=== PATIENT | female | born 1990 | race Caucasian/White ===

== ENCOUNTER 2022-03-21 13:57 | Outpatient (CLI) | payer MEDICAID, SELFPAY ==
--- OUTSIDE RECORDS SUMMARY | 2022-03-21 14:28 | XMS_ITS | Encounter Summary ---
:1990 Author Organization [facility] Address [address] [place] [address] Care Team Providers Name Role Phone Simone Glover APRN, C.N.P. Primary Care Provider Unavailable Reason for Referral Specialty Diagnoses / Procedures Referred By Contact Refer red To Contact Simone Glover APRN, C.N.P. [facility] Region [address] [place] [phone] Referral ID Status Reason Start Date Expiration Date Visits Requ ested Visits Authorized HSTANDER Encounter Details Date Type Department Care Team Description 03/29/2021 Orders Only [facility] Sim[facility] Glover APRN , C.N.P. Social History Tobacco Use Types Packs/Day Years Used Date Smoking Tobacco: Former Cigarettes Quit : 2015 Smokeless Tobacco: Never Alcohol Use Standard Drinks/Week Comments No 0 (1 standard drink = 0.6 oz pure alcoho l) Sex Assigned at Date Recorded Not on file documented as of this encounter Plan of Treatment Scheduled Referrals Name Type Priority Associated Order Schedule Diagnoses Covid immunization Outpatient Referral Routine Ex pected: office visit Booster 021 (Approximate), Expires: 03/29/2022 documented as of this encounter Visit Diagnoses Not on filedocumented in this encounter Additional Health Concerns Assessment Noted Time PHQ-9 Depression Total Score: 9 03/03/2016 11:54 AM CD T documented as of this encounter Care Teams Corporate Associate Attorney Relationship Specialty Start Date End Date Simone Glover APRN, C.N.P. PCP - General Family Medicine 12/31/20 12/15/21 documented as of this encounter
--- OUTSIDE RECORDS SUMMARY | 2022-03-21 14:28 | XMS_ITS | Clinical Summary ---
:1990 Author Organization [facility] Address [address] [place] [address] Care Team Providers Name Role Phone Funmi Alvarez APRN, C.N.P. Primary Care Provider Unavailable Source Comments Patient records contain information from all sites at [facility]. For routine questions regarding patient records, call [phone] during business hours, M-F 8:00 AM - 5:00 PM Central Time. Record requests for emergency care only can be directed to [phone] at any time.[facility] Allergies No known active allergies Medications Medication Sig Dispensed Refills Start Date End Date Status Take 1 tablet by 0 Act katherine [id number] 27 mouth daily. mg iron- 1 mg tablet triamcinolone Apply 1 application 80 g 0 12/27/2021 Active (KENALOG) 0.1 % topically 2 (two) ointment times a day as needed for irritation or rash. Apply to rash. 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 12/27/2021 Nurse Triage Family Medicine Alcira Linares Rash M.S.N., R.N. from Last 3 Months Immunizations Name Administration Dates Next Due 4vHPV (discontinued) 08/14/2008, 01/07/2007, 08/28/2006 DTaP (Infanrix, Tripedia) 07/30/1993, 12/30/1992, 11/30/1991 , 11/28/1990 HepB, Unspecified 10/19/2000, 12/29/1998, 06/02/1998 Influenza TIV (IM) 01/31/2012, 02/12/2009, 03/06/2006 Influenza, Seasonal, Injectable 01/31/2012, 02/12/2009, 1109/2005 Influenza, Unspecified 03/03/2016, 06/24/2013 MMR 11/30/1991, 11/28/1990 Polio, Unspecified 07/30/1993, 12/30/1992, 11/30/1991, 11/28/1990 Td (Adult), adsorbed 10/16/2002 Tdap 06/01/2018, 08/28/2006 ZOLTAN 12/31/1998 influenza vaccine quad 03/03/2016 (FLUZONE/FLUARIX) (6 months and older)(PF) Family History Medical History Relation Name Comments Diabetes Aunt maternal Alzheimer's disease Grandmother maternal Diabetes Grandmother maternal Diabetes Mother Diabetes Uncle maternal Relation Name Status Comments Aunt maternal Grandmother maternal Mother Uncle maternal Social History Tobacco Use Types Packs/Day Years Used Date Smoking Tobacco: Former Cigarettes Quit : 2015 Smokeless Tobacco: Never Tobacco Cessation: Counseling Given: Not Answered Alcohol Use Standard Drinks/Week Comments No 0 (1 standard drink = 0.6 oz pure alcoho l) Sex Assigned at Date Recorded Not on file Last Filed Vital Signs Vital Sign Reading Time Taken Comments Blood Pressure 116/79 12/27/2021 3:24 PM CDT Pulse 75 12/27/2021 3:24 PM CDT Temperature 36.4 ??C (97.6 ??F) 12/27/2021 3:24 PM CDT Respiratory Rate 16 06/19/2018 12:49 PM RESOLUTION MANAGER Oxygen Saturation 98% 04/14/2017 11:32 AM RESOLUTION MANAGER Inhaled Oxygen Concentration - - Weight 78.2 kg (172 lb 6.4 oz) 06/19/2018 12:49 PM RESOLUTION MANAGER Height 156 cm (5' 1.42) 06/19/2018 12:49 PM RESOLUTION MANAGER Body Mass Index 32.13 06/19/2018 12:49 PM RESOLUTION MANAGER Plan of Treatment Health Maintenance Due Date Last Done Comments Depression Monitoring 1990 (PHQ-9) COVID-19 Vaccine (3 - 11/19/2020 09/24/2020, 07/15/2020 Booster for Moderna series) Influenza Vaccine (#1) 2022 03/03/2016, 03/03/2016, 06/24/2013, Additional history exists Cervical Cancer Screening 09/13/2026 09/13/2021, 01/16/2018 , 01/16/2018, Additional history exists DTaP,Tdap,and Td Vaccines 06/01/2028 06/01/2018, 08/28/2006 , (7 - Td or Tdap) 10/16/2002, Additional history exists Hepatitis B Vaccines Completed 10/19/2000, 12/29/1998, 06/02/1998 HIV Screening Completed 09/06/2017, 02/13/2017 Pneumococcal vaccine (0-64 Aged Out No lo nger eligible years) based on patient 's age to complete this topic Medical Devices Implanted Type Area Construction Craft Laborer Device Shelf Model / Identifier Expiration Serial / Date Lot Gynecologic Other-07/28/2016 Gynecologic Uterus Implanted: 07/28/2016 (Quantity not on file) Other Description: mirena 52 mg Insurance Payer Benefit Plan Subscriber ID Effective Dates Phone Address Type / Group [facility] [id number] 2019-Prese [phone] [address] Medicaid HMO nt 5 [place] [address] [place] [phone] Allison Sosa Third Libertarian Self 1990 [address] [place] [employer] (Home) [place] [phone] Care Teams Care Taker Relationship Specialty Start Date End Date Funmi Alvarez APRN, C.N.P. PCP - General 12/16/21
--- OUTSIDE RECORDS SUMMARY | 2022-03-21 14:28 | XMS_ITS | Encounter Summary ---
:1990 Author Organization [facility] Address [address] [place] [address] Care Team Providers Name Role Phone Mayra Guerrero APRN, C.N.P. Primary Care Provider [phone] Reason for Visit Reason Comments Cough cough, runny nose, run down and exposure x 5 days Encounter Details Date Type Department Care Team Description 04/14/2017 Office Visit Urgent Care in [facility] P.A.-C. [address] [address] Infection Upper Respiratory Viral (Prima ry Dx); [place], [place] Margie Dolan P.A.-CSudarshan [address] [place] [phone] Frequency Urinary [address] [address] Social History Tobacco Use Types Packs/Day Years Used Date Smoking Tobacco: Former Smokeless Tobacco: Never Alcohol Use Standard Drinks/Week Comments No 0 (1 standard drink = 0.6 oz pure alcoho l) Sex Assigned at Date Recorded Not on file documented as of this encounter Last Filed Vital Signs Vital Sign Reading Time Taken Comments Blood Pressure 117/64 04/14/2017 11:32 AM MACHINE LEATHER TRIMMER Pulse 75 04/14/2017 11:32 AM MACHINE LEATHER TRIMMER Temperature 36.8 ??C (98.2 ??F) 04/14/2017 11:32 AM MACHINE LEATHER TRIMMER Respiratory Rate 16 04/14/2017 11:32 AM MACHINE LEATHER TRIMMER Oxygen Saturation 98% 04/14/2017 11:32 AM MACHINE LEATHER TRIMMER Inhaled Oxygen Concentration - - Weight - - Height - - Body Mass Index - - documented in this encounter Progress Notes Margie Bryson P.A.-C. - 04/14/2017 11:00 AM CST CHIEF COMPLAINT/REASON FOR VISIT Sore throat HISTORY OF PRESENT ILLNESS Allison Sosa is a 26 y.o. presents with sore throat and cough that is been present for 5 days. She also endorses sneezing with this. She denies any ear pain. She states she has a runny nose anddescribes is clear. She denies any fevers. She denies any wnsd-ptr-xccupuf treatments. She did statethat she has some urinary frequency and was recently treated for urinary infection is wondering if it has cleared up. She denies any burning or urgency. She does endorse having some mild stomach pain with this. She denies any nausea or vomiting. Current Outpatient Prescriptions: ??? levonorgestrel (MIRENA) 20 mcg/24 hr (5 years) IUD, 1 each by intrauterine route once., Disp: , Rfl: No Known Allergies PHYSICAL EXAMINATION Vitals: 04/14/17 1132 BP: 117/64 Pulse: 75 Resp: 16 Temp: 36.8 ??C SpO2: 98% GENERAL APPEARANCE: Well developed; well nourished female in no acute distress. ENT: Ears tympanic membrane clear without erythema bilaterally. Nose no rhinorrhea present. Throat oropharynx is clear. Sinuses nontender palpation. LYMPHADENOPATHY: None palpable RESPIRATORY: Clear to auscultation CARDIAC: Regular rate and rhythm ABDOMEN: Bowel sounds present all 4 quadrants. Nontender to palpation. Abdomen is soft nondistended. DIAGNOSTICS Urinalysis negative for infection. IMPRESSION/PLAN Upper Respiratory Infection viral acute. Explained to the patient will test her urine in color with results. When attempting to call the patient her number was disconnected. I therefore sent a letter will stating the results and recommend she follow up with her primary doctor. INE LEATHER TRIMMER documented in this encounter Plan of Treatment Not on filedocumented as of this encounter Procedures Procedure Name Priority Date/Time Associated Comments Diagnosis URINALYSIS WITH STAT 04/14/2017 12:11 Frequency Urinary Res ults for this MICROSCOPIC IF PM MACHINE LEATHER TRIMMER procedure are in INDICATED, U the results section. MICROSCOPIC AUTOMATED STAT 04/14/2017 12:11 Re sults for this PM MACHINE LEATHER TRIMMER procedure are i n the results section. documented in this encounter Results Microscopic Automated (04/14/2017 12:11 PM MACHINE LEATHER TRIMMER) Analysis Performed At Patho logist Time Signature White Blood None Seen /hpf 04/14/2017 [facility] Cells 12:30 PM [facility] Comment: ----REFERENCE VALUE---- Males: 0-3 Females: 0-10 Unknown: 0-10 Red Blood Cells Occ-2 0 - 2 /hpf 04/14/2017 12:30 PM MACHINE LEATHER TRIMMER [facility]- [facility] Squamous Cells Occ-3 /hpf 04/14/2017 12:30 PM MACHINE LEATHER TRIMMER [facility] Specimen Anatomical Collection Method Collection Time Receive d Time (Source) Location / / Volume Laterality Urine 04/14/2017 12:11 04/14/2017 PM MACHINE LEATHER TRIMMER 12:20 PM MACHINE LEATHER TRIMMER Margie Dolan P.A.-C. LAB URINE ORDERABLES Performing Organization Address City/State/ZIP Code Phon e Number [facility] [address] [place] [phone] LAB (ABNORMAL) Urinalysis with Microscopic if Indicated (04/14/2017 12:11 PM MACHINE LEATHER TRIMMER) P athologist Signature Source Midstream 04/14/2017 [facility] 12:30 PM [facility] Clarity Cloudy (A) Clear 04/14/2017 [facility] 12:30 PM [facility] Color Yellow 04/14/2017 [facility] 12:30 PM [facility] Comment: ----REFERENCE VALUE---- Colorless Yellow Christina Blood Negative Negative 04/14/2017 12:30 PM [facility] Nitrite Negative Negative 04/14/2017 12:30 PM [facility] Leukocyte Esterase Negative Negative 04/14/2017 12:30 PM [facility] Protein, U Negative mg/dL 04/14/2017 12:30 PM MACHINE LEATHER TRIMMER [facility] Comment: ----REFERENCE VALUE---- Negative Trace Glucose Negative Negative mg/dL 04/14/2017 12:30 PM [facility] Ketone Negative Negative mg/dL 04/14/2017 12:30 PM [facility] Bilirubin Negative Negative 04/14/2017 12:30 PM [facility] pH 6.5 5.0 - 8.0 04/14/2017 12:30 PM [facility] Specific [place] 1.022 1.001 - 1.035 04/14/2017 12:30 PM [facility] Urobilinogen 1.0 0.2 - 1.0 04/14/2017 12:30 PM [facility] Specimen Anatomical Collection Method Collection Time Receive d Time (Source) Location / / Volume Laterality Urine (Urine, 04/14/2017 12:11 04/14/2017 Clean Catch) PM MACHINE LEATHER TRIMMER 12:20 PM MACHINE LEATHER TRIMMER Margie Dolan P.A.-C. LAB URINE ORDERABLES Performing Organization Address City/State/ZIP Code Phon e Number [facility] [address] [place] [phone] LAB documented in this encounter Visit Diagnoses Diagnosis Infection Upper Respiratory Viral - Prim angie Frequency Urinary documented in this encounter Additional Health Concerns Assessment Noted Time PHQ-9 Depression Total Score: 9 03/03/2016 11:54 AM CD T documented as of this encounter Care Teams Photographer Apprentice Lithographic Relationship Specialty Start Date End Date Mayra Guerrero, LAUREN, C.N.P. PCP - General 10/13/16 12/30/202199 [address] [address] documented as of this encounter
--- OUTSIDE RECORDS SUMMARY | 2022-03-21 14:28 | XMS_ITS | Encounter Summary ---
:1990 Author Organization [facility] Address [address] [place] [address] Care Team Providers Name Role Phone Funmi Alvarez APRN, C.N.P. Primary Care Provider Unavailable Reason for Visit Reason Comments Rash began to have an itchy rash develop on her ankles about a week ago and it is spreading up her legs and is now just above her knees. The rash does not appear infected but it is it cecilia and burning. Some areas are flat and some are raised. None of the area s are blistering. Appointment Request (Routine) - Closed Specialty Diagnoses / Procedures Referred By Contact Refer red To Contact Family Medicine Referral ID Status Reason Start Date Expiration Date Visits Requ ested Visits Authorized [id number] Closed 12/27/2021 12/27/2022 1 1 Encounter Details Date Type Department Care Team Description 12/27/2021 Office Visit Department of [facility] Brijesh Paris Ra Leg (Primary Dx) Medicine, [place] Nicolette Carias, P .A. [facility], in [facility] [address] [place], [place] [address] [place], [place] [phone] [address] (Work) [phone] Social History Tobacco Use Types Packs/Day Years Used Date Smoking Tobacco: Former Cigarettes Quit : 2016 Smokeless Tobacco: Never Tobacco Cessation: Counseling Given: [...] ??F) 12/27/2021 3:24 PM CDT Respiratory Rate - - Oxygen Saturation - - Inhaled Oxygen Concentration - - Weight - - Height - - Body Mass Index - - documented in this encounter Progress Notes Brijesh Paris P.A.-Courtney, P.A. - 12/27/2021 3:30 PM CDT SUBJECTIVE CHIEF COMPLAINT / REASON FOR VISIT Allison Sosa is a 30 y.o. female who presents for evaluation of Rash ( began to have an itchy rash develop on her ankles about a week ago and it is spreading up her legs and is now just above her knees. The rash does not appear infected but it is itching and burning. Some areas are flat and some are raised. None of the areas are blistering. ). HISTORY OF PRESENT ILLNESS Patient is a pleasant well-appearing 30-year-old soon to be 31 years congratulated on her birthday presenting clinic today with concerns for rash and bumps on the lower extremities. About a week ago the patient was outside and a republican in a grassy and muddy area and subsequent day developed pruritic lesions on the ankles primarily. Small red raised bumps that have spread now up to the knees and a few just past the knees. Denies any exposures known. No new deodorants, soaps, shampoos, lotions other contact contaminants. No new pets, plans, animals. Questionable for 3-year-old son is developed similarlesions on the hands and head. Did observe the environment and bedding but did not notice any abnormal findings no fever or chills. No abdominal pain, nausea vomiting diarrhea. No treatments. The following portions of the patient's history were reviewed and updated as appropriate: allergies,current medications, family history, medical history, social history, surgical history, and problem list. REVIEW OF SYSTEMS All other systems reviewed and are negative. OBJECTIVE PHYSICAL EXAM Vitals and nursing note reviewed. Constitutional General: She is not in acute distress. Appearance: Normal appearance. She is not ill-appearing. HENT Head: Normocephalic and atraumatic. Right Ear: External ear normal. Left Ear: External ear normal. Eyes General: No scleral icterus. Conjunctiva/sclera: Conjunctivae normal. Cardiovascular Rate and Rhythm: Normal rate and regular rhythm. Heart sounds: Normal heart sounds. No murmur heard. No friction rub. No gallop. Pulmonary Effort: Pulmonary effort is normal. Breath sounds: Normal breath sounds. No wheezing, rhonchi or rales. Musculoskeletal Cervical back: Normal range of motion and neck supple. Lymphadenopathy Cervical: No cervical adenopathy. Skin General: Skin is warm and dry. Findings: Rash present. Rash is papular. Rash is not pustular or vesicular. Comments: Multiple raised red lesions less than 5 mm in diameter. Surrounding skin more white than typical. Neurological Mental Status: She is alert. ASSESSMENT / PLAN #1 Rash Leg Unclear etiology but do appear to be more insect or bug bites. Triamcinolone prescribed for itching and I did discussed proper use possible side effects. Discussed symptomatic care including calamine lotions as well as Epsom salt soaks and oatmeal bath. Shared follow-up recommendations well as red flags requiring emergent care. Questions answered. She voiced understanding and agrees this plan. Brijesh Paris P.A.-C., P.A. documented in this encounter Plan of Treatment Not on filedocumented as of this encounter Visit Diagnoses Diagnosis Rash Leg - Primary documented in this encounter Additional Health Concerns Assessment Noted Time PHQ-9 Depression Total Score: 9 03/03/2016 11:54 AM CD T documented as of this encounter Care Teams Winder Fixer Relationship Specialty Start Date End Date Funmi Alvarez APRN, C.N.P. PCP - General 12/16/21 documented as of this encounter
--- OUTSIDE RECORDS SUMMARY | 2022-03-21 14:28 | XMS_ITS | Encounter Summary ---
:1990 Author Organization [facility] Address [address] [place] [address] Care Team Providers Name Role Phone Adalberto Simone Alegria APRN, C.N.P. Primary Care Provider Unavailable Reason for Visit Reason Comments Conjunctivitis Encounter Details Date Type Department Care Team Description 08/11/2021 Nurse Triage Department of [facility] Ruthy Dickson, Conjunctivitis Medicine, [facility], in [facility] [address] [place], [place] [address] [facility] [address] [place] [address] [phone] Social History Tobacco Use Types Packs/Day Years Used Date Smoking Tobacco: Former Cigarettes Quit : 2015 Smokeless Tobacco: Never Alcohol Use Standard Drinks/Week Comments No 0 (1 standard drink = 0.6 oz pure alcoho l) Sex Assigned at Date Recorded Not on file documented as of this encounter Miscellaneous Notes Telephone Encounter - Ruthy Dickson, R.N. - 08/11/2021 9:30 AM CDT Chief Complaint / Reason for Call Patient is a 30 y.o. female calling regarding Conjunctivitis. Assessment Concern: Thinks she has pink eye. The white part of her left eye is all red. No drainage. She has a little runny nose. The eye looks a little inflamed on the outer edge Her son has been sick and she has been cleaning diarrhea and vomit. Present for: 1 day Home cares tried: none Calling to request: advice The recommended disposition is Home Care. Reason for Disposition ??? [1] Red eye AND [2] no blurred vision AND [3] minimal or no pain Protocols used: EYE - RED WITHOUT [id number] Care Advice Patient/Caregiver understands and will follow care advice?: Yes, able to teach back REASSURANCE AND EDUCATION: * You have told me that you have had no worsening of your vision and that there is no or only mild discomfort. This is reassuring. * One cause of minor eye redness is pink-eye (viral conjunctivitis). People with pinkeye may often note mild eye irritation and a water discharge. Often it affects both eyes. Colds can also cause a small amount of mucus to collect in the inner corner of the eye. It generally isn't serious. EYELID CLEANSING: * Cleanse your eyelids with warm water and a clean cotton ball at least every 2 hours while awake. * This usually will keep a bacterial infection from occurring. ARTIFICIAL TEARS: * Artificial tears often make red eyes feel better. Use 1 drop per eye three times a day. Use them after cleansing the eyelids. * Antibiotic and vasoconstrictor eyedrops do not help viral eye infections. REMOVE CONTACTS: * Remove your contact lenses; you need to switch to glasses temporarily. (Reason: to prevent damage to the cornea) * Disinfect the contacts before wearing them again (or discard them if disposable). CONTAGIOUSNESS: * Blue Sky-eye is contagious. * Try not to touch your eyes. * Wash your hands frequently. * Do not share towels. EXPECTED COURSE: * Pinkeye with a cold usually lasts about 7 days. CALL BACK IF: * Blurred vision occurs * Redness lasts over 7 days * You become worse. documented in this encounter Plan of Treatment Not on filedocumented as of this encounter Visit Diagnoses Not on filedocumented in this encounter Additional Health Concerns Assessment Noted Time PHQ-9 Depression Total Score: 9 03/03/2016 11:54 AM CD T documented as of this encounter Care Teams Necktie Centralizing Machine Operator Relationship Specialty Start Date End Date Simone Glover, LAUREN, C.N.P. PCP - General Family Medicine 12/31/20 12/15/21 documented as of this encounter
--- OUTSIDE RECORDS SUMMARY | 2022-03-21 14:28 | XMS_ITS | Encounter Summary ---
:1990 Author Organization [facility] Address [address] [place] [address] Care Team Providers Name Role Phone Mayar Guerrero APRN, C.N.P. Primary Care Provider [phone] Encounter Details Date Type Department Care Team Description 06/28/2018 Abstract [facility] FOR[facility] Johnson ea Provider, Historical [address] [place] [address] Social History Tobacco Use Types Packs/Day Years Used Date Smoking Tobacco: Former Cigarettes Quit : 2015 Smokeless Tobacco: Never Alcohol Use Standard Drinks/Week Comments No 0 (1 standard drink = 0.6 oz pure alcoho l) Sex Assigned at Date Recorded Not on file documented as of this encounter Plan of Treatment Not on filedocumented as of this encounter Procedures Procedure Name Priority Date/Time Associated Diagnosis Comme nts CBC WITH DIFFERENTIAL, Routine 06/14/2018 Resul ts for this B procedure are i n the results section . POCT INR Routine 06/14/2018 Results for thi s procedure are i n the results section . BASIC METABOLIC PANEL, Routine 06/14/2018 Resul ts for this S/P procedure are i n the results section . documented in this encounter Results Basic Metabolic Panel (06/14/2018) P athologist Signature Potassium, S 3.8 3.4 - 5.3 EXTERNAL NON-INTERFACED LAB Specimen (Source) Anatomical Location Collection Method / Collectio n Time Received Time / Laterality Volume Blood (Blood, Venous) Referring Provider External LAB BLOOD ADD-ON Performing Organization Address City/State/ZIP Code Phon e Number EXTERNAL NON-INTERFACED LAB [address] [place], [place] [address] (ABNORMAL) CBC with Differential, Blood (06/14/2018) Analysis Performed At Patho logist Time Signature Hemoglobin 11.9 (A) 12.0 - EXTERNAL 16.0 NON-INTERFACE D LAB Platelet Count 127 (A) 150 - 399 EXTERNAL NON-INTERFACE D LAB Auto WBC 9.1 3.3 - 10.0 EXTERNAL 10*3/mL NON-INTERFACE D LAB Specimen (Source) Anatomical Location Collection Method / Collectio n Time Received Time / Laterality Volume Blood (Blood, Venous) Referring Provider External LAB BLOOD ADD-ON Performing Organization Address [facility] [address]/[facility] Phon e Number EXTERNAL NON-INTERFACED LAB [address] [place], [place] [address] POCT INR (06/14/2018) P athologist Signature INR 1.1 0.90 - 1.10 EXTERNAL NON-INTERFACED LAB Specimen (Source) Anatomical Location Collection Method / Collectio n Time Received Time / Laterality Volume Blood (Blood, Venous) Referring Provider External LAB POCT ORDERABLES-MANUAL Performing Organization Address [facility] Phon e Number EXTERNAL NON-INTERFACED LAB [address] [place], [place] [address] documented in this encounter Visit Diagnoses Not on filedocumented in this encounter Additional Health Concerns Assessment Noted Time PHQ-9 Depression Total Score: 9 03/03/2016 11:54 AM CD T documented as of this encounter Care Teams Wrist Liner Relationship Specialty Start Date End Date Mayra Guerrero, LAUREN, C.N.P. PCP - General 10/13/16 12/30/[address] [phone] documented as of this encounter
--- OUTSIDE RECORDS SUMMARY | 2022-03-21 14:28 | XMS_ITS | Encounter Summary ---
:1990 Author Organization [facility] Address [address] [place] [address] Care Team Providers Name Role Phone Mayra Guerrero APRN, C.N.P. Primary Care Provider [phone] Encounter Details Date Type Department Care Team Description 11/17/2020 Orders Only [facility] PCP [facility] MNT Mayra Guerrero, Maci RIGGINS, C.N.P. [address] [place] [phone] (Wo rk) Social History Tobacco Use Types Packs/Day Years [...] documented as of this encounter Care Teams Multi Media Specialist Relationship Specialty Start Date End Date Mayra Guerrero APRN, C.N.P. PCP - General 10/13/16 12/30/20 [address] [place] [phone] documented as of this encounter
--- OUTSIDE RECORDS SUMMARY | 2022-03-21 14:28 | XMS_ITS | Encounter Summary ---
:1990 Author Organization [facility] Address [address] [place] [address] Care Team Providers Name Role Phone Mayra Guerrero APRN, C.N.P. Primary Care Provider [phone] Encounter Details Date Type Department Care Team Description 09/25/2019 Clinical Communication Department of [facility] Jami Guerrero, [facility] LAUREN, C.N.P. [facility], in [place], [address] [address] [place], [place] [phone] (Work) [phone] Social History Tobacco Use Types Packs/Day Years [...] documented as of this encounter Care Teams Director Physical Therapy Relationship Specialty Start Date End Date Mayra Guerrero APRN, C.N.P. PCP - General 10/13/16 12/30/[address] [place] [address] documented as of this encounter
--- OUTSIDE RECORDS SUMMARY | 2022-03-21 14:28 | XMS_ITS | Encounter Summary ---
:1990 Author Organization [facility] Address [address] [place] [address] Care Team Providers Name Role Phone Mayra Guerrero APRN, C.N.P. Primary Care Provider Reason for Visit Reason Comments Contraception remove iud Encounter Details Date Type Department Care Team Description 09/06/2017 Office Visit Department of Jacqueline Bryson Counseling Contraceptive Management (Primary Dx); Obstetrics and LAUREN Ortiz, C.N.PSudarshan Screening For Venereal Disease; Gynecology in [address] Preventive Gynecological Examination Lab oratory Test; [place], [place] Removal Of Intrauterine Cont raceptive Device [address] [address] [place], [place] [phone] [address] (Work) [phone] Social History Tobacco Use Types Packs/Day Years Used Date Smoking Tobacco: Former Cigarettes Quit : 2015 Smokeless Tobacco: Never Alcohol Use Standard Drinks/Week Comments No 0 (1 standard drink = 0.6 oz pure alcoho l) Sex Assigned at Date Recorded Not on file documented as of this encounter Last Filed Vital Signs Vital Sign Reading Time Taken Comments Blood Pressure 106/64 09/06/2017 8:26 AM CDT Pulse - - Temperature - - Respiratory Rate - - Oxygen Saturation - - Inhaled Oxygen Concentration - - Weight 62.6 kg (138 lb 1.9 oz) 09/06/2017 8:26 AM CDT Height - - Body Mass Index 25.42 02/13/2017 2:39 PM CDT documented in this encounter Procedure Notes Jacqueline Bryson APRN, C.N.P. - 09/06/2017 8:30 AM CDTAssociated Order(s): INTRAUTERINE DEVICE (IUD) - REMOVAL Post-Procedure Diagnose(s): Removal Of Intrauterine Contraceptive Device IUD Removal Date/Time: 09/06/2017 10:33 AM Performed by: Jacqueline Bryson Authorized by: Jacqueline Bryson Care team members present: Alex Reed Consent: Consent obtained: Verbal Consent given by: Patient The benefits, risks and alternatives to the procedure and the potential need for sedation or anesthesia as well as the names, roles, and responsibilities of healthcare team members performing significant interventional tasks were discussed with the patient and/or decision maker.: yes [facility] protocol: All relevant documentation and testing were reviewed and available. All required blood products, implants, devices and/or special equipment were made available as applicable. The pre-procedure verification was conducted, the correct site was marked if required, and the procedural time out was conducted prior to performing the procedure and confirmed in a procedural pause.: yes Pre-procedure details: Assessment - reasonably exclude based on: PREG criteria Indications: Changing to another contraception Sedation/Anesthesia (see MAR for exact dosages): Anesthesia method: None Procedure details: Procedure: Removal Pelvic exam performed: yes Strings visible: yes IUD removed intact: yes IUD shown to patient prior to disposable: yes Post-procedure details: Procedure completed successfully: yes Complications: no apparent complications Comments: Allison is a 26-year-old para 2-0-0-2 female who had her Kathia IUD placed on 07/28/2016. Prior to this she had a Mirena IUD in place for 5 years. She did not like being amenorrheic, therefore switched to the Kathia IUD. She is not experiencing periods with the Kathia IUD and does not like that. She is int erested in having the Kathia IUD removed today. She also notes that she is interested in becoming in the next 12 months. She would like to use the control pill for contraception until sheand her partner decide that they are ready to become . Patient is also requesting full panel STD testing today. She does have history of chlamydia diagnosed in 2013, for which she was treated. She has noticed some increased vaginal discharge that is white in color. She has also had some increased abdominal pain and cramping. She also states that her mom was recently diagnosed with diabetes. She is fasting this morning and is requesting lab work be performed to rule out diabetes. It does appear that she is due for her preventative health care lab work. IMPRESSION/REPORT/PLAN #1 Screening For Venereal Disease I will plan to call her at [phone] with her results and we will treat accordingly. #2 Preventive Gynecological Examination Laboratory Test I will call her with her results at this number noted above. #3 Removal Of Intrauterine Contraceptive Device Kathia IUD was successfully removed today without any complications. Post removal instructions were discussed in detail. She will contact me if she has any concerns or problems in this regard. #4 Counseling Contraceptive Management She would like to proceed with the oral contraceptive pill. Prescription was sent to her pharmacy and instructions were discussed in detail. She will start today or tomorrow. She will refrain from intercourse for 1 week. When she decides to discontinue her control pill, she will start a prenatalvitamin, as she is planning at some point in the next year. At this point she does not have any additional concerns or questions and is agreeable to this plan of care. SUPPLY CHAIN LOGISTICS MANAGER documented in this encounter Plan of Treatment Not on filedocumented as of this encounter Procedures Procedure Name Priority Date/Time Associated Diagnosis Comme nts VAGINITIS PANEL Routine 09/06/2017 10:28 Screening For Results for this AM CDT Venereal Disease procedure a re in the results section. LIPID PANEL, S Routine 09/06/2017 9:38 Preventive Results fo r this AM CDT Gynecological procedure are in Examination the results Laboratory Test section. SYPHILIS TOTAL AB W/ Routine 09/06/2017 9:38 Screening For Res ults for this REFLEX S AM CDT Venereal Disease procedure a re in the results section. HSV TYPES 1 AND 2 AB Routine 09/06/2017 9:38 Screening For Res ults for this AM CDT Venereal Disease procedure a re in the results section. HIV-1/-2 AG AND AB Routine 09/06/2017 9:38 Screening For Resul ts for this SCREEN AM CDT Venereal Disease procedure a re in the results section. HCV AB W/REFLEX TO Routine 09/06/2017 9:38 Screening For Resul ts for this HCV PCR, S AM CDT Venereal Disease procedure a re in the results section. CBC WITHOUT Routine 09/06/2017 9:38 Preventive Results for this DIFFERENTIAL, B AM CDT Gynecological procedure a re in Examination the results Laboratory Test section. THYROID-STIMULATING Routine 09/06/2017 9:38 Preventive Resul ts for this HORMONE-SENSITIVE AM CDT Gynecological procedure are in (S-TSH) Examination the results Laboratory Test section. GLUCOSE, FASTING, S/P Routine 09/06/2017 9:38 Preventive Res ults for this AM CDT Gynecological procedure are in Examination the results Laboratory Test section. CHLAMYDIA/GONORRHOEAE Routine 09/06/2017 9:04 Screening For Re sults for this AMPLIFIED RNA AM CDT Venereal Disease procedure are in the results section. INTRAUTERINE DEVICE Routine 09/06/2017 8:30 Removal Of Resul ts for this (IUD) - REMOVAL AM CDT Intrauterine procedure ar e in Contraceptive Device the res ults section. documented in this encounter Results Vaginitis Panel (09/06/2017 10:28 AM CDT) Patholo gist Method Time Signature Mckenna species, Negative Negative 09/06/2017 [facility] DNA 11:12 AM CDT [facility] Gardnerella Negative Negative 09/06/2017 [facility] vaginalis, DNA 11:12 AM CDT [facility] Trichomonas Negative Negative 09/06/2017 [facility] vaginalis, DNA 11:12 AM CDT [facility] Specimen Anatomical Collection Method Collection Time Receive d Time (Source) Location / / Volume Laterality Swab (Vagina) 09/06/2017 10:28 09/06/2017 AM CDT 10:28 AM CDT Jacqueline Bryson APRN, C.N.P. LAB MICROBIOLOGY - GENE RAL ORDERABLES Performing Organization Address City/State/ZIP Code Phon e Number [facility] [address] [place] [address] [facility]- [address] [place], [place] [address] HCV Ab w/Reflex to HCV PCR, Serum (09/06/2017 9:38 AM CDT) P athologist Signature HCV Ab, S Negative Negative 09/07/2017 [facility] 8:12 AM CDT [facility] Comment: Xahlwd-er-kcznng ratio is <1.00 . Specimen Anatomical Collection Method Collection Time Receive d Time (Source) Location / / Volume Laterality Blood (Blood, 09/06/2017 9:38 AM 09/08/19 18 7:00 Venous) CDT AM CDT Adan Mansfield APRN.N.P. LAB MICROBIOLOGY - BLOO D ORDERABLES Performing Organization Address City/[facility]/ZIP Code Phon e Number [facility] [address] [place], [place] [address] [facility] Syphilis IgG Antibody with Reflex (09/06/2017 9:38 AM CDT) athologist Signature Syphilis IgG Negative Negative 09/07/2017 [facility] Ab, S 2:37 PM CDT [facility] Comment: No serologic evidence of exposu re to syphilis. Specimen Anatomical Collection Method Collection Time Receive d Time (Source) Location / / Volume Laterality Blood (Blood, 09/06/2017 9:38 AM 09/08/19 18 1:01 Venous) CDT PM CDT Adan Mansfield APRN.N.P. LAB BLOOD ADD-ON Performing Organization Address City/[facility]/ZIP Code Phon e Number [facility]- [address] [place] [phone] [facility] HSV Types 1 and 2 Ab (09/06/2017 9:38 AM CDT) athologist Signature HSV Type 1 Ab, Positive Negative 09/07/2017 [facility] IgG, S 2:37 PM CDT [facility] HSV Type 2 Ab, Negative Negative 09/07/2017 [facility] IgG, S 2:37 PM CDT [facility] HSV Ab Screen, Negative Negative 09/07/2017 [facility] IgM, S by EIA 1:31 PM CDT [facility] Comment: ----ADDITIONAL INFORMATION---- This test has been modified from the man ufacturer's instructions. Its performance characteri stics were determined by [facility] in a manner co nsistent with CLIA requirements. This test has not bee n cleared or approved by the U.S. Food and Drug Admin istration. Specimen Anatomical Collection Method Collection Time Receive d Time (Source) Location / / Volume Laterality Blood (Blood, 09/06/2017 9:38 AM 09/08/19 18 1:01 Venous) CDT PM CDT Adan Mansfield APRN.N.P. LAB MICROBIOLOGY - BLOO D ORDERABLES Performing Organization Address [facility]/ZIP [facility] Phon e Number [facility] [address] [address] [place], [place] [phone] [facility]- [address] [place] [phone] HIV-1/-2 Ag and Ab Screen (09/06/2017 9:38 AM CDT) Analysis Performed At Patho logist Time Signature HIV-1/-2 Ag Non-Reacti Non-Reacti 09/07/2017 [facility] and Ab Screen, ve ve 2:37 PM CDT [facility] HIV-1 Ab, S Non-Reacti Non-Reacti 09/07/2017 [facility] ve ve 2:37 PM CDT [facility] HIV-1 Ag, S Non-Reacti Non-Reacti 09/07/2017 [facility] ve ve 2:37 PM CDT [facility] HIV-2 Ab, S Non-Reacti Non-Reacti 09/07/2017 [facility] ve ve 2:37 PM CDT [facility] Specimen Anatomical Collection Method Collection Time Receive d Time (Source) Location / / Volume Laterality Blood (Blood, 09/06/2017 9:38 AM 09/08/19 18 1:02 Venous) CDT PM CDT Jacqueline Bryson APRN, Adan.N.P. LAB MICROBIOLOGY - BLOO D ORDERABLES Performing Organization Address [facility] Code Phon e Number [facility]- [address] [place] [phone] [facility] Glucose, Fasting (09/06/2017 9:38 AM CDT) P athologist Signature Glucose, 84 70 - 99 09/06/2017 [facility] Fasting, S mg/dL 11:23 AM CDT [facility] Specimen Anatomical Collection Method Collection Time Receive d Time (Source) Location / / Volume Laterality Blood (Blood, 09/06/2017 9:38 AM 09/07/19 18 Venous) CDT 10:49 AM CDT Jacqueline Bryson APRN, C.N.P. LAB BLOOD NON ADD-ON Performing Organization Address City/State/ZIP Code Phon e Number [facility] [address] [facility] [place] [address] LAB CBC without Differential (09/06/2017 9:38 AM CDT) P athologist Signature Hemoglobin 14.0 11.6 - 09/06/2017 [facility] 15.0 g/dL 10:06 AM T [facility] Hematocrit 39.9 35.5 - 09/06/2017 [facility] 44.9 % 10:06 AM T [facility] Erythrocytes 4.24 3.92 - 09/06/2017 [facility] 5.13 10:06 AM T [facility] x10(12)/L [facility] MCV 94.1 78.2 - 09/06/2017 [facility] 97.9 fL 10:06 AM T [facility] RBC Distrib Width 12.5 12.2 - 09/06/2017 [facility] 16.1 % 10:06 AM [facility] Platelet Count 184 157 - 371 09/06/2017 [facility] x10(9)/L 10:06 AM T [facility] Leukocytes 6.6 3.4 - 9.6 09/06/2017 [facility] x10(9)/L 10:06 AM [facility] Specimen Anatomical Collection Method Collection Time Receive d Time (Source) Location / / Volume Laterality Blood (Blood, 09/06/2017 9:38 AM 09/07/19 18 9:59 Venous) CDT AM CDT Jacqueline Bryson APRN, C.N.P. LAB BLOOD ADD-ON Performing Organization Address City/State/ZIP Code Phon e Number [facility]- [address] [facility] [place] [address] [facility] [address] [place] [phone] [place], [place] [address] S-TSH (Thyroid-Stimulating Hormone - Sensitive) (09/06/2017 9:38 AM CDT) athologist Signature TSH, Sensitive 1.3 0.3 - 4.2 09/06/2017 [facility] mIU/L 11:23 AM CDT [facility] 8x8 [facility] Comment: Biotin has been identified by the devyn miles as a potential interfering substance. ??Higher concentr ations of biotin may be found in multivitamins, hair/nail supple ments, and workout supplements. ??If the result does not ma [facility] clinical observations, repeat testing after patient refrains fr om the use of supplements for at least 12 hours. Specimen Anatomical Collection Method Collection Time Receive d Time (Source) Location / / Volume Laterality Blood (Blood, 09/06/2017 9:38 AM 09/07/19 18 Venous) CDT 10:49 AM CDT Jacqueline Bryson APRN C.NSudarshanP. LAB BLOOD ADD-ON Performing Organization Address City/State/ZIP Code Phon e Number [facility] [address] [place] [phone] LAB Lipid Panel (09/06/2017 9:38 AM CDT) athologist Signature Cholesterol, 156 mg/dL 09/06/2017 [facility] Total 11:23 AM CDT [facility] Comment: ----REFERENCE VALUE---- Desirable: < 200 Borderline high: 200 - 239 High: > or = 240 Triglycerides 60 mg/dL 09/06/2017 11:23 AM CDT [facility] Comment: ----REFERENCE VALUE---- Normal: <150 Borderline high: 150-199 High: 200-499 Very high: > or =500 Cholesterol, HDL, S 78 >=50 mg/dL 09/06/2017 11:23 AM CDT [facility]x8 [facility] Calculated LDL 66 mg/dL 09/06/2017 11:23 AM CDT [facility] Comment: ----REFERENCE VALUE---- Desirable: <100 Above Desirable: 100-129 Borderline high: 130-159 High: 160-189 Very high: > or =190 Cholesterol, Non-HDL, 78 mg/dL 09/06/2017 11:23 A M CDT [facility] Comment: ----REFERENCE VALUE---- Desirable: <130 Above Desirable: 130-159 Borderline high: 160-189 High: 190-219 Very high: > or =220 Specimen Anatomical Collection Method Collection Time Receive d Time (Source) Location / / Volume Laterality Blood (Blood, 09/06/2017 9:38 AM 09/07/19 18 Venous) CDT 10:49 AM CDT Jacqueline Bryson APRN, C.N.P. LAB BLOOD ADD-ON Performing Organization Address City/[facility]/ZIP Code Phon e Number [facility] [address] [place] [phone] LAB Chlamydia / gonorrhoeae Amplified RNA (09/06/2017 9:04 AM CDT) [facility] Method Time Signature Source VAGINA 09/07/2017 [facility] 10:58 AM CDT [facility] Chlamydia Negative Negative 09/07/2017 [facility] trachomatis 10:58 AM CDT [facility] RNA [facility] Comment: ----ADDITIONAL INFORMATION---- This report is intended for use in clini berenice monitoring and management of patients. It is not in tended for use in medical-legal applications. Source VAGINA 09/07/2017 10:58 AM [facility] CDT [facility] Neisseria gonorrhoeae Negative Negative 09/07/2017 10:58 A [facility] amplified RNA CDT [facility] Comment: ----ADDITIONAL INFORMATION---- This report is intended for use in clini berenice monitoring and management of patients. It is not in tended for use in medical-legal applications. Specimen Anatomical Collection Method Collection Time Receive d Time (Source) Location / / Volume Laterality Varies (Vagina) 09/06/2017 9:04 AM 2017 CDT 11:15 PM CDT Jacqueline Bryson APRN, C.N.P. LAB MICROBIOLOGY - GENE RAL ORDERABLES Performing Organization Address City/[facility]/ZIP Code Phon e Number [facility] [address] [place] [address] LAB Intrauterine device (IUD) - removal (09/06/2017 8:30 AM CDT) Narrative [facility] - 09/06/2017 8:30 AM CDT Jacqueline Bryson APRN, C.N.P. ? 09/06/2017 10:40 AM IUD Removal Date/Time: 09/06/2017 10:33 AM Performed by: Jacqueline Bryson Authorized by: Jacqueline Bryson Care team members present: ??Alex Reed Consent: ??Consent obtained: ??Verbal ??Consent given by: ??Patient ??The benefits, risks and alternatives to the procedure and the potential need for sedation or anesthesia as well as the names, roles, and responsibilities of healthcare team memb ers performing significant interventional tasks were discussed with the patient and/or decision maker.: yes ?? [facility] protocol: ??All relevant documentation and testin g were reviewed and available. All required blood products, implants, devic es and/or special equipment were made available as applicable. The pre-pr ocedure verification was conducted, the correct site was marked i f required, and the procedural time out was conducted prior to performi ng the procedure and confirmed in a procedural pause.: yes ?? Pre-procedure details: ?? Assessment - reas onably exclude based on: ??PREG criteria ??Indications: ??Changing to another co ntraception Sedation/Anesthesia (see MAR for exact d osages): ??Anesthesia method: ??None Procedure details: ??Procedure: ??Removal ??Pelvic exam performed: yes ?Strings visible: yes ?IUD removed intact: yes ?IUD shown to patient prior to disposa ble: yes ?? Post-procedure details: ??Procedure completed successfully: yes ?Complications: no apparent complicati ons ?? Comments: ?? Allison is a 26-year-old para 2-0-0-2 female who had her Kathia IUD placed on 07/28/2016. ??Prior to this she had a Mirena IUD in place for 5 years. ?? She did not like being amenorrheic, ther efore switched to the Kathia IUD. ?? She is not experiencing periods with the Kathia IUD and does not like that. She is interested in having the Kathia I UD removed today. ??She also notes that she is interested in becoming pregn ant in the next 12 months. ??She would like to use the control pill for contraception until she and her partner decide that they are ready t o become . Patient is also requesting full panel ST D testing today. ??She does have history of chlamydia diagnosed in 2013, for which she was treated. ??She has noticed some increased vaginal disch arge that is white in color. ??She has also had some increased abdominal pa in and cramping. She also states that her mom was recentl y diagnosed with diabetes. ??She is fasting this morning and is requesting l ab work be performed to rule out diabetes. ??It does appear that she is d ue for her preventative health care lab work. IMPRESSION/REPORT/PLAN #1 Screening For Venereal Disease I will plan to call her at [phone] with her results and we will treat accordingly. #2 Preventive Gynecological Examination Laboratory Test I will call her with her results at this number noted above. #3 Removal Of Intrauterine Contraceptive Device Kathia IUD was successfully removed today without any complications. ??Post removal instructions were discussed in d etail. ??She will contact me if she has any concerns or problems in this reg yoni. #4 Counseling Contraceptive Management She would like to proceed with the oral contraceptive pill. ??Prescription was sent to her pharmacy and instruction s were discussed in detail. ??She will start today or tomorrow. ??She will refrain from intercourse for 1 week. ??When she decides to discontinue her control pill, she will start a vitamin, as she is plan galina at some point in the next year. ??At this point she does not have any additional concerns or questions and is agreeable to this plan of care. ?? Jacqueline Bryson APRN, C.N.P. OB GYNE ORDERABLES Performing Organization Address City/State/ZIP Code Phon e Number [facility] NA documented in this encounter Visit Diagnoses Diagnosis Counseling Contraceptive Management - Pr imary Screening For Venereal Disease Preventive Gynecological Examination Lab oratory Test Removal Of Intrauterine Contraceptive De vice documented in this encounter Additional Health Concerns Assessment Noted Time PHQ-9 Depression Total Score: 9 03/03/2016 11:54 AM CD T documented as of this encounter Care Teams Build Automation Engineer Relationship Specialty Start Date End Date Mayra Guerrero, LAUREN, C.N.P. PCP - General 10/13/16 12/30/20 [address], [place] [address] documented as of this encounter
--- OUTSIDE RECORDS SUMMARY | 2022-03-21 14:28 | XMS_ITS | Encounter Summary ---
:1990 Author Organization [facility] Address [address] [place] [address] Care Team Providers Name Role Phone Mayra Guerrero APRN, C.N.P. Primary Care Provider [phone] Reason for Visit Reason Comments Results COVID-19 Negative Encounter Details Date Type Department Care Team Description 09/25/2019 Clinical Communication Department of Mayra Guerrero Res (COVID-19 Family MedicineDiana APRN, Negative) [facility], C.N.P. in [facility] [address] [phone] Social History Tobacco Use Types Packs/Day Years Used Date Smoking Tobacco: Former Cigarettes Quit : 2015 Smokeless Tobacco: Never Alcohol Use Standard Drinks/Week Comments No 0 (1 standard drink = 0.6 oz pure alcoho l) Sex Assigned at Date Recorded Not on file documented as of this encounter Miscellaneous Notes Telephone Encounter - Jory Roche - 09/25/2019 8:18 AM CDT Communicated negative COVID 19 results to patient. Telephone Encounter - Delisa Reed - 09/25/2019 8:17 AM CDT Left message for patient to call back regarding negative COVID-19 result. Please communicate the result to the patient. Thank you. documented in this encounter Plan of Treatment Not on filedocumented as of this encounter Visit Diagnoses Not on filedocumented in this encounter Additional Health Concerns Assessment Noted Time PHQ-9 Depression Total Score: 9 03/03/2016 11:54 AM CD T documented as of this encounter Care Teams Control Chemist Relationship Specialty Start Date End Date Mayra Guerrero, DOUBLE CUT OFF SAW OPERATOR, C.N.P. PCP - General 10/13/16 12/30/20 [address] [address] documented as of this encounter
--- OUTSIDE RECORDS SUMMARY | 2022-03-21 14:28 | XMS_ITS | Encounter Summary ---
:1990 Author Organization [facility] Address [address] [place] [address] Care Team Providers Name Role Phone Mayra Guerrero APRN, C.N.P. Primary Care Provider [phone] Encounter Details Date Type Department Care Team Description 07/31/2020 Orders Only [facility] PCP [facility] Sa vida Mireles M.D. [address] [place], [place] [phone] (Wo rk) Social History Tobacco Use Types [...] documented as of this encounter Care Teams Landscape Account Manager Relationship Specialty Start Date End Date Mayra Guerrero APRN, C.N.P. PCP - General 10/13/16 12/30/20 [address] [place] [address] documented as of this encounter
--- OUTSIDE RECORDS SUMMARY | 2022-03-21 14:28 | XMS_ITS | Encounter Summary ---
:1990 Author Organization [facility] Address [address] [place] [address] Care Team Providers Name Role Phone Funmi Alvarez APRN, C.N.P. Primary Care Provider Unavailable Reason for Visit Reason Comments Rash Encounter Details Date Type Department Care Team Description 12/27/2021 Nurse Triage Department of [facility] Alcira Linares, Rash Medicine, [facility], M.S. N., R.N. in [facility] [address] [place] [phone] [phone] Social History Tobacco Use Types Packs/Day Years Used Date Smoking Tobacco: Former Cigarettes Quit : 2015 Smokeless Tobacco: Never Alcohol Use Standard Drinks/Week Comments No 0 (1 standard drink = 0.6 oz pure alcoho l) Sex Assigned at Date Recorded Not on file documented as of this encounter Miscellaneous Notes Telephone Encounter - Alcira Linares MSudarshanS.N., R.N. - 12/27/2021 11:03 AM CDT Chief Complaint / Reason for Call Patient is a 30 y.o. female calling regarding Rash. Assessment Concern: The patient began to have an itchy rash develop on her ankles about a week ago and it is spreading up her legs and is now just above her knees. The rash does not appear infected but it is itching and burning. Some areas are flat and some are raised. None of the areas are blistering. She is not running a fever or feeling ill otherwise. Present for: 1 week Home cares tried: None Calling to request: Appointment The recommended disposition is See a health care provider within 3 days. Patient was warm transferred to scheduling at the clinic for further assistance. Reason for Disposition Localized rash present > 7 days Protocols used: Rash or Redness - Plrhfnqrq-[id number] Care Advice Patient/Caregiver understands and will follow care advice?: Yes, able to teach back HYDROCORTISONE CREAM FOR ITCHING: * You can use hydrocortisone for very itchy spots. * Put 1% hydrocortisone cream on the itchy area(s) 3 times a day. Use it for a couple days, until itfeels better. This will help decrease the itching. * This is an ljma-imw-nhiheqx (OTC) drug. You can buy it at the drugstore. * Some people like to keep the cream in the refrigerator. It feels even better if the cream is used when it is cold. * CAUTION: Do not use hydrocortisone cream for more than 1 week without talking to your doctor. * CAUTION: Do not use if the cause is ringworm, impetigo, Jock Itch, or Athlete's Foot. * Read the instructions and warnings on the package insert for all medicines you take. AVOID THE CAUSE: * Try to find the cause. * Consider irritants like a plant (e.g., evergreens), chemicals (e.g., solvents or insecticides), fiberglass, or a new cosmetic. * Consider allergic substances (contact dermatitis) from poison louis, medical tape (e.g., adhesives),or new jewelry (nickel). * Pets can carry allergic substances into your home caught in their fur (e.g., poison louis or poison oak). CALL BACK IF: * Rash becomes worse. CARE ADVICE given per Rash - Localized and Cause Unknown (Adult) guideline. documented in this encounter Plan of Treatment Not on filedocumented as of this encounter Visit Diagnoses Not on filedocumented in this encounter Additional Health Concerns Assessment Noted Time PHQ-9 Depression Total Score: 9 03/03/2016 11:54 AM CD T documented as of this encounter Care Teams Document Review Specialist Relationship Specialty Start Date End Date Funmi Alvarez APRN, C.N.P. PCP - General 12/16/21 documented as of this encounter
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
--- OUTSIDE RECORDS SUMMARY | 2022-03-21 14:28 | XMS_ITS | Encounter Summary ---
:1990 Author Organization [facility] Address [address] [place] [address] Care Team Providers Name Role Phone Mayra Guerrero APRN, C.N.P. Primary Care Provider [phone] Reason for Visit Reason Onset Date Comments Outpatient COVID-19 Testing 09/23/2019 Encounter Details Date Type Department Care Team Description 09/23/2019 External Outreach Department of [facility] Infect ion Upper Internal Medicine in [facility] (Primary [place], [place] [address]) [address] [place] [address] Social History Tobacco Use Types Packs/Day Years Used Date Smoking Tobacco: Former Cigarettes Quit : 2015 Smokeless Tobacco: Never Alcohol Use Standard Drinks/Week Comments No 0 (1 standard drink = 0.6 oz pure alcoho l) Sex Assigned at Date Recorded Not on file documented as of this encounter Progress Notes Susanne Coker RSudarshanN. - 09/23/2019 5:04 PM CDT Encounter created for the drive-through COVID-19 testing. documented in this encounter Plan of Treatment Not on filedocumented as of this encounter Procedures Procedure Name Priority Date/Time Associated Diagnosis Comme nts SARS CORONAVIRUS-2, Routine 09/23/2019 5:05 PM Infection Upper Results for this PCR CDT Respiratory procedure are i n the results section. documented in this encounter Results SARS Coronavirus-2, PCR Symptomatic (09/23/2019 5:05 PM CDT) [facility] Method Time Signature SARS Swab, 09/24/2019 DTL Coronavirus-2 Nasopharynx 8:03 PM CDT Source SARS Undetected Undetected 09/24/2019 [facility] Coronavirus-2 8:03 PM CDT , PCR Comment: SARS-CoV-2 RNA absent. This result does not rule out COVID-19 in the patient, as the sensitivity of the test depends o n the timing of the specimen collection and quality of the specimen. Result should be correlated with patient's history and clinical presentat ion. ----ADDITIONAL INFORMATION---- This test was developed and its performa nce characteristics determined by [facility] in a manner co nsistent with CLIA requirements. Independent review by the U.S. Food and Drug Administration is pending. Visit the CDC website: https://www.cdc.gov/coronavirus/ ?? for the most recent guidelines on Anders virus testing. Fact Sheet for Healthcare Providers: (https://www.Antavo/it-mmfil es/ Provider_Fact_Sheet_for_[facility]_COVI D-19.pdf) Fact Sheet for Patients: (https://www.Cognea.BookFresh/it-mmfil es/ Patient_Fact_Sheet_for_COVID-19.pdf) Specimen Anatomical Collection Method Collection Time Receive d Time (Source) Location / / Volume Laterality Varies 09/23/2019 5:05 PM 0 (Nasopharynx) CDT 11:52 AM CDT [facility] D.O. LAB MICROBIOLOGY - GENERAL O RDERABLES Performing Organization Address City/State/ZIP Code Phon e Number [facility] - [address] [place], [place] [address] [facility] [place] [address] [facility] [address] documented in this encounter Visit Diagnoses Diagnosis Infection Upper Respiratory - Primary documented in this encounter Additional Health Concerns Infection Onset Date Last Indicated Resolved Time COVID19 Pending 09/23/2019 09/23/2019 09/24/2019 8:04 PM CDT Assessment Noted Time PHQ-9 Depression Total Score: 9 03/03/2016 11:54 AM CD T documented as of this encounter Care Teams Side Laster Tack Relationship Specialty Start Date End Date Mayra Guerrero, LAUREN, C.N.P. PCP - General 10/13/16 12/30/20 [address], [place] [address] documented as of this encounter
--- OUTSIDE RECORDS SUMMARY | 2022-03-21 14:29 | XMS_ITS | Encounter Summary ---
:1990 Author Organization [facility] Address [address] [place] [address] Care Team Providers Name Role Phone Mayra Guerrero APRN, C.N.P. Primary Care Provider [phone] Reason for Visit Reason Comments Urinary Tract Infection past 2 weeks, urinary freque ncy/urgency/burning while urinating Appointment Request (Routine) - Closed Specialty Diagnoses / Procedures Referred By Contact Refer red To Contact Family Medicine Referral ID Status Reason Start Date Expiration Date Visits Requ ested Visits Authorized [id number] Closed 03/29/2017 09/25/2017 1 1 Encounter Details Date Type Department Care Team Description 03/30/2017 Office Visit Department of Family Severiano Schmitt Dysuri a (Primary Dx); MedicineBo M.D. Infection Urinary Tract Acute Clinic, in [address] [address] [place], [place] [phone] (Work) [phone] Social History Tobacco Use Types Packs/Day Years Used Date Smoking Tobacco: Former Smokeless Tobacco: Never Alcohol Use Standard Drinks/Week Comments No 0 (1 standard drink = 0.6 oz pure alcoho l) Sex Assigned at Date Recorded Not on file documented as of this encounter Last Filed Vital Signs Vital Sign Reading Time Taken Comments Blood Pressure 114/70 03/30/2017 2:38 PM CRIMINAL INVESTIGATOR Pulse 72 03/30/2017 2:38 PM CRIMINAL INVESTIGATOR Temperature 36.8 ??C (98.2 ??F) 03/30/2017 2:38 PM CRIMINAL INVESTIGATOR Respiratory Rate - - Oxygen Saturation - - Inhaled Oxygen Concentration - - Weight 62.5 kg (137 lb 12.6 oz) 03/30/2017 2:38 PM CRIMINAL INVESTIGATOR Height - - Body Mass Index 25.36 02/13/2017 2:39 PM CDT documented in this encounter Patient Instructions Patient InstructionsSeveriano Schmitt M.D. - 03/30/2017 2:30 PM CST 1. Dysuria: unclear etiology. UTI vs vaginitis vs kidney stone -Drink plenty fluids. -Will call you with results. - Urinalysis with Microscopic if Indicated - Bacterial Culture, Aerobic + Susc, Urine Urine, Midstream - Vaginitis Panel Vagina - Chlamydia / gonorrhoeae Amplified RNA Vagina INAL INVESTIGATOR documented in this encounter Progress Notes Severiano Schmitt M.D. - 03/30/2017 2:30 PM CST [facility] [place] [place] Chief Complaint Chief Complaint Patient presents with ??? Urinary Tract Infection past 2 weeks, urinary frequency/urgency/burning while urinating HPI HPI URINARY TRACT SYMPTOMS Onset: for the past one week. Description: Painful urination (Dysuria): yes Frequent urination: yes Need to urinate urgently: yes Blood in urine (Hematuria):no Delay in urine (Hesitency): yes Intensity: severe Progression of Symptoms: worsening Accompanying Signs Symptoms: Fever/chills: no Flank pain yes Nausea and vomiting: no Any vaginal symptoms: yes Abdominal/Pelvic Pain: yes History: History of frequent UTI's: no History of kidney stones: no Sexually Active: yes Possibility of :no What makes it better? None What makes it worse? None Therapies Tried and outcome: None The following portions of the patient's history were reviewed and updated as appropriate in the EMR:allergies, current medications and problem list on 03/30/17 REVIEW OF SYSTEMS Constitutional: Negative for fever. Gastrointestinal: Negative for nausea and vomiting. Genitourinary: Positive for pain with urination and frequency. Musculoskeletal: Negative for back pain. PHSYCIAL EXAM Temperature: 36.8 ??C Blood Pressure: 114/70 Weight: 62.5 kg Constitutional: She appears well-developed and well-nourished. No distress. HENT: Head: Normocephalic and atraumatic. Cardiovascular: Normal rate, regular rhythm and normal heart sounds. No murmur heard. Pulmonary/Chest: Effort normal and breath sounds normal. No respiratory distress. Abdominal: Soft. There is no tenderness. LABS/IMAGING Recent Results (from the past 24 hour(s)) Urinalysis with Microscopic if Indicated Collection Time: 03/30/17 2:51 PM Result Value Source Midstream Clarity Cloudy (A) Color Yellow Blood Trace (A) Nitrite Negative Leukocyte Esterase Moderate (A) Protein Negative Glucose Negative Ketone Negative Bilirubin Negative pH 7.5 Specific [place], U 1.020 Urobilinogen, Urine 0.2 Microscopic Manual Collection Time: 03/30/17 2:51 PM Result Value White Blood Cells 4-10 Red Blood Cells Occ-2 Crystals Amorphous (A) Vaginitis Panel Vagina Collection Time: 03/30/17 3:04 PM Result Value Mckenna species, DNA Negative Gardnerella vaginalis, DNA Negative Trichomonas vaginalis, DNA Negative ASSESSMENT AND PLAN Patient Instructions 1. Dysuria: unclear etiology. Likely due to chemical vaginitis. Differential diagnoses includes UTI vs vaginitis vs kidney stone vs other. -Discussed possible etiology with the patient. -Drink plenty fluids and avoid using soaps with fragrances. -Will call you with results. - Urinalysis with Microscopic if Indicated - Bacterial Culture, Aerobic + Susc, Urine Urine, Midstream - Vaginitis Panel Vagina - Chlamydia / gonorrhoeae Amplified RNA Vagina Options for treatment and follow-up care were reviewed with the patient . Allison Vargas Ian and/or guardian engaged in the decision making process and verbalized understanding of the options discussed and agreed with the final plan. Severiano Schmitt M.D. INAL INVESTIGATOR Severiano Schmitt M.D. - 03/30/2017 2:30 PM CST I called the patient and discussed with her regarding her urine culture which grew E.coli >100, 000. Will treat with 5 days of Bactrim DS given her symptoms has been going on for a while. Encouragedto get a probiotic to prevent side- effects. 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 Severiano Schmitt MD INAL INVESTIGATOR documented in this encounter Miscellaneous Notes Addendum Note - Severiano Schmitt M.D. - 03/30/2017 2:30 PM CRIMINAL INVESTIGATOR Addended by: SEVERIANO SCHMITT on: 03/31/2017 06:27 PM Modules accepted: Orders INAL INVESTIGATOR documented in this encounter Plan of Treatment Not on filedocumented as of this encounter Procedures Procedure Name Priority Date/Time Associated Comments Diagnosis VAGINITIS PANEL Routine 03/30/2017 3:04 PM Dysuria Result s for this CRIMINAL INVESTIGATOR procedure are i n the results section. CHLAMYDIA/GONORRHOEAE Routine 03/30/2017 3:04 PM Dysuria Results for this AMPLIFIED RNA CRIMINAL INVESTIGATOR procedure are in the results section. URINALYSIS WITH Routine 03/30/2017 2:51 PM Dysuria Result s for this MICROSCOPIC IF CRIMINAL INVESTIGATOR procedure are in INDICATED, U the results section. MICROSCOPIC MANUAL Routine 03/30/2017 2:51 PM Res ults for this CRIMINAL INVESTIGATOR procedure are i n the results section. BACTERIAL CULTURE, Routine 03/30/2017 2:51 PM Dysuria Res ults for this AEROBIC + SUSC, URINE CRIMINAL INVESTIGATOR proced ure are in the results section. documented in this encounter Results Chlamydia / gonorrhoeae Amplified RNA Vagina (03/30/2017 3:04 PM CRIMINAL INVESTIGATOR) [facility] Method Time Signature Source Vaginal 04/03/2017 [facility] 7:57 PM CRIMINAL INVESTIGATOR LABORATORIES - [facility] Chlamydia Negative Negative 04/03/2017 [facility] trachomatis 7:57 PM CRIMINAL INVESTIGATOR LABORATORIES - amplified RNA [facility] Comment: ----ADDITIONAL INFORMATION---- This report is intended for use in clini berenice monitoring and management of patients. It is not in tended for use in medical-legal applications. Source Vaginal 04/03/2017 7:[address] [facility] CRIMINAL INVESTIGATOR LABORATORIES - [facility] Neisseria gonorrhoeae Negative Negative 04/03/2017 7:[address] [facility] amplified RNA CRIMINAL INVESTIGATOR [facility]ATORIES - [facility] Comment: ----ADDITIONAL INFORMATION---- This report is intended for use in clini berenice monitoring and management of patients. It is not in tended for use in medical-legal applications. Specimen Anatomical Collection Method Collection Time Receive d Time (Source) Location / / Volume Laterality Varies (Vagina) 03/30/2017 3:04 PM 2016 CRIMINAL INVESTIGATOR 11:20 PM CRIMINAL INVESTIGATOR Severiano Schmitt M.D. LAB MICROBIOLOGY - GENERAL O RDERABLES Performing Organization Address City/State/ZIP Code Phon e Number [facility]ATORIES - [address] [place], [place] [address] [facility] Vaginitis Panel Vagina (03/30/2017 3:04 PM CRIMINAL INVESTIGATOR) Patholo gist Method Time Signature Mckenna species, Negative Negative 03/30/2017 [facility] DNA 4:26 PM CRIMINAL INVESTIGATOR [facility] [place] [facility] Gardnerella Negative Negative 03/30/2017 [facility] vaginalis, DNA 4:26 PM [facility] [place] Trichomonas Negative Negative 03/30/2017 [facility] vaginalis, DNA 4:26 PM [facility] [place] [facility] Specimen Anatomical Collection Method Collection Time Receive d Time (Source) Location / / Volume Laterality Swab (Vagina) 03/30/2017 3:04 PM 03/30/20 17 3:36 CRIMINAL INVESTIGATOR PM CRIMINAL INVESTIGATOR Severiano Schmitt M.D. LAB MICROBIOLOGY - GENERAL O RDERABLES Performing Organization Address City/[facility]/ZIP Code Phon e Number [facility]- [address] [place] [address] [place] [facility]- [address] [place], [place] [address] [place] [facility] (ABNORMAL) Microscopic Manual (03/30/2017 2:51 PM CRIMINAL INVESTIGATOR) P athologist Signature White Blood 4-10 /hpf 03/30/2017 [facility] Cells 3:43 PM CRIMINAL INVESTIGATOR [facility] [place] [facility] Comment: ----REFERENCE VALUE---- Males: 0-3 Females: 0-10 Unknown: 0-10 Red Blood Cells Occ-2 0 - 2 /hpf 03/30/2017 3:43 PM [facility] [place] [facility] Crystals Amorphous (A) None Seen /lpf 03/30/2017 3:43 PM [facility] [place] [facility] Specimen Anatomical Collection Method Collection Time Receive d Time (Source) Location / / Volume Laterality Urine 03/30/2017 2:51 PM 7 2:57 CRIMINAL INVESTIGATOR PM CRIMINAL INVESTIGATOR Severiano Schmitt M.D. LAB URINE ORDERABLES Performing Organization Address City/State/ZIP Code Phon e Number [facility]- [address] [place] [address] [place] [facility]- [address] [place], [place] [address], [facility] [place] [facility] (ABNORMAL) Bacterial Culture, Aerobic + Susc, Urine Urine, Midstream (03/30/2017 2:51 PM CRIMINAL INVESTIGATOR) [facility] gist Method Time Signature Bacterial ESCHERICHIA COLI 04/01/2017 [facility] Culture, >100,000 cfu/mL 8:41 AM CRIMINAL INVESTIGATOR HEALTH Aerobic, (A) SYSTEM- Urine [place] [facility] Specimen Anatomical Collection Method Collection Time Receive d Time (Source) Location / / Volume Laterality Urine (Urine, 03/30/2017 2:51 PM 03/30/20 17 Midstream) CRIMINAL INVESTIGATOR 11:15 PM CRIMINAL INVESTIGATOR Comment: Specimen Source Site: Urine Organism Antibiotic Method Susceptibility Escherichia coli Ampicillin SUSCEPTIBILITY, 4 mcg/mL: Susce ptible TIN (MCG/ML) Escherichia coli Ampicillin + Sulbactam SUSCEPTIBILITY, <=2 mcg/ mL: Susceptible TIN (MCG/ML) Escherichia coli Piperacillin + Tazobactam SUSCEPTIBILITY, <=4 m cg/mL: Susceptible TIN (MCG/ML) Escherichia coli Cefazolin SUSCEPTIBILITY, <=4 mcg/mL: Raquel ceptible TIN (MCG/ML) Escherichia coli Ceftazidime SUSCEPTIBILITY, <=1 mcg/mL: Raquel ceptible TIN (MCG/ML) Escherichia coli Ceftriaxone SUSCEPTIBILITY, <=1 mcg/mL: Raquel ceptible TIN (MCG/ML) Escherichia coli Cefepime SUSCEPTIBILITY, <=1 mcg/mL: Raquel ceptible TIN (MCG/ML) Escherichia coli Aztreonam SUSCEPTIBILITY, <=1 mcg/mL: Raquel ceptible TIN (MCG/ML) Escherichia coli Ertapenem SUSCEPTIBILITY, <=0.5 mcg/mL: TIN (MCG/ML) Susceptible Escherichia coli Meropenem SUSCEPTIBILITY, <=0.25 mcg/mL: TIN (MCG/ML) Susceptible Escherichia coli Gentamicin SUSCEPTIBILITY, <=1 mcg/mL: Raquel ceptible TIN (MCG/ML) Escherichia coli Tobramycin SUSCEPTIBILITY, <=1 mcg/mL: Raquel ceptible TIN (MCG/ML) Escherichia coli Levofloxacin SUSCEPTIBILITY, <=0.12 mcg/mL: TIN (MCG/ML) Susceptible Escherichia coli Nitrofurantoin SUSCEPTIBILITY, <=16 mcg/mL: Burroughs sceptible TIN (MCG/ML) Escherichia coli Trimethoprim + SUSCEPTIBILITY, <=20 mcg/mL: Burroughs sceptible Sulfamethoxazole TIN (MCG/ML) Severiano Schmitt M.D. LAB MICROBIOLOGY - GENERAL O RDERABLES Performing Organization Address City/State/ZIP Code Phon e Number [facility] [address] [place] [address] LAB (ABNORMAL) Urinalysis with Microscopic if Indicated (03/30/2017 2:51 PM CRIMINAL INVESTIGATOR) athologist Signature Source Midstream 03/30/2017 [facility] 2:57 PM [facility] Clarity Cloudy (A) Clear 03/30/2017 [facility] 2:57 PM [facility] Color Yellow 03/30/2017 [facility] 2:57 PM [facility] Comment: ----REFERENCE VALUE---- Colorless Yellow Christina Blood Trace (A) Negative 03/30/2017 2:57 PM [facility] Nitrite Negative Negative 03/30/2017 2:57 PM [facility] Leukocyte Esterase Moderate (A) Negative 03/30/2017 2:57 PM [facility] Protein, U Negative mg/dL 03/30/2017 2:57 PM [facility] [place] [facility] Comment: ----REFERENCE VALUE---- Negative Trace Glucose Negative Negative mg/dL 03/30/2017 2:57 PM [facility] Ketones, QL(U) Negative Negative mg/dL 03/30/2017 2:57 PM [facility] [place] [place] [facility] Bilirubin Negative Negative 03/30/2017 2:57 PM [facility] pH 7.5 5.0 - 8.0 03/30/2017 2:57 PM [facility] Specific [place] 1.020 1.001 - 1.035 03/30/2017 2:57 PM [facility] Urobilinogen 0.2 0.2 - 1.0 mg/dL 03/30/2017 2:57 PM [facility] [place] [facility] Specimen Anatomical Collection Method Collection Time Receive d Time (Source) Location / / Volume Laterality Urine (Urine, 03/30/2017 2:51 PM 03/30/20 2:51 Clean Catch) CRIMINAL INVESTIGATOR PM CRIMINAL INVESTIGATOR Severiano Schmitt M.D. LAB URINE ORDERABLES Performing Organization Address City/State/ZIP Code Phon e Number [facility]- [address] [place] [address] [place] [facility]- [address] [place], [place] [address] [place] [facility] documented in this encounter Visit Diagnoses Diagnosis Dysuria - Primary Infection Urinary Tract Acute documented in this encounter Additional Health Concerns Assessment Noted Time PHQ-9 Depression Total Score: 9 03/03/2016 11:54 AM CD T documented as of this encounter Care Teams Traffic Control Supervisor Relationship Specialty Start Date End Date Mayra Guerrero, DEPARTMENT STORE MANAGER, C.N.P. PCP - General 10/13/16 12/30/[address], [place] [address] documented as of this encounter
--- OUTSIDE RECORDS SUMMARY | 2022-03-21 14:29 | XMS_ITS | Encounter Summary ---
:1990 Author Organization [facility] Address [address] [place] [address] Care Team Providers Name Role Phone Unavailable Primary Care Provider Unavailable Encounter Details Date Type Department Care Team Description 07/28/2016 Hospital Encounter HX [facility] Galo Abarca M.D. [address] [place], [place] [phone] (Wo rk) Social History Tobacco Use Types Packs/Day Years Used Date Smoking Tobacco: Former Sex Assigned at Date Recorded Not on file documented as of this encounter Last Filed Vital Signs Vital Sign Reading Time Taken Comments Blood Pressure 118/78 07/28/2016 11:00 AM CDT Pulse 92 07/28/2016 11:00 AM CDT Temperature - - Respiratory Rate 14 07/28/2016 11:00 AM CDT Oxygen Saturation - - Inhaled Oxygen Concentration - - Weight 65.9 kg (145 lb 4.5 oz) 07/28/2016 11:00 AM CDT Height 157 cm (5' 1.81) 07/28/2016 11:00 AM CDT Body Mass Index 26.74 07/28/2016 11:00 AM CDT documented in this encounter H&P Notes Maryann Wong M.D. - 07/28/2016 10:45 AM CDT [id number] CHIEF COMPLAINT/REASON FOR VISIT Removal and replacement of a Mirena IUD and evaluation of several other complaints. HISTORY OF PRESENT ILLNESS Anusha is a para 2-0-0-2 female who presents today because her Mirena has been in for 5 years now andshe would like it removed and she would like to discuss other contraceptive options and she also hasother symptoms including low abdominal pain, sore throat and nasal congestion, constipation and abnormal vaginal discharge. Anusha reports that she does not have periods with her Mirena IUD. She wonderswhether this is safe. She also reports that she has had some low abdominal pain. She reports that she has always had it. She reports that it is the same as always and has not become worse or better. Over the last 2 days she also reports a sore throat and nasal congestion. She reports that she has been around kids at work that have had strep throat. She denies any recent fevers. She reports a longstanding issue with constipation and wonders whether that might be related to her abdominal pain. She is currently not taking anything for that. She also reports a chronic runny nose, especially in the morning. She reports that when she wakes up in the morning her eyes feel very heavy and she occasionally notices that she sneezes with this. She complains of milky white colored vaginal discharge with some mild itching that she also reports is abnormal for her. Finally, she reports that in the recent past her left breast has become larger than her right to the point where it is 1 cup size bigger. She has gained about 10 pounds over the last several months. MEDICATIONS See medication list updated in the EMR today. ALLERGIES See allergy list updated in the EMR today. SYSTEMS REVIEW GENERAL: Positive for fatigue and weight gain. No fevers, chills, unintentional weight loss. HEENT: Positive for nasal congestion and sore throat - see HPI. No changes in vision or hearing. CARDIOVASCULAR: Positive for occasional irregular heartbeat. No chest pain or racing heart. RESPIRATORY: No shortness of breath, cough or wheeze. GASTROINTESTINAL: Positive for constipation and abdominal pain - see HPI. No nausea, vomiting, diarrhea. GENITOURINARY: Positive for abnormal vaginal discharge - see HPI. No pain or burning with urination, no irregular vaginal bleeding, heavy periods, painful periods, leaking urine, leaking stool or gas. SKIN: No rashes or skin lesions. BREASTS: No masses or lumps, no discharge from the nipples. NEUROLOGIC: Positive for occasional difficulty with memory. No difficulty with numbness, tingling, falls. PSYCHIATRIC: Positive for anxiety. No depression, or difficulty sleeping. ENDOCRINE: No heat intolerance, cold intolerance, excessive thirst or hair loss. PAST MEDICAL/SURGICAL HISTORY PAST MEDICAL HISTORY: See problem list updated in the EMR today. PAST SURGICAL HISTORY: See procedure list updated in the EMR today. OB-ELIGIBILITY EXAMINER HISTORY: Para 2-0-0-2 female status post 2 normal spontaneous vaginal deliveries at full term. She underwent menarche at age 10 to 11 and has history of regular menses prior to IUD placement. She has a history of chlamydia that was treated and has a history of an LGSIL Pap smear with normal Papsmears in 2014 and 2016. She is sexually active and denies any issues with intercourse. SOCIAL HISTORY No tobacco, alcohol, or drug use. 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 FAMILY HISTORY See family history list updated in the EMR today. VITAL SIGNS See results review section updated in the EMR today. PHYSICAL EXAMINATION GENERAL: Well-nourished female in no acute distress. HEAD: Normocephalic, atraumatic. EENT: Vision and hearing grossly intact. Tympanic membranes pearly white bilaterally with positive light reflex. Nasal turbinates mildly erythematous and edematous with clear drainage present. Posterior oropharynx mildly erythematous. There are no tonsillar exudates noted and tonsils are not enlarged. LYMPH NODES: No submandibular or cervical lymphadenopathy. No supraclavicular, infraclavicular, or axillary lymphadenopathy. HEART: Regular rate and rhythm. No murmurs, rubs, or gallops. CHEST: Clear auscultation bilaterally, no wheezes or rales. BREASTS: The right breast is slightly larger than the left. No lesions or dimpling of the skin noted. Nipples are inverted bilaterally but there is no drainage from the nipples. No dominant masses palpable. ABDOMEN: Soft, nondistended, normoactive bowel sounds. Positive for tenderness to palpation across the entire lower abdomen. This is nonfocal. There is no rebound or guarding. No masses palpable. PELVIC: External genitalia without lesions or abnormalities. Normal pubic hair distribution. Urethral meatus normal location appearance without masses. Vaginal mucosa pink and moist with a small amountof thin, clear discharge present in the posterior vaginal fornix. Cervix appears parous and is without gross lesions or abnormalities. The IUD strings are visible and protruding 1 cm from the external cervical os. On bimanual examination the pelvic floor musculature is nontender. The bladder and urethra are moderately tender to palpation. There is mild cervical motion tenderness and very mild uterinefundal tenderness. The uterus is normal in size. There is mild bilateral adnexal tenderness. LOWER EXTREMITIES: Nontender, no edema. SKIN: No rashes or lesions. NEUROLOGIC: Alert and oriented x3. IMPRESSION/REPORT/PLAN A 25-year-old para 2-0-0-2 female who presents today for removal of her Mirena IUD and underwent replacement with a Kathia IUD, evaluation for upper respiratory symptoms, seasonal allergy symptoms, constipation, abnormal vaginal discharge, and asymmetry of the breasts. 1. Contraception: The patient has had a Mirena IUD in place. We discussed pros and cons of replacingthis with another Mirena IUD versus a Kathia IUD. She likes the idea of having a period and so she would like the Mirena replaced with a Kathia. This was done today without difficulty. See the procedure note. 2. Abnormal vaginal discharge: A vaginitis panel was sent. We will treat based upon these results. 3. Upper respiratory symptoms: Based upon the patient's symptoms and examination today I do not think she has strep throat as she has no tonsillar exudates, lymphadenopathy, or fever. She was counseledthat these symptoms should improve over the next 10 to 14 days. She should drink plenty of fluids and get plenty of rest. 4. Chronic rhinitis: I think this is allergic in nature as the patient also describes a heavy feeling in her eyes and occasional sneezing. Due to this I have given her a prescription for a nasal steroid spray that she should use 2 sprays in each nostril each day. I will see how she is doing with this and whether her symptoms are improving when she returns. 5. Constipation: I have recommended that the patient use MiraLAX every other day to see if her bowelmovements improve with this. If they are still not manageable she should go to daily. If her bowel movements improve I would like to see if her abdominal pain improves with improvement in her bowel movements. I will see how she is doing with this when she returns. 6. Low abdominal pain: On pelvic examination the patient's bladder and urethra are most significantly tender. However she has diffuse pelvic pain. Long dip was obtained today and is negative for evidence of infection other than a small amount of blood but this was after the removal and replacement of her Mirena IUD which likely would give contaminated the specimen. As noted above we will see how her abdominal pain does with improvement in her constipation symptoms. 7. Asymmetry of the breasts: Other than the asymmetry her breast exam was normal today. She was reassured that some asymmetry is normal. If it bothers her if she could speak with a plastic surgeon or she was also counseled that there are places that fit undergarments specifically for this purpose. 8. Followup: I will be in touch with the patient with results of the tests. She will return in 1 month for IUD check. Maryann Wong M.D./nilda Electronically Signed By: MARYANN WONG MD On: 08/08/2016 04:44 PM Source: [facility] MHSDOLBEYNONRADSYS Document Id: [id number] documented in this encounter Procedure Notes Arcenio Ramirez LSudarshanP.N. - 07/28/2016 12:24 PM CDT Urine Dipstick Urine Dipstick Entered On: 07/28/2016 12:24 CDT Performed On: 07/28/2016 12:24 CDT by ARCENIO RAMIREZ LPN Urine Dipstick UA Color POC : Yellow UA Appear POC : Clear UA Leuk POC : Negative UA Nitrite POC : Negative UA Urobilinogen POC : 0.2 mg/dl UA Protein POC : Negative UA pH POC : 5.5 UA Blood POC : 1+ SMALL UA Spec Grav POC : 1.025 UA Ketones POC : Negative UA Bili POC : Negative UA Glucose POC : Negative ARCENIO RAMIREZ LPN - 07/28/2016 12:24 CDT Source: [facility] POWERavVenta Document Id: [id number] CDT!14 Maryann Ash M.D. - 07/28/2016 12:00 AM CDT 2RPT CHIEF COMPLAINT/REASON FOR VISIT This is a Mirena IUD removal, Kathia IUD placement procedure note. 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 POSTPROCEDURE DIAGNOSIS: Desires snf contraception. PROCEDURE: Removal of Mirena intrauterine device (IUD), placement of Kathia intrauterine device (IUD). ANESTHESIA: None. INDICATIONS: Anusha is a 25-year-old para 2-0-0-2 female who desires a Mirena IUD and placement of a Kathia IUD for contraception. The risks, benefits, alternatives of the procedure have been discussed with the patient and informed consent obtained. Kremlin protocol prior to implementing a procedure was performed prior to beginning the procedure. PROCEDURE: The patient was placed in the dorsal lithotomy position. A speculum was inserted into hervagina. The Mirena IUD strings were visualized and grasped with ring forceps and with gentle traction, the Mirena IUD was removed without difficulty. The cervix was swabbed three times with Betadine and the anterior lip of the cervix grasped with a single-tooth tenaculum. The uterine fundus was sounded to 7.5 cm with a uterine sound. The Kathia placement device was then inserted through the cervix to 5.5 cm and the device deployed to the line. A 15- second pause was taken. The device was then advancedto 7.5 cm to the uterine fundus and the device activated to place the Kathia IUD. The strings were trimmed 1.5 cm from the external cervical os. The tenaculum was removed from the anterior lip of the cervix and bleeding controlled with silver nitrate. The patient tolerated the procedure well. IMPRESSION/REPORT/PLAN FOLLOW-UP: She will follow up in 1 month for IUD check. She is to call if she has vaginal bleeding greater than one pad per hour for two hours in a row or fever greater than 100.4 or severe abdominal pain. Maryann Wong M.D./jere Electronically Signed By: MARYANN WONG MD On: 08/08/2016 04:44 PM Source: [facility] MHSDOLBEYNONRADSYS Document Id: [id number] documented in this encounter Miscellaneous Notes Telephone Encounter - Conversion, Historical Provider Ser - 02/10/2017 9:38 AM CDT *Phone Message/Dr. Wong Document Contains Addenda Addendum by MARYANN WONG MD on February 10, 2017 12:05:04 CDT From: MARYANN WONG MD Cc: SOLIS DOMINGO MD; Sent: 02/10/2017 12:05:04 CDT Subject: RE: *Phone Message/Dr. Wong Agree. She had bacterial vaginosis in June. Addendum by SOLIS DOMINGO MD on February 10, 2017 10:34:13 CDT From: SOLIS DOMINGO MD To: Obstetrics/Gynecology Nurse; Sent: 02/10/2017 10:34:13 CDT Subject: RE: *Phone Message/Dr. Wong agree Addendum by ALINE DICKSON RN on February 10, 2017 10:11:09 CDT From: ALINE DICKSON RN ( Obstetrics/Gynecology Nurse) To: MARYANN WONG MD; SOLIS DOMINGO MD; Sent: 02/10/2017 10:11:09 CDT Subject: FW: *Phone Message/Dr. Wong Spoke with Anusha. States that she has been having some itching and thick white discharge for about amonth now. Denies odor. States she also is having intermittent abdominal pain for about a month. Shesays it is located below her belly button near her vaginal area. Would like to be seen by Dr. Wong today. Notifed that there are no appointments available today, but that there is an opening with Dr. Domingo on Monday. Patient states she has been calling to get in for an appointment for over a month but agrees to see Dr. Domingo on Monday. Discussed yeast infections vs BV. Patient savita this may be a yeast infection. Advised to use OTC yeast treatment over the weekend and see if symptoms improve. Reviewed vulvar hygeine guidelines. From: RONN TATE ( [place]) To: Obstetrics/Gynecology Nurse; Sent: 02/10/2017 09:38:25 CDT Subject: *Phone Message/Dr. Wong Caller is: ( x ) Patient ( ) Mother ( ) Father ( ) Spouse ( ) Daughter ( ) Son ( ) Pharmacy ( ) Other: Physician: Dr. Wong Patient MRN #: Reason for Call: Message: Patient is wondering if she could come in to see Dr. Wong today. She wants to have her IUD rechecked and she is having a white discharge. Please call her back at [phone] to advise. Advice/Action: Source used: ( ) Verbalizes understanding of instructions ( ) Instructed to call back if symptoms worsen or do not resolve ( ) Refused to see provider ( ) Appointment Scheduled ( ) OK to leave message on voice mail ( ) Patient told to expect return call: ( ) today ( ) tomorrow ( ) next work day ( ) Patient's email ( ) Patient told physician out of office, will call upon return call on ( ) ( ) Patient told physician out of office, routed to other physician ( ) Other ( ) Call back telephone number ( ) Call back cell phone number ( ) Source: [facility] POWERCHART Document Id: [id number] Miscellaneous - Elana Briscoe - 12/05/2016 7:16 AM CDT Health Maintenance Reminder December 05, 2016 ANUSHA SOSA [facility] [address] [place] [address] [facility] [phone] Dear ANUSHA SOSA, We have developed a six-month overview of preventive and recommended services that apply to your unique health care needs. Some may be past due or may be coming due in the next three months. If youhave already scheduled any or all of these services, thank you. We recognize that this may or may not include all of your individualized health care needs; however, we are happy to help you with any and all primary care concerns you may have. Past Due Diabetes Screening: recommended preventive service starting at age 18 It may be possible to bundle some of the above services together to make your visit with us more convenient. Please call [phone] to schedule services that are past due or that may shortly become due (thank you if you have already done so). We will follow up in three to six months should you have more services to schedule at that time. If you have already received any of the listed past due or upcoming services outside of [facility], please call [phone] to add them to your medical record. You may want to consider contacting your health insurance company to make sure these services are covered and find out if there will be any [id number] expense. If you have any questions about the services listed above, or if you are no longer receiving care from [facility], please contact us at [phone]. Thank you for partnering to provide you with the best care possible. We encourage you to set up your Patient Online Services account [email or web address], where you can communicate in a convenient way with us, schedule appointments, receive lab results and more. To set up your account, you will need your [facility] Number, which is [phone]. Thank you for choosing the Dasha Varma APRN, C.N.P. care team for your health care needs! You are receiving this notice based on [facility]'s recommended standard for preventive care and ongoing condition-specific services you may need. If you have completed or do not believe you need these services, please contact your provider or care team to discuss this further. Sincerely, ELANA BRISCOE Electronic Signature Electronically Signed By: ELANA BRISCOE LPN On: December 05, 2016 This document has images extracted. Source: [facility] POWERCHART Document Id: [id number] Miscellaneous - Maryann Wong M.D. - 07/28/2016 8:35 PM CDT Ambulatory Patient Summary [facility] [address], [place] [id number] Visit Information Name: ANUSHA SOSA [facility] Number: [id number] Current Date: 07/28/2016 20:35:39 Physicians Attending Provider: MARYANN WONG MD Primary Care Provider: DASHA VARMA APRN [facility] ANUSHA SOSA has been given the following list of follow-up instructions, medication list,and patient education materials: Follow-up Instructions Your Medications Here is a list of your medications. It is important to take your medications as directed. Use a pillbox or chart to help remind you to take your medications. Please let your doctor or nurse know if you have problems taking your medications. Medication/Strength How to Take Indications/Special Instructions/Comments/Notes for Patient Medication Changes/Routing budesonide nasal (Rhinocort Allergy 32 mcg/inh nasal spray) 2 [place](s), Nasal, once a day New Routedto [facility] [address] [place] [address] metroNIDAZOLE (Flagyl 500 mg oral tablet) 1 Tablet(s), Oral, every 12 hours New Routed to [facility] [address] [place] [address] Stop Taking the Following Medications: levonorgestrel (levonorgestrel 52 mg intrauteral device) Medication list as of 07-28-16 20:35 Attention: If you have any medications at home that are not on this list, DO NOT take them until youcontact your provider for clarification. Give a copy of your medication list to your primary care provider. Update your medication list any time medications or doses are changed and carry your medication list at all times in case of emergency. Electronically Signed By: MARYANN WONG MD Signed On:28-JUL-2016 20:35:36 Your Allergies & Intolerances Substance Reaction Symptoms Category Comments No Known Allergies Drug Your Problem List Problem Status Onset Comments IUD, checking, reinsertion or removal Active 07/26/2011 07/26/11 Mirena IUd removed and replaced 07/26/2011. 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 Consider Using Patient Online Services Patient Online Services is a secure online and Mobile application that lets you: ?? View lab and test results ?? View portions of your medical record including clinical notes, immunizations and discharge summaries ?? Request an appointment or medication refill ?? Review your appointment schedule ?? Send secure messages to your care team Its easy to create an account if you dont have one. Go to [email or web address] and click on Create Your Account. Then, follow the directions to complete the online form. Youll be asked for your [facility] number which you can find at the top of this document. Your Goals/Additional instructions: Source: [facility] POWERCHART Document Id: [id number] Miscellaneous - Maryann Wong M.D. - 07/28/2016 8:35 PM CDT Ambulatory Discharge Medication List [address] [id number] Visit Information Name: ANUSHA SOSA [facility] Number: [id number] Current Date: 07/28/2016 20:35:38 Attending Provider: MARYANN WONG MD Primary Care Provider: DASHA VARMA APRN [facility] ANUSHA SOSA has been given the following list of medications: Your Medications It is important to take your medications as directed. Use a pill box or chart to help remind you to take your medications. Please let your doctor or nurse know if you have problems taking your medications. Medication/Strength How to Take Indications/Special Instructions/Comments/Notes for Patient Medication Changes/Routing budesonide nasal (Rhinocort Allergy 32 mcg/inh nasal spray) 2 [place](s), Nasal, once a day New Routedto [address] [address] metroNIDAZOLE (Flagyl 500 mg oral tablet) 1 Tablet(s), Oral, every 12 hours New Routed to [address] [address] Stop Taking the Following Medications: levonorgestrel (levonorgestrel 52 mg intrauteral device) Medication list as of 07-28-16 20:35 Attention: If you have any medications at home that are not on this list, DO NOT take them until youcontact your provider for clarification. Give a copy of your medication list to your primary care provider. Update your medication list any time medications or doses are changed and carry your medication list at all times in case of emergency. Electronically Signed By: MARYANN WONG MD Signed On:28-JUL-2016 20:35:36 Additional Information: Source: [facility] [employer]CHART Document Id: [id number] Miscellaneous - Arcenio Ramirez, L.P.N. - 07/28/2016 12:05 PM CDT Software Development Analyst Documentation Software Development Analyst Documentation Entered On: 07/28/2016 12:05 CDT Performed On: 07/28/2016 12:05 CDT by ARCENIO RAMIREZ LPN Software Development Analyst Documentation Exam/Procedure Performed : Replace IUD/ Pelvic exam/ Breast exam CD Software Development Analyst Present : Yes CD Software Development Analyst Name : Rhiannon Ramirez LPN Present in Room During Exam/Procedure : Alone ARCENIO RAMIREZ LPN - 07/28/2016 12:05 CDT Source: [facility] POWERCHART Document Id: [id number] CDT!6 Miscellaneous - Arcenio Ramirez L.PLuciano - 07/28/2016 11:00 AM CDT Adult Seed Trucker Intake/History Adult Seed Trucker Intake/History Entered On: 07/28/2016 11:02 CDT Performed On: 07/28/2016 11:00 CDT by ARCENIO RAMIREZ LPN Intake Chief Complaint : Remove IUD Peripheral Pulse Rate : 92 /min Respiratory Rate : 14 /min Heart Rhythm : Regular Systolic Blood Pressure : 118 mmHg Diastolic Blood Pressure : 78 mmHg NIBP Mean : 91 mmHg BP Location : Left upper extremity Blood Pressure Cuff Size : Regular Height : 157 cm(Converted to: 5 ft 2 inch(es), 62 inch(es)) Actual Weight : 65.9 kg(Converted to: 145 lb 5 oz) Weight Source : Standing scale Dosing Weight Clinic : 65.9 kg Clinic BSA : 1.7 Body Mass Index : 26.74 kg/m2 ARCENIO RAMIREZ LPN - 07/28/2016 11:00 CDT General Info Languages : Italian Is Patient Female and 13-50 no hysterectomy : Yes Status : Patient denies Are you ? : No ARCENIO RAMIREZ LPN - 07/28/2016 11:00 CDT Subjective Pain Symptoms : No ARCENIO RAMIREZ LPN - 07/28/2016 11:00 CDT Dependent Habits Exposure to Tobacco Smoke : Other: Quit date 11/12/14 Smoking Status : Former smoker Tobacco 2A : Yes Tobacco Use/Currently Using : No Tobacco Use/Last 30 Days : No Tobacco Use/Last 12 months : No ARCENIO RAMIREZ LPN - 07/28/2016 11:00 CDT Caffeine Use Grid Caffeine Use : Current Type : Soft drinks Frequency : Daily ARCENIO RAMIREZ LPN - 07/28/2016 11:00 CDT Source: WorkCast Document Id: [id number] documented in this encounter Plan of Treatment Not on filedocumented as of this encounter Procedures Procedure Name Priority Date/Time Associated Comments Diagnosis DIPSTICK, POCT, U Routine 07/28/2016 12:24 PM Res ults for this (NURSING) INTERFACED CDT procedu re are in the results section. VAGINITIS BATTERY, Routine 07/28/2016 12:05 PM Re sults for this DNA (GENITAL) CDT procedure are in the results section. documented in this encounter Results Dipstick, POCT, Urine (nursing) (07/28/2016 12:24 PM CDT) [facility] Method Time Signature Color Yellow POWERCHART Appearance Clear POWERCHART Leukocytes, Negative POWERCHART POCT, U Nitrites, POCT, Negative POWERCHART U Urobilinogen, 0.2 mg/dl POWERCHART POCT, Urine Protein, POCT, Negative POWERCHART U pH, POCT, Urine 5.5 5.0 - 9.0 POWERCHART Blood, POCT, U 1+ SMALL POWERCHART Specific 1.025 1.000 - POWERCHART [place], POCT, 1.030 U Ketone, POCT, U Negative POWERCHART Bilirubin, Negative POWERCHART POCT, U Glucose, POCT, Negative POWERCHART U Specimen (Source) Anatomical Collection Method Collection Time Re ceived Time Location / / Volume Laterality 07/28/2016 12:24 PM CDT Maryann Wong M.D. LAB POCT ORDERABLES - DEVICE Performing Organization Address City/State/ZIP Code Phon e Number POWERCHART (ABNORMAL) VAGINITIS BATTERY, DNA (GENITAL) (07/28/2016 12:05 PM CDT) Component Value Ref Test Analysis Performed At [facility] Range Method Time Signature HXVaginitis (POSITIVE) POWERCHART Battery, DNA (Genital) HXFinal Trichomonas POWERCHART vaginalis DNA negative HXFinal Gardnerella POWERCHART vaginalis DNA positive HXFinal Mckenna species POWERCHART DNA negative HXFinal Reference: POWERCHART Negative Specimen (Source) Anatomical Collection Method Collection Time Re ceived Time Location / / Volume Laterality Vagina 07/28/2016 12:05 PM CDT Maryann Wong M.D. LAB HISTORICAL ORDERS Performing Organization Address City/State/ZIP Code Phon e Number POWERCHART documented in this encounter Visit Diagnoses Not on filedocumented in this encounter Additional Health Concerns Assessment Noted Time PHQ-9 Depression Total Score: 9 03/03/2016 11:54 AM CD T documented as of this encounter
--- OUTSIDE RECORDS SUMMARY | 2022-03-21 14:29 | XMS_ITS | Encounter Summary ---
:1990 Author Organization [facility] Address [address] [place] [address] Care Team Providers Name Role Phone Mayra Guerrero APRN, C.N.P. Primary Care Provider [phone] Encounter Details Date Type Department Care Team Description 02/13/2017 Hospital Encounter HX [facility] Josh Mccall M.D. Social History Tobacco Use Types Packs/Day Years Used Date Smoking Tobacco: Former Sex Assigned at Date Recorded Not on file documented as of this encounter Medications at Time of Discharge Medication Sig Dispensed Refills Start Date End Date levonorgestrel (MIRENA) 1 each by 0 02/13/2017 0 09/06/2017 20 mcg/24 hr (5 years) intrauterine route IUD once. documented as of this encounter Miscellaneous Notes Miscellaneous - Conversion, Historical Provider Ser - 02/13/2017 11:59 PM CDT Coding Summary-Paper Based CODING DATE: 02/22/2017 FINAL [facility] STATUS: * Discharged to Home or Self Care PAYOR: Medicaid ADMIT DX: REASON FOR VISIT DX: FINAL DX: PRINCIPAL: Z11.3 Encounter for screening for infections with a predominantly sexual mode of transmission SECONDARY: PROCEDURES DOCTOR NAME DATE NOTE: The code number assigned matches the documented diagnosis and / or procedure in the patient's chart. However, the narrative phrase printed from the coding software may appear abbreviated, or result in slightly different terminology. Coded By: DASHAWN VELASCO Date Saved: 02/22/2017 07:26 am Source: [facility] AquaMostCHART Document Id: [id number] documented in this encounter Plan of Treatment Not on filedocumented as of this encounter Visit Diagnoses Not on filedocumented in this encounter Additional Health Concerns Assessment Noted Time PHQ-9 Depression Total Score: 9 03/03/2016 11:54 AM CD T documented as of this encounter Care Teams Instruction Librarian Relationship Specialty Start Date End Date Mayra Guerrero, LAUREN, C.N.P. PCP - General 10/13/16 12/30/[address] [address] documented as of this encounter
--- OUTSIDE RECORDS SUMMARY | 2022-03-21 14:29 | XMS_ITS | Encounter Summary ---
:1990 Author Organization [facility] Address [address] [place] [address] Care Team Providers Name Role Phone Mayra Guerrero APRN, C.N.P. Primary Care Provider [phone] Encounter Details Date Type Department Care Team Description 02/13/2017 Hospital Encounter HX [facility] Solis Domingo M.D . Social History Tobacco Use Types Packs/Day Years Used Date Smoking Tobacco: Former Sex Assigned at Date Recorded Not on file documented as of this encounter Last Filed Vital Signs Vital Sign Reading Time Taken Comments Blood Pressure - - Pulse - - Temperature - - Respiratory Rate - - Oxygen Saturation - - Inhaled Oxygen Concentration - - Weight - - Height 157 cm (5' 1.81) 02/13/2017 2:39 PM CDT Body Mass Index - - documented in this encounter Medications at Time of Discharge Medication Sig Dispensed Refills Start Date End Date levonorgestrel (MIRENA) 1 each by 0 02/13/2017 0 09/06/2017 20 mcg/24 hr (5 years) intrauterine route IUD once. documented as of this encounter Miscellaneous Notes Miscellaneous - Solis Domingo M.D. - 02/15/2017 10:32 AM CDT Normal Results Letter February 15, 2017 ANUSHA SVEN [address] [place] [address] [phone] Dear ANUSHA SOSA, I am pleased to report that your results from the following diagnostic test(s) are normal. Your STD testing are all negative. Please follow up with us as we discussed during your visit or sooner if you have any concerns. If you have questions or concerns, please do not hesitate to call our office. Result Name Current Result Previous Result Normal Range HIV 1 Ab Non-Reactive 02/13/2017 Non-Reactive - HIV 1 Ag Non-Reactive 02/13/2017 Non-Reactive - HIV 1/2 Ag and Ab Non-Reactive 02/13/2017 Non-Reactive - HIV 2 Ab Non-Reactive 02/13/2017 Non-Reactive - Syphilis IgG Antibody Negative 02/13/2017 Negative - Vaginitis Battery, DNA (Genital) 02/13/2017 07/28/2016 Chlamydia by Nucleic Acid Amplification 02/13/2017 GC by Nucleic Acid Amplification 02/13/2017 Sincerely, SOLIS DOMINGO [address] [place] [address] [address] [place] [address] Electronic Signature Electronically Signed By: SOLIS DOMINGO MD On: February 15, 2017 This document has images extracted. Source: [facility] POWERCHART Document Id: [id number] documented in this encounter Plan of Treatment Not on filedocumented as of this encounter Procedures Procedure Name Priority Date/Time Associated Diagnosis Comme nts SYPHILIS TOTAL AB Routine 02/13/2017 3:14 PM Resu lts for this W/ REFLEX S CDT procedure are i n the results section. HIV-1/-2 AG AND AB Routine 02/13/2017 3:14 PM Res ults for this SCREEN CDT procedure are i n the results section. documented in this encounter Results HIV-1/-2 Ag and Ab Screen (02/13/2017 3:14 PM CDT) Analysis Performed At Patho logist Time Signature HIV-1/-2 Ag Non-Reacti Non-Reacti POWERCHART and Ab Screen, ve ve S Comment: Result is not diagnostic (considered pre liminary), and diagnosis of HIV infection must be based on supplemental test results. Supplemental HIV antibody differentiation testing will be added by the initial testing laboratory. The performance of this assay has not be en established for neonates, and the assay should not be used in individuals younger than 2 years of age. Hx HIV 1 Ab Non-Reactive Non-Reactive POWERCHART HX HIV 1 Ag Non-Reactive Non-Reactive POWERCHART HX HIV 2 Ab Non-Reactive Non-Reactive POWERCHART Specimen (Source) Anatomical Collection Method Collection Time Re ceived Time Location / / Volume Laterality Blood 02/13/2017 3:14 PM CDT Solis Domingo M.D. LAB MICROBIOLOGY - BLOOD ORD ERABLES Performing Organization Address City/State/ZIP Code Phon e Number POWERCHART POWERCHART NA Syphilis IgG Antibody with Reflex (02/13/2017 3:14 PM CDT) P athologist Signature Syphilis IgG Negative Negative POWERCHART Ab, S Comment: Reference Value: Negative Specimen (Source) Anatomical Collection Method Collection Time Re ceived Time Location / / Volume Laterality Blood 02/13/2017 3:14 PM CDT Solis Domingo M.D. LAB BLOOD ADD-ON Performing Organization Address City/[facility]/ZIP Code Phon e Number POWERCHART POWERCHART NA documented in this encounter Visit Diagnoses Not on filedocumented in this encounter Additional Health Concerns Assessment Noted Time PHQ-9 Depression Total Score: 9 03/03/2016 11:54 AM CD T documented as of this encounter Care Teams Noteman Relationship Specialty Start Date End Date Mayra Geurrero, WELDING ROBOT OPERATOR, C.N.P. PCP - General 10/13/16 12/30/20 [address], [place] [address] documented as of this encounter
--- OUTSIDE RECORDS SUMMARY | 2022-03-21 14:29 | XMS_ITS | Encounter Summary ---
:1990 Author Organization [facility] Address [address] [place] [address] Care Team Providers Name Role Phone Unavailable Primary Care Provider Unavailable Encounter Details Date Type Department Care Team Description 01/07/2015 Hospital Encounter HX [facility] Anabelle Varma, LAUREN, C.N.P. [address] [place] [address] (Wo rk) Social History Tobacco Use Types Packs/Day Years Used Date Smoking Tobacco: Never Assessed Sex Assigned at Date Recorded Not on file documented as of this encounter Last Filed Vital Signs Vital Sign Reading Time Taken Comments Blood Pressure 116/78 01/07/2015 4:33 PM CDT Pulse 64 01/07/2015 4:33 PM CDT Temperature - - Respiratory Rate 20 01/07/2015 4:33 PM CDT Oxygen Saturation - - Inhaled Oxygen Concentration - - Weight 57.5 kg (126 lb 12.2 oz) 01/07/2015 4:33 PM CDT Height 156 cm (5' 1.42) 01/07/2015 4:33 PM CDT Body Mass Index 23.63 01/07/2015 4:33 PM CDT documented in this encounter H&P Notes Dasha Varma, LAUREN, C.N.P. - 01/07/2015 4:20 PM CDT [id number] CHIEF COMPLAINT/REASON FOR VISIT 1. Healthcare maintenance exam. 2. Check IUD. 3. Dysuria. 4. STD screen. HISTORY OF PRESENT ILLNESS 1. Anusha is here for physical exam. 2. She has Mirena IUD. She would like it checked today. She is not due for Pap smear. 3. She has been experiencing some dysuria for a few days. However she denies any blood in her urine or fever. 4. She has had Chlamydia in the past and would like to be screened for STDs, both chlamydia and gonorrhea, today. MEDICATIONS See depart summary from today. ALLERGIES None. SYSTEMS REVIEW Positive for that mentioned in the history of present illness and noted in the past medical history in the EMR. All other systems were reviewed and were negative. PAST MEDICAL/SURGICAL HISTORY PAST MEDICAL HISTORY: Tobacco abuse. PAST SURGICAL HISTORY: None. PREVENTIVE: Up to date. SOCIAL HISTORY She does not smoke. FAMILY HISTORY Reviewed from [facility] family history tab in the EMR. VITAL SIGNS Reviewed from [facility] evaluation under the vitals tab in the EMR. PHYSICAL EXAMINATION GENERAL: In general, the patient is a pleasant female appears her stated age. SKIN: Without lesion. EYES: PERRLA. EOMs intact. Fundi sharp discs. Conjunctiva and lids normal. ENT: Tympanic membranes clear bilaterally. Nasal mucosa without erythema or congestion. Mouth without erythema or exudate. LYMPH NODES: Neck: Supple without adenopathy, no thyromegaly. Carotid pulses are equal bilaterally. BREASTS: No skin or nipple retraction. No palpable mass. No axillary adenopathy. No nipple discharge. PERIPHERAL VESSELS: Femoral, dorsal, pedal and posterior tibial pulses are equal. HEART: Regular rate and rhythm without murmur. LUNGS: Clear to auscultation, good inspiratory effort. ABDOMEN: Soft, nontender, no palpable mass, no hepatosplenomegaly. GENITALIA: Bartholin, urethra, Skenes, vagina and cervix are without lesion. IUD strings appear in place. Bimanual examination reveals uterus is midline, mobile, nontender. No adnexal masses. SPINE: Normal range of motion. No CVA tenderness. JOINTS: Normal range of motion. EXTREMITIES: Warm, dry, no cyanosis or peripheral edema. MENTAL: Alert and oriented times three. NEUROLOGIC: Deep tendon reflexes are +2 and symmetrical. IMPRESSION/REPORT/PLAN 1. Healthcare maintenance exam. Encouraged to continue working on healthy diet and regular exercise program. 2. Intrauterine device in place. 3. Dysuria. Urinalysis negative for infection. Drink plenty of fluids. 4. Sexually transmitted disease screen. I will contact her with results. Return for physical exam in1 year. Dasha Varma CNP/nilda Electronically Signed By: DASHA VARMA CNP On: 01/08/2015 11:17 AM Source: [facility] [id number] Document Id: [id number] documented in this encounter Nursing Notes Dasha Varma APRN, C.N.P. - 01/07/2015 5:04 PM CDT Ambulatory Patient Education The following Patient Education Materials have been given to the patient: Patient Education Materials: Health Promotion Prevention Guidelines, Women Ages 18 to 39 Health Promotion Prevention Guidelines, Women Ages 18 to 39 Screening tests and vaccines are an important part of managing your health. Health counseling is essential, too. Below are guidelines for these, for women ages 18 to 39. Talk with your health care provider to make sure youre up to date on what you need. Screening Who needs it How often Alcohol misuse All women in this age group At routine exams Blood pressure All women in this age group Every 2 years if your blood pressure is less than 120/80 mm Hg; yearly if your systolic blood pressure is 120 to 139 mm Hg, or your diastolic blood pressure reading is 80 to 89 mm Hg Breast cancer Women ages 20 and older; women under the age of 20, talk with your health care provider Clinical breast exam every 3 years Cervical cancer Women ages 21 and older Women between ages 21 and 29 should have a Pap test every 3 years; women between ages 30 and 65 are advised to have a Pap test plus an HPV test every 5 years Chlamydia Sexually active women ages 24 and younger, and women at increased risk for infection Every3 years if you're at risk or have symptoms Depression All women in this age group At routine exams Diabetes mellitus, type 2 Women who have blood pressure higher than 135/80 mm Hg At least every 3 years Gonorrhea Sexually active women at increased risk for infection At routine exams HIV Women at increased risk for infection - talk with your health care provider At routine checkups Obesity All women in this age group At routine exams Syphilis Women at increased risk for infection - talk with your health care provider At routine exams Tuberculosis Women at increased risk for infection - talk with your health care provider Ask your health care provider Vision All women in this age group At least 1 complete exam in your 20s, and 2 in your 30s Vaccine Who needs it How often Chickenpox (varicella) All women in this age group who have no record of this infection or vaccine 2doses; the second dose should be given 4 to 8 weeks after the first dose Hepatitis A Women at increased risk for infection - talk with your health care provider 2 doses given at least 6 months apart Hepatitis B Women at increased risk for infection - talk with your health care provider 3 doses over6 months; second dose should be given 1 month after the first dose; the third dose should be given at least 2 months after the second dose and at least 4 months after the first dose Human papillomavirus (HPV) All women in this age group up to age 26 3 doses; the second dose should be given 1 to 2 months after the first dose and the third dose given 6 months after the first dose Influenza (flu) All women in this age group Once a year Measles, mumps, rubella (MMR) All women in this age group who have no record of these infections or vaccines 1 or 2 doses Meningococcal Women at increased risk for infection - talk with your health care provider 1 or more doses Pneumococcal (polysaccharide) Women at increased risk for infection - talk with your health care provider 1 or more doses Tetanus/diphtheria/pertussis (Td/Tdap) booster All women in this age group Td every 10 years, or a one-time dose of Tdap instead of a Td booster after age 18, then Td every 10 years Counseling Who needs it How often BRCA gene mutation testing for breast and ovarian cancer susceptibility Women with increased risk for having gene mutation When your risk is known Breast cancer and chemoprevention Women at high risk for breast cancer When your risk is known Diet and exercise Women with high cholesterol or triglycerides, or other risk factors for cardiovascular or chronic disease affected by diet or exercise When diagnosed, and then at routine exams Use of tobacco and the health affects it can cause All women in this age group Every visit ?? [id number] Gris Martinez, [address] [place] [address], [place] [address]. All rights reserved. This information is not intended as a substitute for professional medical care. Always follow your healthcare professional's instructions. Source: [facility] POWERCHART Document Id: [id number] documented in this encounter Miscellaneous Notes Miscellaneous - Dasha Varma APRN, C.N.P. - 01/08/2015 3:24 PM CDT Normal Results Letter 08 January 2015 ANUSHA SOSA [address] [place] [id number] Dear ANUSHA SOSA, I am pleased to report that your results from the following diagnostic test(s) are stable. Please follow up with us as we discussed during your visit or sooner if you have any concerns. If you have questions or concerns, please do not hesitate to call our office. Result Name Current Result Previous Result Normal Range Sodium Lvl (mmol/L) 140 01/07/2015 141 01/16/2014 135 - 145 Potassium Lvl (mmol/L) (L) 3.4 01/07/2015 4.2 01/16/2014 3.6 - 5.2 Chloride (mmol/L) 102 01/07/2015 104 01/16/2014 98 - 107 CO2 (mmol/L) 26 01/07/2015 25 01/16/2014 22 - 29 Glucose Lvl (mg/dL) (L) 69 01/07/2015 89 01/16/2014 70 - 139 Creatinine (mg/dL) 0.8 01/07/2015 0.7 01/16/2014 0.6 - 1.1 EGFR (MDRD) (mL/min/1.73m2) >60 01/07/2015 >60 01/16/2014 >=60 - EGFR (MDRD) (mL/min/1.73m2) >60 01/07/2015 >60 01/16/2014 >=60 - BUN (mg/dL) 12 01/07/2015 14 01/16/2014 6 - 21 Calcium Lvl (mg/dL) 8.8 01/07/2015 8.6 01/16/2014 8.0 - 10.3 TSH (mIU/L) 1.18 01/07/2015 0.78 01/16/2014 0.27 - 4.20 Hgb (g/dL) 13.7 01/07/2015 13.2 01/16/2014 12.0 - 15.5 Hct (%) 39.6 01/07/2015 37.6 01/16/2014 34.9 - 44.5 WBC (x10(9)/L) 9.3 01/07/2015 8.1 01/16/2014 3.4 - 10.5 RBC (x10(12)/L) 4.23 01/07/2015 4.04 01/16/2014 3.90 - 5.03 MCV (fL) 93.6 01/07/2015 93.1 01/16/2014 82.0 - 98.0 10RDW (%) (L) 11.8 01/07/2015 (L) 11.8 01/16/2014 11.9 - 15.5 Platelet (x10(9)/L) 184 01/07/2015 182 01/16/2014 150 - 450 UR WBC (/HPF) Occ-3 01/07/2015 None Seen - UR RBC (/HPF) None Seen 01/07/2015 None Seen - Sincerely, DASHA VARMA [address] [place] [address] Electronic Signature Electronically Signed By: DASHA VARMA CNP On: 08 January 2015 This document has images extracted. Source: [facility] [employer] Document Id: [id number] Electronically signed by Conversion, [facility] Staffing Analyst [id number] at 09/26/2016 7:16 PM CDT Miscellaneous - Dasha Varma APRN, C.N.P. - 01/08/2015 3:24 PM CDT From: DASHA VARMA PINKING MACHINE OPERATOR Sent: 01/08/2015 15:24:04 CDT Phone call with positive chlamydia test. Rx for azithromycin sent to [facility]. Patient states partnerwill see his PCP for treatment. STD form sent to the [facility]. Source: [facility] [employer] Document Id: [id number] Electronically signed by Conversion, [facility] Staffing Analyst [id number] at 09/26/2016 7:16 PM CDT Miscellaneous - Sudha Diaz LSudarshanP.N. - 01/07/2015 5:06 PM CDT PHQ-9 PHQ-9 Entered On: 01/07/2015 17:06 CDT Performed On: 01/07/2015 17:06 CDT by SUDHA DIAZ LPN PHQ-9 Little interest or pleasure in doing things : Not at all Feeling down, depressed, or hopeless : Not at all Trouble falling or staying asleep, or sleeping too much : Several days Feeling tired or having little energy : Several days Poor appetite or overeating : Not at all Feeling bad about yourself or that you are a failure : Not at all Trouble concentrating on things : Not at all Moving or speaking slowly; restless or fidgety : Not at all Thoughts that you would be better off /hurting self : Not at all PHQ-9 Calculated Score : 2 Problems make work, home, or dealing with others : Somewhat difficult SUDHA DIAZ LPN - 01/07/2015 17:06 CDT Source: [employer] Document Id: [id number] CDT!13 Miscellaneous - Dasha Varma APRN, C.N.P. - 01/07/2015 5:04 PM CDT Ambulatory Patient Summary [address] [id number] Visit Information Name: ANUSHA SOSA [facility] Number: [id number] Current Date: 01/07/2015 17:04:20 Physicians Attending Provider: DASHA VARMA CNP Primary Care Provider: DASHA VARMA CNP ANUSHA SOSA has been given the following [...] Take Indications/Special Instructions/Comments/Notes for Patient Medication Changes/Routing levonorgestrel (levonorgestrel 52 mg intrauteral device) 1 Each, Intrauteral, once Stop Taking the Following Medications: Medication list as of 01-07-15 17:04 Attention: If you have any medications at home that are not on this list, DO NOT take them until youcontact your provider for clarification. Give a copy of your medication list to your primary care provider. Update your medication list any time medications or doses are changed and carry your medication list at all times in case of emergency. Electronically Signed By: DASHA VARMA CNP Signed On:07-JAN-2015 17:03:43 Your Allergies & Intolerances Substance Reaction Symptoms Category Comments No Known Allergies Drug Your Problem List Problem Status Onset Comments IUD, checking, reinsertion or removal Active 07/26/2011 07/26/11 Mirena IUd removed and replaced 07/26/2011. 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 Prevention Guidelines, Women Ages 18 to 39 Screening tests and vaccines are an important part of managing your health. Health counseling is essential, too. Below are guidelines for these, for women ages 18 to 39. Talk with your health care provider to make sure youre up to date on what you need. Screening Who needs it How often Alcohol misuse All women in this age group At routine exams Blood pressure All women in this age group Every 2 years if your blood pressure is less than 120/80 mm Hg; yearly if your systolic blood pressure is 120 to 139 mm Hg, or your diastolic blood pressure reading is 80 to 89 mm Hg Breast cancer Women ages 20 and older; women under the age of 20, talk with your health care provider Clinical breast exam every 3 years Cervical cancer Women ages 21 and older Women between ages 21 and 29 should have a Pap test every 3 years; women between ages 30 and 65 are advised to have a Pap test plus an HPV test every 5 years Chlamydia Sexually active women ages 24 and younger, and women at increased risk for infection Every3 years if you're at risk or have symptoms Depression All women in this age group At routine exams Diabetes mellitus, type 2 Women who have blood pressure higher than 135/80 mm Hg At least every 3 years Gonorrhea Sexually active women at increased risk for infection At routine exams HIV Women at increased risk for infection -- talk with your health care provider At routine checkups Obesity All women in this age group At routine exams Syphilis Women at increased risk for infection -- talk with your health care provider At routine exams Tuberculosis Women at increased risk for infection -- talk with your health care provider Ask your health care provider Vision All women in this age group At least 1 complete exam in your 20s, and 2 in your 30s Vaccine Who needs it How often Chickenpox (varicella) All women in this age group who have no record of this infection or vaccine 2doses; the second dose should be given 4 to 8 weeks after the first dose Hepatitis A Women at increased risk for infection -- talk with your health care provider 2 doses given at least 6 months apart Hepatitis B Women at increased risk for infection -- talk with your health care provider 3 doses over 6 months; second dose should be given 1 month after the first dose; the third dose should be given at least 2 months after the second dose and at least 4 months after the first dose Human papillomavirus (HPV) All women in this age group up to age 26 3 doses; the second dose should be given 1 to 2 months after the first dose and the third dose given 6 months after the first dose Influenza (flu) All women in this age group Once a year Measles, mumps, rubella (MMR) All women in this age group who have no record of these infections or vaccines 1 or 2 doses Meningococcal Women at increased risk for infection -- talk with your health care provider 1 or moredoses Pneumococcal (polysaccharide) Women at increased risk for infection -- talk with your health care provider 1 or more doses Tetanus/diphtheria/pertussis (Td/Tdap) booster All women in this age group Td every 10 years, or a one-time dose of Tdap instead of a Td booster after age 18, then Td every 10 years Counseling Who needs it How often BRCA gene mutation testing for breast and ovarian cancer susceptibility Women with increased risk for having gene mutation When your risk is known Breast cancer and chemoprevention Women at high risk for breast cancer When your risk is known Diet and exercise Women with high cholesterol or triglycerides, or other risk factors for cardiovascular or chronic disease affected by diet or exercise When diagnosed, and then at routine exams Use of tobacco and the health affects it can cause All women in this age group Every visit ?? [phone] [facility], [address] [place] [address], [place] [address]. All rights reserved. This information is not intended as a substitute for professional medical care. Always follow your healthcare professional's instructions. Consider Using Patient Online Services Patient Online [...] if you dont have one. Go to [email or web address] and click on Create Your Account. Then, follow the directions to complete the online form. Youll be asked for your [facility] number which you can find at the top of this document. Your Goals/Additional instructions: Source: [facility] POWERCHART Document Id: [id number] Miscellaneous - Dasha Varma APRN, C.N.P. - 01/07/2015 5:04 PM CDT Ambulatory Discharge Medication List [address] [id number] Visit Information Name: ESE SOSAA [place] [facility] Number: [id number] Visit Date: 01/07/2015 17:04:19 Attending Provider: DASHA VARMA CNP Primary Care Provider: DASHA VARMA CNP ANUSHA SOSA has been given the following list of medications: Your Medications It is important to take your medications as directed. Use a pill box or chart to help remind you to take your medications. Please let your doctor or nurse know if you have problems taking your medications. Medication/Strength How to Take Indications/Special Instructions/Comments/Notes for Patient Medication Changes/Routing levonorgestrel (levonorgestrel 52 mg intrauteral device) 1 Each, Intrauteral, once Stop Taking the Following Medications: Medication list as of 01-07-15 17:04 Attention: If you have any medications at home that are not on this list, DO NOT take them until youcontact your provider for clarification. Give a copy of your medication list to your primary care provider. Update your medication list any time medications or doses are changed and carry your medication list at all times in case of emergency. Electronically Signed By: DASHA VARMA [facility] Signed On:07-JAN-2015 17:03:43 Additional Information: Source: [facility] POWERCHART Document Id: [id number] Miscellaneous - Sudha Diaz L.P.N. 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 Having alot of pain upper back between.Having urinary frequency and burning with urinating. Wants to be checked for diabetes. Stung by bee and it is itching on right forearm. Temperature Core : 36.8 DegC(Converted to: 98.2 DegF) Peripheral Pulse Rate : 64 /min Respiratory Rate : 20 /min Heart Rhythm : Regular Systolic Blood Pressure : 116 mmHg Diastolic Blood Pressure : 78 mmHg NIBP Mean : 91 mmHg BP Location : Left upper extremity Blood Pressure Cuff Size : Regular Height : 156 cm(Converted to: 5 ft 1 inch(es), 61 inch(es)) Actual Weight : 57.5 kg(Converted to: 126 lb 12 oz) Weight Source : Standing scale Dosing Weight Clinic : 57.5 kg Clinic BSA : 1.58 Body Mass Index : 23.63 kg/m2 SUDHA DIAZ LPN - 01/07/2015 16:33 CDT General Info Information Given By : Patient Preferred Communication Mode : Verbal Languages : Danish Is Patient Female and 13-50 no hysterectomy : Yes Status : Patient denies Are you ? : No SUDHA DIAZ SATINDER - 01/07/2015 16:33 CDT Subjective Pain Symptoms : No SUDHA DIAZ SATINDER - 01/07/2015 16:33 CDT Dependent Habits Tobacco Use/Currently Using : No Tobacco Use/Last 12 months : No Exposure to Tobacco Smoke : Other: Quit date 11/12/14 Smoking Status : Former smoker SUDHA DIAZ SATINDER - 01/07/2015 16:33 CDT Tobacco Use Grid Type : Cigarettes Other Tobacco Frequency : 1 per week SUDHA DIAZ MEGHAN RAJAN - 01/07/2015 16:33 CDT Caffeine Use Grid Caffeine Use : Current Type : Soft drinks Frequency : Daily ADENNAGASUDHA RivasMichelle RAJAN - 01/07/2015 16:33 CDT Source: [employer] Document Id: [id number] CDT!3 Miscellaneous - Sudha Diaz L.P.N. - 01/07/2015 4:31 PM CDT Health Assessment Health Assessment Entered On: 01/07/2015 16:32 CDT Performed On: 01/07/2015 16:31 CDT by SUDHA DIAZ LPN Health Assessment Complete Health Assessment Complete or Modified : Annual Health Assessment Annual Health Assessment Completed : Yes EMILY SUDHAGEGE CHRISTIANSON LPN - 01/07/2015 16:31 CDT Nutrition Nutrition Risk Factors by History Adult : None ADENNAGASUDHA Rivas MEGHAN RAJAN - 01/07/2015 16:31 CDT Functional Current Daily Living Assistance : None EMILYLEWISSUDHAGEGE CHRISTIANSON LPN - 01/07/2015 16:31 CDT Dependent Habits Tobacco Use/Currently Using : No Tobacco Use/Last 12 months : No Exposure to Tobacco Smoke : Other: Quit date 11/12/14 Smoking Status : Former smoker SUDHA DIAZ MEGHAN RAJAN - 01/07/2015 16:31 CDT Tobacco Use Grid Type : Cigarettes Other Tobacco Frequency : 1 per week SUDHA DIAZ SATINDER - 01/07/2015 16:31 CDT Caffeine Use Grid Caffeine Use : Current Type : Soft drinks Frequency : Daily SUDHA DIAZ SATINDER - 01/07/2015 16:31 CDT Psychosocial Domestic Abuse Concerns : None Behavioral Health Screen/Safety Assmt : No Jainism Preference : Unknown SUDHA DIAZ SATINDER - 01/07/2015 16:31 CDT Advance Directive Advanced Directives : No Advance Directive Additional Information : No SUDHA DIAZ SATINDER - 01/07/2015 16:31 CDT Educ Needs Learning Style Preference Adult Grid Patient : Printed materials, Verbal explanation Family : Printed materials, Verbal explanation SUDHA DIAZ SATINDER - 01/07/2015 16:31 CDT Source: [employer] Document Id: [id number] CDT!33 documented in this encounter Plan of Treatment Not on filedocumented as of this encounter Procedures Procedure Name Priority Date/Time Associated Comments Diagnosis CBC WITHOUT Routine 01/07/2015 5:10 PM Results f or this DIFFERENTIAL, B CDT procedure ar e in the results section. THYROID-STIMULATING Routine 01/07/2015 5:10 PM Re sults for this HORMONE-SENSITIVE CDT procedure are in (S-TSH) the results section. BASIC METABOLIC Routine 01/07/2015 5:10 PM Result s for this PANEL, S/P CDT procedure are i n the results section. CHLAMYDIA/GONORRHOEAE Routine 01/07/2015 4:59 PM Results for this AMPLIFIED RNA CDT procedure are in the results section. CHLAMYDIA TRACHOMATIS Routine 01/07/2015 4:59 PM Results for this AMPLIFIED RNA CDT procedure are in the results section. URINALYSIS, ROUTINE Routine 01/07/2015 4:58 PM Re sults for this CDT procedure are i n the results section. URINE MICROSCOPIC Routine 01/07/2015 4:58 PM Resu lts for this CDT procedure are i n the results section. documented in this encounter Results (ABNORMAL) CBC without Differential (01/07/2015 5:10 PM CDT) Analysis Performed At Patho logist Time Signature Leukocytes 9.3 3.4 - 10.5 POWERCHART X109L Erythrocytes 4.23 3.90 - POWERCHART 5.03 [id number] Hemoglobin 13.7 12.0 - POWERCHART 15.5 GDL Hematocrit 39.6 34.9 - POWERCHART 44.5 MCV 93.6 82.0 - POWERCHART 98.0 FL Platelet Count 184 150 - 450 POWERCHART X109L HX RDW 11.8 (L) 11.9 - POWERCHART 15.5 Specimen (Source) Anatomical Collection Method Collection Time Re ceived Time Location / / Volume Laterality Blood 01/07/2015 5:10 PM CDT Dasha Varma APRN, C.N.P. LAB BLOOD ADD-ON Performing Organization Address City/State/ZIP Code Phon e Number POWERCHART Thyroid-Stimulating Hormone-Sensitive (s-TSH) (01/07/2015 5:10 PM CDT) athologist Signature TSH 1.18 0.27 - 4.20 POWERCHART (Thyrotropin) MIUL Specimen (Source) Anatomical Collection Method Collection Time Re ceived Time Location / / Volume Laterality Blood 01/07/2015 5:10 PM CDT Dasha Varma APRN, C.N.P. LAB BLOOD ADD-ON Performing Organization Address City/State/ZIP Code Phon e Number POWERCHART (ABNORMAL) BMP (Basic Metabolic Panel) (01/07/2015 5:10 PM CDT) P athologist Signature BUN (Blood Urea 12 6 - 21 POWERCHART Nitrogen), S MGDL Chloride, S 102 98 - 107 POWERCHART MMOLL CO2 Total 26 22 - 29 POWERCHART MMOLL Creatinine 0.8 0.6 - 1.1 POWERCHART MGDL Glucose 69 (L) 70 - 139 POWERCHART MGDL Calcium, Total, 8.8 8.0 - 10.3 POWERCHART S MGDL Sodium, S 140 135 - 145 POWERCHART MMOLL Potassium, S 3.4 (L) 3.6 - 5.2 POWERCHART MMOLL HXeGFR (MDRD) >60 >=60 POWERCHART [id number] eGFR >60 >=60 POWERCHART Black/ [id number] [place] Specimen (Source) Anatomical Collection Method Collection Time Re ceived Time Location / / Volume Laterality Blood 01/07/2015 5:10 PM CDT Dasha Varma APRN, C.N.P. LAB BLOOD ADD-ON Performing Organization Address City/State/ZIP Code Phon e Number POWERCHART Chlamydia / Gonorrhoeae Amplified RNA (01/07/2015 4:59 PM CDT) Component Value Ref Test Analysis Performed At [facility] gist Range Method Time Signature HX GC by Nucleic POWERCHART Acid Amplification HXFinal Negative for POWERCHART Neisseria gonorrhea by RNA amplification . HXFinal Reference: POWERCHART Negative HXFinal If you POWERCHART submitted a female urine sample, please note it is a Laboratory Developed Test. Specimen (Source) Anatomical Collection Method Collection Time Re ceived Time Location / / Volume Laterality Urine 01/07/2015 4:59 PM CDT Dasha Varma APRN, C.N.P. LAB MICROBIOLOGY - GENERAL ORDERABLES Performing Organization Address [facility] Phon e Number POWERCHART (ABNORMAL) Chlamydia Trachomatis Amplified RNA (01/07/2015 4:59 PM CDT) Component Value Ref Test Analysis Performed At [facility] gist Range Method Time Signature HXChlamydia by (POSITIVE) POWERCHART Nucleic Acid Amplification HXFinal Positive for POWERCHART Chlamydia trachomatis by RNA amplification. HXFinal Reference: POWERCHART Negative H[facility]Final [facility] Department of Health. HXFinal If you POWERCHART submitted a female urine sample, please note it is a Laboratory Developed Test. Specimen (Source) Anatomical Collection Method Collection Time Re ceived Time Location / / Volume Laterality Urine 01/07/2015 4:59 PM CDT Dasha Varma APRN, C.N.P. LAB MICROBIOLOGY - GENERAL ORDERABLES Performing Organization Address City/[facility] Code Phon e Number POWERCHART Urine Microscopic (01/07/2015 4:58 PM CDT) P athologist Signature HXUR WBC. Occ-3 None Seen POWERCHART HPF HXUR RBC. None Seen None Seen POWERCHART HPF Specimen Anatomical Collection Method Collection Time Receive d Time (Source) Location / / Volume Laterality Urine, First 01/07/2015 4:58 PM 5 4:58 Voided CDT PM CDT Dasha Varma APRN, C.N.P. LAB URINE ORDERABLES Performing Organization Address City/[facility]/ZIP [facility] Phon e Number POWERCHART (ABNORMAL) Urinalysis, Routine (01/07/2015 4:58 PM CDT) [facility] gist Method Time Signature HXUr Color Yellow Colorless POWERCHART Clarity Clear Clear POWERCHART Glucose Negative Negative POWERCHART MGDL HXBILIRUBIN Negative Negative POWERCHART Ketones, QL(U) Negative Negative POWERCHART MGDL Specific <=1.005 POWERCHART [place], POCT, U HXBLOOD Negative Negative POWERCHART pH, POCT, Urine 6.0 <5.0 POWERCHART Protein, Ur, Dip Negative Negative POWERCHART MGDL Urobilinogen 0.2 0.2 MGDL POWERCHART HXNITRITE Negative Negative POWERCHART Leukocyte Trace (A) Negative POWERCHART Esterase Specimen (Source) Anatomical Collection Method Collection Time Re ceived Time Location / / Volume Laterality Urine, First 01/07/2015 4:58 PM Voided CDT Dasha Varma APRN, C.N.P. LAB URINE ORDERABLES Performing Organization Address City/State/[facility] Phon e Number POWERCHART documented in this encounter Visit Diagnoses Not on filedocumented in this encounter Additional Health Concerns Assessment Noted Time PHQ-9 Depression Total Score: 2 01/07/2015 5:06 PM CDT documented as of this encounter
--- OUTSIDE RECORDS SUMMARY | 2022-03-21 14:29 | XMS_ITS | Encounter Summary ---
:1990 Author Organization [facility] Address [address] [place] [address] Care Team Providers Name Role Phone Unavailable Primary Care Provider Unavailable Encounter Details Date Type Department Care Team Description 03/19/2015 Hospital Encounter HX NO MAPPING Mayra Guerrero, DRUG ABUSE PROGRAM COORDINATOR, C.N.P. 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 Coded By: EMY BRITO Date Saved: 04/02/2015 03:10 pm [facility]: [id number] documented in this encounter Plan of Treatment Not on filedocumented as of this encounter Visit Diagnoses Not on filedocumented in this encounter Additional Health Concerns Assessment Noted Time PHQ-9 Depression Total Score: 2 01/07/2015 5:06 PM CDT documented as of this encounter
--- OUTSIDE RECORDS SUMMARY | 2022-03-21 14:29 | XMS_ITS | Encounter Summary ---
:1990 Author Organization [facility] Address [address] [place] [address] Care Team Providers Name Role Phone Mayra Guerrero APRN, C.N.PSudarshan Primary Care Provider [phone] Encounter Details Date Type Department Care Team Description 02/28/2017 Orders Only Department of Family Mayra Guerrero [facility] Examination Medicine, [place] LAUREN C.N.PSudarshan [facility], in [place], [address] [address] [place], [place] [phone] (Work) [phone] Social History Tobacco Use Types Packs/Day Years Used Date Smoking Tobacco: Former Sex Assigned at Date Recorded Not on file documented as of this encounter Plan of Treatment Not on filedocumented as of this encounter Visit Diagnoses Diagnosis Screening Examination Diabetes Mellitus documented in this encounter Additional Health Concerns Assessment Noted Time PHQ-9 Depression Total Score: 9 03/03/2016 11:54 AM CD T documented as of this encounter Care Teams 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 PCP - General 10/13/16 12/30/[address] [place] [address] documented as of this encounter
--- OUTSIDE RECORDS SUMMARY | 2022-03-21 14:29 | XMS_ITS | Encounter Summary ---
:1990 Author Organization [facility] Address [address] [place] [address] Care Team Providers Name Role Phone Unavailable Primary Care Provider Unavailable Encounter Details Date Type Department Care Team Description 03/03/2016 Hospital Encounter HX [facility] FAMILYPRA Dasha Varma APRN, C.N.P. [address] [place], [place] [phone] (Wo rk) Social History Tobacco Use Types Packs/Day Years Used Date Smoking Tobacco: Never Assessed Sex Assigned at Date Recorded Not on file documented as of this encounter Last Filed Vital Signs Vital Sign Reading Time Taken Comments Blood Pressure 110/68 03/03/2016 11:04 AM CDT Pulse 64 03/03/2016 11:04 AM CDT Temperature - - Respiratory Rate 20 03/03/2016 11:04 AM CDT Oxygen Saturation - - Inhaled Oxygen Concentration - - Weight 62.9 kg (138 lb 12.5 oz) 03/03/2016 11:04 AM CDT Height 157 cm (5' 1.81) 03/03/2016 11:04 AM CDT Body Mass Index 25.54 03/03/2016 11:04 AM CDT documented in this encounter H&P Notes Dasha Varma APRN, C.N.P. - 03/03/2016 11:44 AM CDT Clinic Full Note CHIEF COMPLAINT/REASON FOR VISIT Physical- Wants IUD checked. Having cramping off and on. Wants pap and wants to be checked for STD.Wants the flu shot. HISTORY OF PRESENT ILLNESS Anusha is here for Health Care Maintenance Exam. She is due for pap smear, she would like STD testing. She has a Mirena IUD, due to be replaced in June. Will have her schedule a COVER MAT MACHINE OPERATOR appointment. She has depression, she is seeing a therapist weekly. She started sertraline but had GI side effects and di scontinued it. We discussed a trial of Wellbutrin instead. She has been having burning with urination for the past few days. No blood in the urine, no fever. 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 (09/10/2009), Cytopathology, cervical or vaginal (any reporting system), collected in preservative fluid, automated thin layer preparation; manual screening under physician supervision.. (09/10/2009), Cytopathology, cervical or vaginal (any reporting system), collected in preservative fluid, automated thin layer preparation; manual screening under physician supervision.. (08/14/2008), SCREENING PAPANICOLAOU SMEAR; OBTAINING, PREPARING AND CONVEYANCE OF CERVICAL OR VAGINAL SMEAR TO LABORATORY (Week of 11/21/2005), Vaginal delivery. SOCIAL HISTORY Date Time: 03/03/2016 11:04 Tobacco: Smoking Status: Former smoker Exposure: Other: Quit date 11/12/14 Alcohol: Use: No Results Found Recreational Drugs: Use: No Results Found Type: No Results Found FAMILY HISTORY Mother: Negative: Father: Negative: Sister: Negative: Brother: Negative: Sister: Negative: Brother: Negative: Grandmother (maternal, at 75 year(s)):Positive: Alzheimer's disease; Diabetes mellitus Aunt (maternal):Positive: Diabetes mellitus Uncle (maternal):Positive: Diabetes mellitus HEALTH MAINTENANCE Flu shot given today. SYSTEMS REVIEW GENERAL: No weight gain, no weight loss, no fever in past month, no chills, no sweats, no fatigue EENT: No blurred vision, no double vision, no eye pain, no sinus problems, no hoarseness, no difficulty swallowing, no mouth sores, no diminished hearing, no ringing in ears, no enlarged glands PULMONARY: No shortness of breath, no cough, no wheezing, no sputum, no hemoptysis CARDIAC: No valve problems, no Chest pain, no Chest pressure, no rapid beating, no irregular beating, no dependent edema, pain in calves or with walking, no difficulty moving arms and legs GI: No heartburn, no nausea, no vomiting, no stomach trouble, no constipation, no diarrhea, no blood in BM, no change in BM BREAST: No lumps of breast, no nipple discharge, no pain in breast : No vaginal discharge, no burning/pain with urination, no difficulty starting stream, no difficulty emptying bladder, no excessive urination MUSCULOSKELETAL: No joint pain, no joint swelling, no joint stiffness, no muscle pain, no muscle stiffness, no back pain, no back stiffness SKIN: No skin rashes, no skin sores, no change in moles NEURO: No significant headaches, no slurred speech, no seizures, no dizziness, no loss of consciousness, no memory loss ENDOCRINE: No excessive thirst, no excessive bruising VITAL SIGNS T: 36.5 ??C (Core) HR: 64 RR: 20 BP: 110 / 68 HT: 157 cm WT: 62.95 kg BMI: 25.54 PHYSICAL EXAMINATION GENERAL: In general, the patient is a pleasant female who appears her stated age. SKIN: Without lesion. EYES: PERRLA. EOMI intact. Fundi sharp discs. Conjunctiva and lids [...] Soft, nontender, no palpable mass, no hepatosplenomegaly. Mild suprapubic tenderness, no CVA tenderness. GENITALIA: Bartholin, urethra, vagina and cervix are without lesion. ThinPrep Pap smear done with spatula and cytobrush. Bimanual examination reveals uterus is midline, mobile, nontender. IUD string in place. No adnexal masses. SPINE: Normal range of motion. No CVA tenderness. JOINTS: Normal range of motion. EXTREMITIES: Warm, dry, no cyanosis or peripheral edema. MENTAL STATUS: Eye contact normal. Speech clear and fluent. Normal rate and volume. Affect expressive. Insight and judgement intact. No suicidality. NEUROLOGIC: Deep tendon reflexes are +2 and symmetrical. LAB RESULTS Pap smear and chlamydia and gonorrhea screens are pending. UA Color Yellow 03/03/2016 11:56 CDT UA Clarity Slightly Cloudy 03/03/2016 11:56 CDT (Abnormal) UA Spec Grav 1.020 03/03/2016 11:56 CDT UA pH 6.0 03/03/2016 11:56 CDT UA Protein Negativ 03/03/2016 11:56 CDT UA Glucose Negativ 03/03/2016 11:56 CDT UA Ketones Negativ 03/03/2016 11:56 CDT UA Bili Negativ 03/03/2016 11:56 CDT UA Urobilinogen 0.2 03/03/2016 11:56 CDT UA Blood Trace. 03/03/2016 11:56 CDT (Abnormal) UA Nitrite Negativ 03/03/2016 11:56 CDT UA Leuk Est Negativ 03/03/2016 11:56 CDT IMPRESSION/REPORT/PLAN Depression Major Recurrent Moderate Worsening, PHQ-9 score today 9. She discontinued sertraline due to GI side effects. After discussion, she will start Wellbutrin XL 150 mg, one daily for 7 days, then increase to 300 mg daily. Continuewith mental health therapy sessions. Recheck in 6 weeks. Ordered: OV Est Pt Level 3 - 29301 - 15 min Dysuria NOS Urinalysis negative, watchful waiting. Adequate fluid intake. Ordered: OV Est Pt Level 3 - 53471 - 15 min Urinalysis with Microscopic if Indicated Encounter for immunization Flu shot given. Ordered: influenza virus vaccine, inactivated, 0.5 mL, IM, Once, 03/03/16 11:18:00 CDT influenza virus vaccine QUAD, inactivated (Influenza virus vaccine, inactive, 3 yrs, PF) charge OV Est Pt Prev [facility] -12 - [id number] Encounter for screening for malignant neoplasm of cervix Ordered: OV Est Pt Prev [facility] [address] Pathology - COVER MAT MACHINE OPERATOR Cytology General Medical Exam Adult (GME) Continue to work on healthy diet and regular exercise program. I will mail laboratory results. Return for complete physical exam in one year. Ordered: OV Est Pt Prev [facility] [place] -94 - [id number] IUD, checking, reinsertion or removal Appointment for Mirena IUD replacement will be scheduled with COVER MAT MACHINE OPERATOR in June. Ordered: OV Est Pt Prev [facility] [phone] Orders: buPROPion, 300 mg = 1 tab(s), PO, Daily, # 30 tab(s), 3 Refill(s), Maintenance, Pharmacy: [id number] buPROPion, 150 mg = 1 tab(s), PO, q24hr, # 7 tab(s), 0 Refill(s), Maintenance, Pharmacy: [id number], Discontinue sertraline. Consult to CERTIFIED PROFESSIONAL CODER Electronically Signed By: DASHA VARMA APRN, CNP On: 03/03/2016 12:19 PM Source: [facility] POWERCHART Document Id: [id number] documented in this encounter Nursing Notes Dasha Varma APRN, C.N.P. - 03/03/2016 11:23 AM CDT Ambulatory Patient Education The following Patient Education Materials have been given to the patient: Patient Education Materials: Infectious Disease Getting a Flu Vaccination Infectious Disease Getting a Flu Vaccination The flu (influenza) is caused by a virus that is easily spread. And it can be more dangerous than you think. A flu vaccine is your best chance to avoid the flu. The vaccine is given in the form of a shot (injection) or a nasal spray. Its best to get vaccinated each fall, before flu season starts. Thiscan be done at your doctors office or a health clinic. Drugstores, senior centers, and workplaces often offer flu vaccinations, too. If you have questions about getting vaccinated, ask your health careprovider. Flu Facts The flu vaccine will not give you the flu. The flu is caused by a virus. It cant be treated with antibiotics. The flu can be life-threatening, especially for people in high-risk groups. Influenza is not the same as stomach flu, the 24-hour bug that causes vomiting and diarrhea. This is most likely due to a GI (gastrointestinal) infection-not the flu. Flu Symptoms Flu symptoms tend to come on quickly. Fever, headache, fatigue, cough, sore throat, runny nose, and muscle aches are symptoms of the flu. Children may have upset stomach or vomiting, but adults usuallydont. Some symptoms, such as fatigue and cough, can last a few weeks. How a Flu Vaccine Protects You There are many strains (types) of flu viruses. Medical experts predict which 3 strains are most likely to make people sick each year. Flu vaccines are made from these strains. With the shot, inactivated (killed) flu viruses are injected into your body. With the nasal spray, live and weakened viruses are sprayed into your nose. The viruses in both vaccines cannot make you sick. But they do prompt the body to make antibodies to fight these flu strains. If youre exposed to the same strains later in theflu season, the antibodies will fight off the virus. Your health care provider can tell you which type of flu vaccine is right for you. Who Should Get the Flu Vaccination? Almost anyone can (and should) get vaccinated, especially people in the following high-risk groups: ?? Persons 50 and older ?? Babies and children 6 months and older (ask your healthcare provider if your child should receivethe vaccine) ?? Children on long-term aspirin therapy ?? People with chronic health problems (such as diabetes, chronic lung disease, asthma, or heart failure) ?? People receiving certain medical treatments ?? People who live in nursing homes or other long-term care facilities ?? women ?? Caregivers and household contacts of babies younger than 6 months ?? Health care workers Who Cant Get a Flu Vaccination? ?? Babies younger than 6 months ?? People who have had bad reactions to flu vaccination (including Guillain- Freeman?? syndrome) ?? A person who has a high fever (the vaccine can be given after the fever goes away). Types of Flu Vaccines Two main types of flu vaccines are available, injection (shot) and nasal spray. Talk to your doctor about which type is right for you. ?? Injection (shot): ?? The regular flu shot is for persons 6 months and older. It is injected with a needle into the muscle of the upper arm. ?? The high dose shot is only for persons 65 years and older. It is also injected into the muscles of the upper arm. This vaccine has four times the amount of killed viruses than the regular flu shot. This helps the body produce more antibodies, which is important for older persons whose immune systems are weaker. ?? The intradermal shot is injected into the skin with a much smaller needle than for the regular flu shot. This vaccine has a much smaller amount of killed viruses than the regular flu shot. But this is just as effective as the regular flu shot in prompting the body to produce antibodies. ?? Two different influenza vaccines are now available for use in people with a severe egg allergy. Talk with your doctor about seeing an beck operator before getting the flu vaccine. ?? Nasal spray: This is a vaccine thats sprayed into the nose. It is available only for healthy persons ages 2 through 49. It should not be used for women. ?? [id number] [place] [address]. All rights reserved. This information is not intended as a substitute for professional medical care. Always follow your healthcare professional's instructions. This document has images extracted. Please consider using [employer] for all your patient education needs. Source: [facility] POWERCHART Document Id: [id number] documented in this encounter Miscellaneous Notes Miscellaneous - Dasha Varma APRN, C.N.P. - 03/16/2016 2:08 PM CST Normal Results Letter March 16, 2016 ANUSHA SOSA [facility] [address] [place] [id number] Dear ANUSHA SOSA, I am pleased to report that your results from the STD tests are negative. Please follow up with us as we discussed during your visit or sooner if you have any concerns. If you have questions or concerns, please do not hesitate to call our office. Result Name Current Result COVER MAT MACHINE OPERATOR Cytology. 03/03/2016 Sincerely, DASHA VARMA [address] [place] [address] Electronic Signature Electronically Signed By: DASHA VARMA APRN BRAIDER TENDER On: March 16, 2016 This document has images extracted. Source: [facility] MTailorCHART Document Id: [id number] Electronically signed by Conversion, [facility] Power Crane Operator [id number] at 09/25/2016 8:58 AM CDT Miscellaneous - Dasha Varma APRN, C.N.P. - 03/15/2016 9:13 AM CST Custom Result Letter March 15, [address]A [address] [phone] Dear ANUSHA SOSA, I am happy to inform you that your recent Pap smear has been read as normal or negative. This is very reassuring. I would recommend following up with your next Pap smear in three years. Result Name Current Result COVER MAT MACHINE OPERATOR Cytology. 03/03/2016 Sincerely, DASHA VARMA [address] [facility] [place] [address] Electronic Signature Electronically Signed By: DASHA VARMA APRN BRAIDER TENDER On: March 15, 2016 This document has images extracted. Source: [facility] GeriJoy Document Id: [id number] Electronically signed by Conversion, [facility] Power Crane Operator [id number] at 09/25/2016 8:58 AM CDT Miscellaneous - Sudha Diaz L.P.NSudarshan - 03/03/2016 11:54 AM CDT PHQ-9 PHQ-9 Entered On: 03/03/2016 11:55 CDT Performed On: 03/03/2016 11:54 CDT by SUDHA DIAZ LPN PHQ-9 Little interest or pleasure in doing things : Several days Feeling down, depressed, or hopeless : Several days Trouble falling or staying asleep, or sleeping too much : Several days Feeling tired or having little energy : Several days Poor appetite or overeating : More than half the days Feeling bad about yourself or that you are a failure : Several days Trouble concentrating on things : Several days Moving or speaking slowly; restless or fidgety : Several days Thoughts that you would be better off /hurting self : Not at all PHQ-9 Calculated Score : 9 Problems make work, home, or dealing with others : Somewhat difficult SUDHA DIAZ LPN - 03/03/2016 11:54 CDT Source: [facility] POWERCHART Document Id: [id number]!13 Miscellaneous - Dasha Varma APRN, C.N.P. - 03/03/2016 11:23 AM CDT Ambulatory Patient Summary [facility] [address] [place], [place] [phone] Visit Information Name: SVEN ANUSHA [place] [facility] Number: [id number] Current Date: 03/03/2016 11:23:19 Physicians Attending Provider: DASHA VARMA APRN, CNP Primary Care Provider: DASHA VARMA APRN [facility] ANUSHA SOSA has been given the following [...] mg intrauteral device) 1 Each, Intrauteral, once sertraline (sertraline 50 mg oral tablet) 1 Tablet(s), Oral, once a day Routed to [address] [id number] Stop Taking the Following Medications: Medication list as of 03-03-16 11:23 Attention: If you have any medications at [...] of emergency. Electronically Signed By: DASHA VARMA APRN, CNP Signed On:03-MAR-2016 11:23:05 Your Allergies & Intolerances Substance Reaction Symptoms Category Comments No Known Allergies Drug Your Problem List Problem Status Onset Comments IUD, checking, reinsertion or removal Active 07/26/2011 07/26/11 Mirena IUd removed and replaced 07/26/2011. 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 Getting a Flu Vaccination The flu (influenza) is caused by a virus that is easily spread. And it can be more dangerous than you think. A flu vaccine is your best chance to avoid the flu. The vaccine is given in the form of a shot (injection) or a nasal spray. Its best to get vaccinated each fall, before flu season starts. Thiscan be done at your doctors office or a health clinic. Drugstores, senior centers, and workplaces often offer flu vaccinations, too. If you have questions about getting vaccinated, ask your health careprovider. Flu Facts The flu vaccine will not give you the flu. The flu is caused by a virus. It cant be treated with antibiotics. The flu can be life-threatening, especially for people in high-risk groups. Influenza is not the same as stomach flu, the 24-hour bug that causes vomiting and diarrhea. This is most likely due to a GI (gastrointestinal) infection--not the flu. Flu Symptoms Flu symptoms tend to come on quickly. Fever, headache, fatigue, cough, sore throat, runny nose, and muscle aches are symptoms of the flu. Children may have upset stomach or vomiting, but adults usuallydont. Some symptoms, such as fatigue and cough, can last a few weeks. How a Flu Vaccine Protects You There are many strains (types) of flu viruses. Medical experts predict which 3 strains are most likely to make people sick each year. Flu vaccines are made from these strains. With the shot, inactivated (killed) flu viruses are injected into your body. With the nasal spray, live and weakened viruses are sprayed into your nose. The viruses in both vaccines cannot make you sick. But they do prompt the body to make antibodies to fight these flu strains. If youre exposed to the same strains later in theflu season, the antibodies will fight off the virus. Your health care provider can tell you which type of flu vaccine is right for you. Who Should Get the Flu Vaccination? Almost anyone can (and should) get vaccinated, especially people in the following high-risk groups: ?? Persons 50 and [id number] ?? Babies and children 6 months and older (ask your healthcare provider if your child should receivethe vaccine) ?? Children on long-term aspirin therapy ?? People with chronic health problems (such as diabetes, chronic lung disease, asthma, or heart failure) ?? People receiving certain medical treatments ?? People who live in nursing homes or other long-term care facilities ?? women ?? Caregivers and household contacts of babies younger than 6 months ?? Health care workers Who Cant Get a Flu Vaccination? ?? Babies younger than 6 months ?? People who have had bad reactions to flu vaccination (including Guillain- Freeman? syndrome) ?? A person who has a high fever (the vaccine can be given after the fever goes away). Types of Flu Vaccines Two main types of flu vaccines are available, injection (shot) and nasal spray. Talk to your doctor about which type is right for you. ?? Injection (shot): ?? The regular flu shot is for persons 6 months and older. It is injected with a needle into the muscle of the upper arm. ?? The high dose shot is only for persons 65 years and older. It is also injected into the muscles of the upper arm. This vaccine has four times the amount of killed viruses than the regular flu shot. This helps the body produce more antibodies, which is important for older persons whose immune systems are weaker. ?? The intradermal shot is injected into the skin with a much smaller needle than for the regular flu shot. This vaccine has a much smaller amount of killed viruses than the regular flu shot. But this is just as effective as the regular flu shot in prompting the body to produce antibodies. ?? Two different influenza vaccines are now available for use in people with a severe egg allergy. Talk with your doctor about seeing an beck operator before getting the flu vaccine. ?? Nasal spray: This is a vaccine thats sprayed into the nose. It is available only for healthy persons ages 2 through 49. It should not be used for women. ?? [id number] [facility], [address] [place] [address], [place] [address]. All rights reserved. This information is not [...] if you dont have one. Go to [email or web address] and click on Create Your Account. Then, follow the directions to complete the online form. Youll be asked for your [facility] number which you can find at the top of this document. Your Goals/Additional instructions: This document has images extracted. Please consider using [employer] for all your patient education needs. Source: [facility] POWERCHART Document Id: [id number] Miscellaneous - Dasha Varma APRN, C.N.P. - 03/03/2016 11:23 AM CDT Ambulatory Discharge Medication List [address] [id number] Visit Information Name: ESE SOSAA [place] [facility] Number: [id number] Current Date: 03/03/2016 11:23:18 Attending Provider: DASHA VARMA APRN BRAIDER TENDER Primary Care Provider: DASHA VARMA APRN BRAIDER TENDER ANUSHA SOSA has been given the following [...] mg intrauteral device) 1 Each, Intrauteral, once sertraline (sertraline 50 mg oral tablet) 1 Tablet(s), Oral, once a day Routed to [address] [address] Stop Taking the Following Medications: Medication list as of 03-03-16 11:23 Attention: If you have any medications at [...] of emergency. Electronically Signed By: DASHA VARMA APRN BRAIDER TENDER Signed On:03-MAR-2016 11:23:05 Additional Information: Source: [facility] POWERCHART Document Id: [id number] Miscellaneous - Justice Barraza, L.P.N. - 03/03/2016 11:04 AM CDT Adult Social Science Instructor Intake/History Adult Social Science Instructor Intake/History Entered On: 03/03/2016 11:07 CDT Performed On: 03/03/2016 11:04 CDT by JUSTICE BARRAZA LPN Intake Chief Complaint : Physical- Wants IUD checked. Having cramping off and on. Wants pap and wants to bechecked for STD. Wants the flu shot. LMP Date : N/A Temperature Core : 36.5 DegC(Converted to: 97.7 DegF) Peripheral Pulse Rate : 64 /min Respiratory Rate : 20 /min Heart Rhythm : Regular Systolic Blood Pressure : 110 mmHg Diastolic Blood Pressure : 68 mmHg NIBP Mean : 82 mmHg BP Location : Left upper extremity Blood Pressure Cuff Size : Regular Height : 157 cm(Converted to: 5 ft 2 inch(es), 62 inch(es)) Actual Weight : 62.95 kg(Converted to: 138 lb 12 oz) Weight Source : Standing scale Dosing Weight Clinic : 62.95 kg Clinic BSA : 1.66 Body Mass Index : 25.54 kg/m2 JUSTICE BARRAZA SATINDER - 03/03/2016 11:04 CDT General Info Information Given By : Patient Preferred Communication Mode : Verbal Languages : Divehi Is Patient Female and 13-50 no hysterectomy : Yes Status : Patient denies Are you ? : No JUSTICE BARRAZA SATINDER - 03/03/2016 11:04 CDT Subjective Pain Symptoms : No JUSTICE BARRAZA SATINDER - 03/03/2016 11:04 CDT Dependent Habits Exposure to Tobacco Smoke : Other: Quit date 11/12/14 Smoking Status : Former smoker Tobacco 2A : Yes Tobacco Use/Currently Using : No Tobacco Use/Last 30 Days : No Tobacco Use/Last 12 months : No JUSTICE BARRAZA SATINDER - 03/03/2016 11:04 CDT Caffeine Use Grid Caffeine Use : Current Type : Soft drinks Frequency : Daily JUSTICE BARRAZA SATINDER - 03/03/2016 11:04 CDT Source: [facility] [employer] Document Id: [id number] documented in this encounter Plan of Treatment Not on filedocumented as of this encounter Procedures Procedure Name Priority Date/Time Associated Comments Diagnosis URINALYSIS, ROUTINE Routine 03/03/2016 11:56 Resu lts for this AM CDT procedure are i n the results section. URINE MICROSCOPIC Routine 03/03/2016 11:56 Result s for this AM CDT procedure are i n the results section. PATHOLOGY COVER MAT MACHINE OPERATOR Routine 03/03/2016 12:00 Results fo r this CYTOLOGY AM CDT procedure are i n the results section. documented in this encounter Results Urine Microscopic (03/03/2016 11:56 AM CDT) P athologist Signature HXUR WBC. Occ-3 None Seen POWERCHART HPF HXUR RBC. Occ-2 None Seen POWERCHART HPF Specimen Anatomical Collection Method Collection Time Receive d Time (Source) Location / / Volume Laterality Urine, First 03/03/2016 11:56 03/03/2016 Voided AM CDT 11:56 AM CDT Dasha Varma APRN, C.N.P. LAB URINE ORDERABLES Performing Organization Address City/State/ZIP Code Phon e Number POWERCHART (ABNORMAL) Urinalysis, Routine (03/03/2016 11:56 AM CDT) [facility] gist Method Time Signature Clarity Slightly Clear POWERCHART Cloudy (A) HXUr Color Yellow Colorless POWERCHART Specific 1.020 POWERCHART [place], POCT, U Comment: Reference Range Specific [place]: 1.000-1.035 pH, POCT, Urine 6.0 <5.0 POWERCHART Comment: Reference Range pH: 5.0-8.0 Protein, Ur, Dip Negative Negative MGDL POWERCHAR T Glucose Negative Negative MGDL POWERCHART Ketones, QL(U) Negative Negative MGDL POWERCHART HXBILIRUBIN Negative Negative POWERCHART HXBLOOD Trace (A) Negative POWERCHART Leukocyte Esterase Negative Negative POWERCHART HXNITRITE Negative Negative POWERCHART Urobilinogen 0.2 0.2 MGDL POWERCHART Comment: Reference Range Urobilinogen: 0.2-1.0 mg/dL Specimen (Source) Anatomical Collection Method Collection Time Re ceived Time Location / / Volume Laterality Urine, First 03/03/2016 11:56 Voided AM CDT Dasha Varma APRN, C.N.P. LAB URINE ORDERABLES Performing Organization Address City/State/ZIP Code Phon e Number POWERCHART Pathology COVER MAT MACHINE OPERATOR Cytology (03/03/2016 12:00 AM CDT) Specimen (Source) Anatomical Location Collection Method / Collectio n Time Received Time / Laterality Volume 03/03/2016 Narrative [facility] - 03/16/2016 12:24 PM CARE CLINICIAN [facility] in [address] [place], [place] ??[address] Patient Name: ANUSHA SOSA Patient ID #: [id number] Collected: 03/03/2016 Address: City/State/Zip: [address] [place] [address] ??[phone] Received: Reported: 03/04/2016 03/15/2016 Soc. Sec. #: ?/Age/Sex 1990 (Age: 25) ??F Physician(s): ROSE VARMA CNP Copy To: ? [facility] ??[id number] [address] [facility], ??[place] ??[address] CYTOPATHOLOGY COVER MAT MACHINE OPERATOR REPORT FINAL CYTOLOGIC DIAGNOSIS Pap Smear - ThinPrep: NEGATIVE FOR INTRAEPITHELIAL LESION OR MALIGNANCY ENDOCERVICAL CELLS/COMPONENT PRESENT. SATISFACTORY SPECIMEN FOR EVALUATION. Electronically Signed Out By danish/03/15/[address](ASCP) The Pap test is a screening procedure an d, as such, is subject to both false positive and false negative results as evidenced by published data. ??It is not a diagnostic test and results should be inter preted in the context of the patient's h istory and other clinical findings. ??Obtaining per iodic Pap tests may help to minimize the consequences of any false negatives that may occur. Procedures/Addenda: ADDENDUM ? Date Ordered: ? 03/14 ? Status: ??Signed Out Date Complete: ? 03/16/2016 ? By : ??HEVER ARECHIGA Date Reported: ? 03/16/2016 Addendum Diagnosis Chlamydia trachomatis Amplified RNA (FROM [facility]; [address] [place] [address]) SOURCE: ? ENDOCERVIX Chlamydia trachomatis amplified RNA ? Negative Reference Value ?Negative ADDITIONAL INFORMATION ?This report is intended for use in clinical monitoring and management of patients. It is not intend ed for use in medical-legal applications. Received: 15 Mar 2016 07:39 Reported: 15 Mar 2016 20:27 Neisseria gonorrhoeae Amplified RNA (FROM [facility]; [address] [facility] [place], [place]) SOURCE: ? ENDOCERVIX Neisseria gonorrhoeae amplified RNA ? Negative Reference Value ?Negative ADDITIONAL INFORMATION ?This report is intended for use in clinical monitoring and management of patients. It is not intend ed for use in medical-legal applications. Received: 15 Mar 2016 07:39 Reported: 15 Mar 2016 20:27 REVIEWED BY [facility] PATHOLOGIST: EAE:nm March 16, 2016 ROSEY CONLEY M.D. SPECIMEN(S) RECEIVED: Pap Smear - ThinPrep CLINICAL HISTORY: Date of Last Menstrual Period: NONE Hormonal History: No hormonal therapy Other Clinical Conditions: HPV TYPING REQUESTED: IF ASCUS CT/NG TESTING ORDERED IUD in place Dasha Varma APRN, C.N.P. LAB PAP COPATH ORDERABLES Performing Organization Address City/State/ZIP Code Phon e Number [facility] documented in this encounter Visit Diagnoses Not on filedocumented in this encounter Additional Health Concerns Assessment Noted Time PHQ-9 Depression Total Score: 9 03/03/2016 11:54 AM CD T documented as of this encounter
--- OUTSIDE RECORDS SUMMARY | 2022-03-21 14:29 | XMS_ITS | Encounter Summary ---
:[address] [facility] Address [address] [place] [address] Care Team Providers Name Role Phone Mayra Guerrero APRN, C.N.P. Primary Care Provider [phone] Encounter Details Date Type Department Care Team Description 02/13/2017 Hospital Encounter HX NO MAPPING Josh Domingo M.D. Social History Tobacco Use Types Packs/Day [...] of this encounter Miscellaneous Notes Miscellaneous - Don, Aria Provider Ser - 02/13/2017 11:59 PM CDT Coding Summary-Paper Based CODING DATE: 02/23/2017 [facility] STATUS: * Discharged to Home or Self Care PAYOR: Medicaid ADMIT DX: REASON FOR VISIT DX: FINAL DX: PRINCIPAL: Z11.3 Encounter for screening for infections with a predominantly sexual mode of transmission SECONDARY: N76.0 Acute vaginitis PROCEDURES DOCTOR NAME DATE NOTE: The code number assigned matches the documented diagnosis and / or procedure in the patient's chart. However, the narrative phrase printed from the coding software may appear abbreviated, or result in slightly different terminology. Coded By: EMY BRITO Date Saved: 02/23/2017 09:34 am [facility] Document Id: [id number] documented in this encounter Plan of Treatment Not on filedocumented as of this encounter Visit Diagnoses Not on filedocumented in this encounter Additional Health Concerns Assessment Noted Time PHQ-9 Depression Total Score: 9 03/03/2016 11:54 AM CD T documented as of this encounter Care Teams Transplant Case Manager Relationship Specialty Start Date End Date Mayra Guerrero, LAUREN, C.N.P. PCP - General 10/13/16 12/30/[address] [address] documented as of this encounter
--- OUTSIDE RECORDS SUMMARY | 2022-03-21 14:29 | XMS_ITS | Encounter Summary ---
:1990 Author Organization [facility] Address [address] [place] [address] Care Team Providers Name Role Phone Unavailable Primary Care Provider Unavailable Encounter Details Date Type Department Care Team Description 03/03/2016 Hospital Encounter HX NO MAPPING Mayra Guerrero, IT AUDITOR, C.N.P. [address] [place], [place] [address] (Wo rk) Social History [...]
--- OUTSIDE RECORDS SUMMARY | 2022-03-21 14:29 | XMS_ITS | Encounter Summary ---
:1990 Author Organization [facility] Address [address] [place] [address] Care Team Providers Name Role Phone Unavailable Primary Care Provider Unavailable Encounter Details Date Type Department Care Team Description 03/19/2015 Hospital Encounter HX [facility] Anabelle Varma, LAUREN, C.N.P. [address] [place] [address] (Wo rk) Social History Tobacco Use Types Packs/Day Years Used Date Smoking Tobacco: Never Assessed Sex Assigned at Date Recorded Not on file documented as of this encounter Last Filed Vital Signs Vital Sign Reading Time Taken Comments Blood Pressure 98/62 03/19/2015 10:31 AM IT CORPORATE RECRUITER Pulse 64 03/19/2015 10:31 AM IT CORPORATE RECRUITER Temperature - - Respiratory Rate 20 03/19/2015 10:31 AM IT CORPORATE RECRUITER Oxygen Saturation - - Inhaled Oxygen Concentration - - Weight 58 kg (127 lb 13.9 oz) 03/19/2015 10:31 AM IT CORPORATE RECRUITER Height 156 cm (5' 1.42) 03/19/2015 10:31 AM IT CORPORATE RECRUITER Body Mass Index 23.83 03/19/2015 10:31 AM IT CORPORATE RECRUITER documented in this encounter Progress Notes Dasha Varma, LAUREN, C.N.P. - 03/19/2015 10:58 AM CST Clinic Full Note CHIEF COMPLAINT/REASON FOR VISIT follow up of chlamydia. Now is having redish/brown vaginal discharge. Started a week ago. Boyfriendhas not been tested. Will get pain occassionally in abdomen. HISTORY OF PRESENT ILLNESS Anusha states she has had some vaginal discharge for the past week. She has a Mirena IUD and does not get a regular period. She was treated for chlamydia in December. He partner said he was also treated. She would like to be rechecked. MEDICATIONS levonorgestrel 52 mg intrauteral device, 52 mg, 1 each, Intrauteral, Once, 0 refills ALLERGIES NKA PAST MEDICAL HISTORY Chronic Depressive psychosis, recurrent episodes Infection Chlamydia IUD, [...] 11/21/2005), Vaginal delivery. SOCIAL HISTORY Date Time: 03/19/2015 10:31 Tobacco: Smoking Status: Never smoker Exposure: Other: Quit date 11/12/14 Alcohol: Use: No Results Found Recreational Drugs: Use: No Results Found Type: No Results Found FAMILY HISTORY Mother: Negative: Father: Negative: Sister: Negative: Brother: Negative: Sister: Negative: Brother: Negative: Grandmother (maternal, at 75 year(s)):Positive: Alzheimer's disease; Diabetes mellitus Aunt (maternal):Positive: Diabetes mellitus Uncle (maternal):Positive: Diabetes mellitus HEALTH MAINTENANCE Flu shot declined. SYSTEMS REVIEW Positive for that mentioned in the History of Present Illness and Past Medical History. All other systems were reviewed and were negative. VITAL SIGNS T: 36.4 ??C (Core) HR: 64 RR: 20 BP: 98 / 62 HT: 156 cm WT: 58 kg BMI: 23.83 PHYSICAL EXAMINATION GENERAL: Well-developed, well-nourished, in no acute distress. SKIN: Warm and dry. HEART: Regular rate and rhythm. S1, S2. No murmur. LUNGS: Clear to auscultation. No wheezes or rales. ABDOMEN: Soft, nontender. No hepatosplenomegaly. :[place], urethra, [place]'s, vagina and cervix are without lesion. Bimanual exam reveals uterus is midline, mobile, nontender. No adnexal masses. Wet prep obtained. EXTREMITIES: Warm, dry. No peripheral edema. LAB RESULTS Wet prep:negative Chlamydia and gonorrhea screen pending. IMPRESSION/REPORT/PLAN Screening Venereal Disease (STD) I will contact her with test results. Ordered: GC by Nucleic Acid Amp Wet Prep Examination Vaginitis NOS Wet prep negative. No treatment necessary. Electronically Signed By: DASHA VARMA CNP On: 03/19/2015 11:06 AM Source: [facility] POWERCHART Document Id: [id number] CORPORATE RECRUITER documented in this encounter Nursing Notes Dasha Varma APRN, C.N.P. - 03/19/2015 11:07 AM CST Ambulatory Patient Education The following Patient Education Materials have been given to the patient: Patient Education Materials: Sleeve Sewer Preventing Vaginitis Sleeve Sewer Preventing Vaginitis Vaginitis is irritation or infection of the vagina or vulva. It can be caused by bacteria, viruses, or yeast. Chemicals (such as in perfumes or soaps) can sometimes be a cause. You can help prevent vaginitis. Follow the tips below. And see your health care provider if you have any symptoms. Hygiene Use mild, unscented soap when you bathe or shower to avoid irritating your vagina. ?? Avoid chemicals. Do not use vaginal sprays. Do not use scented toilet paper or tampons that are scented. Sprays and scents have chemicals that can irritate your vagina. ?? Do not douche unless you are told to by your health care provider. Douching is rarely needed. Andit upsets the normal balance in the vagina. ?? Wash yourself well. Wash the outer vaginal area (vulva) every day with mild, unscented soap. Keepit as dry as possible. ?? Wipe correctly. Make sure to wipe from front to back after a bowel movement. This helps keep fromspreading bacteria from your anus to your vagina. ?? Change your tampon often. During your period, make sure to change your tampon as often as directed on the package. This allows the normal flow of vaginal discharge and blood. Lifestyle ?? Limit your number of sexual partners. The more partners you have, the greater your risk of infection. Using condoms helps reduce your risk. ?? Get enough sleep. Sleep helps keep your bodys immune system healthy. This helps you fight infection. ?? Lose weight, if needed. Excess weight can reduce air circulation around your vagina. This can increase your risk of infection. ?? Exercise regularly. Regular activity helps keep your body healthy. Clothing ?? Dont sit in wet clothes. Yeast thrive when its warm and damp. ?? Dont wear tight pants. And dont wear tights, leggings, or hose without a cotton crotch. These types of clothing trap warmth and moisture. ?? Wear cotton underwear. Cotton lets air circulate around the vagina. Symptoms of Vaginitis 360Irritation, swelling, or itching of the genital area Vaginal discharge Bad vaginal odor Pain or burning during urination ?? [phone], [place] [address]. All rights reserved. This information is not intended as a substitute for professional medical care. Always follow your healthcare professional's instructions. This document has images extracted. Please consider using [employer] for all your patient education needs. Source: [facility] POWERCHART Document Id: [id number] CORPORATE RECRUITER documented in this encounter Miscellaneous Notes Miscellaneous - Dasha Varma APRN, C.N.P. - 03/19/2015 11:07 AM IT CORPORATE RECRUITER Ambulatory Patient Summary [address] [id number] Visit Information Name: ANUSHA SOSA [facility] Number: [id number] Current Date: 03/19/2015 11:07:42 Physicians Attending Provider: DASHA VARMA CNP Primary [...] the Following Medications: Medication list as of 03-19-15 11:07 Attention: If you have any medications at [...] Electronically Signed By: DASHA VARMA CNP Signed On:19-MAR-2015 11:07:21 Your Allergies & Intolerances Substance Reaction Symptoms [...] local Clinic if further appointment detail needed. Preventing Vaginitis Vaginitis is irritation or infection of the vagina or vulva. It can be caused by bacteria, viruses, or yeast. Chemicals (such as in perfumes or soaps) can sometimes be a cause. You can help prevent vaginitis. Follow the tips below. And see your health care provider if you have any symptoms. Hygiene Use mild, unscented soap when you bathe or shower to avoid irritating your vagina. ?? Avoid chemicals. Do not use vaginal sprays. Do not use scented toilet paper or tampons that are scented. Sprays and scents have chemicals that can irritate your vagina. ?? Do not douche unless you are told to by your health care provider. Douching is rarely needed. Andit upsets the normal balance in the vagina. ?? Wash yourself well. Wash the outer vaginal area (vulva) every day with mild, unscented soap. Keepit as dry as possible. ?? Wipe correctly. Make sure to wipe from front to back after a bowel movement. This helps keep fromspreading bacteria from your anus to your vagina. ?? Change your tampon often. During your period, make sure to change your tampon as often as directed on the package. This allows the normal flow of vaginal discharge and blood. Lifestyle ?? Limit your number of sexual partners. The more partners you have, the greater your risk of infection. Using condoms helps reduce your risk. ?? Get enough sleep. Sleep helps keep your bodys immune system healthy. This helps you fight infection. ?? Lose weight, if needed. Excess weight can reduce air circulation around your vagina. This can increase your risk of infection. ?? Exercise regularly. Regular activity helps keep your body healthy. Clothing ?? Dont sit in wet clothes. Yeast thrive when its warm and damp. ?? Dont wear tight pants. And dont wear tights, leggings, or hose without a cotton crotch. These types of clothing trap warmth and moisture. ?? Wear cotton underwear. Cotton lets air circulate around the vagina. Symptoms of Vaginitis Irritation, swelling, or itching of the genital area Vaginal discharge Bad vaginal odor Pain or burning during urination ?? [phone] [facility], [address] [place] [address]. All rights reserved. This information is not [...] if you dont have one. Go to [email or web address] and click on Create Your Account. Then, follow the directions to complete the online form. Youll be asked for your [facility] number which you can find at the top of this document. Your Goals/Additional instructions: This document has images extracted. Please consider using [employer] for all your patient education needs. Source: [facility] [employer] Document Id: [id number] CORPORATE RECRUITER Miscellaneous - Dasha Varma APRN, C.N.P. - 03/19/2015 11:07 AM IT CORPORATE RECRUITER Ambulatory Discharge Medication List [address] [id number] Visit Information Name: ANUSHA SOSA [facility] Number: [id number] Visit Date: 03/19/2015 11:07:41 Attending Provider: DASHA VARMA CNP Primary Care [...] the Following Medications: Medication list as of 03-19-15 11:07 Attention: If you have any medications at [...] Electronically Signed By: DASHA VARMA CNP Signed On:19-MAR-2015 11:07:21 Additional Information: Source: [facility] [employer] Document Id: [id number] CORPORATE RECRUITER Miscellaneous - Chrisdaya Sudhagege yDson L.P.N. - 03/19/2015 10:31 AM CST Adult Water Hydrant Installer Intake/History Adult Water Hydrant Installer Intake/History Entered On: 03/19/2015 10:34 IT CORPORATE RECRUITER Performed On: 03/19/2015 10:31 IT CORPORATE RECRUITER by SUDHA DIAZ LPN Intake Chief Complaint : follow up of chlamydia. Now is having redish/brown vaginal discharge. Started a week ago. Boyfriend has not been tested. Will get pain occassionally in abdomen. Temperature Core : 36.4 DegC(Converted to: 97.5 DegF) (LOW) Peripheral Pulse Rate : 64 /min Respiratory Rate : 20 /min Heart Rhythm : Regular Systolic Blood Pressure : 98 mmHg Diastolic Blood Pressure : 62 mmHg NIBP Mean : 74 mmHg BP Location : Right upper extremity Blood Pressure Cuff Size : Regular Height : 156 cm(Converted to: 5 ft 1 inch(es), 61 inch(es)) Actual Weight : 58 kg(Converted to: 127 lb 14 oz) Weight Source : Standing scale Dosing Weight Clinic : 58 kg Clinic BSA : 1.59 Body Mass Index : 23.83 kg/m2 ADENNAGASUDHA Rivas SATINDER - 03/19/2015 10:31 IT CORPORATE RECRUITER General Info Information Given By : Patient Preferred Communication Mode : Verbal Languages : Luxembourgish Is Patient Female and 13-50 no hysterectomy : Yes Status : Patient denies Are you ? : No ADENEUGENIOSUDHA MEGHAN RAJAN - 03/19/2015 10:31 IT CORPORATE RECRUITER Subjective Pain Symptoms : No EMILY SUDHAGEGE CHRISTIANSON LPN - 03/19/2015 10:31 IT CORPORATE RECRUITER Dependent Habits Tobacco Use/Currently Using : No Tobacco Use/Last 12 months : No Exposure to Tobacco Smoke : Other: Quit date 11/12/14 Smoking Status : Never smoker ADENNAGASUDHA Rivas MEGHAN RAJAN - 03/19/2015 10:31 IT CORPORATE RECRUITER Tobacco Use Grid Type : Cigarettes Other Tobacco Frequency : 1 per week EMILYSUDHA MEGHAN RAJAN - 03/19/2015 10:31 IT CORPORATE RECRUITER Caffeine Use Grid Caffeine Use : Current Type : Soft drinks Frequency : Daily EMILY SUDHAGEGE CHRISTINASON LPN - 03/19/2015 10:31 IT CORPORATE RECRUITER Source: [facility] POWERCHART Document Id: [id number] IT CORPORATE RECRUITER!41 CORPORATE RECRUITER documented in this encounter Plan of Treatment Not on filedocumented as of this encounter Procedures Procedure Name Priority Date/Time Associated Comments Diagnosis CHLAMYDIA/GONORRHOEAE Routine 03/19/2015 10:58 Re sults for this AMPLIFIED RNA AM IT CORPORATE RECRUITER procedure are in the results section. CHLAMYDIA TRACHOMATIS Routine 03/19/2015 10:58 Re sults for this AMPLIFIED RNA AM IT CORPORATE RECRUITER procedure are in the results section. WET PREP EXAM, Routine 03/19/2015 10:53 Results f or this UROGENITAL AM IT CORPORATE RECRUITER procedure are i n the results section. documented in this encounter Results Chlamydia / Gonorrhoeae Amplified RNA (03/19/2015 10:58 AM IT CORPORATE RECRUITER) Component Value Ref Test Analysis Performed At [facility] Scan[employer] Range Method Time Signature HX GC by Nucleic POWERCHART Acid Amplification HXFinal Negative for POWERCHART Neisseria gonorrhea by RNA amplification . HXFinal Reference: POWERCHART Negative HXFinal If you POWERCHART submitted a female urine sample, please note it is a Laboratory Developed Test. Specimen (Source) Anatomical Collection Method Collection Time Re ceived Time Location / / Volume Laterality Urine 03/19/2015 10:58 AM IT CORPORATE RECRUITER Dasha Varma APRN, C.N.P. LAB MICROBIOLOGY - GENERAL ORDERABLES Performing Organization Address City/State/ZIP Code Phon e Number POWERCHART Chlamydia Trachomatis Amplified RNA (03/19/2015 10:58 AM IT CORPORATE RECRUITER) Component Value Ref Test Analysis Performed At [facility] [employer] Range Method Time Signature HXChlamydia by POWERCHART Nucleic Acid Amplification HXFinal Negative for POWERCHART Chlamydia trachomatis by RNA amplification. HXFinal Reference: POWERCHART Negative HXFinal If you POWERCHART submitted a female urine sample, please note it is a Laboratory Developed Test. Specimen (Source) Anatomical Collection Method Collection Time Re ceived Time Location / / Volume Laterality Urine 03/19/2015 10:58 AM IT CORPORATE RECRUITER Dasha Varma APRN, C.N.P. LAB MICROBIOLOGY - GENERAL ORDERABLES Performing Organization Address City/State/ZIP Code Phon e Number POWERCHART (ABNORMAL) Wet Prep Exam, Urogenital (03/19/2015 10:53 AM IT CORPORATE RECRUITER) [facility] Signature HXWet Prep (POSITIVE) POWERCHART HXFinal Trichomonas: POWERCHART Negative HXFinal Clue Cells: POWERCHART Negative HXFinal Yeast: POWERCHART Negative HXFinal Sperm: POWERCHART Positive Specimen (Source) Anatomical Collection Method Collection Time Re ceived Time Location / / Volume Laterality Vagina 03/19/2015 10:53 AM IT CORPORATE RECRUITER Dasha Varma APRN, C.N.P. LAB MICROBIOLOGY - GENERAL ORDERABLES Performing Organization Address City/State/ZIP Code Phon e Number POWERCHART documented in this encounter Visit Diagnoses Not on filedocumented in this encounter Additional Health Concerns Assessment Noted Time PHQ-9 Depression Total Score: 2 01/07/2015 5:06 PM CDT documented as of this encounter
--- OUTSIDE RECORDS SUMMARY | 2022-03-21 14:29 | XMS_ITS | Encounter Summary ---
:1990 Author Organization [facility] Address [address] [place] [address] Care Team Providers Name Role Phone Dasha Varma APRN, C.N.P. Primary Care Provider [phone] Encounter Details Date Type Department Care Team Description 02/13/2017 Hospital Encounter HX [facility] Solis Domingo M .D. Social History Tobacco Use Types Packs/Day Years Used Date Smoking Tobacco: Former Sex Assigned at Date Recorded Not on file documented as of this encounter Last Filed Vital Signs Vital Sign Reading Time Taken Comments Blood Pressure 114/64 02/13/2017 2:10 PM CDT Pulse 66 02/13/2017 2:10 PM CDT Temperature - - Respiratory Rate - - Oxygen Saturation - - Inhaled Oxygen Concentration - - Weight 64.6 kg (142 lb 6.7 oz) 02/13/2017 2:10 PM CDT Height 157 cm (5' 1.81) 02/13/2017 2:10 PM CDT Body Mass Index 26.21 02/13/2017 2:10 PM CDT documented in this encounter Medications at Time of Discharge Medication Sig Dispensed Refills Start Date End Date levonorgestrel (MIRENA) 1 each by 0 02/13/2017 0 09/06/2017 20 mcg/24 hr (5 years) intrauterine route IUD once. documented as of this encounter Progress Notes Solis Domingo M.D. - 02/13/2017 2:04 PM CDT [id number] CHIEF COMPLAINT/REASON FOR VISIT 1. Vaginal itching and irritation, concern for infection. 2. Requests STD evaluation. 3. Requests IUD string check. HISTORY OF PRESENT ILLNESS This patient is a 26-year-old G2, P2-0-0-2 female who is amenorrheic with Mirena IUD. The patient had a Mirena IUD placed on 07/28/2016. The patient presents requesting evaluation for suspected vaginalinfection. She has a valenzuela and white vaginal discharge with no odor that has been ongoing for the last 2 months. She has a lot of itching and irritation associated with the discharge. She denies any bleeding or irritation. She denies any difficulty urinating, dysuria, hematuria or flank pain. She denies nausea, vomiting or diarrhea. No change in bowel habits. The patient reports having similar symptoms in the spring and she was treated for bacterial vaginosis with resolution of her symptoms and then t marivel returned about 2 months ago. She has tried no [id number] medications or relief measures. The patient is also requesting STD evaluation. She would like to be tested for sexually transmitted diseases. She denies any exposure. Reports she has not been tested in a while and would like to make sure that her testing is negative. She has been treated for chlamydia approximately 3 years ago. The patient also would like to have her IUD checked to make sure it is in the correct location. She is able to feel the strings. She denies any dyspareunia or postcoital spotting. She denies any pelvicpain, cramping, tenderness or discomfort. ALLERGIES No known drug allergies. MEDICATIONS 1. Mirena IUD placed 07/28/2016. 2. Flagyl new prescription given today. PAST MEDICAL/SURGICAL HISTORY PAST MEDICAL HISTORY: 1. Former tobacco user, quit 2013. 2. History of depression. 3. History of shingles. 4. History of chlamydia, 2013. 5. History of seasonal allergic rhinitis. PAST SURGICAL HISTORY: None. PAST OBSTETRICAL HISTORY: Vaginal delivery x2. SOCIAL HISTORY The patient is a former smoker. She quit smoking in 2013. She reports social alcohol use. She deniesdrug use. She denies high-risk sexual behavior. 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 VITAL SIGNS Weight 64.6 kg. Height 157 cm. Pulse 66, blood pressure 114/64. PHYSICAL EXAMINATION GENERAL: Well-developed, well-nourished female in no apparent distress. Alert and oriented x3. Normal affect. LUNGS: Clear to auscultation bilaterally with good inspiratory effort. No wheezing, rhonchi, or rales. HEART: Regular rate and rhythm without murmur. No JVD. No peripheral vascular disease. ABDOMEN: Soft, nontender, nondistended. Positive bowel sounds. No hepatomegaly. No rebound. No guarding. GENITOURINARY: Normal external female genitalia. Normal Bartholin's, urethral and Luray's glands. Normal vaginal mucosa without lesions. There is a thin bradford vaginal discharge with a mean odor. Normal multiparous cervical os without lesions. IUD strings are visible. No cervical lesions. No cervical motion tenderness. Uterus normal size, shape, consistency, anteflexed, mobile, nontender. No adnexal masses or tenderness bilaterally. Gonorrhea and chlamydia testing obtained. Vaginitis panel obtained. DIAGNOSTICS LABORATORY: 02/13/2017, vaginitis panel pending. Chlamydia and gonorrhea pending. HIV pending. Serology pending. IMPRESSION/REPORT/PLAN 1. Suspect bacterial vaginosis based on symptoms and physical exam. 2. Sexually transmitted disease screening. 3. Normal intrauterine device surveillance. PLAN: 1. Reassurance given to the patient. The Mirena IUD is in the correct location. IUD strings are visible. There is no cervical motion tenderness or uterine tenderness. There is good mobility to the uterus. I discussed IUD string checks with the patient. I reviewed with the patient that Mirena IUD is effective for contraception for 5 years and will need to be removed or replaced in June 2021. I discussed common side effects of amenorrhea with Mirena IUD. 2. Sexually transmitted disease testing is performed at patient request. We tested for chlamydia, gonorrhea. We also carmen blood for HIV and serology. The patient declines to have hepatitis panel checked and I feel this is reasonable. I will contact the patient with these results. 3. Sexually transmitted disease prevention is discussed with the patient. 4. I encouraged the patient to continue smoking cessation efforts. She quit smoking in 2013. 5. Based on the patient's symptoms and physical exam it appears the patient has bacterial vaginosis.I am going to give her a prescription for Flagyl. I gave her a prescription for Flagyl 500 mg by mouth 2 times per day x7 days #14 pills. I reviewed this with the patient. I have sent this to the patient's pharmacy. I discussed side effects with the patient. I encouraged her not to drink alcohol whileshe is on the medication. 6. I recommend the patient wear cotton underwear. I discussed perineal hygiene with the patient. 7. I recommend the patient refrain from intercourse for approximately 10 days to allow proper healing before resuming intercourse. 8. The patient should follow up if she has any further questions or problems. 9. I will be happy to see the patient on a as needed basis. Solis Domingo M.D./nilda Electronically Signed By: SOLIS DOMINGO MD On: 02/13/2017 04:11 PM Source: [facility] [email or web address] Document Id: [id number] documented in this encounter Miscellaneous Notes Miscellaneous - Solis Domingo M.D. - 02/13/2017 2:33 PM CDT Ambulatory Patient Summary [address] [id number] Visit Information Name: ANUSHA SOSA [facility] Number: [id number] Current Date: 02/13/2017 14:33:33 Physicians Attending Provider: SOLIS DOMINGO MD Primary Care Provider: DASHA VARMA APRN [facility] ANUSHA SOSA has been given the [...] Take Indications/Special Instructions/Comments/Notes for Patient Medication Changes/Routing metroNIDAZOLE (Flagyl 500 mg oral tablet) 1 Tablet(s), Oral, two times a day x 7 day(s) This is a CHANGE Routed to [address] [address] Stop Taking the Following Medications: budesonide nasal (Rhinocort Allergy 32 mcg/inh nasal spray) Medication list as of 02-13-17 14:33 Attention: If you have any medications at home that are not on this list, DO NOT take them until youcontact your provider for clarification. Give a copy of your medication list to your primary care provider. Update your medication list any time medications or doses are changed and carry your medication list at all times in case of emergency. Electronically Signed By: SOLIS DOMINGO MD Signed On:13-FEB-2017 14:33:30 Your Allergies & Intolerances Substance Reaction Symptoms [...] Your Upcoming Appointments Date Time Location Provider 02/13/2017 14:45 [facility] Attention: Contact your local Clinic if further [...] if you dont have one. Go to [email or web address] and click on Create Your Account. Then, follow the directions to complete the online form. Youll be asked for your [facility] number which you can find at the top of this document. Your Goals/Additional instructions: Source: [facility] POWERCHART Document Id: [id number] Miscellaneous - Solis Domingo M.D. - 02/13/2017 2:33 PM CDT Ambulatory Discharge Medication List [address] [id number] Visit Information Name: ANUSHA SOSA [facility] Number: [id number] Current Date: 02/13/2017 14:33:32 Attending Provider: SOLIS DOMINGO MD Primary Care Provider: DASHA VARMA APRN [facility] ANUSHA SOSA has been given the following list of medications: Your Medications It is important to take your medications as directed. Use a pill box or chart to help remind you to take your medications. Please let your doctor or nurse know if you have problems taking your medications. Medication/Strength How to Take Indications/Special Instructions/Comments/Notes for Patient Medication Changes/Routing metroNIDAZOLE (Flagyl 500 mg oral tablet) 1 Tablet(s), Oral, two times a day x 7 day(s) This [place] [address] Stop Taking the Following Medications: budesonide nasal (Rhinocort Allergy 32 mcg/inh nasal spray) Medication list as of 02-13-17 14:33 Attention: If you have any medications at home that are not on this list, DO NOT take them until youcontact your provider for clarification. Give a copy of your medication list to your primary care provider. Update your medication list any time medications or doses are changed and carry your medication list at all times in case of emergency. Electronically Signed By: SOLIS DOMINGO MD Signed On:13-FEB-2017 14:33:30 Additional Information: Source: [facility] [email or web address] Document Id: [id number] Miscellaneous - Ailyn Hernandez, L.P.N. - 02/13/2017 2:29 PM CDT Commercial Sales Director Documentation Commercial Sales Director Documentation Entered On: 02/13/2017 14:29 CDT Performed On: 02/13/2017 14:29 CDT by AILYN HERNANDEZ LPN Commercial Sales Director Documentation Exam/Procedure Performed : Pelvic exam CD Commercial Sales Director Present : Yes CD Commercial Sales Director Name : Ailyn Hernandez LPN Present in Room During Exam/Procedure : Alone AILYN HERNANDEZ LPN - 02/13/2017 14:29 CDT Source: [facility] POWERCHART Document Id: [id number] CDT!6 Miscellaneous - Ailyn Hernandez L.PSudarshanNSudarshan - 02/13/2017 2:10 PM CDT Adult Pest Control Pilot Intake/History Adult Pest Control Pilot Intake/History Entered On: 02/13/2017 14:11 CDT Performed On: 02/13/2017 14:10 CDT by AILYN HERNANDEZ LPN Intake Chief Complaint : IUD check, c/o discharge Peripheral Pulse Rate : 66 /min Systolic Blood Pressure : 114 mmHg Diastolic Blood Pressure : 64 mmHg NIBP Mean : 81 mmHg BP Location : Left upper extremity Blood Pressure Cuff Size : Regular Height : 157 cm(Converted to: 5 ft 2 inch(es), 62 inch(es)) Actual Weight : 64.6 kg(Converted to: 142 lb 7 oz) Weight Source : Standing scale Dosing Weight Clinic : 64.6 kg Clinic BSA : 1.68 Body Mass Index : 26.21 kg/m2 AILYN HERNANDEZ LPN - 02/13/2017 14:10 CDT General Info Information Given By : Patient Languages : Bengali Is Patient Female and 13-50 no hysterectomy : Yes Status : Patient denies Are you ? : No AILYN HERNANDEZ LPN - 02/13/2017 14:10 CDT Subjective Pain Symptoms : No AILYN HERNANDEZ LPN - 02/13/2017 14:10 CDT Dependent Habits Exposure to Tobacco Smoke : Other: Quit date 11/12/14 Smoking Status : Former smoker Tobacco 2A : Yes Tobacco Use/Currently Using : No Tobacco Use/Last 30 Days : No Tobacco Use/Last 12 months : No AILYN HERNANDEZ LPN - 02/13/2017 14:10 CDT Caffeine Use Grid Caffeine Use : Current Type : Soft drinks Frequency : Daily AILYN HERNANDEZ LPN - 02/13/2017 14:10 CDT Source: [facility] [email or web address] Document Id: [id number] CDT!35 documented in this encounter Plan of Treatment Not on filedocumented as of this encounter Procedures Procedure Name Priority Date/Time Associated Comments Diagnosis VAGINITIS PANEL Routine 02/13/2017 2:35 PM Result s for this CDT procedure are i n the results section. CHLAMYDIA/GONORRHOEAE Routine 02/13/2017 2:35 PM Results for this AMPLIFIED RNA CDT procedure are in the results section. CHLAMYDIA TRACHOMATIS Routine 02/13/2017 2:35 PM Results for this AMPLIFIED RNA CDT procedure are in the results section. documented in this encounter Results Vaginitis Panel (02/13/2017 2:35 PM CDT) Component Value Ref Test Analysis Performed At [facility] JiaThis Range Method Time Signature HXVaginitis POWERCHART Battery, DNA (Genital) HXFinal Trichomonas POWERCHART vaginalis DNA negative HXFinal Gardnerella POWERCHART vaginalis DNA negative HXFinal Mckenna species POWERCHART DNA negative HXFinal Reference: POWERCHART Negative Specimen (Source) Anatomical Collection Method Collection Time Re ceived Time Location / / Volume Laterality Vagina 02/13/2017 2:35 PM CDT Solis Domingo M.D. LAB MICROBIOLOGY - GENERAL O WANG Performing Organization Address City/State/ZIP Code Phon e Number POWERCHART POWERCHART NA Chlamydia / gonorrhoeae Amplified RNA (02/13/2017 2:35 PM CDT) Component Value Ref Test Analysis Performed At [facility] RuckPack Method Time Signature HX GC by Nucleic POWERCHART Acid Amplification HXFinal Negative for POWERCHART Neisseria gonorrhea by RNA amplification . HXFinal Reference: POWERCHART Negative HXFinal If you POWERCHART submitted a female urine sample, please note it is a Laboratory Developed Test. Specimen (Source) Anatomical Collection Method Collection Time Re ceived Time Location / / Volume Laterality Cervix/Endocervix 02/13/2017 2:35 PM CDT Solis Domingo M.D. LAB MICROBIOLOGY - GENERAL O [place] Performing Organization Address City/State/ZIP Code Phon e Number POWERCHART POWERCHART NA Chlamydia trachomatis Amplified RNA (02/13/2017 2:35 PM CDT) Component Value Ref Test Analysis Performed At [facility] JiaThis Range Method Time Signature HXChlamydia by POWERCHART Nucleic Acid Amplification HXFinal Negative for POWERCHART Chlamydia trachomatis by RNA amplification. HXFinal Reference: POWERCHART Negative HXFinal If you POWERCHART submitted a female urine sample, please note it is a Laboratory Developed Test. Specimen (Source) Anatomical Collection Method Collection Time Re ceived Time Location / / Volume Laterality Cervix/Endocervix 02/13/2017 2:35 PM CDT Solis Domingo M.D. LAB MICROBIOLOGY - GENERAL O RDERABLES Performing Organization Address City/State/ZIP Code Phon e Number POWERCHART POWERCHART NA documented in this encounter Visit Diagnoses Not on filedocumented in this encounter Additional Health Concerns Assessment Noted Time PHQ-9 Depression Total Score: 9 03/03/2016 11:54 AM CD T documented as of this encounter Care Teams Chemical Recovery Operator Relationship Specialty Start Date End Date Dasha Varma, SEAM RUBBER, C.N.P. PCP - General 10/13/16 12/30/[address] [phone] documented as of this encounter
--- OUTSIDE RECORDS SUMMARY | 2022-03-21 14:29 | XMS_ITS | Encounter Summary ---
:1990 Author Organization [facility] Address [address] [place] [address] Care Team Providers Name Role Phone Unavailable Primary Care Provider Unavailable Encounter Details Date Type Department Care Team Description 01/07/2015 Hospital Encounter HX NO MAPPING Mayra Guerrero, DITTO MACHINE OPERATOR, C.N.P. [address] [place], [place] [phone] (Wo rk) Social History Tobacco Use Types Packs/Day Years Used Date Smoking Tobacco: Never Assessed Sex Assigned at Date Recorded Not on file documented as of this encounter Miscellaneous Notes Miscellaneous - Conversion, Historical Provider Ser - 01/07/2015 11:59 PM CDT Coding Summary-Paper Based CODING DATE: 01/21/2015 FINAL [facility] STATUS: * Discharged to Home or Self Care PAYOR: Medicaid ADMIT DX: REASON FOR VISIT DX: FINAL DX: PRINCIPAL: V74.5 Screening Examination for Venereal Disease SECONDARY: PROCEDURES DOCTOR NAME DATE NOTE: The code number assigned matches the documented diagnosis and / or procedure in the patient's chart. However, the narrative phrase printed from the coding software may appear abbreviated, or result in slightly different terminology. Coded By: EMY BRITO Date Saved: 01/21/2015 03:42 pm [facility] P[facility] Document Id: [id number] documented in this encounter Plan of Treatment Not on filedocumented as of this encounter Visit Diagnoses Not on filedocumented in this encounter Additional Health Concerns Assessment Noted Time PHQ-9 Depression Total Score: 2 01/07/2015 5:06 PM CDT documented as of this encounter
--- OUTSIDE RECORDS SUMMARY | 2022-03-21 14:29 | XMS_ITS | Encounter Summary ---
:1990 Author Organization [facility] Address [address] [place] [address] Care Team Providers Name Role Phone Unavailable Primary Care Provider Unavailable Encounter Details Date Type Department Care Team Description 10/13/2015 - Hospital Encounter HX [facility] KAM Pratt, 01/21/2016 OUTPT Hamida Grant Social History Tobacco Use Types Packs/Day Years [...]
--- OUTSIDE RECORDS SUMMARY | 2022-03-21 14:29 | XMS_ITS | Encounter Summary ---
:1990 Author Organization [facility] Address [address] [place] [address] Care Team Providers Name Role Phone Unavailable Primary Care Provider Unavailable Encounter Details Date Type Department Care Team Description 01/11/2016 Hospital Encounter HX [facility] Melissa Sewell M.D. [address] [place] [address] [phone] (Wo rk) Social History Tobacco Use Types Packs/Day Years Used Date Smoking Tobacco: Never Assessed Sex Assigned at Date Recorded Not on file documented as of this encounter Last Filed Vital Signs Vital Sign Reading Time Taken Comments Blood Pressure 106/74 01/11/2016 3:18 PM CDT Pulse 76 01/11/2016 3:18 PM CDT Temperature - - Respiratory Rate 16 01/11/2016 3:18 PM CDT Oxygen Saturation - - Inhaled Oxygen Concentration - - Weight 60.6 kg (133 lb 9.6 oz) 01/11/2016 3:18 PM CDT Height 156 cm (5' 1.42) 01/11/2016 3:04 PM CDT Body Mass Index 24.9 01/11/2016 3:04 PM CDT documented in this encounter Progress Notes Alcira Sewell M.D. - 01/11/2016 3:03 PM CDT [id number] CHIEF COMPLAINT/REASON FOR VISIT Anxiety and depression. HISTORY OF PRESENT ILLNESS A 25-year-old female presents to clinic secondary to anxiety and depression. She has been seeing a psychologist a couple of times and was told she has anxiety and depression. She does believe she has ADHD and wonders if she can start on medication. She had been on citalopram in the past. She only took1 pill as she really is not interested in taking medications unless absolutely essential, secondary to the stigma of taking medicines, but the symptoms have become more severe over the last couple of months due to a situation of trying to find a job and caring for her 2 children as a single mother. She feels more anxious and stressed. 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 She had her regular well-woman 2014. Normally sees Dasha Guerrero, Nurse Practitioner. EMR reviewed. MEDICATIONS 1. Citalopram 20 mg daily. Prescription given 01/11/2016. 2. IUD placed 07/26/2011. ALLERGIES No known drug allergies. SYSTEMS REVIEW Negative review of major organ systems apart from that noted in the HPI and the Past Medical/Surgical History. PAST MEDICAL/SURGICAL HISTORY SURGERIES: Two vaginal deliveries. No other surgeries. OTHER HEALTH PROBLEMS: 1. Anxiety and depression in the past. 2. History of chlamydia. 3. Solar skin changes. 4. History of shingles 2009 with no residuals. 5. Nicotine dependence. 6. Thyromegaly stabel [facility] Tobacco: Weekly with no plans for cessation as she does not believe this is an issue. Mammogram: Notapplicable secondary to stated age. Pap smear: 06/24/2013. Chlamydia: 03/19/2015. Colon screen: Not applicable secondary to stated age. Depression: PHQ-9 score 6. Asthma: No. Lipids: 06/24/2013, normal. Adacel: 08/28/2006. Pneumovax: Not applicable secondary to stated age. Influenza: Not applicable secondary to time of year. SOCIAL HISTORY Alcohol: A few times per year. Ten ounces of coffee each day. FAMILY HISTORY Mother: Diabetes, anxiety not treated, glaucoma. Father: Unknown health history. Maternal grandmother: at 75, Alzheimer's, diabetes mellitus. Maternal grandfather: , unknown health history. Paternal grandmother: of a respiratory disease, had a tracheostomy by description, in her late 60searly 70s. Paternal grandfather: of some type of blood cancer in his late 60s early 70s. Two brothers: One whom she believes had ADHD, dropping out of school, but was never on any medications. Another brother alive and well. Two sisters: Alive and well. Daughter with ADHD is in therapy. Another daughter alive and well. VITAL SIGNS Weight 60.6 kg. Temperature 36.7, respiratory rate 16, pulse 76, systolic 106, diastolic 74. PHYSICAL EXAMINATION GENERAL: Neatly dressed, well groomed. HEENT: Head: No evidence of trauma, tenderness, masses. Ears: TMs are bradford. Good visualization of landmarks. Nose: Mucosal membranes pink and moist. Oral: No exudates. NECK: Supple. Trachea midline. LYMPH NODES: No cervical adenopathy. Thyroid: Symmetrically enlarged. No JVD. LUNGS: Clear to auscultation. CARDIOVASCULAR: Regular rate and rhythm. ABDOMEN: Bowel sounds present. Soft. No organomegaly. IMPRESSION/REPORT/PLAN 1. Anxiety with depression. 2. Nicotine abuse. 3. Thyromegaly. PLAN: Will check laboratory evaluation with a CBC, basic metabolic profile, TSH, following up accordingly. Risks and benefits of medications discussed. All questions answered. Signs and symptoms to lead to emergent evaluation are reviewed. Please see the medication reconciliation and preventive services. Following up in about 1 month or if any interval change occurs. Do not believe patient has any signs of ADHD at this time and, if she would wish to pursue this avenue, would recommend formal psychiatric evaluation given her age and health history. She will consider. She is comfortable with this plan. Plan spent 15 of the 25-minute visit in discussion. Alcira Sewell M.D./nilda Electronically Signed By: ALCIRA SEWELL MD On: 01/13/2016 08:27 AM Modified by and Electronically Signed by: ALCIRA SEWELL MD On: 01/13/2016 08:27 AM Source: [facility] MHSDOLBEYNONRADSYS Document Id: [id number] documented in this encounter Nursing Notes Suze Lamb L.P.N. - 01/12/2016 10:56 AM CDT Lab 01-11-16 Result card sent. Electronically Signed By: SUZE LAMB LPN On: 01/12/2016 10:57 AM Source: [facility] POWERCHART Document Id: [id number] documented in this encounter Miscellaneous Notes Telephone Encounter - Conversion, Historical Provider Ser - 01/13/2016 1:15 PM CDT *Phone Message Document Contains Addenda Addendum by SUZE LAMB LPN on January 13, 2016 17:11:36 CDT Patient notified that new Rx was sent to [facility]. Stop Citalopram Addendum by RANDALL PERKINS on January 13, 2016 16:27:43 CDT pt called, please call back Addendum by SUZE LAMB LPN on January 13, 2016 15:10:27 CDT Attempted to call, left message to call back. From: ALCIRA DRUMMOND ( Family Medicine Boring Machine Set Up Operator Jig) To: ASHIA Sewell Nurse; Sent: 01/13/2016 13:15:40 CDT Subject: *Phone Message Caller is: ( x ) Patient ( ) Mother ( ) Father ( ) Spouse ( ) Daughter ( ) Son ( ) Pharmacy ( ) Other: Physician: Patient MRN #: Reason for Call: Message: patient called - she thinks the dosage that she recently got for Citalopram 20mg is too strong - wants to know if she can get a lower dosage or try something different - wants call back at [phone] Advice/Action: Source used: ( ) Verbalizes understanding [...] back cell phone number ( ) Source: [facility] ParadialCHART Document Id: [id number] T Manisha - Alcira Sewell M.D. - 01/11/2016 5:39 PM CDT Ambulatory Discharge Medication List [address] [place], [place] [phone] Visit Information Name: ANUSHA SOSA [facility] Number: [id number] Visit Date: 01/11/2016 17:39:42 Attending Provider: ALCIRA SEWELL MD Primary Care Provider: DASHA GUERRERO APRN [facility] ANUSHA SOSA has been given the following list of medications: Your Medications It is important to take your medications as directed. Use a pill box or chart to help remind you to take your medications. Please let your doctor or nurse know if you have problems taking your medications. Medication/Strength How to Take Indications/Special Instructions/Comments/Notes for Patient Medication Changes/Routing citalopram (citalopram 20 mg oral tablet) 1 Tablet(s), Oral, once a day New Routed to [address] [id number] levonorgestrel (levonorgestrel 52 mg intrauteral device) 1 Each, Intrauteral, once Stop Taking the Following Medications: Medication list as of 01-11-16 17:39 Attention: If you have any medications at home that are not on this list, DO NOT take them until youcontact your provider for clarification. Give a copy of your medication list to your primary care provider. Update your medication list any time medications or doses are changed and carry your medication list at all times in case of emergency. Electronically Signed By: ALCIRA SEWELL MD Signed On:11-JAN-2016 17:39:36 Additional Information: Source: [facility] POWERCHART Document Id: [id number] Miscellami - Alcira Sewell M.D. - 01/11/2016 5:39 PM CDT Ambulatory Patient Summary [address] [place], [place] [phone] Visit Information Name: ANUSHA SOSA [facility] Number: [id number] Current Date: 01/11/2016 17:39:43 Physicians Attending Provider: ALCIRA SEWELL MD Primary Care Provider: DASHA GUERRERO APRN [facility] ANUSHA SOSA has been given the [...] Take Indications/Special Instructions/Comments/Notes for Patient Medication Changes/Routing citalopram (citalopram 20 mg oral tablet) 1 Tablet(s), Oral, once a day New Routed to [address] [id number] levonorgestrel (levonorgestrel 52 mg intrauteral device) 1 Each, Intrauteral, once Stop Taking the Following Medications: Medication list as of 01-11-16 17:39 Attention: If you have any medications at home that are not on this list, DO NOT take them until youcontact your provider for clarification. Give a copy of your medication list to your primary care provider. Update your medication list any time medications or doses are changed and carry your medication list at all times in case of emergency. Electronically Signed By: ALCIRA SEWELL MD Signed On:11-JAN-2016 17:39:36 Your Allergies & Intolerances Substance Reaction Symptoms [...] if you dont have one. Go to [facility]/onlineservices and click on Create Your Account. Then, follow the directions to complete the online form. Youll be asked for your [facility] number which you can find at the top of this document. Your Goals/Additional instructions: Source: [facility] Document Id: [id number] Miscellaneous - Alcira Sewell M.D. - 01/11/2016 5:35 PM CDT PHQ-9 PHQ-9 Entered On: 01/11/2016 17:36 CDT Performed On: 01/11/2016 17:35 CDT by ALCIRA SEWELL MD PHQ-9 Little interest or pleasure in doing things : Several days Feeling down, depressed, or hopeless : Several days Trouble falling or staying asleep, or sleeping too much : Not at all Feeling tired or having little energy : Several days Poor appetite or overeating : Several days Feeling bad about yourself or that you are a failure : Several days Trouble concentrating on things : Several days Moving or speaking slowly; restless or fidgety : Not at all Thoughts that you would be better off /hurting self : Not at all PHQ-9 Calculated Score : 6 Problems make work, home, or dealing with others : Somewhat difficult ALCIRA SEWELL MD - 01/11/2016 17:35 CDT Source: [facility] Document Id: [id number] CDT!13 Sabacellaneous - Suze Lamb L.PSudarshanNSudarshan - 01/11/2016 3:18 PM CDT 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 Intake/History Entered On: 01/11/2016 15:20 CDT Performed On: 01/11/2016 15:18 CDT by SUZE ALMB LPN Intake Chief Complaint : anxiety/depression ADHD Temperature Core : 36.7 DegC(Converted to: 98.1 DegF) Peripheral Pulse Rate : 76 /min Respiratory Rate : 16 /min Systolic Blood Pressure : 106 mmHg Diastolic Blood Pressure : 74 mmHg NIBP Mean : 85 mmHg BP Location : Left upper extremity Blood Pressure Cuff Size : Regular Actual Weight : 60.6 kg(Converted to: 133 lb 10 oz) Dosing Weight Clinic : 60.6 kg SUZE LAMB LPN - 01/11/2016 15:18 CDT General Info Languages : Albanian Is Patient Female and 13-50 no hysterectomy : Yes Status : Patient denies Are you ? : No SUZE LAMB LPN - 01/11/2016 15:18 CDT Subjective Pain Symptoms : No SUZE LAMB LPN - 01/11/2016 15:18 CDT Dependent Habits Exposure to Tobacco Smoke : Other: Quit date 11/12/14 Smoking Status : Former smoker Tobacco 2A : Yes Tobacco Use/Currently Using : No Tobacco Use/Last 30 Days : No Tobacco Use/Last 12 months : No SUZE LAMB LPN - 01/11/2016 15:18 CDT Caffeine Use Grid Caffeine Use : Current Type : Soft drinks Frequency : Daily SUZE LAMB LPN - 01/11/2016 15:18 CDT Source: [facility] Document Id: [id number] CDT!32 Miscellaneous - Suze Lamb L.PLuciano - 01/11/2016 3:18 PM CDT Health Assessment Health Assessment Entered On: 01/11/2016 15:20 CDT Performed On: 01/11/2016 15:18 CDT by SUZE LAMB LPN Health Assessment Complete Health Assessment Complete or Modified : Annual Health Assessment Annual Health Assessment Completed : Yes SHAYAN SUZE LORENZO LPN - 01/11/2016 15:18 CDT Nutrition Nutrition Risk Factors by History Adult : None SHAYAN SUZE LORENZO LPN - 01/11/2016 15:18 CDT Functional Current Daily Living Assistance : None SUZE LAMB LPN - 01/11/2016 15:18 CDT Dependent Habits Exposure to Tobacco Smoke : Other: Quit date 11/12/14 Smoking Status : Former smoker Tobacco 2A : Yes Tobacco Use/Currently Using : No Tobacco Use/Last 30 Days : No Tobacco Use/Last 12 months : No Alcohol Use : No SUZE LAMB LPN - 01/11/2016 15:18 CDT Caffeine Use Grid Caffeine Use : Current Type : Soft drinks Frequency : Daily SUZE LAMB LPN - 01/11/2016 15:18 CDT Psychosocial Domestic Abuse Concerns : None Behavioral Health Screen/Safety Assmt : Unable to obtain Roman [employer] Preference : Unknown SUZE LAMB LPN - 01/11/2016 15:18 CDT Advance Directive Advanced Directives : No Advance Directive Additional Information : No SUZE LAMB LPN - 01/11/2016 15:18 CDT Educ Needs Learning Style Preference Adult Grid Patient : Demonstration, Printed materials, Verbal explanation, Video/Educational TV Family : Demonstration, Printed materials, Verbal explanation, Video/Educational TV SUZE LAMB LPN - 01/11/2016 15:18 CDT Source: [facility] POWERCHART Document Id: [id number] CDT!32 documented in this encounter Plan of Treatment Not on filedocumented as of this encounter Procedures Procedure Name Priority Date/Time Associated Diagnosis Comme nts AUTOMATED Routine 01/11/2016 4:00 PM Results f or this DIFFERENTIAL, B CDT procedure ar e in the results section. CBC WITH Routine 01/11/2016 4:00 PM Results f or this DIFFERENTIAL, B CDT procedure ar e in the results section. THYROID-STIMULATING Routine 01/11/2016 4:00 PM Re sults for this HORMONE-SENSITIVE CDT procedure are in (S-TSH) the results section. BASIC METABOLIC Routine 01/11/2016 4:00 PM Result s for this PANEL, S/P CDT procedure are i n the results section. documented in this encounter Results (ABNORMAL) Automated Differential (01/11/2016 4:00 PM CDT) [facility] gist Method Time Signature Absolute 4.49 1.70 - POWERCHART Neutrophils 7.00 109L Lymphocytes 1.49 0.90 - POWERCHART 2.90 X109L Monocytes 0.69 0.30 - POWERCHART 0.90 X109L Eosinophils 0.04 (L) 0.05 - POWERCHART 0.50 X109L Absolute 0.01 0.00 - POWERCHART Basophil 0.30 X109L Specimen Anatomical Collection Method Collection Time Receive d Time (Source) Location / / Volume Laterality Blood 01/11/2016 4:00 PM 6 4:00 CDT PM CDT Alcira Sewell M.D. LAB BLOOD ADD-ON Performing Organization Address City/State/ZIP Code Phon e Number POWERCHART CBC with Differential (01/11/2016 4:00 PM CDT) athologist Signature Leukocytes 6.7 3.4 - 10.5 POWERCHART X109L Erythrocytes 4.15 3.90 - 5.03 POWERCHART [id number] Hemoglobin 13.9 12.0 - 15.5 POWERCHART GDL Hematocrit 38.7 34.9 - 44.5 POWERCHART MCV 93.3 82.0 - 98.0 POWERCHART FL Platelet Count 199 150 - 450 POWERCHART X109L HX RDW 11.9 11.9 - 15.5 POWERCHART Specimen (Source) Anatomical Collection Method Collection Time Re ceived Time Location / / Volume Laterality Blood 01/11/2016 4:00 PM CDT Alcira Sewell M.D. LAB BLOOD ADD-ON Performing Organization Address City/State/ZIP Code Phon e Number POWERCHART BMP (Basic Metabolic Panel) (01/11/2016 4:00 PM CDT) P athologist Signature Sodium, S 137 135 - 145 POWERCHART MMOLL Potassium, S 4.6 3.6 - 5.2 POWERCHART MMOLL Chloride, S 103 98 - 107 POWERCHART MMOLL CO2 Total 24 22 - 29 POWERCHART MMOLL BUN (Blood Urea 10 6 - 21 POWERCHART Nitrogen), S MGDL Creatinine 0.62 0.60 - POWERCHART 1.10 MGDL Calcium, Total, 9.2 8.0 - 10.3 POWERCHART S MGDL Anion Gap 10 7 - 15 POWERCHART MMOLL HXeGFR (MDRD) >60 >=60 POWERCHART [id number] eGFR >60 >=60 POWERCHART Black/ [id number] Russian Glucose 88 70 - 139 POWERCHART MGDL Specimen (Source) Anatomical Collection Method Collection Time Re ceived Time Location / / Volume Laterality Blood 01/11/2016 4:00 PM CDT Alcira Sewell M.D. LAB BLOOD ADD-ON Performing Organization Address City/State/ZIP Code Phon e Number POWERCHART Thyroid-Stimulating Hormone-Sensitive (s-TSH) (01/11/2016 4:00 PM CDT) P athologist Signature TSH 2.10 0.27 - 4.20 POWERCHART (Thyrotropin) MIUL Comment: Biotin has been identified by the devyn miles as a potential interfering substance. Higher concentrations of biotin may be found in multivitamins, hair/nail supplements, and workout supplements. If the result does not match clinical observat ions, repeat testing after patient refrains from the use of supplements for at least 12 hours. Specimen (Source) Anatomical Collection Method Collection Time Re ceived Time Location / / Volume Laterality Blood 01/11/2016 4:00 PM CDT Alcira Sewell M.D. LAB BLOOD ADD-ON Performing Organization Address City/State/ZIP Code Phon e Number POWERCHART documented in this encounter Visit Diagnoses Not on filedocumented in this encounter Additional Health Concerns Assessment Noted Time PHQ-9 Depression Total Score: 6 01/11/2016 5:35 PM CDT documented as of this encounter
--- OUTSIDE RECORDS SUMMARY | 2022-03-21 14:29 | XMS_ITS | Encounter Summary ---
:1990 Author Organization [facility] Address [address] [place] [address] Care Team Providers Name Role Phone Mayra Guerrero APRN, C.N.P. Primary Care Provider [phone] Encounter Details Date Type Department Care Team Description 03/29/2017 Nurse Triage Department of Bre Torres R.N. Medicine, [facility] in [address] [place] [phone] [place] [address] Social History Tobacco Use Types Packs/Day Years [...] documented as of this encounter Care Teams Spinning Supervisor Relationship Specialty Start Date End Date Mayra Guerrero APRN, C.N.P. PCP - General 10/13/16 12/30/20 [address] [place] [phone] documented as of this encounter
--- OUTSIDE RECORDS SUMMARY | 2022-03-21 14:29 | XMS_ITS | Encounter Summary ---
:1990 Author Organization [facility] Address [address] [place] [address] Care Team Providers Name Role Phone Unavailable Primary Care Provider Unavailable Encounter Details Date Type Department Care Team Description 10/03/2014 Hospital Encounter HX [facility] Mary Alice Mitchell M.D. [id number] , [address] [place], [place] [address] (Wo rk) Social History Tobacco Use Types Packs/Day Years Used Date Smoking Tobacco: Never Assessed Sex Assigned at Date Recorded Not on file documented as of this encounter Last Filed Vital Signs Vital Sign Reading Time Taken Comments Blood Pressure 104/64 10/03/2014 2:27 PM CDT Pulse 64 10/03/2014 2:27 PM CDT Temperature - - Respiratory Rate 16 10/03/2014 2:27 PM CDT Oxygen Saturation - - Inhaled Oxygen Concentration - - Weight 60 kg (132 lb 4.4 oz) 10/03/2014 2:27 PM CDT Height 155 cm (5' 1.02) 10/03/2014 2:27 PM CDT Body Mass Index 24.97 10/03/2014 2:27 PM CDT documented in this encounter Progress Notes Bartolome Mitchell M.D. 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- Modified by and Electronically Signed by: BARTOLOME MITCHELL MD On: 10/03/2014 03:06 PM CHIEF COMPLAINT/REASON FOR VISIT suture removal HISTORY OF PRESENT ILLNESS Mucosal lentigines (also known as Labial, penile, and vulvar melanosis, and Melanotic macules) is a cutaneous condition characterized by light brown macules on mucosal surfaces.[1]:686 Skin- several homogenous darkly pigmented flat, round lesions, however one on left labia majora- irregular darkly pigmented spot wth signs of regression- THis a mushtaq prepped with alcohol, and injected with 0.1 milliliters of lidocaine with no epinephrinemixed with sodium bicarbonate in 9:1 ratio. Lesion then prepped with hibiclens, steriley draped, and a 2 mm punch biopsy was obtained of part of the lesion. 1 suture of 6.0 ethilon placed. Bacitracin and a bandaid applied. Estimated blood loss less than 1 cc. [1] MEDICATIONS levonorgestrel 52 mg intrauteral device, 52 mg, 1 each, Intrauteral, Once, 0 refills ALLERGIES NKA PAST MEDICAL HISTORY Chronic Depressive psychosis, recurrent episodes IUD, checking, reinsertion or removal Lesion Skin NOS Photodamage Shingles Tobacco dependence Historical Abnormal [...] (Week of 11/21/2005), Vaginal delivery. SOCIAL HISTORY No Data Available FAMILY HISTORY Mother: Negative: Father: Negative: Sister: Negative: Brother: Negative: Sister: Negative: Brother: Negative: Grandmother (maternal, at 75 year(s)):Positive: Alzheimer's disease; Diabetes mellitus Aunt (maternal):Positive: Diabetes mellitus Uncle (maternal):Positive: Diabetes mellitus SYSTEMS REVIEW otherwise negative VITAL SIGNS T: 36.9 ??C (Core) HR: 64 RR: 16 BP: 104 / 64 HT: 155 cm WT: 60 kg BMI: 24.97 PHYSICAL EXAMINATION General: No acute distress Skin: suture(s) already out from biopsied areas on the left labia- patient states that area bled this AM IMPRESSION/REPORT/PLAN 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 Watch for change in size, color, etc. Given handout on Recognizing Skin Cancer and reviewed together Sunblock spf 30 every 2 hours to skin while in the sun. Yearly full skin checks recommended, soonerif you notice any pink, thick scaled lesions or changing moles. FOOTNOTES [1]Clinic Full Note; BARTOLOME MITCHELL MD 09/26/2014 15:53 CDT Electronically Signed By: BARTOLOME MITCHELL MD On: 10/03/2014 03:04 PM Source: [email or web address] Document Id: [id number] documented in this encounter Nursing Notes Bartolome Mitchell M.D. - 10/03/2014 2:52 PM CDT Ambulatory Patient Education The following Patient Education Materials have been given to the patient: Patient Education Materials: Oncology Recognizing Skin Cancer Oncology Recognizing Skin Cancer Doing monthly skin checkups is the best way to find new grimaldo or skin changes. During your skin checkups, be sure to follow the ABCDEs of skin checks. This means checking moles or growths for Asymmetry, Border, Color, Diameter, and Evolving (changing). Note, too, if your growths bleed, itch, or are painful. The ABCDEs of Skin Checks Check your moles or growths for signs of melanoma using ABCDE: ?? Asymmetry: the sides of the mole or growth dont match ?? Border: the edges are ragged, notched, or blurred ?? Color: the color within the mole or growth varies ?? Diameter: the mole or growth is larger than 6 mm (size of a pencil eraser) ?? Evolving: the size, shape, or color of the mole or growth is changing (evolving is not shown below.) Whos At Risk? Anyone can get skin cancer. But you are at greater risk if you have: ?? Fair skin, light-colored hair, or light-colored eyes ?? Many moles on your skin ?? A history of sunburns from sunlight or tanning beds ?? A family history of skin cancer ?? A history of exposure to radiation or chemicals ?? A weakened immune system Also, a personal history of skin cancer puts you at risk for recurring skin cancer. How to Check Your Skin Do your monthly skin checkups in front of a full-length mirror. Check all parts of your body, including your: ?? Head (ears, face, neck, and scalp) ?? Torso (front, back, and sides) ?? Arms (tops, undersides, upper, and lower) ?? Hands (palms, backs, and fingers) ?? Buttocks and genitals ?? Legs (front, back, and sides) ?? Feet (tops, soles, toes, and between toes) If you have a lot of moles, take digital photos of them each month. Make sure to take photos both upclose and from a distance. These can help you see if any moles cell changer time. When to Seek Medical Treatment Most skin changes are not cancer. But if you see any changes in your skin, call your doctor right away. Only he or she can diagnose a problem. If you have skin cancer, seeing your doctor can be the first step toward getting the treatment that could save your life. ?? [phone] [place] [address]. All rights reserved. This information is not intended as a substitute for professional medical care. Always follow your healthcare professional's instructions. This document has images extracted. Please consider using Gleam for all your patient education needs. Source: [facility] POWERCHART Document Id: [id number] documented in this encounter Miscellaneous Notes Miscellaneous - Bartolome Mitchell M.D. - 10/03/2014 3:04 PM CDT Ambulatory Patient Summary [address], [place] [id number] Visit Information Name: ANUSHA SOSA [facility] Number: [id number] Current Date: 10/03/2014 15:04:11 Physicians Attending Provider: BARTOLOME MITCHELL MD Primary Care Provider: DASHA VARMA CNP ANUSHA [...] the Following Medications: Medication list as of 10-03-14 15:04 Attention: If you have any medications at home that are not on this list, DO NOT take them until youcontact your provider for clarification. Give a copy of your medication list to your primary care provider. Update your medication list any time medications or doses are changed and carry your medication list at all times in case of emergency. Electronically Signed By: BARTOLOME MITCHELL MD Signed On:03-OCT-2014 14:51:36 Your Allergies & Intolerances Substance Reaction Symptoms [...] local Clinic if further appointment detail needed. Recognizing Skin Cancer Doing monthly skin checkups is the best way to find new grimaldo or skin changes. During your skin checkups, be sure to follow the ABCDEs of skin checks. This means checking moles or growths for Asymmetry, Border, Color, Diameter, and Evolving (changing). Note, too, if your growths bleed, itch, or are painful. The ABCDEs of Skin Checks Check your moles or growths for signs of melanoma using ABCDE: ?? Asymmetry: the sides of the mole or growth dont match ?? Border: the edges are ragged, notched, or blurred ?? Color: the color within the mole or growth varies ?? Diameter: the mole or growth is larger than 6 mm (size of a pencil eraser) ?? Evolving: the size, shape, or color of the mole or growth is changing (evolving is not shown below.) Whos At Risk? Anyone can get skin cancer. But you are at greater risk if you have: ?? Fair skin, light-colored hair, or light-colored eyes ?? Many moles on your skin ?? A history of sunburns from sunlight or tanning beds ?? A family history of skin cancer ?? A history of exposure to radiation or chemicals ?? A weakened immune system Also, a personal history of skin cancer puts you at risk for recurring skin cancer. How to Check Your Skin Do your monthly skin checkups in front of a full-length mirror. Check all parts of your body, including your: ?? Head (ears, face, neck, and scalp) ?? Torso (front, back, and sides) ?? Arms (tops, undersides, upper, and lower) ?? Hands (palms, backs, and fingers) ?? Buttocks and genitals ?? Legs (front, back, and sides) ?? Feet (tops, soles, toes, and between toes) If you have a lot of moles, take digital photos of them each month. Make sure to take photos both upclose and from a distance. These can help you see if any moles cell changer time. When to Seek Medical Treatment Most skin changes are not cancer. But if you see any changes in your skin, call your doctor right away. Only he or she can diagnose a problem. If you have skin cancer, seeing your doctor can be the first step toward getting the treatment that could save your life. ?? [phone] [employer]is [employer], [address] [place] [address], [place] [address]. All rights reserved. This information is not intended as a substitute for professional medical care. Always follow your healthcare professional's instructions. Your Goals/Additional instructions: Mucosal lentigines (avulvar melanosis) is a cutaneous condition characterized by light brown macules on mucosal surfaces. Watch for change in size, color, etc. This document has images extracted. Please consider using Gleam for all your patient education needs. Source: [facility] NodeFlyCHART Document Id: [id number] Miscellaneous - Bartolome Mitchell M.D. - 10/03/2014 3:04 PM CDT Ambulatory Discharge Medication List [address] [id number] Visit Information Name: ANUSHA SOSA [facility] Number: [id number] Visit Date: 10/03/2014 15:04:11 Attending Provider: BARTOLOME MITCHELL MD Primary Care Provider: DASHA VARMA MEASURING MACHINE TENDER ANUSHA SOSA has been given the [...] the Following Medications: Medication list as of 10-03-14 15:04 Attention: If you have any medications at home that are not on this list, DO NOT take them until youcontact your provider for clarification. Give a copy of your medication list to your primary care provider. Update your medication list any time medications or doses are changed and carry your medication list at all times in case of emergency. Electronically Signed By: BARTOLOME MITCHELL MD Signed On:03-OCT-2014 14:51:36 Additional Information: Source: [facility] NodeFlyCHART Document Id: [id number] Miscellaneous - Neda Pepe L.P.N. 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 Intake/History Entered On: 10/03/2014 14:29 CDT Performed On: 10/03/2014 14:27 CDT by NEDA PEPE Intake Chief Complaint : suture removal Temperature Core : 36.9 DegC(Converted to: 98.4 DegF) Peripheral Pulse Rate : 64 /min Respiratory Rate : 16 /min Systolic Blood Pressure : 104 mmHg Diastolic Blood Pressure : 64 mmHg NIBP Mean : 77 mmHg BP Location : Right upper extremity Blood Pressure Cuff Size : Regular Height : 155 cm(Converted to: 5 ft 1 inch(es), 61 inch(es)) Actual Weight : 60 kg(Converted to: 132 lb 4 oz) Weight Source : Standing scale Dosing Weight Clinic : 60 kg Clinic BSA : 1.61 Body Mass Index : 24.97 kg/m2 NEDA PEPE - 10/03/2014 14:27 CDT General Info Languages : Khmer Is Patient Female and 13-50 no hysterectomy : Yes Status : Possible unconfirmed Are you ? : No NEDA PEPE - 10/03/2014 14:27 CDT Subjective Pain Symptoms : No NEDA PEPE - 10/03/2014 14:27 CDT Dependent Habits Tobacco Use/Currently Using : Yes Exposure to Tobacco Smoke : Patient smokes Smoking Status : Current some day smoker NEDA PEPE - 10/03/2014 14:27 CDT Tobacco Use Grid Type : Cigarettes Other Tobacco Frequency : 1 per week NEDA PEPE - 10/03/2014 14:27 CDT Caffeine Use Grid Caffeine Use : Current Type : Soft drinks Frequency : Daily NEDA PEPE - 10/03/2014 14:27 CDT Source: [facility] TherapeuticsCHART Document Id: [id number] CDT!37 documented in this encounter Plan of Treatment Not on filedocumented as of this encounter Visit Diagnoses Not on filedocumented in this encounter
--- OUTSIDE RECORDS SUMMARY | 2022-03-21 14:29 | XMS_ITS | Encounter Summary ---
:1990 Author Organization [facility] Address [address] [place] [address] Care Team Providers Name Role Phone Mayra Guerrero APRN, C.N.P. Primary Care Provider [phone] Encounter Details Date Type Department Care Team Description 03/29/2017 Abstract Department of Family Medicine in [address] [place], [place] [phone] Social History Tobacco Use Types Packs/Day Years [...] documented as of this encounter Care Teams Accounting Intern Relationship Specialty Start Date End Date Mayra Guerrero APRN, C.N.P. PCP - General 10/13/16 12/30/20 [address] [place] [phone] documented as of this encounter
--- OUTSIDE RECORDS SUMMARY | 2022-03-21 14:29 | XMS_ITS | Encounter Summary ---
:1990 Author Organization [facility] Address [address] [place] [address] Care Team Providers Name Role Phone Unavailable Primary Care Provider Unavailable Encounter Details Date Type Department Care Team Description 10/06/2015 Hospital Encounter HX [facility] Peter Quintero M.D. Social History Tobacco Use Types Packs/Day [...] Concentration - - Weight - - Height 156 cm (5' 1.42) 10/06/2015 4:32 PM CDT Body Mass Index - - documented in this encounter Plan of Treatment Not on filedocumented as of this encounter Visit Diagnoses Not on filedocumented in this encounter Additional Health Concerns Assessment Noted Time PHQ-9 Depression Total Score: 2 01/07/2015 5:06 PM CDT documented as of this encounter
--- OUTSIDE RECORDS SUMMARY | 2022-03-21 14:29 | XMS_ITS | Encounter Summary ---
:1990 Author Organization [facility] Address [address] [place] [address] Care Team Providers Name Role Phone Unavailable Primary Care Provider Unavailable Encounter Details Date Type Department Care Team Description 07/13/[address] [facility] Peter Quintero M.D. Social History Tobacco Use [...]
--- OUTSIDE RECORDS SUMMARY | 2022-03-21 14:30 | XMS_ITS | Encounter Summary ---
:1990 Author Organization [facility] Address [address] [place] [address] Care Team Providers Name Role Phone Unavailable Primary Care Provider Unavailable Encounter Details Date Type Department Care Team Description 12/16/2004 Hospital Encounter HX [facility] Torsten Robbins M.D. [address] [place], [place] [address] (Wo rk) Social History Tobacco Use Types Packs/Day Years Used Date Smoking Tobacco: Never Assessed Sex Assigned at Date Recorded Not on file documented as of this encounter Plan of Treatment Not on filedocumented as of this encounter Visit Diagnoses Not on filedocumented in this encounter
--- OUTSIDE RECORDS SUMMARY | 2022-03-21 14:30 | XMS_ITS | Encounter Summary ---
:1990 Author Organization [facility] Address [address] [place] [address] Care Team Providers Name Role Phone Unavailable Primary Care Provider Unavailable Encounter Details Date Type Department Care Team Description 03/28/2005 Hospital Encounter HX [facility] Torsten Kennedy M.D. [address] [place], [place] [address] (Wo rk) Social History Tobacco Use Types Packs/Day Years Used Date Smoking Tobacco: Never Assessed Sex Assigned at Date Recorded Not on file documented as of this encounter Plan of Treatment Not on filedocumented as of this encounter Visit Diagnoses Not on filedocumented in this encounter
--- OUTSIDE RECORDS SUMMARY | 2022-03-21 14:30 | XMS_ITS | Encounter Summary ---
:1990 Author Organization [facility] Address [address] [place] [address] Care Team Providers Name Role Phone Unavailable Primary Care Provider Unavailable Encounter Details Date Type Department Care Team Description 06/26/2013 Hospital Encounter [facility] Anabelle Varma, LAUREN, C.N.P. [address] [place] [address] (Wo rk) Social History Tobacco Use Types Packs/Day Years Used Date Smoking Tobacco: Never Assessed Sex Assigned at Date Recorded Not on file documented as of this encounter Last Filed Vital Signs Vital Sign Reading Time Taken Comments Blood Pressure 120/78 06/26/2013 4:09 PM TUNA PURSE [facility]INER Pulse 80 06/26/2013 4:09 PM TUNA [facility] Temperature - - Respiratory Rate 16 06/26/2013 4:09 PM TUNA PURSE SEINER Oxygen Saturation - - Inhaled Oxygen Concentration - - Weight 62 kg (136 lb 11 oz) 06/26/2013 4:09 PM TUNA PURSE SEINER Height 155.5 cm (5' 1.22) 06/26/2013 4:09 PM TUNA PURSE SEINER Body Mass Index 25.64 06/26/2013 4:09 PM TUNA PURSE SEINER documented in this encounter Progress Notes Dasha Varma, LAUREN, C.N.P. - 06/26/2013 4:02 PM CST [id number] CHIEF COMPLAINT/REASON FOR VISIT Chlamydia. HISTORY OF PRESENT ILLNESS Anusha's chlamydia screen came back positive. She is here today for treatment. MEDICATIONS See Depart Summary from today. ALLERGIES None. SYSTEMS REVIEW Positive for that mentioned in the history of present illness and noted in the past medical history in the EMR. All other systems were reviewed and were negative. PREVENTIVE: Up-to-date. VITAL SIGNS See EMR. PHYSICAL EXAMINATION GENERAL: Well-developed, well-nourished female, in no acute distress. SKIN: Warm and dry. HEART: Regular rate and rhythm. LUNGS: Clear to auscultation. IMPRESSION/REPORT/PLAN Chlamydia. Azithromycin 500mg 2 tablets by mouth once. We discussed importance of partner being treated. No sexual intercourse until both have been treated. She can return for test of cure, if she willwould like, in 2 weeks. She was given some printed patient education information, and STD report form was mailed to the [place] [facility]. Dasha Varma CNP/claudio Electronically Signed By: DASHA VARMA CNP On: 07/01/2013 09:14 AM Source: [facility] MHSDOLBEYNONRADSYS Document Id: [id number] PURSE SEINER documented in this encounter Miscellaneous Notes Miscellaneous - Dasha Varma APRN, C.N.P. - 06/26/2013 4:19 PM CST Ambulatory Patient Summary [address] [id number] Visit Information Name: ANUSHA SOLOMON [facility] Number: [id number] Current Date: 06/26/2013 16:19:15 Physicians Attending Provider: DASHA VARMA CNP Primary Care Provider: DASHA VARMA CNP ANUSHA SOLOMON has been given the following list of [...] Take Indications/Special Instructions/Comments/Notes for Patient Medication Changes/Routing azithromycin (azithromycin 500 mg oral tablet) 2 Tablet(s), Oral, once New Routed to Printer levonorgestrel (levonorgestrel 52 mg intrauteral device) 1 Each, Intrauteral, once Stop Taking the Following Medications: Medication list as of 06-26-13 16:19 Attention: If you have any medications at home that are not on this list, DO NOT take them until youcontact your provider for clarification. Give a copy of your medication list to your primary care provider. Update your medication list any time medications or doses are changed and carry your medication list at all times in case of emergency. Your Allergies & Intolerances Substance Reaction Symptoms Category Comments No Known Allergies Drug Your Problem List Problem Status Onset Comments IUD, checking, reinsertion or removal Active 07/26/2011 07/26/11 Mirena IUd removed and replaced 07/26/2011. Remove 06/2016 Tobacco dependence Active Your Upcoming Appointments Date Time Location Reason Provider No Appointments found Attention: Contact your local Clinic if further appointment detail needed. [id number] Chlamydia Chlamydia is a very common sexually transmitted disease (STD). Most people do not have symptoms. Because of this, chlamydia may not be noticed until it causes severe problems. Left untreated, this infection can cause women and men to become sterile. This means they will not be able to have children. Symptoms Many people with chlamydia have no symptoms. Women are more likely than men not to have symptoms. If symptoms show up in women, they include: ?? Yellow discharge (fluid) from the vagina or anus ?? Bleeding between periods ?? Pain or burning during urination If symptoms show up in men, they include: ?? Clear discharge (drip) from the penis or anus ?? Pain or burning during urination Potential Problems If the infection is not treated, it can lead to more serious health problems. In women, this can be pelvic inflammatory disease (PID). PID can make a woman sterile. It can also cause an ectopic (tubal). This type of cannot be carried to term. Symptoms of PID include fever, pain during sex, and pain in the abdomen. Women should get checked for chlamydia regularly. This can help prevent PID. Treatment When found early, chlamydia can be treated. It can be cured with antibiotic medications. If you haveit, tell your partner right away. Because women often dont have symptoms, men should ask their partners to get tested. Prevention Know your partners history. Protect yourself by using a latex condom whenever you have sex. If you are , take extra care. Untreated chlamydia in a woman can cause eye, ear, or lung problems in the baby. Resources [employer] STD Hotline 848-519-8545 www.ashastd.org Centers for Disease Control and Prevention 307-999-6416 www.cdc.gov/std ?? Gris Martinez, [address] [place] [address], [place] [address]. All rights reserved. This information is not intended as a substitute for professional medical care. Always follow your healthcare professional's instructions. Your Goals/Additional instructions: This document has images extracted. Please consider using [facility] for all your patient education needs. Source: [facility] POWERCHART Document Id: [id number] PURSE SEINER Miscellaneous - Dasha Varma APRN, C.N.P. - 06/26/2013 4:19 PM CST Ambulatory Discharge Medication List [address] [id number] Visit Information Name: ANUSHA SOLOMON [facility] Number: [id number] Visit Date: 06/26/2013 16:19:14 Attending Provider: DASHA VARMA CNP Primary Care Provider: DASHA VARMA CNP ANUSHA SOLOMON has been given the following list of medications: Your Medications It is important to take your medications as directed. Use a pill box or chart to help remind you to take your medications. Please let your doctor or nurse know if you have problems taking your medications. Medication/Strength How to Take Indications/Special Instructions/Comments/Notes for Patient Medication Changes/Routing azithromycin (azithromycin 500 mg oral tablet) 2 Tablet(s), Oral, once New Routed to Printer levonorgestrel (levonorgestrel 52 mg intrauteral device) 1 Each, Intrauteral, once Stop Taking the Following Medications: Medication list as of 02-26-14 16:19 Attention: If you have any medications at home that are not on this list, DO NOT take them until youcontact your provider for clarification. Give a copy of your medication list to your primary care provider. Update your medication list any time medications or doses are changed and carry your medication list at all times in case of emergency. Additional Information: Source: [facility] POWERCHART Document Id: [id number] PURSE SEINER Miscellaneous - Juanito Diaz L.P.N. - 06/26/2013 4:09 PM CST Adult Child Caregiver Private Home Intake/History Adult Child Caregiver Private Home Intake/History Entered On: 06/26/2013 16:10 TUNA [facility]SE [facility]ER Performed On: 06/26/2013 16:09 TUNA [facility] by JUANITO DIAZ LPN Intake Chief Complaint : Results of labs and medications Temperature Core : 36.7 DegC(Converted to: 98.1 DegF) Peripheral Pulse Rate : 80 /min Respiratory Rate : 16 /min Heart Rhythm : Regular Systolic Blood Pressure : 120 mmHg Diastolic Blood Pressure : 78 mmHg NIBP Mean : 92 mmHg BP Location : Right upper extremity Blood Pressure Cuff Size : Regular Height : 155.5 cm(Converted to: 5 ft 1 inch(es), 61 inch(es)) Actual Weight : 62 kg(Converted to: 136 lb 11 oz) Weight Source : Standing scale Dosing Weight Clinic : 62 kg Clinic BSA : 1.64 Body Mass Index : 25.64 kg/m2 JUANITO DIAZ LPN - 06/26/2013 16:09 TUNA [facility] SEINER General Info Information Given By : Patient Languages : Czech JUANITO DIAZ LPN - 06/26/2013 16:09 TUNA [facility]SE SEINER Subjective Pain Symptoms : No JUANITO DIAZ LPN - 06/26/2013 16:09 TUNA [facility]SE SEINER Dependent Habits Tobacco Use/Currently Using : Yes Exposure to Tobacco Smoke : Patient smokes Smoking Status : Current some day smoker JUANITO DIAZ LPN - 06/26/2013 16:09 TUNA [facility]INER Tobacco Use Grid Type : Cigarettes Last Use : quit in 05/12 JUANITO DIAZ LPN - 06/26/2013 16:09 TUNA PURSE SEINER Caffeine Use Grid Caffeine Use : Current Type : Soft drinks Frequency : Daily JUANITO DIAZ LPN - 06/26/2013 16:09 TUNA PURSE SEINER Source: [facility] [employer] Document Id: [id number] TUNA PURSE SEINER!36 PURSE SEINER documented in this encounter Plan of Treatment Not on filedocumented as of this encounter Visit Diagnoses Not on filedocumented in this encounter
--- OUTSIDE RECORDS SUMMARY | 2022-03-21 14:30 | XMS_ITS | Encounter Summary ---
:1990 Author Organization [facility] Address [address] [place] [address] Care Team Providers Name Role Phone Unavailable Primary Care Provider Unavailable Encounter Details Date Type Department Care Team Description 01/14/2005 [facility] Torsten Robbins M.D. [address] [place], [place] [address] (Wo rk) Social History Tobacco Use Types Packs/Day Years Used Date Smoking Tobacco: Never Assessed Sex Assigned at Date Recorded Not on file documented as of this encounter Plan of Treatment Not on filedocumented as of this encounter Visit Diagnoses Not on filedocumented in this encounter
--- OUTSIDE RECORDS SUMMARY | 2022-03-21 14:30 | XMS_ITS | Encounter Summary ---
:1990 Author Organization [facility] Address [address] [place] [address] Care Team Providers Name Role Phone Unavailable Primary Care Provider Unavailable Encounter Details Date Type Department Care Team Description 01/17/2005 [facility] Torsten Robbins M.D. [address] [place], [place] [address] (Wo rk) Social History Tobacco Use Types Packs/Day Years Used Date Smoking Tobacco: Never Assessed Sex Assigned at Date Recorded Not on file documented as of this encounter Plan of Treatment Not on filedocumented as of this encounter Visit Diagnoses Not on filedocumented in this encounter
--- OUTSIDE RECORDS SUMMARY | 2022-03-21 14:30 | XMS_ITS | Encounter Summary ---
:1990 Author Organization [facility] Address [address] [place] [address] Care Team Providers Name Role Phone Unavailable Primary Care Provider Unavailable Encounter Details Date Type Department Care Team Description 01/04/2005 Hospital [facility] Torsten Robbins M.D. [address] [place], [place] [address] (Wo rk) Social History Tobacco Use Types Packs/Day Years Used Date Smoking Tobacco: Never Assessed Sex Assigned at Date Recorded Not on file documented as of this encounter Plan of Treatment Not on filedocumented as of this encounter Visit Diagnoses Not on filedocumented in this encounter
--- OUTSIDE RECORDS SUMMARY | 2022-03-21 14:30 | XMS_ITS | Encounter Summary ---
:1990 Author Organization [facility] Address [address] [place] [address] Care Team Providers Name Role Phone Unavailable Primary Care Provider Unavailable Encounter Details Date Type Department Care Team Description 07/19/2011 Hospital Encounter [facility]X [facility] MyrAnabelle spence, CUTTING AND SPLICING SUPERVISOR, C.N.P. [address] [place] [address] (Wo rk) Social History Tobacco Use Types Packs/Day Years Used Date Smoking Tobacco: Never Assessed Sex Assigned at Date Recorded Not on file documented as of this encounter Last Filed Vital Signs Vital Sign Reading Time Taken Comments Blood Pressure 100/60 07/19/2011 4:04 PM CDT Pulse 68 07/19/2011 4:04 PM CDT Temperature - - Respiratory Rate 14 07/19/2011 4:04 PM CDT Oxygen Saturation - - Inhaled Oxygen Concentration - - Weight 59.5 kg (131 lb 2.8 oz) 07/19/2011 4:04 PM CDT Height 153 cm (5' 0.24) 07/19/2011 4:04 PM CDT Body Mass Index 25.42 07/19/2011 4:04 PM CDT documented in this encounter Miscellaneous Notes Miscellaneous - Estella Reyez, L.P.N. - 07/19/2011 4:06 PM CDT Health Assessment Health Assessment Entered On: 07/19/2011 16:07 CDT Performed On: 07/19/2011 16:06 CDT by ESTELLA REYEZ Health Assessment Complete Health Assessment Complete or Modified : Annual Health Assessment Annual Health Assessment Completed : Yes ESTELLA REYEZ 07/19/2011 16:06 CDT Nutrition Nutrition Risk Factors by History Adult : None ESTELLA REYEZ 07/19/2011 16:06 CDT Functional Current Daily Living Assistance : None ESTELLA REYEZ 07/19/2011 16:06 CDT Dependent Habits Tobacco Use/Currently Using : No Exposure to Tobacco Smoke : Patient smokes Smoking Status : Former smoker ESTELLA REYEZ 07/19/2011 16:06 CDT Tobacco Use Grid Type : Cigarettes ESTELLA REYEZ 07/19/2011 16:06 CDT Caffeine Use Grid Caffeine Use : Current Type : Soft drinks Frequency : Daily ESTELLA REYEZ 07/19/2011 16:06 CDT Psychosocial Domestic Abuse Concerns : None ESTELLA REYEZ 07/19/2011 16:06 CDT Advance Directive Advanced Directives : No ESTELLA REYEZ 07/19/2011 16:06 CDT Educ Needs Learning Style Preference Adult Grid Patient : Demonstration Family : Demonstration ESTELLA REYEZ 07/19/2011 16:06 CDT [facility] Document Id: [id number] CDT!28 Miscellaneous - Estella Reyez L.P.N. - 07/19/2011 4:04 PM CDT Adult Data Systems Analyst Intake/History Adult Data Systems Analyst Intake/History Entered On: 07/19/2011 16:06 CDT Performed On: 07/19/2011 16:04 CDT by ESTELLA REYEZ Intake Chief Complaint : physical Temperature Core : 36.5C(Converted to: 97.7DegF) Peripheral Pulse Rate : 68/min Respiratory Rate : 14/min Heart Rhythm : Regular Systolic Blood Pressure : 100mmHg Diastolic Blood Pressure : 60mmHg NIBP Mean : 73mmHg BP Location : Right upper extremity Blood Pressure Cuff Size : Regular Height : 153cm(Converted to: 5ft 0inch(es), 60.24inch(es)) Actual Weight : 59.5kg(Converted to: 131lb 3oz) Weight Source : Standing scale Dosing Weight Clinic : 59.50kg Clinic BSA : 1.59 Body Mass Index : 25.42kg/m2 ESTELLA REYEZ 07/19/2011 16:04 CDT Subjective Pain Symptoms : No ESTELLA REYEZ 07/19/2011 16:04 CDT Dependent Habits Tobacco Use/Currently Using : No Exposure to Tobacco Smoke : Patient smokes Smoking Status : Former smoker ESTELLA REYEZ - 07/19/2011 16:04 CDT Tobacco Use Grid Type : Cigarettes ESTELLA REYEZ 07/19/2011 16:04 CDT Caffeine Use Grid Caffeine Use : Current Type : Soft drinks Frequency : Daily ESTELLA REYEZ 07/19/2011 16:04 CDT Allergy Allergies (Active) NKA Estimated Onset Date: Unspecified ; Created By: RJ BOUDREAUX LPN; Reaction Status: Active ; Category: Drug ; Substance: NKA ; Type: Allergy ; Updated By: RJ BOUDREAUX LPN; Source: Patient ; Reviewed Date: 07/19/2011 16:02 CDT Source: [facility] POWERCHART Document Id: [id number] CDT!32 documented in this encounter Plan of Treatment Not on filedocumented as of this encounter Visit Diagnoses Not on filedocumented in this encounter
--- OUTSIDE RECORDS SUMMARY | 2022-03-21 14:30 | XMS_ITS | Encounter Summary ---
:1990 Author Organization [facility] Address [address] [place] [address] Care Team Providers Name Role Phone Unavailable Primary Care Provider Unavailable Encounter Details Date Type Department Care Team Description 07/26/2011 Hospital Encounter HX [facility] Radha Barry CNM Social History Tobacco Use Types Packs/Day Years Used Date Smoking Tobacco: Never Assessed Sex Assigned at Date Recorded Not on file documented as of this encounter Last Filed Vital Signs Vital Sign Reading Time Taken Comments Blood Pressure 106/68 07/26/2011 3:38 PM CDT Pulse - - Temperature - - Respiratory Rate - - Oxygen Saturation - - Inhaled Oxygen Concentration - - Weight 59.8 kg (131 lb 13.4 oz) 07/26/2011 3:38 PM CDT Height - - Body Mass Index 25.55 07/19/2011 4:04 PM CDT documented in this encounter Progress Notes Radha Barry CNM - 07/26/2011 12:00 AM CDT [id number] CHIEF COMPLAINT/REASON FOR VISIT She is here to have her present IUD removed and a new one replaced. HISTORY OF PRESENT ILLNESS She is a 20-year-old woman who has a Mirena IUD that was placed in July of 2006. She has had that in for 5 years now. Has been very happy with it and would like to continue to use it. She reports that she has not had periods with her IUD. She has not had any other problems since using it. She has had a new partner since her last exam in September of 2010 but reports no other medical problems. CURRENT MEDICATIONS Post-visit Medication Reconciliation Mirena IUD ALLERGIES No known allergies PAST MEDICAL/SURGICAL HISTORY PREVENTIVE SERVICES Tobacco use: No Last Pap smear 10/14/10 Chlamydia screening will be updated today. Tetanus: 08/28/06 No depression No asthma VITAL SIGNS Refer to the EMR PHYSICAL EXAM GENITALIA: Speculum was inserted and cervix visualized. The IUD strings are present at the cervical os. Cervix was prepped with Betadine swabs and the strings of the IUD were grasped with a ring forcep and easily removed. I then went ahead and stabilized the cervix with a single tooth tenaculum and sounded it to 7 cm. The new Mirena was placed without difficulty and the strings were cut to 2 cm. The patient tolerated the procedure without any problems. IMPRESSION/REPORT/PLAN IUD removal and re-insertion. Plan: She is going to watch for the strings. If she notices anything unusual about the IUD then she needs to give me a call back, otherwise she will return in the summer for her annual exam and if there is an issue with the chlamydia screening I will call her, otherwise we will just send a card. PEB/mgd Signed Heena Barry C.N.M. Obstetrical[facility]Gynecological Services Electronically Signed By: RADHA BARRY CNM On: 07/29/2011 09:07 AM Source: [facility] [email or web address] Document Id: [id number] documented in this encounter Miscellaneous Notes Miscellaneous - Radha Barry CNM - 07/29/2011 9:36 AM CDT Results Notification Document Contains Addenda Addendum by DANIELLE GUERRERO on 01 August 2011 09:08:37 CDT Result mailed. From: RADHA BARRY CNM To: DANIELLE GUERRERO Sent: 07/29/2011 09:36:11 CDT ! Show up: 07/29/2011 14:36:11 [facility] Subject: Results Notification Actions: Note to Nurse Source: [facility] POWERCHART Document Id: [id number] Electronically signed by Don [facility] Continuous Wave Operator [id number] at 10/02/2016 7:15 AM CDT Radha Escalante CNM - 07/26/2011 4:32 PM CDT Ambulatory Depart Summary [address] [address] Visit Information Name: ANUSHA SOLOMON Visit Date: 07/26/2011 16:32:53 Attending Provider: RADHA BARRY CNM Primary Care Provider: DASHA VARMA CNP ANUSHA SOLOMON has been given the following list of medications: Your Medications It is important to take your medications as directed. Use a pill box or chart to help remind you to take your medications. Please let your doctor or nurse know if you have problems taking your medications. Medication/Strength Dose Route Frequency Indications/Special Instructions/Comments levonorgestrel (levonorgestrel 52 mg intrauteral device) 52 mg Intrauteral once Attention: If you have any medications at home that are not on this list, DO NOT take them until youcontact your provider for clarification. Additional Information: Source: [facility] POWERCHART Document Id: [id number] Manisha - Radha Barry CNM - 07/26/2011 4:32 PM CDT Ambulatory Patient Summary [address] [address] Visit Information Name: ANUSHA SOLOMON Current Date: 07/26/2011 16:32:53 Physicians Attending Provider: RADHA BARRY CNM Primary Care Provider: DASHA VARMA CNP Your Medications Here is a list of your medications. It is important to take your medications as directed. Use a pillbox or chart to help remind you to take your medications. Please let your doctor or nurse know if you have problems taking your medications. Medication/Strength Dose Route Frequency Indications/Special Instructions/Comments levonorgestrel (levonorgestrel 52 mg intrauteral device) 52 mg Intrauteral once Attention: If you have any medications at home that are not on this list, DO NOT take them until youcontact your provider for clarification. 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 Remove 06/2016 Your Upcoming Appointments Date Time Location Reason Provider No Appointments found Your Goals/Additional instructions: Source: [facility] POWERCHART Document Id: [id number] Miscellaneous - Conversion, Historical Provider Ser - 07/26/2011 3:38 PM CDT Adult Parking Meter Attendant Intake/History Document Has Been Updated Adult Parking Meter Attendant Intake/History Entered On: 07/26/2011 15:38 CDT Performed On: 07/26/2011 15:38 CDT by WANDER SHABAZZ Intake Chief Complaint : change iud Systolic Blood Pressure : 106mmHg Diastolic Blood Pressure : 68mmHg NIBP Mean : 81mmHg BP Location : Right upper extremity Blood Pressure Cuff Size : Regular Actual Weight : 59.8kg(Converted to: 131lb 13oz) Weight Source : Standing scale Dosing Weight Clinic : 59.80kg WANDER SHABAZZ - 07/26/2011 15:38 CDT Subjective Pain Symptoms : No WANDER SHABAZZ - 07/26/2011 15:38 CDT Dependent Habits Tobacco Use/Currently Using : No Tobacco Use/Last 12 months : Yes Exposure to Tobacco Smoke : Patient smokes Smoking Status : Never smoker WANDER SHABAZZ - 07/26/2011 15:38 CDT Tobacco Use Grid Type : Cigarettes Last Use : quit in 05/12 WANDER SHABAZZ - 07/26/2011 15:38 CDT Caffeine Use Grid Caffeine Use : Current Type : Soft drinks Frequency : Daily WANDER SHABAZZ - 07/26/2011 15:38 CDT Allergy Allergies (Active) NKA Estimated Onset Date: Unspecified ; Created By: RJ BOUDREAUX LPN; Reaction Status: Active ; Category: Drug ; Substance: NKA ; Type: Allergy ; Updated By: RJ BOUDREAUX LPN; Source: Patient ; Reviewed Date: 07/19/2011 16:02 CDT Source: [facility] [employer] WearCHART Document Id: [id number]!6 documented in this encounter Plan of Treatment Not on filedocumented as of this encounter Procedures Procedure Name Priority Date/Time Associated Comments Diagnosis C TRACH AMP SRC Routine 07/26/2011 4:00 PM Result s for this CDT procedure are i n the results section. HX CHLAMYDIA Routine 07/26/2011 4:00 PM Results f or this TRACHOMATIS AMPLIFIED CDT proced ure are in DNA-ID the results section. documented in this encounter Results HX Hx Chlamydia Trachomatis Amplified Dna-Id (07/26/2011 4:00 PM CDT) Patholo gist Method Time Signature Chlamydia Negative POWERCHART Trachomatis Amplied DNA Specimen (Source) Anatomical Collection Method Collection Time Re ceived Time Location / / Volume Laterality 07/26/2011 4:00 PM CDT Narrative POWERCHART - 07/28/2011 12:45 AM CDT Test Performed by: [facility] Dpt of Lab Med and Pathology [address] [place] [address] Gerontology Aide: Yonathan jane III, M.D. Radha E Blue CNM LAB HISTORICAL ORDERS Performing Organization Address City/State/ZIP Code Phon e Number POWERCHART HX-C trach Amp Src (07/26/2011 4:00 PM CDT) P athologist Signature HXC trach Amp urine POWERCHART Src-Mize Specimen (Source) Anatomical Collection Method Collection Time Re ceived Time Location / / Volume Laterality 07/26/2011 4:00 PM CDT Radha E Blue CNM LAB HISTORICAL ORDERS Performing Organization Address City/[facility] Phon e Number POWERCHART documented in this encounter Visit Diagnoses Not on filedocumented in this encounter
--- OUTSIDE RECORDS SUMMARY | 2022-03-21 14:30 | XMS_ITS | Encounter Summary ---
:1990 Author Organization [facility] Address [address] [place] [address] Care Team Providers Name Role Phone Unavailable Primary Care Provider Unavailable Encounter Details Date Type Department Care Team Description 06/24/2013 Hospital Encounter HX [facility]HB FAMILYPRA Anabelle Varma APRN, C.N.P. [address] [place] [address] (Wo rk) Social History Tobacco Use Types Packs/Day Years Used Date Smoking Tobacco: Never Assessed Sex Assigned at Date Recorded Not on file documented as of this encounter Last Filed Vital Signs Vital Sign Reading Time Taken Comments Blood Pressure 110/66 06/24/2013 8:31 AM MAINTENANCE SUPERINTENDENT Pulse 68 06/24/2013 8:31 AM MAINTENANCE SUPERINTENDENT Temperature - - Respiratory Rate 16 06/24/2013 8:31 AM MAINTENANCE SUPERINTENDENT Oxygen Saturation - - Inhaled Oxygen Concentration - - Weight 62.5 kg (137 lb 12.6 oz) 06/24/2013 8:31 AM MAINTENANCE SUPERINTENDENT Height 157 cm (5' 1.81) 06/24/2013 8:31 AM MAINTENANCE SUPERINTENDENT Body Mass Index 25.36 06/24/2013 8:31 AM MAINTENANCE SUPERINTENDENT documented in this encounter H&P Notes Dasha Varma APRN, C.N.P. - 06/24/2013 8:21 AM CST [id number] CHIEF COMPLAINT/REASON FOR VISIT 1. Health care maintenance exam. 2. Sore throat. 3. Check IUD. 4. Due for Pap smear. HISTORY OF PRESENT ILLNESS 1. Anusha is here for physical exam. She states she has had sore throat for the past several days. She is concerned about strep. She is fasting for screening labs today. 2. She denies fever. 3. She has MIRENA IUD, she would like it checked today. She does not routinely check for the stringsherself. 4. She is due for Pap smear. MEDICATIONS See depart summary from today. ALLERGIES None. SYSTEMS REVIEW Positive for that mentioned in the history of present illness and noted in the past medical history in the EMR. All other systems were reviewed and were negative. PAST MEDICAL/SURGICAL HISTORY History of MIRENA IUD past. Past surgical history none. Preventive: She was given a flu shot today. Pap smear was performed. SOCIAL HISTORY She is with children. She smokes and drinks alcohol occasionally. FAMILY HISTORY See EMR. VITAL SIGNS: See EMR. PHYSICAL EXAMINATION GENERAL: In general, the patient is a pleasant female appears her stated age. SKIN: Without lesion. EYES: PERRLA. EOMs intact. Fundi sharp discs. Conjunctiva and lids normal. ENT: Tympanic membranes clear bilaterally. Nasal mucosa without erythema or congestion. Throat slightly erythematous. LYMPH NODES: Neck: Supple without adenopathy, no [...] Skenes, vagina and cervix are without lesion. ThinPrep Pap smear donewith spatula and cytobrush. Bimanual examination reveals uterus is midline, mobile, nontender. No adnexal masses. SPINE: Normal range of motion. No CVA tenderness. JOINTS: Normal range of motion. EXTREMITIES: Warm, dry, no cyanosis or peripheral edema. MENTAL: Alert and oriented times three. NEURO: Deep tendon reflexes are +2 and symmetrical. IMPRESSION/REPORT/PLAN 1. Healthcare maintenance exam. Encouraged to work on healthy diet and regular exercise program. Shewas encouraged to quit smoking. She was given a flu shot today. Screening labs will be done and I will mail her results. 2. Non strep pharyngitis. Symptomatic treatment. Encourage fluids. Tylenol for fever and discomfort.I will call her once the 24-hour culture is back, if positive then we need to treat. 3. Reassurance given, IUD in place. Also recommend that she check the string at least monthly herself. 4. Pap smear performed and I will mail her results. 5. Return for physical exam in 1 year. Dasha Varma CNP/hair Electronically Signed By: DASHA VARMA CNP On: 06/25/2013 10:25 AM Source: [facility] MHSDOLBEYNONRADSYS Document Id: [id number] TENANCE SUPERINTENDENT documented in this encounter Miscellaneous Notes Miscellaneous - Dasha Varma APRN, C.N.P. - 07/03/2013 1:08 PM CST Custom Result Letter 03 July 2013 ANUSHA SOLOMON [address] [facility] [id number] Dear ANUSHA SOLOMON, I am happy to inform you that your recent Pap smear has been read as normal or negative. This is very reassuring. I would recommend following up with your next Pap smear in three years. Result Name Current Result [facility] See Comment 06/24/2013 Sincerely, DASHA VARMA [address] [place] [address] Electronic Signature Electronically Signed By: DASHA VARMA CNP On: 03 July 2013 This document has images extracted. Source: [facility] POWERCHART Document Id: [id number] Electronically signed by Conversion, [facility] Assistant Manager Bilingual [id number] at 09/26/2016 11:22 PM CDT Miscellaneous - Dasha Varma APRN, C.N.P. - 06/26/2013 8:46 AM CST Schedule Follow-Up Visit 26 June 2013 ANUSHA SOLOMON [address] [place] [id number] Dear ANUSHA SOLOMON, Thank you for choosing [facility] for your health care needs. You recently had laboratory work performed to assess your overall health. This letter contains the results of your testing and standard ranges to help explain the results. I would recommend follow-up as soon as possible for treatment as we previously discussed. If you have questions prior to our appointment, please contact our office. Result Name Current Result Normal Range C trach Amp Src-Lester Urine 06/24/2013 C trach Amp RNA-Lester Positive 06/24/2013 Negative - Sincerely, DASHA VARMA [address] [place] [address] Electronic Signature Electronically Signed By: DASHA VARMA CNP On: 26 June 2013 This document has images extracted. Source: [employer] Document Id: [id number] Electronically signed by Conversion, [employer] Assistant Manager Bilingual [id number] at 09/26/2016 11:22 PM CDT Miscellaneous - Dasha Varma APRN, C.N.P. - 06/26/2013 8:44 AM CST General Message From: DASHA VARMA CNP Sent: 06/26/2013 08:44:49 MAINTENANCE SUPERINTENDENT Subject: General Message Phone call to patient with positive chlamydia screen. States she will schedule appointment today for treatment. Source: [employer] Document Id: [id number] Electronically signed by Conversion, [employer] Assistant Manager Bilingual [id number] at 09/26/2016 11:22 PM CDT Miscellaneous - Dasha Varma APRN, C.N.P. - 06/24/2013 9:47 AM CST Ambulatory Patient Summary [address] [facility] [place] [id number] Visit Information Name: ANUSHA SOLOMON [facility] Number: [phone] Current Date: 06/24/2013 09:47:55 Physicians Attending Provider: DASHA VARMA CNP Primary [...] the Following Medications: Medication list as of 06-24-13 09:47 Attention: If you have any medications at [...] local Clinic if further appointment detail needed. [id number] VIRAL PHARYNGITIS (Sore Throat) Your throat pain is due to an infection called Viral Pharyngitis, commonly known as Sore Throat.This is a contagious illness. It is spread through the air by coughing, kissing or by touching others after touching your mouth or nose. Symptoms include throat pain worse with swallowing, aching all over, headache and fever. Unlike strep throat, which is a bacterial infection, this illness does not require treatment with an antibiotic. HOME CARE: 1. If your symptoms are severe, rest at home for the first 2-3 days. 2. Children: Use acetaminophen (Tylenol) for fever, fussiness or discomfort. In infants over six months of age, you may use ibuprofen (Children's Motrin) instead of Tylenol. [NOTE: If your child has chronic liver or kidney disease or ever had a stomach ulcer or GI bleeding, talk with your elisha doctor before using these medicines.] (Aspirin should never be used in anyone under 18 years of age who isill with a fever. It may cause severe liver damage.) Adults: You may use acetaminophen (Tylenol) or ibuprofen (Motrin, Advil) to control pain or fever, unless another medicine was prescribed. [NOTE: If you have chronic liver or kidney disease or ever hada stomach ulcer or GI bleeding, talk with your doctor before using these medicines.] 3. Throat lozenges or sprays (Chloraseptic and others) will reduce pain. Gargling with warm salt water will also reduce throat pain. Dissolve 1/2 teaspoon of salt in 1 glass of warm water. This is especially useful just before meals. FOLLOW UP with your doctor or as directed by our staff if you are not improving over the next week. GET PROMPT MEDICAL ATTENTION if any of the following occur: ?? Fever over 100.5??F (38.0??C) oral, or over 101.5??F (38.6??C) rectal for more than three days ?? New or worsening ear pain, sinus pain or headache ?? Painful lumps in the back of your neck ?? Unable to swallow liquids or open your mouth wide due to throat pain ?? Trouble breathing or noisy breathing ?? Muffled voice New rash ?? [phone] [facility], [address] [place] [address]. All rights reserved. This information is not intended as a substitute for professional medical care. Always follow your healthcare professional's instructions. Your Goals/Additional instructions: This document has images extracted. Please consider using [employer] for all your patient education needs. Source: [facility] POWERCHART Document Id: [id number] TENANCE SUPERINTENDENT Miscellaneous - Dasha Varma APRN, C.N.P. - 06/24/2013 9:47 AM CST Ambulatory Discharge Medication List [address] [id number] Visit Information Name: ANUSHA SOLOMON [facility] Number: [phone] Visit Date: 06/24/2013 09:47:54 Attending Provider: DASHA VARMA DELIVERY COORDINATOR Primary Care Provider: DASHA VARMA CNP ANUSHA [...] the Following Medications: Medication list as of 06-24-13 09:47 Attention: If you have any medications at home that are not on this list, DO NOT take them until youcontact your provider for clarification. Give a copy of your medication list to your primary care provider. Update your medication list any time medications or doses are changed and carry your medication list at all times in case of emergency. Additional Information: Source: [facility] POWERCHART Document Id: [id number] TENANCE SUPERINTENDENT Miscellaneous - Sudha Diaz L.P.NSudarshan - 06/24/2013 8:31 AM CST Adult Senior Qualitative Researcher Intake/History Adult Senior Qualitative Researcher Intake/History Entered On: 06/24/2013 8:33 MAINTENANCE SUPERINTENDENT Performed On: 06/24/2013 8:31 MAINTENANCE SUPERINTENDENT by SUDHA DIAZ LPN Intake Chief Complaint : Physical.Does want Pap LMP Date : 06/23/2013 Temperature Core : 36.5 DegC(Converted to: 97.7 DegF) Peripheral Pulse Rate : 68 /min Respiratory Rate : 16 /min Heart Rhythm : Regular Systolic Blood Pressure : 110 mmHg Diastolic Blood Pressure : 66 mmHg NIBP Mean : 81 mmHg BP Location : Right upper extremity Blood Pressure Cuff Size : Regular Height : 157 cm(Converted to: 5 ft 2 inch(es), 61.81 inch(es)) Actual Weight : 62.5 kg(Converted to: 137 lb 13 oz) Weight Source : Standing scale Dosing Weight Clinic : 62.5 kg Clinic BSA : 1.65 Body Mass Index : 25.36 kg/m2 SUDHA DIAZ SATINDER - 06/24/2013 8:31 MAINTENANCE SUPERINTENDENT General Info Information Given By : Patient Languages : German SUDHA DIAZ SATINDER - 06/24/2013 8:31 MAINTENANCE SUPERINTENDENT Subjective Pain Symptoms : No SUDHA DIAZ SATINDER - 06/24/2013 8:31 MAINTENANCE SUPERINTENDENT Dependent Habits Tobacco Use/Currently Using : Yes Tobacco Use/Advised to Quit : Yes Exposure to Tobacco Smoke : Patient smokes Smoking Status : Current some day smoker SUDHA DIAZMichelle RAJAN - 06/24/2013 8:31 MAINTENANCE SUPERINTENDENT Tobacco Use Grid Type : Cigarettes Last Use : quit in 05/12 SUDHA DIAZ MEGHAN RAJAN - 06/24/2013 8:31 MAINTENANCE SUPERINTENDENT Caffeine Use Grid Caffeine Use : Current Type : Soft drinks Frequency : Daily SUDHA DIAZMichelle RAJAN - 06/24/2013 8:31 MAINTENANCE SUPERINTENDENT [facility] Document Id: [id number] MAINTENANCE SUPERINTENDENT!38 TENANCE SUPERINTENDENT Miscellaneous - Sudha Diaz L.P.N. - 06/24/2013 8:29 AM CST Health Assessment Health Assessment Entered On: 06/24/2013 8:30 MAINTENANCE SUPERINTENDENT Performed On: 06/24/2013 8:29 MAINTENANCE SUPERINTENDENT by SUDHA DIAZ LPN Health Assessment Complete Health Assessment Complete or Modified : Annual Health Assessment Annual Health Assessment Completed : Yes ADENEUGENIOLEWISSUDHAGEGE CHRISTIANSON LPN - 06/24/2013 8:29 MAINTENANCE SUPERINTENDENT Nutrition Nutrition Risk Factors by History Adult : None SUDHA DIZA MEGHAN RAJAN - 06/24/2013 8:29 MAINTENANCE SUPERINTENDENT Functional Current Daily Living Assistance : None ADENNAGALEWIS RivasSUDHAGEGE CHRISTIANSON LPN - 06/24/2013 8:29 MAINTENANCE SUPERINTENDENT Dependent Habits Tobacco Use/Currently Using : Yes Tobacco Use/Advised to Quit : Yes Exposure to Tobacco Smoke : Patient smokes Smoking Status : Current some day smoker SUDHA DIAZ MEGHAN RAJAN - 06/24/2013 8:29 MAINTENANCE SUPERINTENDENT Tobacco Use Grid Type : Cigarettes Last Use : quit in 05/12 LEWIS DIAZGEGE CHRISTIANSON LPN - 06/24/2013 8:29 MAINTENANCE SUPERINTENDENT Caffeine Use Grid Caffeine Use : Current Type : Soft drinks Frequency : Daily SUDHA DIAZ SATINDER - 06/24/2013 8:29 MAINTENANCE SUPERINTENDENT Psychosocial Domestic Abuse Concerns : None SUDHA DIAZ DEPUTY OF COUNTER INTELLIGENCE - 06/24/2013 8:29 MAINTENANCE SUPERINTENDENT Advance Directive Advanced Directives : No SUDHA DIAZ DEPUTY OF COUNTER INTELLIGENCE - 06/24/2013 8:29 MAINTENANCE SUPERINTENDENT Educ Needs Learning Style Preference Adult Grid Patient : Printed materials, Verbal explanation Family : Verbal explanation, Printed materials SUDHA DIAZ SATINDER - 06/24/2013 8:29 MAINTENANCE SUPERINTENDENT Source: [facility] POWERCHART Document Id: [id number] MAINTENANCE SUPERINTENDENT!30 TENANCE SUPERINTENDENT documented in this encounter Plan of Treatment Not on filedocumented as of this encounter Procedures Procedure Name Priority Date/Time Associated Diagnosis Comme nts C TRACH AMP SRC Routine 06/24/2013 9:22 AM Result s for this MAINTENANCE SUPERINTENDENT procedure are i n the results section. C TRACH AMP RNA Routine 06/24/2013 9:22 AM Result s for this MAINTENANCE SUPERINTENDENT procedure are i n the results section. LIPID PANEL, S Routine 06/24/2013 9:22 AM Results for this MAINTENANCE SUPERINTENDENT procedure are i n the results section. AUTOMATED Routine 06/24/2013 9:22 AM Results f or this DIFFERENTIAL, B MAINTENANCE SUPERINTENDENT procedure ar e in the results section. CBC WITH Routine 06/24/2013 9:22 AM Results f or this DIFFERENTIAL, B MAINTENANCE SUPERINTENDENT procedure ar e in the results section. THYROID-STIMULATING Routine 06/24/2013 9:22 AM Re sults for this HORMONE-SENSITIVE MAINTENANCE SUPERINTENDENT procedure are in (S-TSH) the results section. BASIC METABOLIC Routine 06/24/2013 9:22 AM Result s for this PANEL, S/P MAINTENANCE SUPERINTENDENT procedure are i n the results section. RAPID STREP A Routine 06/24/2013 9:20 AM Results for this SCREEN MAINTENANCE SUPERINTENDENT procedure are i n the results section. RAPID STREP A Routine 06/24/2013 9:20 AM Results for this SCREEN MAINTENANCE SUPERINTENDENT procedure are i n the results section. THINPREP SCREEN HPV Routine 06/24/2013 9:04 AM Re sults for this REFLEX MAINTENANCE SUPERINTENDENT procedure are i n the results section. documented in this encounter Results HX-C trach Amp RNA (06/24/2013 9:22 AM MAINTENANCE SUPERINTENDENT) [facility] gist Method Time Signature Chlamydia Positive POWERCHART trachomatis amplified RNA Specimen (Source) Anatomical Collection Method Collection Time Re ceived Time Location / / Volume Laterality 06/24/2013 9:22 AM MAINTENANCE SUPERINTENDENT Narrative POWERCHART - 06/25/2013 5:39 PM MAINTENANCE SUPERINTENDENT Test Performed by: [place] [address] Head Of Academic Technology: Yonathan jane III, M.D. Dasha Varma APRN, C.N.P. LAB HISTORICAL ORDERS Performing Organization Address City/[facility]/ZIP Code Phon e Number POWERCHART HX-C trach Amp Src (06/24/2013 9:22 AM MAINTENANCE SUPERINTENDENT) athologist Signature HXC trach Amp Urine POWERCHART Src-Lester Specimen (Source) Anatomical Collection Method Collection Time Re ceived Time Location / / Volume Laterality 06/24/2013 9:22 AM MAINTENANCE SUPERINTENDENT Dasha Varma APRN, C.N.P. LAB HISTORICAL ORDERS Performing Organization Address City/[facility]/ZIP Code Phon e Number POWERCHART Automated Differential (06/24/2013 9:22 AM MAINTENANCE SUPERINTENDENT) athologist Signature Neutro % 67.2 34.0 - POWERCHART 71.1 Lymphocytes % 21.5 19.3 - POWERCHART 51.7 HX Dewey % 10.4 4.7 - 12.5 POWERCHART HX Eos % 0.8 0.7 - 5.8 POWERCHART HX Baso % 0.1 0.1 - 1.2 POWERCHART Absolute 4.77 1.70 - POWERCHART Neutrophils 7.00 109L Lymphocytes 1.53 0.90 - POWERCHART 2.90 X109L Monocytes 0.74 0.30 - POWERCHART 0.90 X109L Eosinophils 0.06 0.05 - POWERCHART 0.50 X109L Absolute 0.01 0.00 - POWERCHART Basophil 0.30 X109L Specimen Anatomical Collection Method Collection Time Receive d Time (Source) Location / / Volume Laterality Blood 06/24/2013 9:22 AM 4 9:22 MAINTENANCE SUPERINTENDENT AM MAINTENANCE SUPERINTENDENT Dasha Varma APRN, C.N.P. LAB BLOOD ADD-ON Performing Organization Address City/[facility]/ZIP Code Phon e Number POWERCHART CBC with Differential (06/24/2013 9:22 AM MAINTENANCE SUPERINTENDENT) P athologist Signature Leukocytes 7.1 3.4 - 10.5 POWERCHART X109L Erythrocytes 4.27 3.90 - POWERCHART 5.03 [id number] Hemoglobin 13.9 12.0 - POWERCHART 15.5 GDL Hematocrit 40.0 34.9 - POWERCHART 44.5 MCV 93.7 82.0 - POWERCHART 98.0 FL Platelet Count 169 150 - 450 POWERCHART X109L HX RDW 12.6 11.9 - POWERCHART 15.5 HXDifferential? Auto POWERCHART Specimen (Source) Anatomical Collection Method Collection Time Re ceived Time Location / / Volume Laterality Blood 06/24/2013 9:22 AM MAINTENANCE SUPERINTENDENT Dasha Varma APRN, C.N.P. LAB BLOOD ADD-ON Performing Organization Address City/[facility] Phon e Number POWERCHART Thyroid-Stimulating Hormone-Sensitive (s-TSH) (06/24/2013 9:22 AM MAINTENANCE SUPERINTENDENT) athologist Signature TSH, Sensitive 1.6 0.3 - 5.0 POWERCHART MIUL Comment: Test Performed by: [place] [address] Head Of Academic Technology: Yonathan jane III, M.D. Specimen (Source) Anatomical Collection Method Collection Time Re ceived Time Location / / Volume Laterality Blood 06/24/2013 9:22 AM MAINTENANCE SUPERINTENDENT Dasha Varma APRN, C.N.P. LAB BLOOD ADD-ON Performing Organization Address City/[facility] Code Phon e Number POWERCHART (ABNORMAL) Lipid Panel (06/24/2013 9:22 AM MAINTENANCE SUPERINTENDENT) [facility] Time Signature Cholesterol, 148 0 - 200 POWERCHART Total MGDL HX HDL 64.0 (H) 40.0 - POWERCHART 60.0 MGDL Triglycerides 84 0 - 150 POWERCHART MGDL Calculated LDL 67 0 - 100 POWERCHART MGDL Specimen (Source) Anatomical Collection Method Collection Time Re ceived Time Location / / Volume Laterality Blood 06/24/2013 9:22 AM MAINTENANCE SUPERINTENDENT Adan Caputo APRN.N.P. LAB BLOOD ADD-ON Performing Organization Address City/State/ZIP Code Phon e Number POWERCHART (ABNORMAL) BMP (Basic Metabolic Panel) (06/24/2013 9:22 AM MAINTENANCE SUPERINTENDENT) P athologist Signature BUN (Blood Urea 12 6 - 20 POWERCHART Nitrogen), S MGDL Creatinine 0.6 (L) 0.7 - 1.2 POWERCHART MGDL Potassium, S 4.4 3.5 - 4.8 POWERCHART MMOLL Sodium, S 140 135 - 145 POWERCHART MMOLL Chloride, S 106 100 - 108 POWERCHART MMOLL CO2 Total 26 22 - 30 POWERCHART MMOLL Calcium, Total, 8.9 8.5 - 10.5 POWERCHART S MGDL Glucose, 86 70 - 99 POWERCHART Fasting, S MGDL HXeGFR (MDRD) >60 MLMIN POWERCHART eGFR >60 MLMIN POWERCHART Black/ Specimen (Source) Anatomical Collection Method Collection Time Re ceived Time Location / / Volume Laterality Blood 06/24/2013 9:22 AM MAINTENANCE SUPERINTENDENT Courtney Caputo APRNN.P. LAB BLOOD ADD-ON Performing Organization Address City/State/ZIP Code Phon e Number POWERCHART Rapid Strep A Screen (06/24/2013 9:20 AM MAINTENANCE SUPERINTENDENT) [facility] Method Time Signature HXRapid Strep POWERCHART Confirmation HXFinal Negative POWERCHART Specimen Anatomical Collection Method Collection Time Receive d Time (Source) Location / / Volume Laterality Throat 06/24/2013 9:20 AM 4 9:20 MAINTENANCE SUPERINTENDENT AM MAINTENANCE SUPERINTENDENT Dasha Varma APRN, C.N.P. LAB MICROBIOLOGY - GENERAL ORDERABLES Performing Organization Address City/State/ZIP Code Phon e Number POWERCHART Rapid Strep A Screen (06/24/2013 9:20 AM MAINTENANCE SUPERINTENDENT) [facility] gist Method Time Signature HXStrep A POWERCHART Screen Rapid HXFinal Negative for POWERCHART Strep Group A by rapid screen. HXFinal Culture POWERCHART confirmation to follow. Specimen (Source) Anatomical Collection Method Collection Time Re ceived Time Location / / Volume Laterality Throat 06/24/2013 9:20 AM MAINTENANCE SUPERINTENDENT Dasha Varma APRN CSudarshanN.P. LAB MICROBIOLOGY - GENERAL ORDERABLES Performing Organization Address City/State/ZIP Code Phon e Number POWERCHART Pathology ThinPrep Screen HPV Reflex (06/24/2013 9:04 AM MAINTENANCE SUPERINTENDENT) [facility] Method Time Signature Interpretation [id number] POWERCHART HXThPrep Scrn See Comment POWERCHART [facility] Comment: A. ??ThinPrep Pap Test Screen (Cervical/ Endocervical HPV Reflex): Satisfactory for evaluation. Negative for intraepithelial lesion or m alignancy. HXThPrep Scrn Cyto-Lester See Comment DORIE RCHART Comment: Report electronically signed by ALFREDO Scott(ASCP) 07/03/2013 11:54 Interpreted by: ALFREDO Scott(ASCP) HX Spec [facility] See Comment POWERCHART Comment: A. ??ThinPrep Pap Test Screen (Cervical/ Endocervical HPV Reflex): Received blood tinged specimen in ThinPr ep vial. Test Performed by: [place] [address] Head Of Academic Technology: Yonathan jane III, M.D. Specimen (Source) Anatomical Collection Method Collection Time Re ceived Time Location / / Volume Laterality Cervix/Endocervix 06/24/2013 9:04 AM MAINTENANCE SUPERINTENDENT Adan Caputo APRN.N.P. LAB PAP PATHDX ORDERABLES Performing Organization Address City/State/ZIP Code Phon e Number POWERCHART documented in this encounter Visit Diagnoses Not on filedocumented in this encounter
--- OUTSIDE RECORDS SUMMARY | 2022-03-21 14:30 | XMS_ITS | Encounter Summary ---
:1990 Author Organization [facility] Address [address] [place] [address] Care Team Providers Name Role Phone Unavailable Primary Care Provider Unavailable Encounter Details Date Type Department Care Team Description 01/11/2005 Hospital Encounter HX [facility] Torsten Robbins M.D. [address] [place], [place] [address] (Wo rk) Social History Tobacco Use Types Packs/Day Years Used Date Smoking Tobacco: Never Assessed Sex Assigned at Date Recorded Not on file documented as of this encounter Plan of Treatment Not on filedocumented as of this encounter Visit Diagnoses Not on filedocumented in this encounter
--- OUTSIDE RECORDS SUMMARY | 2022-03-21 14:30 | XMS_ITS | Encounter Summary ---
:1990 Author Organization [facility] Address [address] [place] [address] Care Team Providers Name Role Phone Unavailable Primary Care Provider Unavailable Encounter Details Date Type Department Care Team Description 01/16/2014 Hospital Encounter HX [facility] Anabelle Varma APRN, C.N.P. [address] [place] [address] (Wo rk) Social History Tobacco Use Types Packs/Day Years Used Date Smoking Tobacco: Never Assessed Sex Assigned at Date Recorded Not on file documented as of this encounter Last Filed Vital Signs Vital Sign Reading Time Taken Comments Blood Pressure 106/68 01/16/2014 2:39 PM CDT Pulse 68 01/16/2014 2:39 PM CDT Temperature - - Respiratory Rate 16 01/16/2014 2:39 PM CDT Oxygen Saturation - - Inhaled Oxygen Concentration - - Weight 61.5 kg (135 lb 9.3 oz) 01/16/2014 2:39 PM CDT Height 155 cm (5' 1.02) 01/16/2014 2:39 PM CDT Body Mass Index 25.6 01/16/2014 2:39 PM CDT documented in this encounter Progress Notes Dasha Varma, LAUREN, C.N.P. - 01/16/2014 2:18 PM CDT [id number] CHIEF COMPLAINT/REASON FOR VISIT 1. Fatigue. 2. Sore throat. HISTORY OF PRESENT ILLNESS Anusha states she has been very fatigued lately. She states she has been exposed to the [id number] virus. She is concerned she may have anemia or blood sugar problems. She would like some lab work today. She also has complaints of sore throat. No fever. MEDICATIONS See depart summary from today. ALLERGIES None. SYSTEMS REVIEW SYSTEMS REVIEW Positive for that mentioned in the history of present illness and noted in the past medical history in the EMR. All other systems were reviewed and were negative. PREVENTIVE Up-to-date. VITAL SIGNS See EMR. O2 saturation 97%. PHYSICAL EXAMINATION GENERAL: Well-developed, well-nourished female, in no acute distress. SKIN: Warm and dry. HEENT: TMs clear. Throat slightly erythematous. Mild anterior cervical lymphadenopathy. Nares congested. LUNGS: Clear to auscultation. HEART: Regular rate and rhythm. ABDOMEN: Soft, nontender. No hepatosplenomegaly. EXTREMITIES: Warm dry no peripheral edema. IMPRESSION/REPORT/PLAN 1. Fatigue. Will check a CBC, BMP and TSH and I will contact with results. 2. Sore throat. Quick strep negative. Culture pending. Drink plenty of fluids. Take Tylenol as needed and rest. Dasha Varma CNP/nilda Electronically Signed By: DASHA VARMA CNP On: 01/16/2014 05:00 PM Source: [facility] MHSDOLBEYNONRADSYS Document Id: [id number] documented in this encounter Nursing Notes Dasha Varma APRN, C.N.P. - 01/16/2014 2:48 PM CDT Ambulatory Patient Education The following Patient Education Materials have been given to the patient: Patient Education Materials: Ambulatory PHARYNGITIS, Viral Ambulatory Viral Pharyngitis (Sore Throat) Your throat pain is due [...] does not require treatment with an antibiotic. Home Care: If your symptoms are severe, rest at home for the first 2-3 days. Children: Use acetaminophen (Tylenol) for fever, fussiness or discomfort. In infants over six monthsof age, you may use ibuprofen (Children's Motrin) instead of Tylenol. [NOTE: If your child has chronic liver or kidney disease or ever had a stomach ulcer or GI bleeding, talk with your elisha doctor before using these medicines.] (Aspirin should never be used in anyone under 18 years of age who is ill with a fever. It may cause severe liver damage.) Adults: You may use acetaminophen (Tylenol) or ibuprofen (Motrin, Advil) to control pain or fever, unless another medicine was prescribed. [NOTE: If you have chronic liver or kidney disease or ever hada stomach ulcer or GI bleeding, talk with your doctor before using these medicines.] Throat lozenges or sprays (Chloraseptic and others) will reduce pain. Gargling with warm salt water will also reduce throat pain. Dissolve 1/2 teaspoon of salt in 1 glass of warm water. This is especially useful just before meals. Follow Up with your doctor or as directed by our staff if you are not improving over the next week. Get Prompt Medical Attention if any of the following occur: ?? [...] breathing or noisy breathing ?? Muffled voice ?? New rash ?? [id number] [facility], [address] [place] [address], [place] [address]. All rights reserved. This information is not intended as a substitute for professional medical care. Always follow your healthcare professional's instructions. This document has images extracted. Please consider using [employer] for all your patient education needs. Source: [facility] POWERCHART Document Id: [id number] documented in this encounter Miscellaneous Notes Telephone Encounter - Yudi Devries L.P.N. - 01/21/2014 5:10 PM CDT *Phone Message From: YUDI DEVRIES ([facility] Nurse) Sent: 01/21/2014 17:10:58 CDT Subject: *Phone Message Caller is: ( X ) Patient ( ) Mother ( ) Father ( ) Spouse ( ) Daughter ( ) Son ( ) Pharmacy ( ) Other: Physician: Cesar Patient MRN #: Reason for Call: Calling for lab results Message: GAve patient results that all labs came back within normal range and the strep test was negative. Advice/Action: Source used: ( ) Verbalizes understanding [...] back cell phone number ( ) Source: [facility] POWERCHART Document Id: [id number] Electronically signed by Conversion, [facility] Academic Tutor [id number] at 09/27/2016 6:48 PM CDT Miscellaneous - Dasha Varma APRN, C.N.P. - 01/20/2014 10:58 AM CDT Normal Results Letter 20 January 2014 ANUSHA SOLOMON [address] [facility] [id number] Dear ANUSHA SOLOMON, I am pleased to report that your results from the following diagnostic test(s) are normal. Please follow up with us as we discussed during your visit or sooner if you have any concerns. If you have questions or concerns, please do not hesitate to call our office. Result Name Current Result Previous Result Normal Range Sodium Lvl (mmol/L) 141 01/16/2014 140 06/24/2013 135 - 145 Potassium Lvl (mmol/L) 4.2 01/16/2014 4.4 06/24/2013 3.5 - 4.8 Chloride (mmol/L) 104 01/16/2014 106 06/24/2013 100 - 108 CO2 (mmol/L) 25 01/16/2014 26 06/24/2013 22 - 30 Glucose Lvl 89 01/16/2014 Creatinine (mg/dL) 0.7 01/16/2014 (L) 0.6 06/24/2013 0.7 - 1.2 EGFR (MDRD) (mL/min) >60 01/16/2014 >60 06/24/2013 EGFR (MDRD) (mL/min) >60 01/16/2014 >60 06/24/2013 BUN (mg/dL) 14 01/16/2014 12 06/24/2013 6 - 20 Calcium Lvl (mg/dL) 8.6 01/16/2014 8.9 06/24/2013 8.5 - 10.5 TSH (mIU/L) 0.78 01/16/2014 0.30 - 5.00 Hgb (g/dL) 13.2 01/16/2014 13.9 06/24/2013 12.0 - 15.5 Hct (%) 37.6 01/16/2014 40.0 06/24/2013 34.9 - 44.5 WBC (x10(9)/L) 8.1 01/16/2014 7.1 06/24/2013 3.4 - 10.5 RBC (x10(12)/L) 4.04 01/16/2014 4.27 06/24/2013 3.90 - 5.03 MCV (fL) 93.1 01/16/2014 93.7 06/24/2013 82.0 - 98.0 sRDW (%) (L) 11.8 01/16/2014 12.6 06/24/2013 11.9 - 15.5 Platelet (x10(9)/L) 182 01/16/2014 169 06/24/2013 150 - 450 Neutro Absolute (10(9)/L) 5.50 01/16/2014 4.77 06/24/2013 1.70 - 7.00 Lymph Absolute (x10(9)/L) 1.99 01/16/2014 1.53 06/24/2013 0.90 - 2.90 [place] Absolute (x10(9)/L) 0.61 01/16/2014 0.74 06/24/2013 0.30 - 0.90 Eos Absolute (x10(9)/L) (L) 0.03 01/16/2014 0.06 06/24/2013 0.05 - 0.50 Baso Absolute (x10(9)/L) 0.01 01/16/2014 0.01 06/24/2013 0.00 - 0.30 Differential? Auto 01/16/2014 Auto 06/24/2013 Sincerely, DASHA VARMA [address] [place] [address] Electronic Signature Electronically Signed By: DASHA VARMA CNP On: 20 January 2014 This document has images extracted. Source: [facility] POWERCHART Document Id: [id number] Miscellaneous - Dasha Varma, LAUREN, C.N.P. - 01/16/2014 2:48 PM CDT Ambulatory Patient Summary [address] [id number] Visit Information Name: ANUSHA SOLOMON [facility] Number: [id number] Current Date: 01/16/2014 14:48:48 Physicians Attending Provider: DASHA VRAMA CNP Primary Care Provider: DASHA VARMA CNP [...] the Following Medications: Medication list as of 01-16-14 14:48 Attention: If you have any medications at home that are not on this list, DO NOT take them until youcontact your provider for clarification. Give a copy of your medication list to your primary care provider. Update your medication list any time medications or doses are changed and carry your medication list at all times in case of emergency. Electronically Signed By: DSAHA VARMA CNP Signed On:16-JAN-2014 14:48:36 Your Allergies & Intolerances Substance Reaction Symptoms Category Comments No Known Allergies Drug Your Problem List Problem Status Onset Comments IUD, checking, reinsertion or removal Active 07/26/2011 07/26/11 Mirena IUd removed and replaced 07/26/2011. Remove 06/2016 Tobacco dependence Active Your Upcoming Appointments Date Time Location Provider No Appointments found Attention: Contact your local Clinic if further appointment detail needed. Viral Pharyngitis (Sore Throat) Your throat pain is due [...] does not require treatment with an antibiotic. Home Care: If your symptoms are severe, rest at home for the first 2-3 days. Children: Use acetaminophen (Tylenol) for fever, fussiness or discomfort. In infants over six monthsof age, you may use ibuprofen (Children's Motrin) instead of Tylenol. [NOTE: If your child has chronic liver or kidney disease or ever had a stomach ulcer or GI bleeding, talk with your elisha doctor before using these medicines.] (Aspirin should never be used in anyone under 18 years of age who is ill with a fever. It may ca use severe liver damage.) Adults: You may use acetaminophen (Tylenol) or ibuprofen (Motrin, Advil) to control pain or fever, unless another medicine was prescribed. [NOTE: If you have chronic liver or kidney disease or ever hada stomach ulcer or GI bleeding, talk with your doctor before using these medicines.] Throat lozenges or sprays (Chloraseptic and others) will reduce pain. Gargling with warm salt water will also reduce throat pain. Dissolve 1/2 teaspoon of salt in 1 glass of warm water. This is especially useful just before meals. Follow Up with your doctor or as directed by our staff if you are not improving over the next week. Get Prompt Medical Attention if any of the following occur: ?? Fever over 100.5?F (38.0?C) oral, or over 101.5?F (38.6?C) rectal for more than threedays ?? New or worsening ear pain, sinus pain or headache ?? Painful lumps in the back of your neck ?? Unable to swallow liquids or open your mouth wide due to throat pain ?? Trouble breathing or noisy breathing ?? Muffled voice ?? New rash ?? [id number] [place] [address]. All rights reserved. This information is not intended as a substitute for professional medical care. Always follow your healthcare professional's instructions. Your Goals/Additional instructions: This document has images extracted. Please consider using [employer] for all your patient education needs. Source: [facility] POWERCHART Document Id: [id number] Miscellaneous - Dasha Varma APRN, C.N.P. - 01/16/2014 2:48 PM CDT Ambulatory Discharge Medication List [address] [id number] Visit Information Name: ANUSHA SOLOMON [facility] Number: [id number] Visit Date: 01/16/2014 14:48:47 Attending Provider: DASHA VARMA CNP Primary Care [...] the Following Medications: Medication list as of 01-16-14 14:48 Attention: If you have any medications at [...] of emergency. Electronically Signed By: DASHA VARMA GERIATRIC NURSE ASSISTANT Signed On:16-JAN-2014 14:48:36 Additional Information: Source: [facility] POWERCHART Document Id: [id number] Miscellaneous - Juanito Diaz L.PSudarshanNSudarshan - 01/16/2014 2:39 PM CDT Adult Cancer Researcher Intake/History Adult Cancer Researcher Intake/History Entered On: 01/16/2014 14:41 CDT Performed On: 01/16/2014 14:39 CDT by JUANITO DIAZ LPN Intake Chief Complaint : Wants to be checked for diabetes. Has been bruising more easily. Short of breath,sore throat and weak. No energy. Temperature Core : 36.2 DegC(Converted to: 97.2 DegF) (LOW) Peripheral Pulse Rate : 68 /min Respiratory Rate : 16 /min Heart Rhythm : Regular Systolic Blood Pressure : 106 mmHg Diastolic Blood Pressure : 68 mmHg NIBP Mean : 81 mmHg BP Location : Left upper extremity Blood Pressure Cuff Size : Regular SpO2 : 97 % Oxygen Therapy : Room air Height : 155 cm(Converted to: 5 ft 1 inch(es), 61 inch(es)) Actual Weight : 61.5 kg(Converted to: 135 lb 9 oz) Weight Source : Standing scale Dosing Weight Clinic : 61.5 kg Clinic BSA : 1.63 Body Mass Index : 25.6 kg/m2 JUANITO DIAZ LPN - 01/16/2014 14:39 CDT General Info Information Given By : Patient Languages : German Is Patient Female and 13-50 no hysterectomy : Yes Status : Patient denies Are you ? : No JUANITO DIAZ [facility] - 01/16/2014 14:39 CDT Subjective Pain Symptoms : No JUANITO DIAZ [facility] - 01/16/2014 14:39 CDT Dependent Habits Tobacco Use/Currently Using : Yes Tobacco Use/Advised to Quit : Yes Exposure to Tobacco Smoke : Patient smokes Smoking Status : Light tobacco smoker JUANITO DIAZ [facility] - 01/16/2014 14:39 CDT Tobacco Use Grid Type : Cigarettes Last Use : quit in 05/12 JUANITO DIAZ [facility] - 01/16/2014 14:39 CDT Caffeine Use Grid Caffeine Use : Current Type : Soft drinks Frequency : Daily JUANITO DIAZ [facility] - 01/16/2014 14:39 CDT Source: [id number] Document Id: [id number]!42 documented in this encounter Plan of Treatment Not on filedocumented as of this encounter Procedures Procedure Name Priority Date/Time Associated Diagnosis Comme nts AUTOMATED Routine 01/16/2014 2:56 PM Results f or this DIFFERENTIAL, B CDT procedure ar e in the results section. CBC WITH Routine 01/16/2014 2:56 PM Results f or this DIFFERENTIAL, B CDT procedure ar e in the results section. THYROID-STIMULATING Routine 01/16/2014 2:56 PM Re sults for this HORMONE-SENSITIVE CDT procedure are in (S-TSH) the results section. BASIC METABOLIC Routine 01/16/2014 2:56 PM Result s for this PANEL, S/P CDT procedure are i n the results section. RAPID STREP A Routine 01/16/2014 2:52 PM Results for this SCREEN CDT procedure are i n the results section. RAPID STREP A Routine 01/16/2014 2:52 PM Results for this SCREEN CDT procedure are i n the results section. documented in this encounter Results (ABNORMAL) Automated Differential (01/16/2014 2:56 PM CDT) [facility] Method Time Signature Absolute 5.50 1.70 - POWERCHART Neutrophils 7.00 109L Lymphocytes 1.99 0.90 - POWERCHART 2.90 X109L Monocytes 0.61 0.30 - POWERCHART 0.90 X109L Eosinophils 0.03 (L) 0.05 - POWERCHART 0.50 X109L Absolute 0.01 0.00 - POWERCHART Basophil 0.30 X109L Specimen Anatomical Collection Method Collection Time Receive d Time (Source) Location / / Volume Laterality Blood 01/16/2014 2:56 PM 4 2:56 CDT PM CDT Dasha Varma APRN, C.N.P. LAB BLOOD ADD-ON Performing Organization Address City/State/ZIP Code Phon e Number POWERCHART (ABNORMAL) CBC with Differential (01/16/2014 2:56 PM CDT) Patholo gist Method Time Signature Leukocytes 8.1 3.4 - 10.5 POWERCHART X109L Erythrocytes 4.04 3.90 - POWERCHART 5.03 N7040C Hemoglobin 13.2 12.0 - POWERCHART 15.5 GDL Hematocrit 37.6 34.9 - POWERCHART 44.5 MCV 93.1 82.0 - POWERCHART 98.0 [place] Platelet Count 182 150 - 450 POWERCHART X109L HX RDW 11.8 (L) 11.9 - POWERCHART 15.5 HXDifferential? Auto POWERCHART Specimen (Source) Anatomical Collection Method Collection Time Re ceived Time Location / / Volume Laterality Blood 01/16/2014 2:56 PM CDT Dasha Varma APRN, C.N.P. LAB BLOOD ADD-ON Performing Organization Address City/[facility] Phon e Number POWERCHART BMP (Basic Metabolic Panel) (01/16/2014 2:56 PM CDT) P athologist Signature BUN (Blood Urea 14 6 - 20 POWERCHART Nitrogen), S MGDL Creatinine 0.7 0.7 - 1.2 POWERCHART MGDL Glucose 89 POWERCHART Potassium, S 4.2 3.5 - 4.8 POWERCHART MMOLL Sodium, S 141 135 - 145 POWERCHART MMOLL Chloride, S 104 100 - 108 POWERCHART MMOLL CO2 Total 25 22 - 30 POWERCHART MMOLL Calcium, Total, 8.6 8.5 - 10.5 POWERCHART S MGDL HXeGFR (MDRD) >60 MLMIN POWERCHART eGFR >60 MLMIN POWERCHART Black/ Specimen (Source) Anatomical Collection Method Collection Time Re ceived Time Location / / Volume Laterality Blood 01/16/2014 2:56 PM CDT Dasha Varma APRN, C.N.P. LAB BLOOD ADD-ON Performing Organization Address City/[facility] Code Phon e Number POWERCHART Thyroid-Stimulating Hormone-Sensitive (s-TSH) (01/16/2014 2:56 PM CDT) athologist Signature TSH 0.78 0.30 - 5.00 POWERCHART (Thyrotropin) MIUL Specimen (Source) Anatomical Collection Method Collection Time Re ceived Time Location / / Volume Laterality Blood 01/16/2014 2:56 PM CDT Dasha Varma APRN, C.N.P. LAB BLOOD ADD-ON Performing Organization Address City/[facility] Phon e Number POWERCHART Rapid Strep A Screen (01/16/2014 2:52 PM CDT) [facility] Method Time Signature HXRapid Strep POWERCHART Confirmation HXFinal Negative POWERCHART Specimen Anatomical Collection Method Collection Time Receive d Time (Source) Location / / Volume Laterality Throat 01/16/2014 2:52 PM 4 2:52 CDT PM CDT Dasha Varma APRN, C.N.P. LAB MICROBIOLOGY - GENERAL ORDERABLES Performing Organization Address City/[facility] Phon e Number POWERCHART Rapid Strep A Screen (01/16/2014 2:52 PM CDT) [facility] Method Time Signature HXStrep A POWERCHART Screen Rapid HXFinal Negative for POWERCHART Strep Group A by rapid screen. HXFinal Culture POWERCHART confirmation to follow. Specimen (Source) Anatomical Collection Method Collection Time Re ceived Time Location / / Volume Laterality Throat 01/16/2014 2:52 PM CDT Dasha Varma APRN, C.N.P. LAB MICROBIOLOGY - GENERAL ORDERABLES Performing Organization Address City/[facility] Phon e Number POWERCHART documented in this encounter Visit Diagnoses Not on filedocumented in this encounter
--- OUTSIDE RECORDS SUMMARY | 2022-03-21 14:30 | XMS_ITS | Encounter Summary ---
:1990 Author Organization [facility] Address [address] [place] [address] Care Team Providers Name Role Phone Unavailable Primary Care Provider Unavailable Encounter Details Date Type Department Care Team Description 07/15/2005 Hospital Encounter HX [facility] Torsten Robbins M.D. [address] [place], [place] [address] (Wo rk) Social History Tobacco Use Types Packs/Day Years Used Date Smoking Tobacco: Never Assessed Sex Assigned at Date Recorded Not on file documented as of this encounter Plan of Treatment Not on filedocumented as of this encounter Visit Diagnoses Not on filedocumented in this encounter
--- OUTSIDE RECORDS SUMMARY | 2022-03-21 14:30 | XMS_ITS | Encounter Summary ---
:1990 Author Organization [facility] Address [address] [place] [address] Care Team Providers Name Role Phone Unavailable Primary Care Provider Unavailable Encounter Details Date Type Department Care Team Description 01/01/2005 Hospital Encounter HX [facility] Dennis Mdconough M.D. [address] [place] [address] (Wo rk) Social History Tobacco Use Types Packs/Day Years Used Date Smoking Tobacco: Never Assessed Sex Assigned at Date Recorded Not on file documented as of this encounter Plan of Treatment Not on filedocumented as of this encounter Visit Diagnoses Not on filedocumented in this encounter
--- OUTSIDE RECORDS SUMMARY | 2022-03-21 14:30 | XMS_ITS | Encounter Summary ---
:1990 Author Organization [facility] Address [address] [place] [address] Care Team Providers Name Role Phone Unavailable Primary Care Provider Unavailable Encounter Details Date Type Department Care Team Description 09/26/2014 Hospital Encounter HX NO MAPPING Margi Mitchell M.D. [address] [place], [place] [address] (Wo rk) Social History Tobacco Use Types Packs/Day Years Used Date Smoking Tobacco: Never Assessed Sex Assigned at Date Recorded Not on file documented as of this encounter Miscellaneous Notes Miscellaneous - Conversion, Historical Provider Ser - 09/26/2014 11:59 PM CDT Coding Summary-Paper Based CODING DATE: 10/08/2014 FINAL [facility] STATUS: * Discharged to Home or Self Care PAYOR: Medicaid ADMIT DX: REASON FOR VISIT DX: FINAL DX: PRINCIPAL: 709.09 Other Dyschromia SECONDARY: 616.10 Vaginitis and Vulvovaginitis, Unspecified PROCEDURES DOCTOR NAME DATE NOTE: The code number assigned matches the documented diagnosis and / or procedure in the patient's chart. However, the narrative phrase printed from the coding software may appear abbreviated, or result in slightly different terminology. Coded By: DAVID GUERRERO Date Saved: 10/08/2014 09:47 pm [facility] Document Id: [id number] documented in this encounter Plan of Treatment Not on filedocumented as of this encounter Visit Diagnoses Not on filedocumented in this encounter
--- OUTSIDE RECORDS SUMMARY | 2022-03-21 14:30 | XMS_ITS | Encounter Summary ---
:1990 Author Organization [facility] Address [address] [place] [address] Care Team Providers Name Role Phone Unavailable Primary Care Provider Unavailable Encounter Details Date Type Department Care Team Description 09/01/2009 Hospital Encounter [facility]X [facility] Anabelle Varma, LAUREN, C.N.P. [address] [place] [address] (Wo rk) Social History Tobacco Use Types Packs/Day Years Used Date Smoking Tobacco: Never Assessed Sex Assigned at Date Recorded Not on file documented as of this encounter Progress Notes Dasha Varma APRN, C.N.P. - 09/01/2009 12:00 AM CDT [id number] IMPRESSION/REPORT/PLAN 1. Rash right leg. Zoster and bacterial cultures obtained. Will start Keflex 500 mg t.i.d. x 10 days. I will call her with culture results. CHIEF COMPLAINT/REASON FOR VISIT Rash right leg HISTORY OF PRESENT ILLNESS Anusha states she has had a rash on her right leg for the past 2 days. It itches and mckeon. It seems to be spreading. CURRENT MEDICATIONS See Depart Summary from today ALLERGIES See EMR PREVENTIVE SERVICES See EMR VITAL SIGNS See EMR PHYSICAL EXAM AREA EXAM TEXT GENERAL Well developed well nourished 18-year-old female in no acute distress. SKIN Erythematous vesicular rash on right thigh with more lesions on the knee and a few on the calf. None on the left leg. HEAD HEENT unremarkable. HEART Heart regular rate and rhythm. LUNGS Lungs clear to auscultation. ABDOMEN Abdomen soft, nontender, no hepatosplenomegaly. SJM/clf Signed Dasha Varma, MSN, STRIP CUTTER, CDE Family Nurse Practitioner Electronically Signed By:DASHA VARMA CNP On 09/03/2009 08:53 AM Source: [facility] MHSDOLBEYNONRADSYS Document Id: [id number] documented in this encounter Miscellaneous Notes Miscellaneous - Dasha Varma APRN, C.N.P. - 09/01/2009 10:43 AM CDT Ambulatory Depart Summary [place] [id number] Visit Information Name: ANUSHA SOLOMON Current Date: 09/01/2009 10:43:10 Primary Care Provider: ANUSHA SOLOMON [place] has been given the following list of medications: Your Medications It is important to take your medications as directed. Use a pill box or chart to help remind you to take your medications. Please let your doctor or nurse know if you have problems taking your medications. Medication/Strength Dose Route Frequency Indications/Special Instructions/Comments cephalexin (Keflex 500 mg oral capsule) 500 mg Oral three times a day levonorgestrel (Mirena 52 mg intrauteral device) 1 each Intrauteral once Additional Information: Yes - Current list of reconciled medications is provided and explained to the patient and/or family, guardian/caregiver. 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 Intake/History Entered On: 09/01/2009 10:17 CDT Performed On: 09/01/2009 10:15 CDT by RJ BOUDREAUX LPN Intake Chief Complaint: complains of rash on right leg x 2 days itchy and burning sensation Temperature Core: 36.8DegC(Converted to: 98.2DegF) Peripheral Pulse Rate: 76bpm Systolic Blood Pressure: 100mmHg Diastolic Blood Pressure: 60mmHg NIBP Mean: 73mmHg BP Location: Right upper extremity Actual Weight: 54.500kg(Converted to: 120.152lb) Dosing Weight Clinic: 54.50kg RJ BOUDREAUX LPN - 09/01/2009 10:15 CDT Subjective Pain Symptoms: No RJ BOUDREAUX LPN - 09/01/2009 10:15 CDT Dependent Habits Tobacco Use/Currently Using: No Alcohol Use: No RJ BOUDREAUX LPN - 09/01/2009 10:15 CDT Caffeine Use Grid Caffeine Use: Current Type: Soft drinks Frequency: Daily Comments (Comment: 1 to 2 cans daily [RJ BOUDREAUX LPN - 09/01/2009 10:15 CDT] ) RJ BOUDREAUX LPN - 09/01/2009 10:15 CDT Allergies Allergies (Active) NKA Estimated Onset Date: Unspecified ; Created By: RJ BOUDREAUX LPN; Reaction Status: Active ; Category: Drug ; Substance: NKA ; Type: Allergy ; Updated By: RJ BOUDREAUX LPN; Source: Patient ; Reviewed Date: 09/01/2009 10:15 CDT Source: [facility] Document Id: [id number] CDT!21 documented in this encounter Plan of Treatment Not on filedocumented as of this encounter Visit Diagnoses Not on filedocumented in this encounter
--- OUTSIDE RECORDS SUMMARY | 2022-03-21 14:30 | XMS_ITS | Encounter Summary ---
:1990 Author Organization [facility] Address [address] [place] [address] Care Team Providers Name Role Phone Unavailable Primary Care Provider Unavailable Encounter Details Date Type Department Care Team Description 10/14/2010 Hospital Encounter HX [facility] Anabelle Varma, LAUREN, C.N.P. [address] [place] [address] (Wo rk) Social History Tobacco Use Types Packs/Day Years Used Date Smoking Tobacco: Never Assessed Sex Assigned at Date Recorded Not on file documented as of this encounter H&P Notes Dasha Varma APRN, C.N.P. - 10/14/2010 12:00 AM CDT [id number] CHIEF COMPLAINT/ REASON FOR VISIT Health care maintenance HISTORY OF PRESENT ILLNESS Anusha is here for physical exam she is due for Pap smear and chlamydia screen today. She has Mirena IUD. She has no problems with periods. She has past history of depression and PHQ-9 a month ago was zero. She states she does not feel like she has issues with depression any longer. CURRENT MEDICATIONS Mirena IUD ALLERGIES None SYSTEMS REVIEW Constitutional: no weight loss, fever, night sweats Nutrition: eats regular diet with adequate water intake Integumentary: no rashes, pigmentation changes or lesions of concern Head; eyes; ears; nose; throat: denies headache, ear pain or loss of hearing, blurred or double vision, nasal discharge or sore throat Breasts: denies breast pain, tenderness, discharge, lumps Respiratory: no cough or shortness of breath Cardiovascular: no chest pains or palpitations Endocrine: no history of polyuria, polydipsia, skin or hair changes, heat or cold intolerance Lymphatic: denies lymph node tenderness or swelling Gastrointestinal: no dysphagia, abdominal pain, nausea, vomiting, change in bowel habits, melena, hematochezia Genitourinary: no change in urination or blood in urine Gynecology: no abnormal vaginal bleeding, pelvic pain or vaginal discharge Musculoskeletal: no joint pain or swelling Neuro: no history of focal neurological symptoms, spells, memory changes Psych: no significant anxiety, depression, or panic PAST MEDICAL HISTORY Shingles and depression. Past surgical history none PREVENTIVE: Up to date see EMR SOCIAL HISTORY She is single with two daughters and stays at home. FAMILY HISTORY Grandmother Alzheimer's disease aunt uncle and grandmother with diabetes Vitals see EMR PHYSICAL EXAM GENERAL In general, the patient is a pleasant female appears her stated age. SKIN Without lesion. EYES PERRLA. EOMs intact. Fundi sharp discs. Conjunctiva and lids normal. ENT Tympanic membranes clear bilaterally. Nasal mucosa without erythema or congestion. Mouth without erythema or exudate. LYMPH NODES Neck: Supple without adenopathy, no thyromegaly. Carotid pulses are equal bilaterally. BREASTS No skin or nipple retraction. No palpable mass. No axillary adenopathy. No nipple discharge. PERIPHERAL Femoral, dorsal, pedal and posterior tibial pulses are VESSELS equal. HEART Regular rate and rhythm without murmur. LUNGS Clear to auscultation, good inspiratory effort. ABDOMEN Soft, nontender, no palpable mass, no hepatosplenomegaly. GENITALIA [place], urethra, [place], vagina and cervix are without lesion. Thin prep Pap smear done with spatula and cytobrush. LCR genprobe obtained. Bimanual examination reveals uterus is midline, mobile, nontender. No adnexal masses. SPINE Normal range of motion. No CVA tenderness. JOINTS Normal range of motion. EXTREMITIES Warm, dry, no cyanosis or peripheral edema. MENTAL Alert and oriented times three. NEURO Deep tendon reflexes are +2 and symmetrical. IMPRESSION/REPORT/PLAN Health care maintenance. Encouraged to work on healthy diet and regular exercise program and will check screening lipids today and I will mail her results SJM/clf Signed Dasha Varma, MSN, CASE BRIEFER, CDE Family Nurse Practitioner Electronically Signed By: DASHA VARMA CNP On: 10/14/2010 03:08 PM Source: [facility] MHSDOLBEYNONRADSYS Document Id: [id number] documented in this encounter Miscellaneous Notes Miscellaneous - Dasha Varma APRN, C.N.P. - 10/14/2010 11:03 AM CDT Ambulatory Patient Summary [address] [id number] Visit Information Name: ANUSHA SOLOMON Current Date: 10/14/2010 11:03:35 Primary Care Provider: DASHA VARMA CNP Your Medications Here is a list of your medications. It is important to take your medications as directed. Use a pillbox or chart to help remind you to take your medications. Please let your doctor or nurse know if you have problems taking your medications. Medication/Strength Dose Route Frequency Indications/Special Instructions/Comments levonorgestrel (Mirena 52 mg intrauteral device) 1 each Intrauteral once placed 2006 Your Allergies & Intolerances Substance Reaction Symptoms Category Comments NKA Drug Your Problem List Problem Status Onset Comments Shingles Inactive 09/02/2009 Depressive psychosis, recurrent episodes Inactive Your Recommendations We want to make sure you get the tests, immunizations, and guidance you need to stay healthy. Here is a customized list of recommendations, based on information we have in your medical record. Your doctor may have additional recommendations for you, based on your personal medical history and risk factors. You can help us by calling us to make an appointment when you are due for your tests. Additional information regarding recommendations: Test/Treatment Last Done Next Due Additional Information Lipid Panel every 5 years Age 20-75 09/10/2009 11/09/2009 Checks blood for good (HDL) and bad (LDL) cholesterol. Know your numbers, they are one indicator of your risk for heart attack and stroke. Vaccine: Tetanus every 10 years 08/28/2006 08/25/2016 Immunization to help prevent you from getting the serious disease Tetanus (Lockjaw). Your Upcoming Appointments Date Time Location Reason Provider No Appointments found Your Goals/Additional instructions: Source: [facility] [place] Document Id: [id number] Electronically signed by Conversion, [facility] [employer] Operator [id number] at 10/02/2016 10:03 PM CDT Miscellaneous - Dasha Varma APRN, C.N.P. - 10/14/2010 11:03 AM CDT Ambulatory Depart Summary [place] [id number] [place] [address] Visit Information Name: ANUSHA SOLOMON Current Date: 10/14/2010 11:03:35 Primary Care Provider: DASHA VARMA [facility] ANUSHA SOLMOON has been given the following list of medications: Your Medications It is important to take your medications as directed. Use a pill box or chart to help remind you to take your medications. Please let your doctor or nurse know if you have problems taking your medications. Medication/Strength Dose Route Frequency Indications/Special Instructions/Comments levonorgestrel (Mirena 52 mg intrauteral device) 1 each Intrauteral once placed 2006 Additional Information: Yes - Current list of reconciled medications is provided and explained to the patient and/or family, guardian/caregiver. Source: [facility] [place] Document Id: [id number] Electronically signed by Conversion, [facility] [place] Operator [id number] at 10/02/2016 10:03 PM CDT Miscellaneous - Conversion, Historical Provider Ser - 10/14/2010 10:37 AM CDT Health Assessment Health Assessment Entered On: 10/14/2010 10:38 CDT Performed On: 10/14/2010 10:37 CDT by RJ BOUDREAUX LPN Nutrition Nutrition Risk Factors by History Adult: None RJ BOUDREAUX LPN - 10/14/2010 10:37 CDT Functional Current Daily Living Assistance: None RJ BOUDREAUX LPN - 10/14/2010 10:37 CDT Dependent Habits Tobacco Use/Currently Using: Yes Tobacco Use/Advised to Quit: Yes Exposure to Tobacco Smoke: Patient smokes RJ BOUDREAUX LPN - 10/14/2010 10:37 CDT Tobacco Use Grid Type: Cigarettes RJ BOUDREAUX BRENNA RAJAN - 10/14/2010 10:37 CDT Caffeine Use Grid Caffeine Use: Current Type: Soft drinks Frequency: Daily RJ BOUDREAUX LPN - 10/14/2010 10:37 CDT Psychosocial Domestic Abuse Concerns: None KANIKA RJ CEJA LPN - 10/14/2010 10:37 CDT Advance Directive Advanced Directives: No RJ BOUDREAUX LPN - 10/14/2010 10:37 CDT Educ Needs Learning Style Preference Adult Grid Patient: Verbal explanation Family: Verbal explanation RJ BOUDREAUX LPN - 10/14/2010 10:37 CDT Source: [place] Document Id: [id number] CDT!25 Miscellaneous - Conversion, Historical Provider Jonh - 10/14/2010 10:36 AM CDT Adult General Assistant Intake/History Adult General Assistant Intake/History Entered On: 10/14/2010 10:37 CDT Performed On: 10/14/2010 10:36 CDT by RJ BOUDREAUX LPN Intake Chief Complaint: physical Temperature Core: 36.7C(Converted to: 98.1DegF) Peripheral Pulse Rate: 72/min Systolic Blood Pressure: 110mmHg Diastolic Blood Pressure: 70mmHg NIBP Mean: 83mmHg BP Location: Left upper extremity Height: 157.00cm(Converted to: 5ft 2in, 61.81in) Actual Weight: 56.500kg(Converted to: 124lb 9oz) Dosing Weight Clinic: 56.50kg Clinic BSA: 1.57 Body Mass Index: 22.92kg/m2 RJ BOUDREAUX LPN - 10/14/2010 10:36 CDT Subjective Pain Symptoms: No RJ BOUDREAUX LPN - 10/14/2010 10:36 CDT Dependent Habits Tobacco Use/Currently Using: Yes Tobacco Use/Advised to Quit: Yes Exposure to Tobacco Smoke: Patient smokes RJ BOURDEAUX LPN - 10/14/2010 10:36 CDT Tobacco Use Grid Type: Cigarettes Comments (Comment: 2 daily [RJ BOUDREAUX LPN - 10/14/2010 10:36 CDT] ) RJ BOUDREAUX LPN - 10/14/2010 10:36 CDT Alcohol Use: No RJ BOUDREAUX BRENNA RAJAN - 10/14/2010 10:36 CDT Caffeine Use Grid Caffeine Use: Current Type: Soft drinks Frequency: Daily KANIKARJ BRENNA RAJAN - 10/14/2010 10:36 CDT Allergy Allergies (Active) NKA Estimated Onset Date: Unspecified ; Created By: RJ BOUDREAUX LPN; Reaction Status: Active ; Category: Drug ; Substance: NKA ; Type: Allergy ; Updated By: RJ BOUDREAUX LPN; Source: Patient ; Reviewed Date: 09/15/2010 9:04 CDT Source: [facility] POWERCHART Document Id: [id number] CDT!29 documented in this encounter Plan of Treatment Not on filedocumented as of this encounter Procedures Procedure Name Priority Date/Time Associated Diagnosis Comme nts HXPHYS INTERP OF Routine 10/14/2010 11:03 AM Resu lts for this THIN PREP, PAP CDT procedure are in the results section. THINPREP SCREEN HPV Routine 10/14/2010 11:03 AM R esults for this REFLEX CDT procedure are i n the results section. documented in this encounter Results HX Hx phys Interp of Thin Prep, Pap (10/14/2010 11:03 AM CDT) [facility] Method Time Signature Interpretation Performed POWERCHART Comment: Test Performed by: [facility] Dpt of Lab Med and Pathology [address] [place] [address] Advertising Sales Agent: Yonathan jane III, M.D. Specimen Anatomical Collection Method Collection Time Receive d Time (Source) Location / / Volume Laterality Cervix/Endocervi 10/14/2010 11:03 011 7:09 x AM CDT PM CDT Historical Provider LAB HISTORICAL ORDERS Performing Organization Address City/State/ZIP Code Phon e Number POWERCHART ThinPrep Screen HPV Reflex (10/14/2010 11:03 AM CDT) [facility] Method Time Signature Interpretation [id number] POWERCHART HXThPrep Scrn See Comment POWERCHART [facility] Comment: A. ??ThinPrep Pap Test Screen (Cervical/ Endocervical HPV Reflex): Satisfactory for evaluation. Squamous epithelial cell abnormality Low grade squamous intraepithelial lesio n. ??Consistent with mild dysplasia with associated HPV borjas es (SILVIO 1). Screened at [facility] Cytology Analysi s Office [address] [place] [address] HXThPrep [facility] See Comment [facility] RCHART Comment: RESULT: ALFREDO [place](ASC P) [facility] See Comment [place] RCHART Comment: RESULT: 10/20/2010 11:10 Interpreted by: Roni Ferraro M.D. Report electronically signed by Roni Ferraro M.D. Transcribed by: [email or web address] ??10/20/2010 10:24: 42 [facility] See Comment POWERCHART Comment: A. ??ThinPrep Pap Test Screen (Cervical/ Endocervical HPV Reflex): Received cloudy specimen in ThinPrep via l. Test Performed by: [facility] Dpt of Lab Med and Pathology [address] [place] [address] Advertising Sales Agent: Yonathan jane III, M.D. Specimen (Source) Anatomical Collection Method Collection Time Re ceived Time Location / / Volume Laterality Cervix/Endocervix 10/14/2010 11:03 AM CDT Codi Caputo APRNPSudarshan LAB PAP PATHDX ORDERABLES Performing Organization Address City/State/ZIP Code Phon e Number POWERCHART documented in this encounter Visit Diagnoses Not on filedocumented in this encounter
--- OUTSIDE RECORDS SUMMARY | 2022-03-21 14:30 | XMS_ITS | Encounter Summary ---
:1990 Author Organization [facility] Address [address] [place] [address] Care Team Providers Name Role Phone Unavailable Primary Care Provider Unavailable Encounter Details Date Type Department Care Team Description 11/21/2005 [facility] Renae Powers APRN, C.N.P., M.S.N. Social History Tobacco Use Types Packs/Day Years Used Date Smoking Tobacco: Never Assessed Sex Assigned at Date Recorded Not on file documented as of this encounter Plan of Treatment Not on filedocumented as of this encounter Visit Diagnoses Not on filedocumented in this encounter
--- OUTSIDE RECORDS SUMMARY | 2022-03-21 14:30 | XMS_ITS | Encounter Summary ---
:1990 Author Organization [facility] Address [address] [place] [address] Care Team Providers Name Role Phone Unavailable Primary Care Provider Unavailable Encounter Details Date Type Department Care Team Description 09/15/2010 Hospital Encounter HX [facility] Melissa Sewell M.D. [address] [place], [place] [address] (Wo rk) Social History Tobacco Use Types Packs/Day Years Used Date Smoking Tobacco: Never Assessed Sex Assigned at Date Recorded Not on file documented as of this encounter Progress Notes Alcira Sewell M.D. - 09/15/2010 12:00 AM CDT [id number] IMPRESSION/REPORT/PLAN Early urinary tract infection. PLAN Risks and benefits of medications discussed. All questions answered. Signs and symptoms to lead to a more urgent evaluation are reviewed. Will recommend a follow up exam for her well woman evaluation sometime in the near future with her regular health care provider. Coming in fasting to check preventive screens such as lipid profile. Signs and symptoms to lead to a more urgent evaluation are reviewed. She is comfortable with this plan and will follow up as noted. LABS AND PROCEDURES Urinalysis: Specific gravity: Greater than 1.030. pH: 5.0. Glucose: Negative Protein: Negative Ketones: Negative Bilirubin: Negative. Urobilinogen: 0.2. Blood: Trace intact. Nitrites: Negative Leukocyte esterase: Trace. Microscopic: WBC per high-powered field: 0 to 5. RBC per high-powered field 0 to 5. Bacteria: Few. CHIEF COMPLAINT/REASON FOR VISIT Painful urination. HISTORY OF PRESENT ILLNESS This 19 year-old female presents to the clinic secondary to painful urination, increased frequency, incomplete voiding. No fevers. Has had an IUD since 2006 is wondering if it is in an unusual position. Has had no bleeding. Has had a bit of a pelvic pain. Has not had a well woman exam for about a year. EMR is reviewed. Please see the chart. CURRENT MEDICATIONS Post-visit Medication Reconciliation Pyridium 200 mg three times a day as needed short term use for dysuria. Macrobid 100 mg orally twice a day for ten days. PAST MEDICAL/SURGICAL HISTORY PREVENTIVE SERVICES Tobacco use: None. Mammogram: Non applicable secondary to stated age. Pap smear: 09-10-2009 Chlamydia: 09-10-2009 Colon screening: Non applicable secondary to stated age. Depression: Not at the present time. PHQ-9 score of 0. Asthma: No Lipids: Advised Tdap booster: 08-28-2006 Pneumovax: Non applicable secondary to stated age. Influenza: Non applicable secondary to time of year. DEXA scan: Non applicable secondary to stated age. VITAL SIGNS DATE/TIME 09-15-2010 WEIGHT 57 kg TEMPERATURE 36.8 degreesC RESP RATE 16 / min PULSE 80 SYSTOLIC 90 DIASTOLIC 64 PHYSICAL EXAM AREA EXAM TEXT GENERAL Neatly dressed, well groomed. HEART Regular rate and rhythm LUNGS Clear to auscultation with no significant CVA tenderness. ABDOMEN Bowel sounds are present, soft, some suprapubic tenderness but no true guarding or rebound. Positive femoral pulses. [facility]/yamiletk Signed Alcira Sewell M.D. Family Medicine Electronically Signed By: ALCIRA SEWELL MD On: 09/16/2010 08:33 am Modified by and Electronically Signed by: ALCIRA SEWELL MD On: 09/16/2010 08:33 am Source: [facility] MHSDOLBEYNONRADSYS Document Id: [id number] documented in this encounter Miscellaneous Notes Miscellaneous - Alcira Sewell M.D. - 09/15/2010 10:21 AM CDT PHQ-9 PHQ-9 Entered On: 09/15/2010 10:21 CDT Performed On: 09/15/2010 10:21 CDT by ALCIRA SEWELL MD PHQ-9 Little interest or pleasure in doing things: Not at all Feeling down, depressed, or hopeless: Not at all Trouble falling or staying asleep, or sleeping too much: Not at all Feeling tired or having little energy: Not at all Poor appetite or overeating: Not at all Feeling bad about yourself or that you are a failure: Not at all Trouble concentrating on things: Not at all Moving or speaking slowly; restless or fidgety: Not at all Thoughts that you would be better off /hurting self: Not at all PHQ-9 Calculated Score: 0 Problems make work, home, or dealing with others: Not difficult at all ALCIRA SEWELL MD - 09/15/2010 10:21 CDT Source: [facility] [employer] Document Id: [id number] CDT!13 Miscellaneous - Alcira Sewell M.D. - 09/15/2010 10:16 AM CDT Ambulatory Patient Summary [address] [address] Visit Information Name: ANUSHA SOLOMON Current Date: 09/15/2010 10:16:28 Primary Care Provider: DASHA VARMA SPOOLING MACHINE OPERATOR Your Medications Here is a list of your medications. It is important to take your medications as directed. Use a pillbox or chart to help remind you to take your medications. Please let your doctor or nurse know if you have problems taking your medications. Medication/Strength Dose Route Frequency Indications/Special Instructions/Comments phenazopyridine (Pyridium 200 mg oral tablet) 200 mg Oral three times a day as needed for painful urination nitrofurantoin (Macrobid 100 mg oral capsule) 1 cap(s) Oral two times a day levonorgestrel (Mirena 52 mg intrauteral device) 1 each Intrauteral once placed 2007 Your Allergies & Intolerances Substance Reaction Symptoms Category Comments NKA Drug Your Problem List Problem Status Onset Comments Shingles Active 09/02/2009 Depressive psychosis, recurrent episodes Active Your Recommendations We want to make sure [...] Test/Treatment Last Done Next Due Additional Information Screening Chlamydia every 1 year Females Age 15-24 09/10/2009 09/10/2010 Depression: PHQ-9 every 6 months 09/10/2009 03/12/2010 Screening Pap Smear every 3 years Women 21-65 09/10/2009 09/09/2012 Checks for signs of cancer of the cervix. Lipid Panel every 5 years Age 20-75 [...] No Appointments found Your Goals/Additional instructions: Source: [facility] POWERCHART Document Id: [id number] Electronically signed by Don [facility] Sea Air Land Officer [id number] at 10/02/2016 7:20 PM CDT Miscellaneous - Alcira Sewell M.D. - 09/15/2010 10:16 AM CDT Ambulatory Depart Summary [address] [address] Visit Information Name: SOLOMONANUSHA ROMERO Current Date: 09/15/2010 10:16:27 Primary Care Provider: DASHA VARMA CNP ANUSHA SOLOMON has been given the following list of medications: Your Medications It is important to take your medications as directed. Use a pill box or chart to help remind you to take your medications. Please let your doctor or nurse know if you have problems taking your medications. Medication/Strength Dose Route Frequency Indications/Special Instructions/Comments phenazopyridine (Pyridium 200 mg oral tablet) 200 mg Oral three times a day as needed for painful urination nitrofurantoin (Macrobid 100 mg oral capsule) 1 cap(s) Oral two times a day levonorgestrel (Mirena 52 mg intrauteral device) 1 each Intrauteral once placed 2006 Additional Information: Source: [facility] POWERCHART Document Id: [id number] Electronically signed by Don [facility] [employer] Land Officer [id number] at 10/02/2016 7:20 PM CDT Miscellaneous - Brittany Lamb L.P.N. - 09/15/2010 9:08 AM CDT Adult Mandarin Teacher Intake/History Adult Mandarin Teacher Intake/History Entered On: 09/15/2010 9:09 CDT Performed On: 09/15/2010 9:08 CDT by BRITTANY LAMB LPN Intake Chief Complaint: check IUD Temperature Core: 36.8C(Converted to: 98.2DegF) Peripheral Pulse Rate: 80/min Respiratory Rate: 16/min Systolic Blood Pressure: 90mmHg (LOW) Diastolic Blood Pressure: 64mmHg NIBP Mean: 73mmHg BP Location: Left upper extremity Actual Weight: 57.000kg(Converted to: 125lb 11oz) Dosing Weight Clinic: 57.00kg BRITTAYN LAMB LPN - 09/15/2010 9:08 CDT Subjective Pain Symptoms: Yes BRITTANY LAMB LPN - 09/15/2010 9:08 CDT Pain Pain Assessment Grid Pain 1 Location: Pelvic BRITTANY LAMB LPN - 09/15/2010 9:08 CDT Dependent Habits Tobacco Use/Currently Using: Yes Tobacco Use/Advised to Quit: Yes BRITTANY LAMB LPN - 09/15/2010 9:08 CDT Caffeine Use Grid Caffeine Use: Current Type: Soft drinks Frequency: Daily BRITTANY LAMB LPN - 09/15/2010 9:08 CDT Allergy Allergies (Active) NKA Estimated Onset Date: Unspecified ; Created By: RJ BOUDREAUX LPN; Reaction Status: Active ; Category: Drug ; Substance: NKA ; Type: Allergy ; Updated By: RJ BOUDREAUX LPN; Source: Patient ; Reviewed Date: 09/15/2010 9:04 CDT Source: [facility] [employer] Document Id: [id number] CDT!26 documented in this encounter Plan of Treatment Not on filedocumented as of this encounter Visit Diagnoses Not on filedocumented in this encounter
--- OUTSIDE RECORDS SUMMARY | 2022-03-21 14:30 | XMS_ITS | Encounter Summary ---
:1990 Author Organization [facility] Address [address] [place] [address] Care Team Providers Name Role Phone Unavailable Primary Care Provider Unavailable Encounter Details Date Type Department Care Team Description 09/19/[address] [facility] FAMILY[facility] Anabelle Varma APRN, C.N.P. [address] [place] [address] (Wo rk) Social History Tobacco Use Types Packs/Day Years Used Date Smoking Tobacco: Never Assessed Sex Assigned at Date Recorded Not on file documented as of this encounter Last Filed Vital Signs Vital Sign Reading Time Taken Comments Blood Pressure 108/68 09/19/2013 3:57 PM CDT Pulse 72 09/19/2013 3:57 PM CDT Temperature - - Respiratory Rate 16 09/19/2013 3:57 PM CDT Oxygen Saturation - - Inhaled Oxygen Concentration - - Weight 61.2 kg (134 lb 14.7 oz) 09/19/2013 3:57 PM CDT Height 155 cm (5' 1.02) 09/19/2013 3:57 PM CDT Body Mass Index 25.47 09/19/2013 3:57 PM CDT documented in this encounter Progress Notes Dasha Varma, LAUREN, C.N.P. - 09/19/2013 3:49 PM CDT [id number] CHIEF COMPLAINT/REASON FOR VISIT 1. Vaginal discharge with odor and discomfort. 2. Wants STD screen for chlamydia. HISTORY OF PRESENT ILLNESS Anusha states she has had vaginal discharge with odor and lower abdominal discomfort for the past several days. She denies any burning with urination. She has Mirena IUD. She has had chlamydia in the past and would like to be screened. MEDICATIONS See depart summary from today. ALLERGIES None. SYSTEMS REVIEW Positive for that mentioned in the history of present illness and noted in the past medical history in the EMR. All other systems were reviewed and were negative. PREVENTIVE Up to date. VITAL SIGNS See EMR. PHYSICAL EXAMINATION GENERAL: Well-developed, well-nourished female, in no acute distress. SKIN: Warm and dry. HEART: Regular rate and rhythm. LUNGS: Clear to auscultation. ABDOMEN: Soft. No distention. No focal mass. No hepatosplenomegaly. Mild suprapubic tenderness. : Bartholin's, urethral and Saranac's, vagina and cervix are without lesion. ThinPrep Pap smear donewith plastic spatula and cytobrush. Bimanual examination reveals uterus is midline, mobile and nontender. No adnexal masses. Wet prep obtained. IMPRESSION/REPORT/PLAN 1. Bacterial vaginosis. Flagyl 500 mg 1 twice a day for 7 days. She understands she should not drinkalcohol while on this medication. She should take it with food. She had several questions about bacterial vaginosis. We discussed it and I gave her a patient handout for more information. 2. She left urine for chlamydia and gonorrhea screen and I will call her cell phone number, which she has given me permission to leave her a message with results. 3. Total time spent with the patient: 25 minutes, 18 minutes of it counseling and coordinating care. Dasha Varma CNP/nilda Electronically Signed By: DASHA VARMA CNP On: 09/24/2013 08:23 AM Source: [facility] MHSDOLBEYNONRADSYS Document Id: [id number] documented in this encounter Miscellaneous Notes Miscellaneous - Dasha Varma APRN, C.N.P. - 09/24/2013 8:27 AM CDT General Message From: DASHA VARMA CNP Sent: 09/24/2013 08:27:33 CDT Subject: General Message Phone call with positive chlamydia result. Rx for azithromycin 1 gram po once sent to [facility]. Recheck in 2 weeks. STD report sent to [facility]. Source: [facility] POWERCHART Document Id: [id number] Electronically signed by Conversion, [facility] Lithoduplicator Operator [id number] at 09/26/2016 8:52 PM CDT Miscellaneous - Dasha Varma, LAUREN, C.N.P. - 09/19/2013 4:22 PM CDT Ambulatory Patient Summary [address] [id number] Visit Information Name: JUANITO ANUSHA CAROLINA [facility] Number: [id number] Current Date: 09/19/2013 16:22:19 Physicians Attending Provider: DASHA VARMA CNP Primary Care Provider: DASHA VARMA CNP JUANITO ANUSHA FIGUEROA has been given the following list of [...] mg intrauteral device) 1 Each, Intrauteral, once metroNIDAZOLE (metroNIDAZOLE 500 mg oral tablet) 1 Tablet(s), Oral, every 12 hours x 7 day(s) do notdrink alcohol may take with food to minimize abdominal discomfort [facility] [address] [place] [address] Stop Taking the Following Medications: Medication list as of 09-19-13 16:22 Attention: If you have any medications at [...] Electronically Signed By: DASHA VARMA CNP Signed On:19-SEP-2013 16:22:03 Your Allergies & Intolerances Substance Reaction Symptoms Category Comments No Known Allergies Drug Your Problem List Problem Status Onset Comments IUD, checking, reinsertion or removal Active 07/26/2011 07/26/11 Mirena IUd removed and replaced 07/26/2011. Remove 06/2016 Tobacco dependence Active Your Upcoming Appointments Date Time Location Reason Provider No Appointments found Attention: Contact your local Clinic if further appointment detail needed. [id number] Vaginal Infection: Bacterial Vaginosis Both good and bad bacteria are present in a healthy vagina. Bacterial vaginosis (BV) occurs when these bacteria get out of balance. The numbers of good bacteria decrease. This allows the numbers of badbacteria to increase and cause BV. In most cases, BV is not a serious problem. This sheet tells you more about BV and how it can be treated. Causes of Bacterial Vaginosis The cause of BV is not clear. Douching may lead to it. Having sex with a new partner or more than one partner makes it more likely. Symptoms of Bacterial Vaginosis Symptoms of BV vary for each woman. Some women have few symptoms or none at all. If symptoms are present, they can include: ?? Thin, milky white or bradford discharge ?? Unpleasant fishy odor ?? Irritation, itching, and burning at opening of vagina ?? Burning or irritation with sex or urination Diagnosing Bacterial Vaginosis Your healthcare provider will ask about your symptoms and health history. He or she will also perform a pelvic exam. This is an exam of your vagina and cervix. A sample of vaginal fluid or discharge may be taken. This sample is checked for signs of BV. Treating Bacterial Vaginosis BV is often treated with antibiotics. They may be given in oral pill form or as a vaginal cream. To use these medications: ?? Be sure to take all of your medication, even if your symptoms go away. ?? If youre taking antibiotic pills, do not drink alcohol until youre finished with all of your medication. ?? If youre using vaginal cream, apply it as directed. Be aware that the cream may make condoms and diaphragms less effective. ?? Call your healthcare provider if symptoms do not go away within 4 days of starting treatment. Also call if you have a reaction to the medication. Why Treatment Matters Even if you have no symptoms or your symptoms are mild, BV should be treated. Untreated BV can lead to health problems such as: Increased risk of delivery if youre . Increased risk of complications after surgery on the reproductive organs. Possible increased risk of pelvic inflammatory disease (PID). ?? [id number] [facility], [address] [place] [address], [place] [address]. All rights reserved. This information is not intended as a substitute for professional medical care. Always follow your healthcare professional's instructions. Your Goals/Additional instructions: This document has images extracted. Please consider using [employer] for all your patient education needs. Source: [facility] POWERCHART Document Id: [id number] Miscellaneous - Dasha Varma APRN, C.N.P. - 09/19/2013 4:22 PM CDT Ambulatory Discharge Medication List [address] [id number] Visit Information Name: ANUSHA SOLOMON [facility] Number: [id number] Visit Date: 09/19/2013 16:22:18 Attending Provider: DASHA VARMA CNP Primary Care [...] mg intrauteral device) 1 Each, Intrauteral, once metroNIDAZOLE (metroNIDAZOLE 500 mg oral tablet) 1 Tablet(s), Oral, every 12 hours x 7 day(s) do notdrink alcohol may take with food to minimize abdominal discomfort New Routed to [address] [address] Stop Taking the Following Medications: Medication list as of 09-19-13 16:22 Attention: If you have any medications at [...] of emergency. Electronically Signed By: DASHA VARMA MANAGER MARKETING COMMUNICATION Signed On:19-SEP-2013 16:22:03 Additional Information: Source: [facility] POWERCHART Document Id: [id number] Miscellaneous - Sudha Diaz L.P.N. - 09/19/2013 3:57 PM CDT Adult Emergency Medicine Medical Director Intake/History Adult Emergency Medicine Medical Director Intake/History Entered On: 09/19/2013 16:00 CDT Performed On: 09/19/2013 15:57 CDT by SUDHA DIAZ LPN Intake Chief Complaint : Stomach,abd, and back pain. Feeling weak also. Started a month ago. Thinks it might be due to control Temperature Core : 37 DegC(Converted to: 98.6 DegF) Peripheral Pulse Rate : 72 /min Respiratory Rate : 16 /min Heart Rhythm : Regular Systolic Blood Pressure : 108 mmHg Diastolic Blood Pressure : 68 mmHg NIBP Mean : 81 mmHg BP Location : Left upper extremity Blood Pressure Cuff Size : Regular Height : 155 cm(Converted to: 5 ft 1 inch(es), 61 inch(es)) Actual Weight : 61.2 kg(Converted to: 134 lb 15 oz) Weight Source : Standing scale Dosing Weight Clinic : 61.2 kg Clinic BSA : 1.62 Body Mass Index : 25.47 kg/m2 SUDHA DIAZ LPN - 09/19/2013 15:57 CDT General Info Information Given By : Patient Languages : Sami SUDHA DIAZ LPN - 09/19/2013 15:57 CDT Subjective Pain Symptoms : Yes SUDHA DIAZ LPN - 09/19/2013 15:57 CDT Pain Pain Assessment Grid Pain 1 Pain 2 Location : Abdomen Lower back Laterality : Bilateral Right Intensity : 8 8 SDUHA DIAZ SATINDER - 09/19/2013 15:57 CDT SUDHA DIAZ GAUGE MAKER APPRENTICE - 09/19/2013 15:57 CDT Dependent Habits Tobacco Use/Currently Using : No Smoking Status : Former smoker SUDHA DIAZ GAUGE MAKER APPRENTICE - 09/19/2013 15:57 CDT Tobacco Use Grid Type : Cigarettes Last Use : quit in 05/12 SUDHA DIAZ GAUGE MAKER APPRENTICE - 09/19/2013 15:57 CDT Caffeine Use Grid Caffeine Use : Current Type : Soft drinks Frequency : Daily SUDHA DIAZ GAUGE MAKER APPRENTICE - 09/19/2013 15:57 CDT Source: [employer] Document Id: [id number] CDT!45 documented in this encounter Plan of Treatment Not on filedocumented as of this encounter Procedures Procedure Name Priority Date/Time Associated Comments Diagnosis N GONOR AMP SRC Routine 09/19/2013 4:16 PM Result s for this CDT procedure are i n the results section. N GONOR AMP DNA Routine 09/19/2013 4:16 PM Result s for this CDT procedure are i n the results section. C TRACH AMP SRC Routine 09/19/2013 4:16 PM Result s for this CDT procedure are i n the results section. C TRACH AMP RNA Routine 09/19/2013 4:16 PM Result s for this CDT procedure are i n the results section. WET PREP EXAM, Routine 09/19/2013 4:12 PM Results for this UROGENITAL CDT procedure are i n the results section. documented in this encounter Results HX-N gonor Amp DNA (09/19/2013 4:16 PM CDT) athologist Signature HXN gonor Amp Negative POWERCHART DNA-Bender Specimen (Source) Anatomical Collection Method Collection Time Re ceived Time Location / / Volume Laterality 09/19/2013 4:16 PM CDT Narrative POWERCHART - 09/21/2013 9:55 PM CDT Test Performed by: [address] [address] Customer Resource Specialist: Yonathan jane III, M.D. Dasha Varma APRN C.N.P. LAB HISTORICAL ORDERS Performing Organization Address City/State/ZIP Code Phon e Number POWERCHART HX-N gonor Amp Src (09/19/2013 4:16 PM CDT) athologist Signature HXN gonor Amp Urine POWERCHART [facility] Specimen (Source) Anatomical Collection Method Collection Time Re ceived Time Location / / Volume Laterality 09/19/2013 4:16 PM CDT Dasha Varma APRN, C.N.P. LAB HISTORICAL ORDERS Performing Organization Address City/State/ZIP Code Phon e Number POWERCHART HX-C trach Amp RNA (09/19/2013 4:16 PM CDT) Patholo gist Method Time Signature Chlamydia Positive POWERCHART trachomatis amplified RNA Specimen (Source) Anatomical Collection Method Collection Time Re ceived Time Location / / Volume Laterality 09/19/2013 4:16 PM CDT Dasha Varma APRN, C.N.P. LAB HISTORICAL ORDERS Performing Organization Address City/State/ZIP Code Phon e Number POWERCHART HX-C trach Amp Src (09/19/2013 4:16 PM CDT) athologist Signature HXC trach Amp Urine POWERCHART [facility] Specimen (Source) Anatomical Collection Method Collection Time Re ceived Time Location / / Volume Laterality 09/19/2013 4:16 PM CDT Dasha Varma APRN, C.N.P. LAB HISTORICAL ORDERS Performing Organization Address City/State/ZIP Code Phon e Number POWERCHART (ABNORMAL) Wet Prep Exam, Urogenital (09/19/2013 4:12 PM CDT) Analysis Performed At Patho logist Time Signature HXWet Prep (POSITIVE) POWERCHART HXFinal Trichomonas: POWERCHART Negative HXFinal Clue Cells: POWERCHART Positive HXFinal Yeast: POWERCHART Negative HXFinal Sperm: POWERCHART Negative Specimen (Source) Anatomical Collection Method Collection Time Re ceived Time Location / / Volume Laterality Vagina 09/19/2013 4:12 PM CDT Dasha Varma APRN, C.N.P. LAB MICROBIOLOGY - GENERAL ORDERABLES Performing Organization Address City/State/ZIP Code Phon e Number POWERCHART documented in this encounter Visit Diagnoses Not on filedocumented in this encounter
--- OUTSIDE RECORDS SUMMARY | 2022-03-21 14:30 | XMS_ITS | Encounter Summary ---
:1990 Author Organization [facility] Address [address] [place] [address] Care Team Providers Name Role Phone Unavailable Primary Care Provider Unavailable Encounter Details Date Type Department Care Team Description 09/26/2014 Hospital Encounter HX [facility] FAMILYPRA Mary Alice Mitchell M.D. [address] [facility], [address] [place], [place] [address] (Wo rk) Social History Tobacco Use Types Packs/Day Years Used Date Smoking Tobacco: Never Assessed Sex Assigned at Date Recorded Not on file documented as of this encounter Last Filed Vital Signs Vital Sign Reading Time Taken Comments Blood Pressure 100/60 09/26/2014 3:44 PM CDT Pulse 66 09/26/2014 3:44 PM CDT Temperature - - Respiratory Rate - - Oxygen Saturation - - Inhaled Oxygen Concentration - - Weight 60 kg (132 lb 4.4 oz) 09/26/2014 3:44 PM CDT Height 155 cm (5' 1.02) 09/26/2014 3:44 PM CDT Body Mass Index 24.97 09/26/2014 3:44 PM CDT documented in this encounter Progress Notes Bartolome Mitchell M.D. - 09/26/2014 3:53 PM CDT Clinic Full Note Document Contains Addenda Addendum by BARTOLOME MITCHELL MD on 26 Sep 2014 16:42:37 CDT freckling on cheeks- multipole benign nevi scattered throughout body Modified by and Electronically Signed by: BARTOLOME MITCHELL MD On: 09/26/2014 04:43 PM Addendum by BARTOLOME MITCHELL MD on 26 Sep 2014 16:41:15 CDT General: No acute distress Eyes- no abnormal pigmentation Oropharnyx- no oral lesions or changes in pigmentation Thyroid- normal Skin: Full skin check today of the scalp, face, neck, chest, breasts, back, arms, legs, buttocks, groin, hands and feet. Total of 30 minutes spent with patient, over 15 minutes spent on counseling time regarding discussing plan and treatment options. Given handout on Recognizing Skin Cancer and reviewed together Modified by and Electronically Signed by: BARTOLOME MITCHELL MD On: 09/26/2014 04:41 PM CHIEF COMPLAINT/REASON FOR VISIT check mole on vaginal area. Mole was checked 5 years ago and was told to watch it HISTORY OF PRESENT ILLNESS darkening areas that are flat and pigmented- started as a larger lesion right labia- now several smaller spots. Appear to be spreading. no history of genital warts. Sometimes this area does itch burn. MEDICATIONS levonorgestrel 52 mg intrauteral device, 52 mg, 1 each, Intrauteral, Once, 0 refills ALLERGIES NKA PAST MEDICAL HISTORY Chronic Depressive psychosis, recurrent episodes IUD, checking, reinsertion or removal Shingles Tobacco dependence Historical Abnormal Pap smear [...] SYSTEMS REVIEW otherwise negative VITAL SIGNS T: 36.7 ??C (Core) HR: 66 BP: 100 / 60 HT: 155 cm WT: 60.0 kg BMI: 24.97 PHYSICAL EXAMINATION General- No Acute Distress Skin- several homogenous darkly pigmented flat, round lesions, however one on left labia majora- irregular darkly pigmented spot wth signs of regression- THis area prepped with alcohol, and injected with 0.1 milliliters of lidocaine with no epinephrine mixed with sodium bicarbonate in 9:1 ratio. Lesion then prepped with hibiclens, steriley draped, and a 2 mm punch biopsy was obtained of part of the lesion. 1 suture of 6.0 ethilon placed. Bacitracin and a bandaid applied. Estimated blood loss less than 1 cc. IMPRESSION/REPORT/PLAN Lesion Skin NOS Post biopsy/lesion removal instructions: Gently wash with an unscented soap like Dove and pat area dry daily. Then apply vaseline or bacitracin and a bandaid daily. Keep the area moist- we want it to heal from the inside out. No pools, hot tubs or lakes until sutures out. Showers are fine. Return for suture removal in 7 days. We discussed we may need to do a wider excision depending on the results. We will call you with results if we see them before your scheduled suture removal Post-surgical areas may be left with a little scarring. Sun will deepen and baldev the scars. Avoidsun and use a good sunscreen with titanium or zinc on these areas for 6-12 months to help this. Ordered: Pathology-Surgical Pathology Electronically Signed By: BARTOLOME MITCHELL MD On: 09/26/2014 04:41 PM Source: [facility] POWERCHART Document Id: [id number] documented in this encounter Nursing Notes Bartolome Mitchell M.D. - 09/26/2014 4:29 PM CDT Ambulatory Patient Education The following [...] can help you see if any moles exchange architect time. When to Seek Medical Treatment Most skin changes are not cancer. But if you see any changes in your skin, call your doctor right away. Only he or she can diagnose a problem. If you have skin cancer, seeing your doctor can be the first step toward getting the treatment that could save your life. ?? [id number] Gris Martinez, [address] [place] [address]. All rights reserved. This information is not intended as a substitute for professional medical care. Always follow your healthcare professional's instructions. This document has images extracted. Please consider using [employer] for all your patient education needs. Source: [facility] [employer] Document Id: [id number] documented in this encounter Miscellaneous Notes Miscellaneous - Bartolome Mitchell M.D. - 09/26/2014 4:29 PM CDT Ambulatory Discharge Medication List [address] [id number] Visit Information Name: ANUSHA SOSA [facility] Number: [id number] Visit Date: 09/26/2014 16:29:46 Attending Provider: BARTOLOME MITCHELL MD Primary Care Provider: DASHA VARMA TOOL MACHINE SET UP OPERATOR ANUSHA SOSA has been given the following [...] the Following Medications: Medication list as of 09-26-14 16:29 Attention: If you have any medications at [...] Electronically Signed By: BARTOLOME MITCHELL MD Signed On:26-SEP-2014 16:29:17 Additional Information: Source: [facility] [employer]ART Document Id: [id number] Miscellaneous - Bartolome Mitchell M.D. - 09/26/2014 4:29 PM CDT Ambulatory Patient Summary [address] [place], [place] [id number] Visit Information Name: ANUSHA SOSA [facility] Number: [id number] Current Date: 09/26/2014 16:29:47 Physicians Attending Provider: BARTOLOME MITCHELL MD Primary Care Provider: DASHA VARMA TOOL MACHINE SET UP OPERATOR ANUSHA SOSA has been given the following [...] the Following Medications: Medication list as of 09-26-14 16:29 Attention: If you have any medications at [...] Electronically Signed By: BARTOLOME MITCHELL MD Signed On:26-SEP-2014 16:29:17 Your Allergies & Intolerances Substance Reaction Symptoms [...] skin, light-colored hair, or light-colored eyes ?? rdMany moles on your skin ?? A history [...] can help you see if any moles exchange architect time. When to Seek Medical Treatment Most skin changes are not cancer. But if you see any changes in your skin, call your doctor right away. Only he or she can diagnose a problem. If you have skin cancer, seeing your doctor can be the first step toward getting the treatment that could save your life. ?? [phone] Gris Martinez, [address] [place] [address]. All rights reserved. This information is not intended as a substitute for professional medical care. Always follow your healthcare professional's instructions. Your Goals/Additional instructions: Post biopsy/lesion removal instructions: Gently wash with an unscented soap like Dove and pat area dry daily. Then apply vaseline or bacitracin and a bandaid daily. Keep the area moist- we want it to heal from the inside out. No pools, hot tubs or lakes until sutures out. Showers are fine. Return for suture removal in 7 days- We discussed we may need to do a wider excision depending on the results. We will call you with results if we see them before your scheduled suture removal Post-surgical areas may be left with a little scarring. Sun will deepen and baldev the scars. Avoidsun and use a good sunscreen with titanium or zinc on these areas for 6-12 months to help this. This document has images extracted. Please consider using [employer] for all your patient education needs. Source: [facility] POWERCHART Document Id: [id number] Miscellaneous - Yudi Devries L.P.NSudarshan - 09/26/2014 3:44 PM CDT Adult Eye Dropper Assembler Intake/History Adult Eye Dropper Assembler Intake/History Entered On: 09/26/2014 15:48 CDT Performed On: 09/26/2014 15:44 CDT by YUDI DEVRIES Intake Chief Complaint : check mole on vaginal area. Mole was checked 5 years ago and was told to watch it Temperature Core : 36.7 DegC(Converted to: 98.1 DegF) Peripheral Pulse Rate : 66 /min Heart Rhythm : Regular Systolic Blood Pressure : 100 mmHg Diastolic Blood Pressure : 60 mmHg NIBP Mean : 73 mmHg BP Location : Right upper extremity Blood Pressure Cuff Size : Regular Height : 155 cm(Converted to: 5 ft 1 inch(es), 61 inch(es)) Actual Weight : 60.0 kg(Converted to: 132 lb 4 oz) Weight Source : Standing scale Dosing Weight Clinic : 60 kg Clinic BSA : 1.61 Body Mass Index : 24.97 kg/m2 YUDI DEVRIES - 09/26/2014 15:44 CDT General Info Information Given By : Patient Preferred Communication Mode : Verbal Languages : Tamazight Is Patient Female and 13-50 no hysterectomy : Yes Status : Patient denies Are you ? : No YUDI DEVRIES - 09/26/2014 15:44 CDT Subjective Pain Symptoms : Yes YUDI DEVRIES - 09/26/2014 15:44 CDT Pain Scale Pain Scale Verbal 0-10 : Open YUDI DEVRIES - 09/26/2014 15:44 CDT Pain Pain Assessment Grid Pain 1 Location : Abdomen Laterality : Bilateral YUDI DEVRIES - 09/26/2014 15:44 CDT Dependent Habits Tobacco Use/Currently Using : Yes Exposure to Tobacco Smoke : Patient smokes Smoking Status : Current some day smoker YUDI DEVRIES - 09/26/2014 15:44 CDT Tobacco Use Grid Type : Cigarettes Other Tobacco Frequency : 1 per week YUDI DEVRIES - 09/26/2014 15:44 CDT Caffeine Use Grid Caffeine Use : Current Type : Soft drinks Frequency : Daily YUDI DEVRIES - 09/26/2014 15:44 CDT ID Screen Travel Within Last 21 Days : No Contact with someone with Ebola : No YUDI DEVRIES - 09/26/2014 15:44 CDT Source: [employer] Document Id: [id number]!49 documented in this encounter Plan of Treatment Not on filedocumented as of this encounter Procedures Procedure Name Priority Date/Time Associated Diagnosis Comme nts SURGICAL PATHOLOGY Routine 09/26/2014 4:06 PM Res ults for this CDT procedure are i n the results section. documented in this encounter Results Pathology Surgical Pathology (09/26/2014 4:06 PM CDT) Specimen (Source) Anatomical Collection Method Collection Time Re ceived Time Location / / Volume Laterality 09/26/2014 4:06 PM CDT Narrative [facility] - 09/30/2014 9:58 AM CDT [facility] in [address] [place] [id number] Patient Name: ANUSHA SOSA Patient ID #: [id number] Collected: 09/26/2014 Address: [facility]/Zip: [address]ARTMENT [address] [place] [address] ??[id number] Received: Reported: 09/29/2014 09/30/2014 Soc. Sec. #: ?/Age/Sex (Age: 23) ??F Physician(s): WM MITCHELL Copy To: ? [facility] ??[id number] [address] [facility], ??[place] ??[address] SURGICAL PATHOLOGY REPORT FINAL DIAGNOSIS: LEFT LABIAL BIOPSIES: --- BENIGN LENTIGINOUS CHANGE WITH UNDER LYING CHRONIC INFLAMMATION AND PIGMENT INCONTINENCE. [facility]/09/30/2014 Adriane MEANS M.D. Report electronically released. Interpretation by Adriane MEANS M.D. SPECIMEN(S) RECEIVED: LEFT LABIA CLINICAL HISTORY: DARK SPREADING SPOTS GROSS DESCRIPTION: Submitted is a kumari mucosal fragment, 0.1 cm in greatest dimension. ESB, one cassette. ([id number]) [facility]/09/29/2014 MICROSCOPIC DESCRIPTION: Reviewed by Adriane Means M.D.; Patholo gist [facility]/09/30/2014 Bartolome Mitchell M.D. LAB SURG PATH ORDERABLES Performing Organization Address City/State/ZIP Code Phon e Number [facility] documented in this encounter Visit Diagnoses Not on filedocumented in this encounter
--- OUTSIDE RECORDS SUMMARY | 2022-03-21 14:30 | XMS_ITS | Encounter Summary ---
:1990 Author Organization [facility] Address [address] [place] [address] Care Team Providers Name Role Phone Unavailable Primary Care Provider Unavailable Encounter Details Date Type Department Care Team Description 12/06/2011 Hospital Encounter HX [facility] FBHB FAMILYPRA Anabelle Varma APRN, C.N.P. [address] [place] [address] (Wo rk) Social History Tobacco Use Types Packs/Day Years Used Date Smoking Tobacco: Never Assessed Sex Assigned at Date Recorded Not on file documented as of this encounter Last Filed Vital Signs Vital Sign Reading Time Taken Comments Blood Pressure 112/64 12/06/2011 3:06 PM CDT Pulse 64 12/06/2011 3:06 PM CDT Temperature - - Respiratory Rate 16 12/06/2011 3:06 PM CDT Oxygen Saturation - - Inhaled Oxygen Concentration - - Weight 60.4 kg (133 lb 2.5 oz) 12/06/2011 3:06 PM CDT Height 153 cm (5' 0.24) 12/06/2011 3:06 PM CDT Body Mass Index 25.8 12/06/2011 3:06 PM CDT documented in this encounter H&P Notes Dasha Varma APRN, C.N.P. - 12/06/2011 2:43 PM CDT [id number] CHIEF COMPLAINT/REASON FOR VISIT 1. [facility] physical exam. 2. History of abnormal Pap smear. 3. Vaginal irritation HISTORY OF PRESENT ILLNESS Anusha is here for [facility] annual exam. She has Mirena IUD. Her Pap smear was abnormal 1 year ago it showed low grade squamous intraepithelial lesion with HPV changes. She states forthe past week she has had some vaginal irritation and discomfort. CURRENT MEDICATIONS See depart summary from today. ALLERGIES None. SYSTEMS REVIEW In all areas negative except as mentioned above. PAST MEDICAL/SURGICAL HISTORY Abnormal Pap smear PAST SURGICAL HISTORY None PREVENTIVE: Chlamydia screen obtained today. SOCIAL HISTORY She is single with 2 daughters and stays home. FAMILY HISTORY Parents siblings negative. Maternal aunt with diabetes. Maternal grandmother age 75 cause of diabetes and Alzheimer's disease. Maternal uncle diabetes. VITAL SIGNS See EMR PHYSICAL EXAM GENERAL: In general, the patient is a [...] Soft, nontender, no palpable mass, no hepatosplenomegaly. RECTUM: Normal perirectal area without skin tags or external hemorrhoids. Internal examination reveals a smooth rectal vault, no tenderness. Good rectal tone. GENITALIA: Bartholin, urethra, Virgin's, vagina and cervix are without lesion. Thin prep Pap smear done with spatula and cytobrush. LCR genprobe and wet prep obtained. Bimanual examination reveals uterus is midline, mobile, nontender. No adnexal masses. SPINE: Normal range of motion. No CVA tenderness. JOINTS: Normal range of motion. EXTREMITIES: Warm, dry, no cyanosis or peripheral edema. MENTAL: Alert and oriented times three. NEURO: Deep tendon reflexes are +2 and symmetrical. IMPRESSION/REPORT/PLAN 1.. [facility] annual exam. Mirena IUD due to be removed in 2017. Pap smear obtained today along with chlamydia screen and I will contact with those results. 2. Bacterial vaginosis. Flagyl 500 mg 1 twice daily for 7 days. She understands she should not drinkalcohol while on this medication and recheck if symptoms do not improve Dasha Varma CNP/zechariah Electronically Signed By: DASHA VARMA CNP On: 12/07/2011 10:53 AM Source: [facility] MHSDOLBEYNONRADSYS Document Id: [id number] documented in this encounter Miscellaneous Notes Miscellaneous - Dasha Varma APRN, C.N.P. - 12/08/2011 4:39 PM CDT Results Notification From: DASHA VARMA CNP To: RHONDA ENCISO Sent: 12/08/2011 16:39:35 CDT ! Show up: 12/08/2011 21:39:35 [facility] Subject: Results Notification Actions: Notify patient of results Source: [facility] POWERCHART Document Id: [id number] Electronically signed by Don [facility] Derrickman Helper [id number] at 10/01/2016 4:40 PM CDT Miscellaneous - Dasha Varma APRN, C.N.P. 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 Remove 06/2016 Your Upcoming Appointments Date Time Location Reason Provider No Appointments found Your Goals/Additional instructions: Source: [facility] POWERCHART Document Id: [id number] Miscellaneous - Dasha Varma APRN, C.N.P. - 12/06/2011 3:17 PM CDT Ambulatory Depart Summary [address] [address] Visit Information Name: SOLOMONANUSHA Visit Date: 12/06/2011 15:17:50 Attending Provider: DASHA VARMA CNP Primary Care [...] your provider for clarification. Additional Information: Source: [facility] POWERCHART Document Id: [id number] Miscellaneous - Rhonda Enciso L.P.N. - 12/06/2011 3:06 PM CDT Adult Blend Technician Intake/History Adult Blend Technician Intake/History Entered On: 12/06/2011 15:07 CDT Performed On: 12/06/2011 15:06 CDT by RHONDA ENCISO Intake Chief Complaint : Physical LMP Date : 11/21/11 Temperature Core : 36.8C(Converted to: 98.2DegF) Peripheral Pulse Rate : 64/min Respiratory Rate : 16/min Systolic Blood Pressure : 112mmHg Diastolic Blood Pressure : 64mmHg NIBP Mean : 80mmHg Height : 153cm(Converted to: 5ft 0inch(es), 60.24inch(es)) Actual Weight : 60.4kg(Converted to: 133lb 3oz) Dosing Weight Clinic : 60.40kg Clinic BSA : 1.60 Body Mass Index : 25.80kg/m2 RHONDA ENCISO - 12/06/2011 15:06 CDT Subjective Pain Symptoms : No RHONDA ENCISO - 12/06/2011 15:06 CDT Dependent Habits Tobacco Use/Currently Using : Yes Exposure to Tobacco Smoke : Patient smokes Smoking Status : Current some day smoker RHONDA ENCISO - 12/06/2011 15:06 CDT Tobacco Use Grid Type : Cigarettes Last Use : quit in 05/12 RHONDA ENCISO - 12/06/2011 15:06 CDT Caffeine Use Grid Caffeine Use : Current Type : Soft drinks Frequency : Daily RHONDA ENCISO - 12/06/2011 15:06 CDT Allergy Allergies (Active) NKA Estimated Onset Date: Unspecified ; Created By: RJ BOUDREAUX LPN; Reaction Status: Active ; Category: Drug ; Substance: NKA ; Type: Allergy ; Updated By: RJ BOUDREAUX LPN; Source: Patient ; Reviewed Date: 07/19/2011 16:02 CDT Source: [facility] [employer]CHART Document Id: [id number] documented in this encounter Plan of Treatment Not on filedocumented as of this encounter Procedures Procedure Name Priority Date/Time Associated Comments Diagnosis N GONOR AMP SRC Routine 12/06/2011 3:30 PM Result s for this CDT procedure are i n the results section. N GONOR AMP DNA Routine 12/06/2011 3:30 PM Result s for this CDT procedure are i n the results section. C TRACH AMP SRC Routine 12/06/2011 3:30 PM Result s for this CDT procedure are i n the results section. HX CHLAMYDIA Routine 12/06/2011 3:30 PM Results f or this TRACHOMATIS AMPLIFIED CDT proced ure are in DNA-ID the results section. THINPREP SCREEN HPV Routine 12/06/2011 3:30 PM Re sults for this REFLEX CDT procedure are i n the results section. WET PREP EXAM, Routine 12/06/2011 3:30 PM Results for this UROGENITAL CDT procedure are i n the results section. documented in this encounter Results HX-N gonor Amp DNA (12/06/2011 3:30 PM CDT) athologist Signature HXN gonor Amp Negative POWERCHART DNA-[place] Specimen (Source) Anatomical Collection Method Collection Time Re ceived Time Location / / Volume Laterality 12/06/2011 3:30 PM CDT Narrative POWERCHART - 12/08/2011 4:06 PM CDT Test Performed by: [place] [address] Asphalt Screed Operator: Yonathan jane III, M.D. Dasha Varma APRN, C.N.P. LAB HISTORICAL ORDERS Performing Organization Address City/State/ZIP Code Phon e Number POWERCHART HX-N gonor Amp Src (12/06/2011 3:30 PM CDT) athologist Signature HXN gonor Amp CERVIX POWERCHART Src-[place] Specimen (Source) Anatomical Collection Method Collection Time Re ceived Time Location / / Volume Laterality 12/06/2011 3:30 PM CDT Dasha J Myrom IP LITIGATION PARALEGAL, C.N.P. LAB HISTORICAL ORDERS Performing Organization Address City/State/ZIP Code Phon e Number POWERCHART HX Hx Chlamydia Trachomatis Amplified Dna-Id (12/06/2011 3:30 PM CDT) [facility] Method Time Signature Chlamydia Negative POWERCHART Trachomatis Amplied DNA Specimen (Source) Anatomical Collection Method Collection Time Re ceived Time Location / / Volume Laterality 12/06/2011 3:30 PM CDT Dasha Ortiz Cesar AGUILAR, C.N.P. LAB HISTORICAL ORDERS Performing Organization Address City/State/ZIP Code Phon e Number POWERCHART HX-C trach Amp Src (12/06/2011 3:30 PM CDT) athologist Signature HXC trach Amp [place] [facility] Specimen (Source) Anatomical Collection Method Collection Time Re ceived Time Location / / Volume Laterality 12/06/2011 3:30 PM CDT Dasha Diana Cesar AGUILAR, C.N.P. LAB HISTORICAL ORDERS Performing Organization Address City/State/ZIP Code Phon e Number POWERCHART Pathology ThinPrep Screen HPV Reflex (12/06/2011 3:30 PM CDT) [facility] Method Time Signature Interpretation [id number] POWERCHART HXThPrep Scrn See Comment POWERCHART Fnl[place] Comment: A. ??ThinPrep Pap Test Screen (Cervical/ Endocervical HPV Reflex): Satisfactory for evaluation. Negative for intraepithelial lesion or m alignancy. HXThPrep Scrn Cyto-[place] See Comment DORIE NESBITTT Comment: Report electronically signed by ALFREDO Winchester(ASCP) 12/09/2011 13:01 Interpreted by: ALFREDO Scott(ASCP) [facility] See Comment POWERCHART Comment: A. ??ThinPrep Pap Test Screen (Cervical/ Endocervical HPV Reflex): Received cloudy specimen in ThinPrep via l. Test Performed by: [address] [address] Asphalt Screed Operator: Yonathan jane III, M.D. Specimen (Source) Anatomical Collection Method Collection Time Re ceived Time Location / / Volume Laterality Cervix/Endocervix 12/06/2011 3:30 PM CDT Dasha Varma APRN C.N.P. LAB PAP PATHDX ORDERABLES Performing Organization Address City/State/ZIP Code Phon e Number POWERCHART (ABNORMAL) Wet Prep Exam, Urogenital (12/06/2011 3:30 PM CDT) Analysis Performed At Patho logist Time Signature HXWet Prep (POSITIVE) POWERCHART HXFinal Trichomonas: POWERCHART Negative HXFinal Clue Cells: POWERCHART Positive HXFinal Yeast: POWERCHART Negative Specimen (Source) Anatomical Collection Method Collection Time Re ceived Time Location / / Volume Laterality Vagina 12/06/2011 3:30 PM CDT Adan Caputo APRN.N.P. LAB MICROBIOLOGY - GENERAL ORDERABLES Performing Organization Address City/[facility] Phon e Number POWERCHART documented in this encounter Visit Diagnoses Not on filedocumented in this encounter
--- OUTSIDE RECORDS SUMMARY | 2022-03-21 14:30 | XMS_ITS | Encounter Summary ---
:1990 Author Organization [facility] Address [address] [place] [address] Care Team Providers Name Role Phone Unavailable Primary Care Provider Unavailable Encounter Details Date Type Department Care Team Description 07/11/2013 Hospital Encounter HX [facility] FAMILYPRA Anabelle Varma APRN, C.N.P. [address] [place] [address] (Wo rk) Social History Tobacco Use Types Packs/Day Years Used Date Smoking Tobacco: Never Assessed Sex Assigned at Date Recorded Not on file documented as of this encounter Last Filed Vital Signs Vital Sign Reading Time Taken Comments Blood Pressure 102/68 07/11/2013 2:33 PM CDT Pulse 64 07/11/2013 2:33 PM CDT Temperature - - Respiratory Rate 16 07/11/2013 2:33 PM CDT Oxygen Saturation - - Inhaled Oxygen Concentration - - Weight 62.4 kg (137 lb 9.1 oz) 07/11/2013 2:33 PM CDT Height 155 cm (5' 1.02) 07/11/2013 2:33 PM CDT Body Mass Index 25.97 07/11/2013 2:33 PM CDT documented in this encounter Progress Notes Dasha Varma APRN, C.N.P. - 07/11/2013 2:25 PM CDT [id number] CHIEF COMPLAINT/REASON FOR VISIT Recheck post treatment for chlamydia. HISTORY OF PRESENT ILLNESS Alicia was seen for a physical exam on 06/24/2013. Screening was done for chlamydia. It was positive. She returned on the for treatment. She took Zithromax 2g. She states her partner was also treated. She is here today for test of cure. We talked about also testing for gonorrhea as long as we are retesting for chlamydia and she would like to do that. MEDICATIONS See depart summary from today. ALLERGIES None. SYSTEMS REVIEW Positive for that mentioned in the history of present illness and noted in the past medical history in the EMR. All other systems were reviewed and were negative. PREVENTIVE: Up to date. VITAL SIGNS See EMR. PHYSICAL EXAMINATION Well-developed, well-nourished female in no acute distress. SKIN: Warm and dry. HEART: Regular rate and rhythm. LUNGS: Clear to auscultation. ABDOMEN: Soft, nontender, no hepatosplenomegaly. IMPRESSION/REPORT/PLAN Chlamydia, here for test of cure and screening for gonorrhea. She will leave a urine sample for testing and I will contact her with results. Dasha Varma CNP/janelle Electronically Signed By: DASHA VARMA CNP On: 07/15/2013 08:52 AM Source: [facility] MHSDOLBEYNONRADSYS Document Id: [id number] documented in this encounter Miscellaneous Notes Miscellaneous - Dasha Varma APRN, C.N.P. - 07/15/2013 9:04 AM CDT General Message From: DASHA VARMA CNP Sent: 07/15/2013 09:04:22 CDT Subject: General Message Phone call with positive chlamydia test result. Rx for azithromycin 2gm sent to pharmacy. Source: [facility] POWERCHART Document Id: [id number] Miscellaneous - Dasha Varma APRN, C.N.P. - 07/11/2013 2:38 PM CDT Ambulatory Patient Summary [id number] [place], [place] [phone] Visit Information Name: ANUSHA SOLOMON [facility] Number: [id number] Current Date: 07/11/2013 14:38:53 Physicians Attending Provider: DASHA VARMA CNP Primary [...] the Following Medications: Medication list as of 07-11-13 14:38 Attention: If you have any medications at [...] local Clinic if further appointment detail needed. [id number] CHLAMYDIA [Female, Treated] You have an infection called Chlamydia. This is a sexually transmitted disease (STD). It is highly contagious and passed by sexual contact with an infected partner. Chlamydia can infect the internal sex organs (cervix, uterus or Fallopian tubes). Less often, it can infect the mouth, throat and anus. Women with an infection in the cervix may have no symptoms or only mild symptoms early in the illness. Therefore, it is possible to pass this infection without knowing you have it. When symptoms do occur in a woman, they usually start 2-10 days after exposure. There may be a thickvaginal discharge and pain or burning when passing urine. If the infection spreads to the Fallopian tubes it is called pelvic inflammatory disease (PID). This causes lower abdominal pain and fever. If not treated, Chlamydia can cause infertility (unable to have children) by scarring the Fallopian tubes. PID also increases the risk of ectopic (tubal) in the future. Chlamydia can be treated and cured. Treatment is with antibiotic medicine. HOME CARE: 1. Your sexual partner must be treated at the same time, even if there are no symptoms. Your partnershould contact their own doctor or go to an urgent care clinic or the Public Health Department to beexamined and treated. 2. Avoid sexual activity until both you and your partner have finished taking all of the antibiotic medicine, and your doctor has told you that you are cured. 3. Take all medicines until they are finished. Otherwise, symptoms may recur. 4. Learn about safe sex practices and use these in the future. The safest sex is with a partner who has tested negative and only has sex with you. Condoms offer protection from spreading some sexually transmitted diseases including Gonorrhea, Chlamydia and HIV, but are not a guarantee. FOLLOW UP with your doctor or as advised by our staff. If a culture test was taken, you may call us in three days for the results, or as directed. Another culture test should be taken 4-6 weeks after treatment to be sure the infection has cleared. Follow up with your doctor or the Public Health Department for complete STD screening, including HIV testing. For more information about STD's, contact [facility] STD Hotline: . GET PROMPT MEDICAL ATTENTION if any of the following occur: ?? No improvement after three days of treatment ?? New or increasing lower abdominal pain or back pain ?? Unexpected vaginal bleeding ?? Weakness, dizziness or fainting ?? Repeated vomiting ?? Inability to urinate due to pain ?? Rash or joint pain ?? Painful open sores around the outer vagina Enlarged painful lymph nodes (lumps) in the groin ?? [phone] Gris Martinez, [address] [place] [address], [place] [address]. All rights reserved. This information is not intended as a substitute for professional medical care. Always follow your healthcare professional's instructions. Your Goals/Additional instructions: This document has images extracted. Please consider using [employer] for all your patient education needs. Source: [facility] El TeatroCHART Document Id: [id number] Miscellaneous - Dasha Varma APRN, C.N.P. - 07/11/2013 2:38 PM CDT Ambulatory Discharge Medication List [address] [place], [place] [phone] Visit Information Name: ANUSHA SOLOMON [facility] Number: [id number] Visit Date: 07/11/2013 14:38:52 Attending Provider: DASHA VARMA CNP Primary Care Provider: DASHA VARMA TELEPHONIC CASE MANAGER ANUSHA SOLOMON has been given the following [...] the Following Medications: Medication list as of 07-11-13 14:38 Attention: If you have any medications at home that are not on this list, DO NOT take them until youcontact your provider for clarification. Give a copy of your medication list to your primary care provider. Update your medication list any time medications or doses are changed and carry your medication list at all times in case of emergency. Additional Information: Source: [facility] El TeatroCHART Document Id: [id number] Miscellaneous - Juanito Diaz L.P.NSudarshan - 07/11/2013 2:33 PM CDT Adult Desk Manager Intake/History Adult Desk Manager Intake/History Entered On: 07/11/2013 14:35 CDT Performed On: 07/11/2013 14:33 CDT by JUANITO DIAZ LPN Intake Chief Complaint : Having abdominal pain off and on. Wants labs. Temperature Core : 36.5 DegC(Converted to: 97.7 DegF) Peripheral Pulse Rate : 64 /min Respiratory Rate : 16 /min Heart Rhythm : Regular Systolic Blood Pressure : 102 mmHg Diastolic Blood Pressure : 68 mmHg NIBP Mean : 79 mmHg BP Location : Left upper extremity Blood Pressure Cuff Size : Regular Height : 155 cm(Converted to: 5 ft 1 inch(es), 61 inch(es)) Actual Weight : 62.4 kg(Converted to: 137 lb 9 oz) Weight Source : Standing scale Dosing Weight Clinic : 62.4 kg Clinic BSA : 1.64 Body Mass Index : 25.97 kg/m2 JUANITO DIAZ LPN - 07/11/2013 14:33 CDT General Info Information Given By : Patient Languages : Thai JUANITO DIAZ LPN - 07/11/2013 14:33 CDT Subjective Pain Symptoms : Yes JUANITO DIAZ LPN - 07/11/2013 14:33 CDT Pain Pain Assessment Grid Pain 1 Location : Abdomen Laterality : Bilateral Intensity : 5 JUANITO DIAZ LPN - 07/11/2013 14:33 CDT Dependent Habits Tobacco Use/Currently Using : Yes Tobacco Use/Advised to Quit : Yes Exposure to Tobacco Smoke : Patient smokes Smoking Status : Current some day smoker JUANITO DIAZ LPN - 07/11/2013 14:33 CDT Tobacco Use Grid Type : Cigarettes Last Use : quit in 05/12 JUANITO DIAZ LPN - 07/11/2013 14:33 CDT Caffeine Use Grid Caffeine Use : Current Type : Soft drinks Frequency : Daily JUANITO DIAZ LPN - 07/11/2013 14:33 CDT [facility] Document Id: [id number] CDT!43 documented in this encounter Plan of Treatment Not on filedocumented as of this encounter Procedures Procedure Name Priority Date/Time Associated Diagnosis Comme nts N GONOR AMP SRC Routine 07/11/2013 2:59 PM Result s for this CDT procedure are i n the results section. N GONOR AMP DNA Routine 07/11/2013 2:59 PM Result s for this CDT procedure are i n the results section. C TRACH AMP SRC Routine 07/11/2013 2:59 PM Result s for this CDT procedure are i n the results section. C TRACH AMP RNA Routine 07/11/2013 2:59 PM Result s for this CDT procedure are i n the results section. documented in this encounter Results HX-N gonor Amp DNA (07/11/2013 2:59 PM CDT) athologist Signature HXN gonor Amp Negative POWERCHART DNA-[place] Specimen (Source) Anatomical Collection Method Collection Time Re ceived Time Location / / Volume Laterality 07/11/2013 2:59 PM CDT Narrative POWERCHART - 07/12/2013 5:05 PM CDT Test Performed by: [place] [id number] Returns Clerk: Yonathan jane III, M.D. Dasha Varma APRN, C.N.P. LAB HISTORICAL ORDERS Performing Organization Address City/[facility] Code Phon e Number POWERCHART HX-N gonor Amp Src (07/11/2013 2:59 PM CDT) athologist Signature HXN gonor Amp urine POWERCHART Src-[place] Specimen (Source) Anatomical Collection Method Collection Time Re ceived Time Location / / Volume Laterality 07/11/2013 2:59 PM CDT Dasha Varma APRN, C.N.P. LAB HISTORICAL ORDERS Performing Organization Address City/State/ZIP Code Phon e Number POWERCHART HX-C trach Amp RNA (07/11/2013 2:59 PM CDT) [facility] gist Method Time Signature Chlamydia Positive POWERCHART trachomatis amplified RNA Specimen (Source) Anatomical Collection Method Collection Time Re ceived Time Location / / Volume Laterality 07/11/2013 2:59 PM CDT Dasha Varma APRN, C.N.P. LAB HISTORICAL ORDERS Performing Organization Address City/[facility]/ZIP Code Phon e Number POWERCHART HX-C trach Amp Src (07/11/2013 2:59 PM CDT) P athologist Signature HXC trach Amp urine POWERCHART [facility]-[place] Specimen (Source) Anatomical Collection Method Collection Time Re ceived Time Location / / Volume Laterality 07/11/2013 2:59 PM CDT Dasha Varma APRN, C.N.P. LAB HISTORICAL ORDERS Performing Organization Address City/State/ZIP Code Phon e Number POWERCHART documented in this encounter Visit Diagnoses Not on filedocumented in this encounter
--- OUTSIDE RECORDS SUMMARY | 2022-03-21 14:30 | XMS_ITS | Encounter Summary ---
:1990 Author Organization [facility] Address [address] [place] [address] Care Team Providers Name Role Phone Unavailable Primary Care Provider Unavailable Encounter Details Date Type Department Care Team Description 10/17/2013 Hospital Encounter HX [facility] FBHB FAMILYPRA Anabelle Varma APRN, C.N.P. [address] [place] [address] (Wo rk) Social History Tobacco Use Types Packs/Day Years Used Date Smoking Tobacco: Never Assessed Sex Assigned at Date Recorded Not on file documented as of this encounter Last Filed Vital Signs Vital Sign Reading Time Taken Comments Blood Pressure 102/68 10/17/2013 4:25 PM CDT Pulse 64 10/17/2013 4:25 PM CDT Temperature - - Respiratory Rate 16 10/17/2013 4:25 PM CDT Oxygen Saturation - - Inhaled Oxygen Concentration - - Weight 60.8 kg (134 lb 0.6 oz) 10/17/2013 4:25 PM CDT Height 155 cm (5' 1.02) 10/17/2013 4:25 PM CDT Body Mass Index 25.31 10/17/2013 4:25 PM CDT documented in this encounter Progress Notes Dasha Varma, LAUREN, C.N.P. - 10/17/2013 4:18 PM CDT [id number] CHIEF COMPLAINT/REASON FOR VISIT Recheck chlamydia screen. HISTORY OF PRESENT ILLNESS Anusha was positive for Chlamydia, and on September 19, 2013, she completed 1000 mg of Zithromax. She states her partner was also treated. She is here today for test of cure. MEDICATIONS See depart summary from today. ALLERGIES [...] rhythm. LUNGS: Clear to auscultation. ABDOMEN: Soft, nontender. No hepatosplenomegaly. No suprapubic tenderness. IMPRESSION/REPORT/PLAN Test of cure for chlamydia. She will leave a urine sample for chlamydia and gonorrhea screen today, and I will contact her with results. Dasha Varma CNP/nilda Electronically Signed By: DASHA VARMA CNP On: 10/21/2013 08:22 AM Source: [facility] MHSDOLBEYNCASEYSYS Document Id: [id number] documented in this encounter Miscellaneous Notes Miscellaneous - Dasha Varma APRN, C.N.P. - 10/21/2013 8:23 AM CDT Normal Results Letter 21 October 2013 ANUSHA SOLOMON [address] [place] [phone] Dear ANUSHA SOLOMON, I am pleased to report that your results from the following diagnostic test(s) are normal. Please follow up with us as we discussed during your visit or sooner if you have any concerns. If you have questions or concerns, please do not hesitate to call our office. Result Name Current Result Previous Result Normal Range C trach Amp RNA-[place] Negative 10/17/2013 Positive 09/19/2013 Negative - N gonor Amp DNA-[place] Negative 10/17/2013 Negative 09/19/2013 Negative - Sincerely, DASHA VARMA [address] [facility] [place] [address] Electronic Signature Electronically Signed By: DASHA VARMA CNP On: 21 October 2013 This document has images extracted. Source: [facility] POWERCHART Document Id: [id number] Electronically signed by Don [facility] Folding Machine Feeder [id number] at 09/27/2016 3:03 AM CDT Miscellaneous - Dasha Varma APRN, C.N.P. - 10/17/2013 4:32 PM CDT Ambulatory Patient Summary [address] [id number] Visit Information Name: ANUSHA SOLOMON [facility] Number: [id number] Current Date: 10/17/2013 16:32:42 Physicians Attending Provider: DASHA VARMA CNP Primary [...] the Following Medications: Medication list as of 10-17-13 16:32 Attention: If you have any medications at [...] Electronically Signed By: DASHA VARMA CNP Signed On:17-OCT-2013 16:32:21 Your Allergies & Intolerances Substance Reaction Symptoms Category Comments No Known Allergies Drug Your Problem List Problem Status Onset Comments IUD, checking, reinsertion or removal Active 07/26/2011 07/26/11 Mirena IUd removed and replaced 07/26/2011. Remove 06/2016 Tobacco dependence Active Your Upcoming Appointments Date Time Location Reason Provider No Appointments found Attention: Contact your local Clinic if further appointment detail needed. [id number] STD, (Cervicitis) [Female, Chlamydia vs GC: Treated] You have an infection in the cervix (the opening to the uterus). This is due to an infection with a bacteria (either Chlamydia or Gonorrhea). This is a sexually transmitted disease (STD) and is highly contagious. It is passed by sexual contact with an infected partner. Women with an infection in the cervix, may have no symptoms or only mild symptoms early in the disease. Therefore, it is possible to pass this infection without knowing you have it. When symptoms do occur, they usually appear 2 days to 3 weeks after exposure. There may be a vaginaldischarge. There may also be pain or burning when passing urine. If the infection spreads to the Fallopian tubes it causes pelvic inflammatory disease (PID). PID causes symptoms of lower abdominal pain and fever. If not treated, Chlamydia or Gonorrhea can cause infertility (unable to have children) by scarring the Fallopian tubes. PID also increases the risk of ectopic in the future. This infection can be treated and cured. A culture test may be taken to confirm the diagnosis. Treatment is with antibiotic medicine. HOME CARE: 1. Your sexual partner must be treated at the same time, even if there are no symptoms. Your partnershould contact their own doctor or go to an urgent care clinic or the Public Health Department to beexamined and treated. 2. Avoid sexual activity until both you and your partner have completed all antibiotic medicine, andyou have been told by your doctor that you are no longer contagious. 3. Take all medicines until they are finished; otherwise, symptoms may recur. 4. Learn about safe [...] testing. For more information about STD's, contact [facility] STD Hotline: . GET PROMPT MEDICAL ATTENTION [...] lymph nodes (lumps) in the groin ?? [id number] [facility], [address] [place] [address], [place] [address]. All rights reserved. This information is not intended as a substitute for professional medical care. Always follow your healthcare professional's instructions. Your Goals/Additional instructions: This document has images extracted. Please consider using [employer] for all your patient education needs. Source: [facility] POWERCHART Document Id: [id number] Miscellaneous - Dasha Varma APRN, C.N.P. - 10/17/2013 4:32 PM CDT Ambulatory Discharge Medication List [address] [id number] Visit Information Name: ANUSHA SOLOMON [facility] Number: [id number] Visit Date: 10/17/2013 16:32:41 Attending Provider: DASHA VARMA CNP Primary Care [...] the Following Medications: Medication list as of 10-17-13 16:32 Attention: If you have any medications at [...] Electronically Signed By: DASHA VARMA CNP Signed On:17-OCT-2013 16:32:21 Additional Information: Source: [facility] POWERCHART Document Id: [id number] Miscellaneous - Sudha Diaz L.P.N. - 10/17/2013 4:25 PM CDT Adult Quarry Equipment Operator Intake/History Adult Quarry Equipment Operator Intake/History Entered On: 10/17/2013 16:26 CDT Performed On: 10/17/2013 16:25 CDT by SUDHA DIAZ LPN Intake Chief Complaint : Lab results. Temperature Core : 36.8 DegC(Converted to: 98.2 [...] 1 inch(es), 61 inch(es)) Actual Weight : 60.8 kg(Converted to: 134 lb 1 oz) Weight Source : Standing scale Dosing Weight Clinic : 60.8 kg Clinic BSA : 1.62 Body Mass Index : 25.31 kg/m2 SUDHA DIAZ LPN - 10/17/2013 16:25 CDT General Info Information Given By : Patient Languages : Urdu SUDHA DIAZ LPN - 10/17/2013 16:25 CDT Subjective Pain Symptoms : No SUDHA DIAZ LPN - 10/17/2013 16:25 CDT Dependent Habits Tobacco Use/Currently Using : No Exposure to Tobacco Smoke : Patient smokes Smoking Status : Former smoker SUDHA DIAZ LPN - 10/17/2013 16:25 CDT Tobacco Use Grid Type : Cigarettes Last Use : quit in 05/12 SUDHA DIAZ LPN - 10/17/2013 16:25 CDT Caffeine Use Grid Caffeine Use : Current Type : Soft drinks Frequency : Daily JORGE ALBERTOSUDHA Rivas SATINDER - 10/17/2013 16:25 CDT Source: [facility] Document Id: [id number] CDT!36 documented in this encounter Plan of Treatment Not on filedocumented as of this encounter Procedures Procedure Name Priority Date/Time Associated Diagnosis Comme nts N GONOR AMP SRC Routine 10/17/2013 4:36 PM Result s for this CDT procedure are i n the results section. N GONOR AMP DNA Routine 10/17/2013 4:36 PM Result s for this CDT procedure are i n the results section. C TRACH AMP SRC Routine 10/17/2013 4:36 PM Result s for this CDT procedure are i n the results section. C TRACH AMP RNA Routine 10/17/2013 4:36 PM Result s for this CDT procedure are i n the results section. documented in this encounter Results HX-N gonor Amp DNA (10/17/2013 4:36 PM CDT) athologist Signature HXN gonor Amp Negative POWERCHART DNA-[place] Specimen (Source) Anatomical Collection Method Collection Time Re ceived Time Location / / Volume Laterality 10/17/2013 4:36 PM CDT Narrative POWERCHART - 10/19/2013 4:45 PM CDT Test Performed by: [facility] [place] [address] Customer Service Clerk: Yonathan jane III, M.D. Dasha Varma APRN C.N.PSudarshan LAB HISTORICAL ORDERS Performing Organization Address City/State/ZIP Code Phon e Number POWERCHART HX-N gonor Amp Src (10/17/2013 4:36 PM CDT) P athologist Signature HXN gonor Amp urine POWERCHART Src-[place] Specimen (Source) Anatomical Collection Method Collection Time Re ceived Time Location / / Volume Laterality 10/17/2013 4:36 PM CDT Dasha J Myrom HIDE SPLITTER, C.N.P. LAB HISTORICAL ORDERS Performing Organization Address City/[facility]/ZIP Code Phon e Number POWERCHART HX-C trach Amp RNA (10/17/2013 4:36 PM CDT) Patholo gist Method Time Signature Chlamydia Negative POWERCHART trachomatis amplified RNA Specimen (Source) Anatomical Collection Method Collection Time Re ceived Time Location / / Volume Laterality 10/17/2013 4:36 PM CDT Dasha Varma APRN, C.N.P. LAB HISTORICAL ORDERS Performing Organization Address City/[facility] Code Phon e Number POWERCHART HX-C trach Amp Src (10/17/2013 4:36 PM CDT) P athologist Signature HXC trach Amp urine POWERCHART Src-[place] Specimen (Source) Anatomical Collection Method Collection Time Re ceived Time Location / / Volume Laterality 10/17/2013 4:36 PM CDT Dasha Varma APRN, C.N.P. LAB HISTORICAL ORDERS Performing Organization Address City/[facility]/ZIP Code Phon e Number POWERCHART documented in this encounter Visit Diagnoses Not on filedocumented in this encounter
--- OUTSIDE RECORDS SUMMARY | 2022-03-21 14:31 | XMS_ITS | Encounter Summary ---
:1990 Author Organization [facility] Address [address] [place] [address] Care Team Providers Name Role Phone Unavailable Primary Care Provider Unavailable Encounter Details Date Type Department Care Team Description 09/03/2004 [facility] Torsten Robbins M.D. [address] [place], [place] [address] (Wo rk) Social History Tobacco Use Types Packs/Day Years Used Date Smoking Tobacco: Never Assessed Sex Assigned at Date Recorded Not on file documented as of this encounter Plan of Treatment Not on filedocumented as of this encounter Visit Diagnoses Not on filedocumented in this encounter
--- OUTSIDE RECORDS SUMMARY | 2022-03-21 14:31 | XMS_ITS | Encounter Summary ---
:[address] [facility] Address [address] [place] [address] Care Team Providers Name Role Phone Unavailable Primary Care Provider Unavailable Encounter Details Date Type Department Care Team Description 09/16/2004 Hospital Encounter HX [facility] Airam Gee M.D. [address] [place], [place] [address] (Wo rk) Social History Tobacco Use Types Packs/Day Years Used Date Smoking Tobacco: Never Assessed Sex Assigned at Date Recorded Not on file documented as of this encounter Plan of Treatment Not on filedocumented as of this encounter Visit Diagnoses Not on filedocumented in this encounter
--- OUTSIDE RECORDS SUMMARY | 2022-03-21 14:31 | XMS_ITS | Encounter Summary ---
:1990 Author Organization [facility] Address [address] [place] [address] Care Team Providers Name Role Phone Unavailable Primary Care Provider Unavailable Encounter Details Date Type Department Care Team Description 10/21/2004 Hospital Encounter HX [facility] ED Memo Schulte, R.N. [address] [place] [address] (Wo rk) Social History Tobacco Use Types Packs/Day Years Used Date Smoking Tobacco: Never Assessed Sex Assigned at Date Recorded Not on file documented as of this encounter Plan of Treatment Not on filedocumented as of this encounter Visit Diagnoses Not on filedocumented in this encounter
--- OUTSIDE RECORDS SUMMARY | 2022-03-21 14:31 | XMS_ITS | Encounter Summary ---
:1990 Author Organization [facility] Address [address] [place] [address] Care Team Providers Name Role Phone Unavailable Primary Care Provider Unavailable Encounter Details Date Type Department Care Team Description 10/21/2004 [facility] Torsten Robbins M.D. [address] [place], [place] [address] (Wo rk) Social History Tobacco Use Types Packs/Day Years Used Date Smoking Tobacco: Never Assessed Sex Assigned at Date Recorded Not on file documented as of this encounter Plan of Treatment Not on filedocumented as of this encounter Visit Diagnoses Not on filedocumented in this encounter
--- OUTSIDE RECORDS SUMMARY | 2022-03-21 14:31 | XMS_ITS | Encounter Summary ---
:1990 Author Organization [facility] Address [address] [place] [address] Care Team Providers Name Role Phone Unavailable Primary Care Provider Unavailable Encounter Details Date Type Department Care Team Description 03/02/2002 Hospital Encounter [facility]X [facility] Corey Morton W, P.A. [address] [place] [address] (Wo rk) Social History Tobacco Use Types Packs/Day Years Used Date Smoking Tobacco: Never Assessed Sex Assigned at Date Recorded Not on file documented as of this encounter Plan of Treatment Not on filedocumented as of this encounter Visit Diagnoses Not on filedocumented in this encounter
--- OUTSIDE RECORDS SUMMARY | 2022-03-21 14:31 | XMS_ITS | Encounter Summary ---
:1990 Author Organization [facility] Address [address] [place] [address] Care Team Providers Name Role Phone Unavailable Primary Care Provider Unavailable Encounter Details Date Type Department Care Team Description 11/04/2004 Hospital Encounter HX [facility] Torsten Robbins M.D. [address] [place], [place] [address] (Wo rk) Social History Tobacco Use Types Packs/Day Years Used Date Smoking Tobacco: Never Assessed Sex Assigned at Date Recorded Not on file documented as of this encounter Plan of Treatment Not on filedocumented as of this encounter Visit Diagnoses Not on filedocumented in this encounter
--- OUTSIDE RECORDS SUMMARY | 2022-03-21 14:31 | XMS_ITS | Encounter Summary ---
:1990 Author Organization [facility] Address [address] [place] [address] Care Team Providers Name Role Phone Unavailable Primary Care Provider Unavailable Encounter Details Date Type Department Care Team Description 10/01/2004 Hospital Encounter HX [facility] Torsten Robbins M.D. [address] [place], [place] [address] (Wo rk) Social History Tobacco Use Types Packs/Day Years Used Date Smoking Tobacco: Never Assessed Sex Assigned at Date Recorded Not on file documented as of this encounter Plan of Treatment Not on filedocumented as of this encounter Visit Diagnoses Not on filedocumented in this encounter
--- OUTSIDE RECORDS SUMMARY | 2022-03-21 14:31 | XMS_ITS | Encounter Summary ---
:1990 Author Organization [facility] Address [address] [place] [address] Care Team Providers Name Role Phone Unavailable Primary Care Provider Unavailable Encounter Details Date Type Department Care Team Description 12/02/2004 Hospital Encounter HX [facility] Tosrten Robbins M.D. [address] [place], [place] [address] (Wo rk) Social History Tobacco Use Types Packs/Day Years Used Date Smoking Tobacco: Never Assessed Sex Assigned at Date Recorded Not on file documented as of this encounter Plan of Treatment Not on filedocumented as of this encounter Visit Diagnoses Not on filedocumented in this encounter
--- OUTSIDE RECORDS SUMMARY | 2022-03-21 14:31 | XMS_ITS | Encounter Summary ---
:1990 Author Hub Email Address Preferred Language ENG Marital Status Mandaen Affiliation Unknown Race Unknown Ethnic Group or Author Organization [facility] Address [address] [place] [address] Care Team Providers Name Role Phone Unavailable Primary Care Provider Unavailable Encounter Details Date Type Department Care Team Description 08/31/[address] [facility] ED Memo Schulte, R.N. [address] [place] [address] (Wo rk) Social History Tobacco Use Types Packs/Day Years Used Date Smoking Tobacco: Never Assessed Sex Assigned at Date Recorded Not on file documented as of this encounter Plan of Treatment Not on filedocumented as of this encounter Visit Diagnoses Not on filedocumented in this encounter
[2022-03-21 16:25] LABS: Hepatitis B Surface Antigen* Negative (Negative)
[2022-03-21 16:26] LABS: TSH With Reflex to FT4* 0.359 uIU/mL (0.270-4.200)
[2022-03-21 16:43] LABS: Hepatitis C Virus Antibody* Negative (Negative)
[2022-03-21 16:52] LABS: HIV 1/2/P24 Combo Screen* Negative (Negative)
[2022-03-21 17:08] LABS: Chlamydia DNA Amplified* NOT DETECTED (No Detected); GC DNA Amplified* NOT DETECTED (No Detected)
[2022-03-23 12:41] LABS: Rubella Antibody IgG 9.3 IU/mL
[2022-03-23 23:48] LABS: Rapid Plasma Reagin (RPR) Non Reactive (Non Reactive)
== END 2022-03-21 13:58 | disposition home or self-care (01) ==
PROVIDERS: Visit Provider Advanced Practice Midwife
DX: Z34.91 Encounter for supervision of normal pregnancy, unspecified, first trimester (principal); Z13.29 Encounter for screening for other suspected endocrine disorder; Z3A.09 9 weeks gestation of pregnancy
CPT/HCPCS: 76817; 84443; 86592; 86703; 86762; 86787; 86803; 86850; 86900; 86901; 87340; 87491; 87591

== ENCOUNTER 2022-04-11 13:57 | Outpatient (CLI) | payer MEDICAID, SELFPAY ==
--- OUTSIDE RECORDS SUMMARY | 2022-04-11 14:37 | XMS_ITS | Encounter Summary ---
:1990 Author Organization [facility] Address [address] [place] [address] Care Team Providers Name Role Phone Mayra Guerrero APRN, C.N.P. Primary Care Provider [phone] Encounter Details Date Type Department Care Team Description 07/31/2020 Orders Only [facility] Sa vida Mireles M.D. [address] [place], [place] [phone] (Wo rk) Social History [...] documented as of this encounter Care Teams Wood Piler Relationship Specialty Start Date End Date Mayra Guerrero APRN, C.N.P. PCP - General 10/13/16 12/30/[address] [place] [address] documented as of this encounter
--- OUTSIDE RECORDS SUMMARY | 2022-04-11 14:37 | XMS_ITS | Encounter Summary ---
:1990 Author Organization [facility] [place] [facility] Address [address] [place] [address] Care Team Providers Name Role Phone Mayra Guerrero APRN, C.N.P. Primary Care Provider [phone] Reason for Visit Reason Comments Contraception remove iud Encounter Details Date Type Department Care Team Description 09/06/2017 Office Visit Department of Jacqueline Bryson Counseling Contraceptive Management (Primary Dx); Obstetrics and LAUREN Ortiz, C.N.PSudarshan Screening For Venereal Disease; Gynecology in [address] Preventive Gynecological Examination Lab oratory Test; [place], [place] Removal Of Intrauterine Cont raceptive Device [address] [address] [place], [place] [phone] [address] (Work) [phone] Social History Tobacco Use Types Packs/Day Years [...] with the patient and/or decision maker.: yes [place] protocol: All relevant documentation and testing were [...] I will plan to call her at [phone] with her results and we will treat [...] is agreeable to this plan of care. 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 documented in this encounter Plan of Treatment [...] Time Signature Mckenna species, Negative Negative 09/06/2017 [facility] DNA 11:12 AM CDT [facility] [place] [facility] Gardnerella Negative Negative 09/06/2017 [facility] vaginalis, DNA 11:12 AM CDT [facility] [place] [facility] Trichomonas Negative Negative 09/06/2017 [facility] vaginalis, DNA 11:12 AM CDT [facility] [place] [facility] Specimen Anatomical Collection Method Collection Time Receive d Time (Source) Location / / Volume Laterality Swab (Vagina) 09/06/2017 10:28 09/06/2017 AM CDT 10:28 AM CDT Jacqueline Bryson APRN, C.N.P. LAB MICROBIOLOGY - GENE RAL ORDERABLES Performing Organization Address City/State/ZIP Code Phon e Number [facility] [address] [facility] [place] [address] [facility] [address] [place], [place] [address] [place] [facility] HCV Ab w/Reflex to HCV PCR, Serum (09/06/2017 9:38 AM CDT) P athologist Signature HCV Ab, S Negative Negative 09/07/2017 [facility] 8:12 AM CDT [facility] Comment: Ivusum-yg-mmmbpu ratio is <1.00 . Specimen Anatomical Collection Method Collection Time Receive d Time (Source) Location / / Volume Laterality Blood (Blood, 09/06/2017 9:38 AM 09/08/19 18 7:00 Venous) CDT AM CDT Adan Mansfield APRN.N.P. LAB MICROBIOLOGY - BLOO D ORDERABLES Performing Organization Address City/[facility]/ZIP Code Phon e Number [facility] [address] [place], [place] [address] [facility] Syphilis IgG Antibody with Reflex (09/06/2017 9:38 AM CDT) athologist Signature Syphilis IgG Negative Negative 09/07/2017 [facility] Ab, S 2:37 PM CDT [facility] [place] [facility] Comment: No serologic evidence of exposu re to syphilis. Specimen Anatomical Collection Method Collection Time Receive d Time (Source) Location / / Volume Laterality Blood (Blood, 09/06/2017 9:38 AM 09/08/19 18 1:01 Venous) CDT PM CDT Adan Mansfield APRN.N.P. LAB BLOOD ADD-ON Performing Organization Address City/[facility]/ZIP Code Phon e Number [facility]- [address] [place] [phone] [place] [facility] HSV Types 1 and 2 Ab (09/06/2017 9:38 AM CDT) athologist Signature HSV Type 1 Ab, Positive Negative 09/07/2017 [facility] IgG, S 2:37 PM CDT [facility] [place] [facility] HSV Type 2 Ab, Negative Negative 09/07/2017 [facility] IgG, S 2:37 PM CDT [facility] [place] [facility] HSV Ab Screen, Negative Negative 09/07/2017 [facility] IgM, S by EIA 1:31 PM CDT [facility] Comment: ----ADDITIONAL INFORMATION---- This test has been modified from the man ufacturer's instructions. Its performance characteri stics were determined by [facility] [place] [facility] in a manner co nsistent with CLIA [...] - BLOO D ORDERABLES Performing Organization Address [facility]/ZIP [facility] Phon e Number [facility] [address] [address] [place], [place] [address] [facility]- [address] [place] [address] [place] [facility] HIV-1/-2 Ag and Ab Screen (09/06/2017 9:38 AM CDT) Analysis Performed At Patho logist Time Signature HIV-1/-2 Ag Non-Reacti Non-Reacti 09/07/2017 [facility] and Ab Screen, ve ve 2:37 PM CDT [facility] [place] HIV-1 Ab, S Non-Reacti Non-Reacti 09/07/2017 [facility] ve ve 2:37 PM CDT [facility] HIV-1 Ag, S Non-Reacti Non-Reacti 09/07/2017 [facility] ve ve 2:37 PM CDT [facility] [place] [facility] HIV-2 Ab, S Non-Reacti Non-Reacti 09/07/2017 [facility] ve ve 2:37 PM CDT [facility] [place] [facility] Specimen Anatomical Collection Method Collection Time Receive d Time (Source) Location / / Volume Laterality Blood (Blood, 09/06/2017 9:38 AM 09/08/19 18 1:02 Venous) CDT PM CDT Jacqueline Bryson APRN, Adan.N.P. LAB MICROBIOLOGY - BLOO D ORDERABLES Performing Organization Address [facility] Code Phon e Number [facility]- [address] [place] [phone] [place] [facility] Glucose, Fasting (09/06/2017 9:38 AM CDT) P athologist Signature Glucose, 84 70 - 99 09/06/2017 [facility] Fasting, S mg/dL 11:23 AM CDT [facility] Specimen Anatomical Collection Method Collection Time Receive d Time (Source) Location / / Volume Laterality Blood (Blood, 09/06/2017 9:38 AM 09/07/19 18 Venous) CDT 10:49 AM CDT Jacqueline Bryson APRN, C.N.P. LAB BLOOD NON ADD-ON Performing Organization Address City/State/ZIP Code Phon e Number [facility] [address] [place] [place] [address] LAB CBC without Differential (09/06/2017 9:38 AM CDT) P athologist Signature Hemoglobin 14.0 11.6 - 09/06/2017 [facility] 15.0 g/dL 10:06 AM T [facility] Hematocrit 39.9 35.5 - 09/06/2017 [facility] 44.9 % 10:06 AM T [facility] Erythrocytes 4.24 3.92 - 09/06/2017 [facility] 5.13 10:06 AM T [facility] x10(12)/L [facility] LAB MCV 94.1 78.2 - 09/06/2017 [facility] 97.9 fL 10:06 AM T [facility] LAB RBC Distrib Width 12.5 12.2 - 09/06/2017 [facility] 16.1 % 10:06 AM [facility] LAB Platelet Count 184 157 - 371 09/06/2017 [facility] x10(9)/L 10:06 AM T [facility] LAB Leukocytes 6.6 3.4 - 9.6 09/06/2017 [facility] x10(9)/L 10:06 AM [facility] LAB Specimen Anatomical Collection Method Collection Time Receive d Time (Source) Location / / Volume Laterality Blood (Blood, 09/06/2017 9:38 AM 09/07/19 18 9:59 Venous) CDT AM CDT Jacqueline Bryson APRN, C.N.P. LAB BLOOD ADD-ON Performing Organization Address City/State/ZIP Code Phon e Number [facility]- [address] [facility] [place] [address] [place] [facility] [address] [place] [address] [place], [place] [address] S-TSH (Thyroid-Stimulating Hormone - Sensitive) (09/06/2017 9:38 AM CDT) athologist Signature TSH, Sensitive 1.3 0.3 - 4.2 09/06/2017 [facility] mIU/L 11:23 AM CDT [facility] [employer] [facility] Comment: Biotin has been identified by the devyn [place] as a potential interfering substance. ??Higher concentr ations of biotin may be found in multivitamins, hair/nail supple ments, and workout supplements. ??If the result does not ma [facility] clinical observations, repeat testing after patient refrains fr om the use of supplements for at least 12 hours. Specimen Anatomical Collection Method Collection Time Receive d Time (Source) Location / / Volume Laterality Blood (Blood, 09/06/2017 9:38 AM 09/07/19 18 Venous) CDT 10:49 AM CDT Jacqueline Bryson APRN C.NSudarshanP. LAB BLOOD ADD-ON Performing Organization Address City/State/ZIP Code Phon e Number [facility] [address] [place] [address] LAB Lipid Panel (09/06/2017 9:38 AM CDT) athologist Signature Cholesterol, 156 mg/dL 09/06/2017 [facility] Total 11:23 AM CDT [facility] [employer] [facility] Comment: ----REFERENCE VALUE---- Desirable: < 200 Borderline high: 200 - 239 High: > or = 240 Triglycerides 60 mg/dL 09/06/2017 11:23 AM CDT [facility] Comment: ----REFERENCE VALUE---- Normal: <150 Borderline high: 150-199 High: 200-499 Very high: > or =500 Cholesterol, HDL, S 78 >=50 mg/dL 09/06/2017 11:23 AM CDT [facility] [employer] [facility] Calculated LDL 66 mg/dL 09/06/2017 11:23 AM CDT [facility] [employer] [facility] [facility] Comment: ----REFERENCE VALUE---- Desirable: <100 Above Desirable: 100-129 Borderline high: 130-159 High: 160-189 Very high: > or =190 Cholesterol, Non-HDL, 78 mg/dL 09/06/2017 11:23 A M CDT [facility] Comment: ----REFERENCE VALUE---- Desirable: <130 Above Desirable: 130-159 Borderline high: 160-189 High: 190-219 Very high: > or =220 Specimen Anatomical Collection Method Collection Time Receive d Time (Source) Location / / Volume Laterality Blood (Blood, 09/06/2017 9:38 AM 09/07/19 18 Venous) CDT 10:49 AM CDT Jacqueline Bryson APRN, C.N.P. LAB BLOOD ADD-ON Performing Organization Address City/[facility]/ZIP Code Phon e Number [facility] [address] [place] [address] LAB Chlamydia / gonorrhoeae Amplified RNA (09/06/2017 9:04 AM CDT) [facility] Method Time Signature Source VAGINA 09/07/2017 [facility] 10:[address] [facility] LAB Chlamydia Negative Negative 09/07/2017 [facility] trachomatis 10:58 AM CDT [facility] [employer] RNA [facility] Comment: ----ADDITIONAL INFORMATION---- This report is intended for use in clini berenice monitoring and management of patients. It is not in tended for use in medical-legal applications. Source VAGINA 09/07/2017 10:58 AM [facility] CDT [facility] Neisseria gonorrhoeae Negative Negative 09/07/2017 10:58 A M [facility] amplified RNA CDT [facility] Comment: ----ADDITIONAL INFORMATION---- This report [...] - GENE RAL ORDERABLES Performing Organization Address City/[facility]/ZIP Code Phon e Number [facility] [address] [place] [address] LAB Intrauterine device (IUD) - removal (09/06/2017 [...] the patient and/or decision maker.: yes ?? [place] protocol: ??All relevant documentation and testin g [...] I will plan to call her at [phone] with her results and we will treat [...] documented as of this encounter Care Teams Tooth Cutter Clutch Relationship Specialty Start Date End Date Mayra Guerrero, LAUREN, C.N.P. PCP - General 10/13/16 12/30/20 [address], [place] [address] documented as of this encounter
--- OUTSIDE RECORDS SUMMARY | 2022-04-11 14:37 | XMS_ITS | Encounter Summary ---
:1990 Author Organization [facility] Address [address] [place] [address] Care Team Providers Name Role Phone Simone Glover APRN, C.N.P. Primary Care Provider Unavailable Encounter Details Date Type Department Care Team Description 03/29/2021 Orders Only [facility] MNT Simone Glover, LAUREN , C.N.P. Social History Tobacco Use Types [...] documented as of this encounter Care Teams Academic Hospitalist Relationship Specialty Start Date End Date Simone Glover APRN, C.N.P. PCP - General Family Medicine 12/31/20 12/15/21 documented as of this encounter
--- OUTSIDE RECORDS SUMMARY | 2022-04-11 14:37 | XMS_ITS | Encounter Summary ---
:1990 Author Organization [facility] Address [address] [place] [address] Care Team Providers Name Role Phone Mayra Guerrero APRN, C.N.P. Primary Care Provider [phone] Encounter Details Date Type Department Care Team Description 06/28/2018 Abstract [facility] Johnson ea Provider, Historical [address] [place] [address] Social History Tobacco Use [...] e Number EXTERNAL NON-INTERFACED LAB [address] [place], [place] [address] (ABNORMAL) CBC with Differential, [...] External LAB BLOOD ADD-ON Performing Organization Address [facility] Phon e Number EXTERNAL NON-INTERFACED LAB [address] [place], [place] [address] POCT INR (06/14/2018) P athologist Signature INR 1.1 0.90 - 1.10 EXTERNAL NON-INTERFACED LAB Specimen (Source) Anatomical Location Collection Method / Collectio n Time Received Time / Laterality Volume Blood (Blood, Venous) Referring Provider External LAB POCT ORDERABLES-MANUAL Performing Organization Address [facility] Phon e Number EXTERNAL NON-INTERFACED LAB [address] [place], [place] [address] documented in this encounter Visit Diagnoses Not on filedocumented in this encounter Additional Health Concerns Assessment Noted Time PHQ-9 Depression Total Score: 9 03/03/2016 11:54 AM CD T documented as of this encounter Care Teams Bi Consultant Relationship Specialty Start Date End Date Mayra Guerrero, LAUREN, C.N.P. PCP - General 10/13/16 12/30/[address] [address] documented as of this encounter
--- OUTSIDE RECORDS SUMMARY | 2022-04-11 14:37 | XMS_ITS | Encounter Summary ---
:1990 Author Organization [facility] Address [address] [place] [address] Care Team Providers Name Role Phone Mayra Guerrero APRN, C.N.P. Primary Care Provider [phone] Encounter Details Date Type Department Care Team Description 09/25/2019 Clinical Communication Department of [facility] Jami Guerrero, Medicine, [place] LAUREN, C.N.P. [facility], in [place], [address] [place], [place] [address] [address] [place], [place] [phone] [address] (Work) [phone] Social History Tobacco Use Types Packs/Day Years Used Date Smoking Tobacco: Former Cigarettes Quit : 2015 Smokeless Tobacco: Never Alcohol Use Standard Drinks/Week Comments No 0 (1 standard drink = 0.6 oz pure alcoho l) Sex Assigned at Date Recorded Not on file documented as of this encounter Miscellaneous Notes Telephone Encounter - Ana Luisa Mcnulty LSudarshanP.N. - 09/26/2019 2:42 PM CDT SUBJECTIVE CHIEF COMPLAINT / REASON FOR CALL No chief complaint on file. Information Discussed Called and informed patient that we are not able to email results to her. Informed her that she can either pick them up or I can mail them to her. Patient stated that she will pick them up. Results printed and placed at the net front end developer. 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 Unable to reach nursing. Patient is having issues getting onto the online patient portal, stating this is why she has requested her results please be sent toher email. Per patient request, please send results to email listed on file for patient: and please contact patient at [phone] regarding this if necessary. Patient stating a detailed message may be left at this number Telephone Encounter - Johana Ku - 09/25/2019 4:09 PM CDT Patient would like a copy of her Covid test results emailed to her personal email. She would like that done as soon as possible so she can return to work. documented in this encounter Plan of Treatment Not on filedocumented as of this encounter Visit Diagnoses Not on filedocumented in this encounter Additional Health Concerns Assessment Noted Time PHQ-9 Depression Total Score: 9 03/03/2016 11:54 AM CD T documented as of this encounter Care Teams Flat Knitter Helper Relationship Specialty Start Date End Date Mayra Guerrero, LAUREN, C.N.P. PCP - General 10/13/16 12/30/[address] [address] documented as of this encounter
--- OUTSIDE RECORDS SUMMARY | 2022-04-11 14:37 | XMS_ITS | Encounter Summary ---
:[address] [facility] Address [address] [place] [address] Care Team Providers Name Role Phone Mayra Guerrero APRN, C.N.P. Primary Care Provider [phone] Reason for Visit Reason Onset Date Comments Outpatient COVID-19 Testing 09/23/2019 Encounter Details Date Type Department Care Team Description 09/23/2019 External Outreach Department of Mayco Lea Infect ion Upper Internal Medicine in J, D.O. Respiratory (Primary [place], [place] [address] Dx) [address] [place] [phone] Social History Tobacco Use [...] Coronavirus-2, PCR Symptomatic (09/23/2019 5:05 PM CDT) [facility] Method Time Signature SARS Swab, 09/24/2019 [...] and its performa nce characteristics determined by [facility] in a manner co nsistent with CLIA requirements. Independent review by the U.S. Food and Drug Administration is pending. Visit the CDC website: https://www.cdc.gov/coronavirus/ ?? for the most recent guidelines on Anders virus testing. Fact Sheet for Healthcare Providers: (https://www.[employer]/it-mmfil es/ Provider_Fact_Sheet_for_[facility]_COVI D-19.pdf) Fact Sheet for Patients: (https://www.[employer]/it-mmfil es/ Patient_Fact_Sheet_for_COVID-19.pdf) Specimen Anatomical Collection Method Collection Time Receive d Time (Source) Location / / Volume Laterality Varies 09/23/2019 5:05 PM 0 (Nasopharynx) CDT 11:52 AM CDT Mayco Lea D.O. LAB MICROBIOLOGY - GENERAL O RDERABLES Performing Organization Address City/State/ZIP Code Phon e Number [facility] - [address] [place], [place] [address] [facility] [place] [address] Laboratories-[facility] [address] documented in this encounter Visit Diagnoses Diagnosis Infection Upper Respiratory - Primary documented in this encounter Additional Health Concerns Infection Onset Date Last Indicated Resolved Time COVID19 Pending 09/23/2019 09/23/2019 09/24/2019 8:04 PM CDT Assessment Noted Time PHQ-9 Depression Total Score: 9 03/03/2016 11:54 AM CD T documented as of this encounter Care Teams Motor And Generator Brush Cutter Relationship Specialty Start Date End Date Mayra Guerrero, LAUREN, C.N.P. PCP - General 10/13/16 12/30/20 [address] [address] documented as of this encounter
--- OUTSIDE RECORDS SUMMARY | 2022-04-11 14:37 | XMS_ITS | Encounter Summary ---
:1990 Author Organization [facility] Address [address] [place] [address] Care Team Providers Name Role Phone Funmi [...] Expiration Date Visits Requ ested Visits Authorized [id number] Closed 12/27/2021 12/27/2022 1 1 Encounter Details Date Type Department Care Team Description 12/27/2021 Office Visit Department of [facility] Brijesh Paris Ra Leg (Primary Dx) Medicine, [place] Nicolette Carias, P .A. [facility], in [facility] [address] [place], [place] [phone] [place], [place] [phone] (Work) [phone] Social History Tobacco Use Types Packs/Day Years [...] ago the patient was outside and a democrat in a grassy and muddy area and [...] documented as of this encounter Care Teams Tow Motor Operator Relationship Specialty Start Date End Date Funmi Alvarez APRN, C.N.P. PCP - General 12/16/21 documented as of this encounter
--- OUTSIDE RECORDS SUMMARY | 2022-04-11 14:37 | XMS_ITS | Clinical Summary ---
:1990 Author Organization [facility] Address [address] [place] [address] Care Team Providers Name Role Phone Funmi Alvarez APRN, C.N.P. Primary Care Provider Unavailable Source Comments Patient records contain information from all sites at [facility]. For routine questions regarding patient records, call [phone] during business hours, M-F 8:00 AM - 5:00 PM Central Time. Record requests for emergency care only can be directed to [phone] at any time.[facility] Allergies No known active allergies Medications Medication Sig Dispensed Refills Start Date End Date Status Take 1 tablet by 0 Act katherine [id number] 27 mouth daily. mg iron- 1 mg [...] melanosis Photodamage 09/26/2014 Abuse Tobacco Smoking 06/24/2013 Immunizations Name Administration Dates Next Due 4vHPV (discontinued) 08/14/2008, 01/07/2007, 08/28/2006 DTaP (Infanrix, [employer]) 07/30/1993, 12/30/1992, 11/30/1991 , 11/28/1990 HepB, Unspecified 10/19/2000, 12/29/1998, 06/02/1998 Influenza TIV (IM) 01/31/2012, 02/12/2009, 03/06/2006 Influenza, Seasonal, Injectable 01/31/2012, 02/12/2009, 11/09/2005 Influenza, Unspecified 03/03/2016, 06/24/2013 MMR 11/30/1991, 11/28/1990 [...] CDT Respiratory Rate 16 06/19/2018 12:49 PM SECURITY PROJECT MANAGER Oxygen Saturation 98% 04/14/2017 11:32 AM SECURITY PROJECT MANAGER Inhaled Oxygen Concentration - - Weight 78.2 kg (172 lb 6.4 oz) 06/19/2018 12:49 PM SECURITY PROJECT MANAGER Height 156 cm (5' 1.42) 06/19/2018 12:49 PM SECURITY PROJECT MANAGER Body Mass Index 32.13 06/19/2018 12:49 PM SECURITY PROJECT MANAGER Plan of Treatment Health Maintenance Due [...] this topic Medical Devices Implanted Type Area Mine Equipment Design Engineer Device Shelf Model / Identifier Expiration Serial / Date Lot Gynecologic Other-07/28/2016 Gynecologic Uterus Implanted: 07/28/2016 (Quantity not on file) Other Description: mirena 52 mg Insurance Payer Benefit Plan Subscriber ID Effective Dates Phone Address Type / Group [facility] C[facility] [id number] 2019-Prese [phone] [id number] Medicaid HMO nt 5 [place] [address] [place] [phone] [employer] Green Party Self 1990 [address] [place] [employer] (Home) [place] [phone] Care Teams Senior Government Program Analyst Relationship Specialty Start Date End Date Funmi Alvarez APRN, C.N.P. PCP - General 12/16/21
--- OUTSIDE RECORDS SUMMARY | 2022-04-11 14:37 | XMS_ITS | Encounter Summary ---
:1990 Author Organization [facility] Address [address] [place] [address] Care Team Providers Name Role Phone Mayra Guerrero APRN, C.N.P. Primary Care Provider [phone] Reason for Visit Reason Comments Results COVID-19 Negative Encounter Details Date Type Department Care Team Description 09/25/2019 Clinical Communication Department of Mayra Guerrero Res (COVID-19 Family MedicineDiana APRN, Negative) [facility], C.N.P. in [facility] [address] [phone] Social History Tobacco Use Types Packs/Day [...] documented as of this encounter Care Teams Steel Pourer Relationship Specialty Start Date End Date Mayra Guerrero, BOX PACKER, C.N.P. PCP - General 10/13/16 12/30/20 [address], [place] [address] documented as of this encounter
--- OUTSIDE RECORDS SUMMARY | 2022-04-11 14:37 | XMS_ITS | Encounter Summary ---
:1990 Author Organization [facility] Address [address] [place] [address] Care Team Providers Name Role Phone Mayra Guerrero APRN, C.N.P. Primary Care Provider [phone] Encounter Details Date Type Department Care Team Description 03/29/2017 Abstract Department of Family Medicine in [address] [place], [place] [phone] Social History Tobacco Use [...] documented as of this encounter Care Teams Metal Weather Stripper Relationship Specialty Start Date End Date Mayra Guerrero APRN, C.N.P. PCP - General 10/13/16 12/30/20 [address] [place] [phone] documented as of this encounter
--- OUTSIDE RECORDS SUMMARY | 2022-04-11 14:37 | XMS_ITS | Encounter Summary ---
:1990 Author Organization [facility] Address [address] [place] [address] Care Team Providers Name Role Phone Mayra Guerrero APRN, C.N.P. Primary Care Provider [phone] Encounter Details Date Type Department Care Team Description 11/17/2020 Orders Only [facility] PCP [facility] MNT Mayra Guerrero, Maci RIGGINS, C.N.P. [address] [place] [phone] (Wo rk) Social History Tobacco [...] documented as of this encounter Care Teams Vice Provost Relationship Specialty Start Date End Date Mayra Guerrero APRN, C.N.P. PCP - General 10/13/16 12/30/20 [address] [place] [phone] documented as of this encounter
--- OUTSIDE RECORDS SUMMARY | 2022-04-11 14:37 | XMS_ITS | Encounter Summary ---
:1990 Author Organization [facility] Address [address] [place] [address] Care Team Providers Name Role Phone Mayra Guerrero APRN, C.N.P. Primary Care Provider [phone] Reason for Visit Reason Comments Cough cough, runny nose, run down and exposure x 5 days Encounter Details Date Type Department Care Team Description 04/14/2017 Office Visit Urgent Care in [facility] Dennison P.A.-C. [address] [phone] Infection Upper Respiratory Viral (Prima ry Dx); [place], [place] Margie Dolan P.A.-CSudarshan [address] [place] [phone] Frequency Urinary [address] [phone] Social History Tobacco Use Types Packs/Day Years Used Date Smoking Tobacco: Former Smokeless Tobacco: Never Alcohol Use Standard Drinks/Week Comments No 0 (1 standard drink = 0.6 oz pure alcoho l) Sex Assigned at Date Recorded Not on file documented as of this encounter Last Filed Vital Signs Vital Sign Reading Time Taken Comments Blood Pressure 117/64 04/14/2017 11:32 AM GLOBAL CLIMATE CHANGE RESEARCHER Pulse 75 04/14/2017 11:32 AM GLOBAL CLIMATE CHANGE RESEARCHER Temperature 36.8 ??C (98.2 ??F) 04/14/2017 11:32 AM GLOBAL CLIMATE CHANGE RESEARCHER Respiratory Rate 16 04/14/2017 11:32 AM GLOBAL CLIMATE CHANGE RESEARCHER Oxygen Saturation 98% 04/14/2017 11:32 AM GLOBAL CLIMATE CHANGE RESEARCHER Inhaled Oxygen Concentration - - Weight - - Height - - Body Mass Index - - documented in this encounter Progress Notes Margie Brysno P.A.-C. - 04/14/2017 11:00 AM CST CHIEF COMPLAINT/REASON FOR VISIT Sore throat HISTORY OF PRESENT ILLNESS Allison Sosa is a 26 y.o. presents with sore throat and cough that is been present for 5 days. She also endorses sneezing with this. She denies any ear pain. She states she has a runny nose anddescribes is clear. She denies any fevers. She denies any lsxk-zrb-cqhvugg treatments. She did statethat she has some [...] she follow up with her primary doctor. AL CLIMATE CHANGE RESEARCHER documented in this encounter Plan of Treatment Not on filedocumented as of this encounter Procedures Procedure Name Priority Date/Time Associated Comments Diagnosis URINALYSIS WITH STAT 04/14/2017 12:11 Frequency Urinary Res ults for this MICROSCOPIC IF PM GLOBAL CLIMATE CHANGE RESEARCHER procedure are in INDICATED, U the results section. MICROSCOPIC AUTOMATED STAT 04/14/2017 12:11 Re sults for this PM GLOBAL CLIMATE CHANGE RESEARCHER procedure are i n the results section. documented in this encounter Results Microscopic Automated (04/14/2017 12:11 PM GLOBAL CLIMATE CHANGE RESEARCHER) Analysis Performed At Patho logist Time Signature White Blood None Seen /hpf 04/14/2017 [facility] Cells 12:30 PM [facility] Comment: ----REFERENCE VALUE---- Males: 0-3 Females: 0-10 Unknown: 0-10 Red Blood Cells Occ-2 0 - 2 /hpf 04/14/2017 12:30 PM GLOBAL CLIMATE CHANGE RESEARCHER [facility] Squamous Cells Occ-3 /hpf 04/14/2017 12:30 PM GLOBAL CLIMATE CHANGE RESEARCHER [facility] Specimen Anatomical Collection Method Collection Time Receive d Time (Source) Location / / Volume Laterality Urine 04/14/2017 12:11 04/14/2017 PM GLOBAL CLIMATE CHANGE RESEARCHER 12:20 PM GLOBAL CLIMATE CHANGE RESEARCHER Margie Dolan P.A.-C. LAB URINE ORDERABLES Performing Organization Address City/State/ZIP Code Phon e Number [facility] [address] [place] [id number] LAB (ABNORMAL) Urinalysis with Microscopic if Indicated (04/14/2017 12:11 PM GLOBAL CLIMATE CHANGE RESEARCHER) P athologist Signature Source Midstream 04/14/2017 [facility] 12:30 PM [facility] Clarity Cloudy (A) Clear 04/14/2017 [facility] 12:30 PM [facility] Color Yellow 04/14/2017 [facility] 12:30 PM [facility] Comment: ----REFERENCE VALUE---- Colorless Yellow Christina Blood Negative Negative 04/14/2017 12:30 PM [facility] Nitrite Negative Negative 04/14/2017 12:30 PM [facility] Leukocyte Esterase Negative Negative 04/14/2017 12:30 PM [facility] Protein, U Negative mg/dL 04/14/2017 12:30 PM GLOBAL CLIMATE CHANGE RESEARCHER [facility] Comment: ----REFERENCE VALUE---- Negative Trace Glucose Negative Negative mg/dL 04/14/2017 12:30 PM [facility] Ketone Negative Negative mg/dL 04/14/2017 12:[address] [facility] LAB Bilirubin Negative Negative 04/14/2017 12:30 PM [facility] LAB pH 6.5 5.0 - 8.0 04/14/2017 12:30 PM [facility] LAB Specific Warden 1.022 1.001 - 1.035 04/14/2017 12:[address] [facility] LAB Urobilinogen 1.0 0.2 - 1.0 04/14/2017 12:30 PM [facility] Specimen Anatomical Collection Method Collection Time Receive d Time (Source) Location / / Volume Laterality Urine (Urine, 04/14/2017 12:11 04/14/2017 Clean Catch) PM GLOBAL CLIMATE CHANGE RESEARCHER 12:20 PM GLOBAL CLIMATE CHANGE RESEARCHER Margie Dolan P.A.-C. LAB URINE ORDERABLES Performing Organization Address City/State/ZIP Code Phon e Number [facility] [address] [place] [id number] LAB documented in this encounter Visit Diagnoses Diagnosis Infection Upper Respiratory Viral - Prim angie Frequency Urinary documented in this encounter Additional Health Concerns Assessment Noted Time PHQ-9 Depression Total Score: 9 03/03/2016 11:54 AM CD T documented as of this encounter Care Teams Bander Relationship Specialty Start Date End Date Mayra Guerrero, LAUREN, C.N.P. PCP - General 10/13/16 12/30/[address] [phone] documented as of this encounter
--- OUTSIDE RECORDS SUMMARY | 2022-04-11 14:37 | XMS_ITS | Encounter Summary ---
:1990 Author Organization [facility] Address [address] [place] [address] Care Team Providers Name Role Phone Simone Glover APRN, C.N.P. Primary Care Provider Unavailable Encounter Details Date Type Department Care Team Description 08/03/2021 Orders Only [facility] PCP [facility] MNT Simone Glover, LAUREN , C.N.P. Social [...] documented as of this encounter Care Teams Caul Puller Relationship Specialty Start Date End Date Simone Glover APRN, C.N.P. PCP - General Family Medicine 12/31/20 12/15/21 documented as of this encounter
--- OUTSIDE RECORDS SUMMARY | 2022-04-11 14:37 | XMS_ITS | Encounter Summary ---
:1990 Author Organization [facility] Address [address] [place] [address] Care Team Providers Name Role Phone Mayra Guerrero APRN, C.N.P. Primary Care Provider [phone] Encounter Details Date Type Department Care Team Description 03/29/2017 Nurse Triage Department of Bre Torres R.N. Medicine, [facility], in [address] [place] [phone] [place] [address] Social History Tobacco Use Types Packs/Day Years [...] documented as of this encounter Care Teams Rn Intern Relationship Specialty Start Date End Date Mayra Guerrero APRN, C.N.P. PCP - General 10/13/16 12/30/20 [address] [place] [address] documented as of this encounter
--- OUTSIDE RECORDS SUMMARY | 2022-04-11 14:37 | XMS_ITS | Encounter Summary ---
:1990 Author Organization [facility] Address [address] [place] [address] Care Team Providers Name Role Phone Mayra Guerrero APRN, C.N.P. Primary Care Provider [phone] Reason for Visit Reason Comments Urinary Tract Infection past 2 weeks, urinary freque ncy/urgency/burning while urinating Appointment Request (Routine) - Closed Specialty Diagnoses / Procedures Referred By Contact Refer red To Contact Family Medicine Referral ID Status Reason Start Date Expiration Date Visits Requ ested Visits Authorized [id number] Closed 03/29/2017 09/25/2017 1 1 Encounter Details Date Type Department Care Team Description 03/30/2017 Office Visit Department of Family Severiano Schmitt Dysuri a (Primary Dx); MedicineBo M.D. Infection Urinary Tract Acute Clinic, in [address] [address] [place], [place] [phone] [address] (Work) [phone] Social History Tobacco Use Types Packs/Day Years Used Date Smoking Tobacco: Former Smokeless Tobacco: Never Alcohol Use Standard Drinks/Week Comments No 0 (1 standard drink = 0.6 oz pure alcoho l) Sex Assigned at Date Recorded Not on file documented as of this encounter Last Filed Vital Signs Vital Sign Reading Time Taken Comments Blood Pressure 114/70 03/30/2017 2:38 PM TRUCK BODY BUILDER Pulse 72 03/30/2017 2:38 PM TRUCK BODY BUILDER Temperature 36.8 ??C (98.2 ??F) 03/30/2017 2:38 PM TRUCK BODY BUILDER Respiratory Rate - - Oxygen Saturation - - Inhaled Oxygen Concentration - - Weight 62.5 kg (137 lb 12.6 oz) 03/30/2017 2:38 PM TRUCK BODY BUILDER Height - - Body Mass Index 25.36 [...] - Chlamydia / gonorrhoeae Amplified RNA Vagina K BODY BUILDER documented in this encounter Progress Notes Severiano Schmitt M.D. - 03/30/2017 2:30 PM CST DEPARTMENT OF FAMILY MEDICINE IN [place], [place] Chief Complaint Chief Complaint Patient presents [...] Ketone Negative Bilirubin Negative pH 7.5 Specific Mountain, U 1.020 Urobilinogen, Urine 0.2 Microscopic Manual [...] with the final plan. Severiano Schmitt M.D. K BODY BUILDER Severiano Schmitt M.D. - 03/30/2017 2:30 PM CST I called the patient and discussed with her regarding her urine culture which grew E.coli >100, 000. Will treat with 5 days of Bactrim DS given her symptoms has been going on for a while. Encouragedto get a probiotic to prevent side- effects. I have sent a prescription to her pharmacy for her to waste picker the medication today. Severiano Schmitt MD K BODY BUILDER documented in this encounter Miscellaneous Notes Addendum Note - Severiano Schmitt M.D. - 03/30/2017 2:30 PM TRUCK BODY BUILDER Addended by: SEVERIANO SCHMITT on: 03/31/2017 06:27 PM Modules accepted: Orders K BODY BUILDER documented in this encounter Plan of Treatment Not on filedocumented as of this encounter Procedures Procedure Name Priority Date/Time Associated Comments Diagnosis VAGINITIS PANEL Routine 03/30/2017 3:04 PM Dysuria Result s for this TRUCK BODY BUILDER procedure are i n the results section. CHLAMYDIA/GONORRHOEAE Routine 03/30/2017 3:04 PM Dysuria Results for this AMPLIFIED RNA TRUCK BODY BUILDER procedure are in the results section. URINALYSIS WITH Routine 03/30/2017 2:51 PM Dysuria Result s for this MICROSCOPIC IF TRUCK BODY BUILDER procedure are in INDICATED, U the results section. MICROSCOPIC MANUAL Routine 03/30/2017 2:51 PM Res ults for this TRUCK BODY BUILDER procedure are i n the results section. BACTERIAL CULTURE, Routine 03/30/2017 2:51 PM Dysuria Res ults for this AEROBIC + SUSC, URINE TRUCK BODY BUILDER proced ure are in the results section. documented in this encounter Results Chlamydia / gonorrhoeae Amplified RNA Vagina (03/30/2017 3:04 PM TRUCK BODY BUILDER) [facility] Method Time Signature Source Vaginal 04/03/2017 [facility] 7:57 PM TRUCK BODY BUILDER [facility] - [place] Chlamydia Negative Negative 04/03/2017 [facility] trachomatis 7:57 PM TRUCK BODY BUILDER LABORATORIES - amplified RNA [place] Comment: ----ADDITIONAL INFORMATION---- This report is intended for use in clini berenice monitoring and management of patients. It is not in tended for use in medical-legal applications. Source Vaginal 04/03/2017 7:57 PM [facility] TRUCK BODY BUILDER [facility] - [facility] Neisseria gonorrhoeae Negative Negative 04/03/2017 7:57 PM [facility] amplified RNA TRUCK BODY BUILDER [facility] - [facility] Comment: ----ADDITIONAL INFORMATION---- This report is intended for use in clini berenice monitoring and management of patients. It is not in tended for use in medical-legal applications. Specimen Anatomical Collection Method Collection Time Receive d Time (Source) Location / / Volume Laterality Varies (Vagina) 03/30/2017 3:04 PM 2016 TRUCK BODY BUILDER 11:20 PM TRUCK BODY BUILDER Severiano Schmitt M.D. LAB MICROBIOLOGY - GENERAL O RDERABLES Performing Organization Address City/State/ZIP Code Phon e Number [facility] LABORATORIES - [address] [place], [place] [address] [place] Vaginitis Panel Vagina (03/30/2017 3:04 PM TRUCK BODY BUILDER) Patholo gist Method Time Signature Mckenna species, Negative Negative 03/30/2017 [facility] DNA 4:26 PM TRUCK BODY BUILDER [facility] [place] [facility] Gardnerella Negative Negative 03/30/2017 [facility] vaginalis, DNA 4:[address] [facility] Trichomonas Negative Negative 03/30/2017 [facility] vaginalis, DNA 4:26 PM [facility] Specimen Anatomical Collection Method Collection Time Receive d Time (Source) Location / / Volume Laterality Swab (Vagina) 03/30/2017 3:04 PM 03/30/20 17 3:36 TRUCK BODY BUILDER PM TRUCK BODY BUILDER Severiano Schmitt M.D. LAB MICROBIOLOGY - GENERAL O RDERABLES Performing Organization Address City/[facility]/ZIP Code Phon e Number [facility]- [address] [place] [address] [place]- [address] [place], [place] [address] [place] [facility] (ABNORMAL) Microscopic Manual (03/30/2017 2:51 PM TRUCK BODY BUILDER) P athologist Signature White Blood 4-10 /hpf 03/30/2017 [facility] Cells 3:43 PM TRUCK BODY BUILDER [facility] [place] [facility] Comment: ----REFERENCE VALUE---- Males: 0-3 Females: 0-10 Unknown: 0-10 Red Blood Cells Occ-2 0 - 2 /hpf 03/30/2017 3:43 PM [facility] [place] [facility] Crystals Amorphous (A) None Seen /lpf 03/30/2017 3:43 PM [facility] [place] [facility] Specimen Anatomical Collection Method Collection Time Receive d Time (Source) Location / / Volume Laterality Urine 03/30/2017 2:51 PM 7 2:57 TRUCK BODY BUILDER PM TRUCK BODY BUILDER Severiano Schmitt M.D. LAB URINE ORDERABLES Performing Organization Address City/State/ZIP Code Phon e Number [facility]- [address] [facility] [place] [address] [place] [facility]- [address] [place], [place] [address], [facility] [place] [facility] (ABNORMAL) Bacterial Culture, Aerobic + Susc, Urine Urine, Midstream (03/30/2017 2:51 PM TRUCK BODY BUILDER) [facility] gist Method Time Signature Bacterial ESCHERICHIA COLI 04/01/2017 [facility] Culture, >100,000 cfu/mL 8:41 AM TRUCK BODY BUILDER HEALTH Aerobic, (A) SYSTEM- Urine [place] [facility] Specimen Anatomical Collection Method Collection Time Receive d Time (Source) Location / / Volume Laterality Urine (Urine, 03/30/2017 2:51 PM 03/30/20 17 Midstream) TRUCK BODY BUILDER 11:15 PM TRUCK BODY BUILDER Comment: Specimen Source Site: Urine Organism Antibiotic [...] Organization Address City/State/ZIP Code Phon e Number [facility] [address] [place] [address] LAB (ABNORMAL) Urinalysis with Microscopic if Indicated (03/30/2017 2:51 PM TRUCK BODY BUILDER) athologist Signature Source Midstream 03/30/2017 [facility] 2:[address] [facility] [facility] Clarity Cloudy (A) Clear 03/30/2017 [facility] 2:[address] [facility] [place] [facility] Color Yellow 03/30/2017 [facility] 2:[address] [facility] [facility] Comment: ----REFERENCE VALUE---- Colorless Yellow [place] Blood Trace (A) Negative 03/30/2017 2:57 PM [facility] Nitrite Negative Negative 03/30/2017 2:57 PM [facility] Leukocyte Esterase Moderate (A) Negative 03/30/2017 2:57 PM [facility] Protein, U Negative mg/dL 03/30/2017 2:57 PM [facility] Comment: ----REFERENCE VALUE---- Negative Trace Glucose Negative Negative mg/dL 03/30/2017 2:[address] [facility] Ketones, QL(U) Negative Negative mg/dL 03/30/2017 2:57 PM [facility] Bilirubin Negative Negative 03/30/2017 2:57 PM [facility] pH 7.5 5.0 - 8.0 03/30/2017 2:57 PM [facility] Specific [place] 1.020 1.001 - 1.035 03/30/2017 2:57 PM [facility] Urobilinogen 0.2 0.2 - 1.0 mg/dL 03/30/2017 2:57 PM [facility] [place] [facility] Specimen Anatomical Collection Method Collection Time Receive d Time (Source) Location / / Volume Laterality Urine (Urine, 03/30/2017 2:51 PM 03/30/20 2:51 Clean Catch) TRUCK BODY BUILDER PM TRUCK BODY BUILDER Severiano Schmitt M.D. LAB URINE ORDERABLES Performing Organization Address City/State/ZIP Code Phon e Number [facility]- [address] [place] [address] [facility]- [address] [place], [place] [address] [place] documented in this encounter Visit Diagnoses Diagnosis Dysuria - Primary Infection Urinary Tract Acute documented in this encounter Additional Health Concerns Assessment Noted Time PHQ-9 Depression Total Score: 9 03/03/2016 11:54 AM CD T documented as of this encounter Care Teams Snowmaker Relationship Specialty Start Date End Date Mayra Guerrero, TOUCH UP WORKER, C.N.P. PCP - General 10/13/16 12/30/20 [address] [address] documented as of this encounter
--- OUTSIDE RECORDS SUMMARY | 2022-04-11 14:37 | XMS_ITS | Encounter Summary ---
:1990 Author Organization [facility] Address [address] [place] [address] Care Team Providers Name Role Phone Funmi Alvarez APRN, C.N.P. Primary Care Provider Unavailable Reason for Visit Reason Comments Rash Encounter Details Date Type Department Care Team Description 12/27/2021 Nurse Triage Department of [employer] Alcira Linares, Rash Medicine, [facility], M.S. N., R.N. in [facility] [address] [place] [address] [phone] Social History Tobacco Use Types Packs/Day Years [...] days Protocols used: Rash or Redness - Kuirsfeyi-IDHVE-XB Care Advice Patient/Caregiver understands and will follow care advice?: Yes, able to teach back HYDROCORTISONE CREAM FOR ITCHING: * You can use hydrocortisone for very itchy spots. * Put 1% hydrocortisone cream on the itchy area(s) 3 times a day. Use it for a couple days, until itfeels better. This will help decrease the itching. * This is an bxym-qly-ogqgxwy (OTC) drug. You can buy it at [...] documented as of this encounter Care Teams Finishing Inspector Relationship Specialty Start Date End Date Funmi Alvarez APRN, C.N.P. PCP - General 12/16/21 documented as of this encounter
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
--- OUTSIDE RECORDS SUMMARY | 2022-04-11 14:37 | XMS_ITS | Encounter Summary ---
:1990 Author Organization [facility] Address [address] [place] [address] Care Team Providers Name Role Phone Mayra Guerrero APRN, C.N.P. Primary Care Provider [phone] Encounter Details Date Type Department Care Team Description 09/25/2019 Clinical Communication Department of [facility] Jami Guerrero, [facility]UREN, C.N.P. [facility], in [place], [address] [address] [place], [place] [phone] [address] (Work) [phone] Social History Tobacco Use Types Packs/Day Years [...] documented as of this encounter Care Teams Mental Health Associate Relationship Specialty Start Date End Date Mayra Guerrero APRN, C.N.P. PCP - General 10/13/16 12[address] [place] [address] documented as of this encounter
--- OUTSIDE RECORDS SUMMARY | 2022-04-11 14:37 | XMS_ITS | Encounter Summary ---
:1990 Author Organization [facility] Address [address] [place] [address] Care Team Providers Name Role Phone Adalberto Simone Alegria APRN, C.N.P. Primary Care Provider Unavailable Reason for Visit Reason Comments Conjunctivitis Encounter Details Date Type Department Care Team Description 08/11/2021 Nurse Triage Department of [facility] Ruthy iDckson, Conjunctivitis Medicine, [facility], in [facility] [address] [place], [place] 300 [facility] [address] [place] [address] [phone] Social History Tobacco Use Types Packs/Day Years [...] pain Protocols used: EYE - RED WITHOUT FNR-LKWHJ-GY Care Advice Patient/Caregiver understands and will follow [...] (or discard them if disposable). CONTAGIOUSNESS: * Fairforest-eye is contagious. * Try not to touch [...] documented as of this encounter Care Teams Line Tester Relationship Specialty Start Date End Date Simone Glover, LAUREN, C.N.P. PCP - General Family Medicine 12/31/20 12/15/21 documented as of this encounter
--- OUTSIDE RECORDS SUMMARY | 2022-04-11 14:38 | XMS_ITS | Encounter Summary ---
:1990 Author Organization [facility] Address [address] [place] [address] Care Team Providers Name Role Phone Unavailable Primary Care Provider Unavailable Encounter Details Date Type Department Care Team Description 10/03/2014 Hospital Encounter HX [facility] Mary Alice Mitchell M.D. [address] , [address] [place], [place] [address] (Wo rk) Social History [...] MITCHELL MD On: 10/03/2014 03:04 PM Source: Cover Lockscreen Document Id: [id number] documented in this encounter Nursing Notes Bartolome [...] can help you see if any moles change manager time. When to Seek Medical Treatment Most skin changes are not cancer. But if you see any changes in your skin, call your doctor right away. Only he or she can diagnose a problem. If you have skin cancer, seeing your doctor can be the first step toward getting the treatment that could save your life. ?? [phone] [place] [address]. All rights reserved. This information is not intended as a substitute for professional medical care. Always follow your healthcare professional's instructions. This document has images extracted. Please consider using [employer]Mont[employer] for all your patient education needs. Source: [facility] POWERCHART Document Id: [id number] documented in this encounter Miscellaneous Notes Miscellaneous - Bartolome Mitchell M.D. - 10/03/2014 3:04 PM CDT Ambulatory Patient Summary [address], [place] [id number] Visit Information Name: ANUSHA SOSA [facility] Number: [id number] Current Date: 10/03/2014 15:04:11 Physicians [...] can help you see if any moles change manager time. When to Seek Medical Treatment Most skin changes are not cancer. But if you see any changes in your skin, call your doctor right away. Only he or she can diagnose a problem. If you have skin cancer, seeing your doctor can be the first step toward getting the treatment that could save your life. ?? [phone] Gris Martinez, [address] [place] [address], [place] [address]. All rights reserved. This information is not intended as a substitute for professional medical care. Always follow your healthcare professional's instructions. Your Goals/Additional instructions: Mucosal lentigines (avulvar melanosis) is a cutaneous condition characterized by light brown macules on mucosal surfaces. Watch for change in size, color, etc. This document has images extracted. Please consider using [employer]Mont[employer] for all your patient education needs. Source: [facility] Smart VoicemailCHART Document Id: [id number] Miscellaneous - Bartolome Mitchell M.D. - 10/03/2014 3:04 PM CDT Ambulatory Discharge Medication List [address] [id number] Visit Information Name: ANUSHA SOSA [facility] Number: [id number] Visit Date: 10/03/2014 15:04:11 Attending Provider: BARTOLOME MITCHELL MD Primary Care Provider: DASHA VARMA COLLISION WORKER ANUSHA SOSA has been given the following [...] MD Signed On:03-OCT-2014 14:51:36 Additional Information: Source: [facility] Smart VoicemailCHART Document Id: [id number] Miscellaneous - Neda Pepe L.P.N. - 10/03/2014 2:27 PM CDT Adult Fast Brim Pouncer Intake/History Adult Fast Brim Pouncer Intake/History Entered On: 10/03/2014 14:29 CDT Performed [...] 10/03/2014 14:27 CDT General Info Languages : Slovak Is Patient Female and 13-50 no hysterectomy [...] NEDA PEPE - 10/03/2014 14:27 CDT Source: [employer]CHART Document Id: [id number] documented in this encounter Plan of Treatment Not on filedocumented as of this encounter Visit Diagnoses Not on filedocumented in this encounter
--- OUTSIDE RECORDS SUMMARY | 2022-04-11 14:38 | XMS_ITS | Encounter Summary ---
:1990 Author Organization [facility] Address [address] [place] [address] Care Team Providers Name Role Phone Unavailable Primary Care Provider Unavailable Encounter Details Date Type Department Care Team Description 09/26/2014 Hospital Encounter HX NO MAPPING Margi Mitchell M.D. [address] [place], [place] [address] (Wo rk) Social History Tobacco Use Types Packs/Day Years Used Date Smoking Tobacco: Never Assessed Sex Assigned at Date Recorded Not on file documented as of this encounter Miscellaneous Notes Miscellaneous - Conversion, Historical Provider Ser - 09/26/2014 11:59 PM CDT Coding Summary-Paper Based CODING DATE: 10/08/2014 FINAL [facility] STATUS: * Discharged to Home or Self [...] GUERRERO Date Saved: 10/08/2014 09:47 pm Source: [facility] Document Id: [id number] documented in this encounter Plan of Treatment Not on filedocumented as of this encounter Visit Diagnoses Not on filedocumented in this encounter
--- OUTSIDE RECORDS SUMMARY | 2022-04-11 14:38 | XMS_ITS | Encounter Summary ---
:1990 Author Organization [facility] Address [address] [place] [address] Care Team Providers Name Role Phone Unavailable Primary Care Provider Unavailable Encounter Details Date Type Department Care Team Description 10/13/2015 - Hospital Encounter HX [facility] KAM Pratt, 01/21/2016 OUTPT Hamida Grant Social [...]
--- OUTSIDE RECORDS SUMMARY | 2022-04-11 14:38 | XMS_ITS | Encounter Summary ---
:1990 Author Organization [facility] Address [address] [place] [address] Care Team Providers Name Role Phone Mayra Guerrero APRN, C.N.P. Primary Care Provider [phone] Encounter Details Date Type Department Care Team [...] Results Letter February 15, 2017 ANUSHA SVEN [address] [place] [id number] Dear ANUSHA SOSA, I am pleased to [...] Nucleic Acid Amplification 02/13/2017 Sincerely, SOLIS DOMINGO [address] [place] [address] [address] [place] [address] Electronic Signature Electronically Signed By: SOLIS DOMINGO MD On: February 15, 2017 This document has images extracted. Source: [facility] POWERCHART Document Id: [id number] documented in this encounter Plan of Treatment [...] M.D. LAB BLOOD ADD-ON Performing Organization Address City/[facility]/ZIP Code Phon e Number POWERCHART POWERCHART NA documented in this encounter Visit Diagnoses Not on filedocumented in this encounter Additional Health Concerns Assessment Noted Time PHQ-9 Depression Total Score: 9 03/03/2016 11:54 AM CD T documented as of this encounter Care Teams Residential Mortgage Manager Relationship Specialty Start Date End Date Mayra Guerrero, GORE CUTTER, C.N.P. PCP - General 10/13/16 12/30/20 [address] [address] documented as of this encounter
--- OUTSIDE RECORDS SUMMARY | 2022-04-11 14:38 | XMS_ITS | Encounter Summary ---
:1990 Author Organization [facility] Address [address] [place] [address] Care Team Providers Name Role Phone Unavailable Primary Care Provider Unavailable Encounter Details Date Type Department Care Team Description 01/16/2014 Hospital Encounter HX [facility] FBHB FAMILYPRA Anabelle Varma APRN, C.N.P. [address] [place] [address] (Wo rk) Social History Tobacco [...] LAUREN, C.N.P. - 01/16/2014 2:18 PM CDT [id number] CHIEF COMPLAINT/REASON FOR VISIT 1. Fatigue. 2. Sore throat. HISTORY OF PRESENT ILLNESS Anusha states she has been very fatigued lately. She states she has been exposed to the ymen-nmbr-daxec virus. She is concerned she may have [...] VARMA CNP On: 01/16/2014 05:00 PM Source: [facility] MHSDOLBEYNONRADSYS Document Id: [id number] documented in this encounter Nursing Notes Dasha [...] ?? Muffled voice ?? New rash ?? [id number] [facility], [address] [place] [address], [place] [address]. All rights reserved. This information is not intended as a substitute for professional medical care. Always follow your healthcare professional's instructions. This document has images extracted. Please consider using [employer] for all your patient education needs. Source: [facility] POWERCHART Document Id: [id number] documented in this encounter Miscellaneous Notes Telephone Encounter - Yudi Devries L.P.N. - 01/21/2014 5:10 PM CDT *Phone Message From: YUDI DEVRIES ([facility] Nurse) Sent: 01/21/2014 17:10:58 CDT Subject: *Phone [...] back cell phone number ( ) Source: [facility] POWERCHART Document Id: [id number] Electronically signed by Conversion, [facility] Solvent Process Extractor Operator [id number] at 09/27/2016 6:48 PM CDT Miscellaneous - Dasha Varma APRN, C.N.P. - 01/20/2014 10:58 AM CDT Normal Results Letter 20 January 2014 ANUSHA SOLOMON [address] [facility] [address] [facility] [id number] Dear ANUSHA SOLOMON, I am pleased to [...] 1.99 01/16/2014 1.53 06/24/2013 0.90 - 2.90 [place] Absolute (x10(9)/L) 0.61 01/16/2014 0.74 06/24/2013 0.30 - 0.90 Eos Absolute (x10(9)/L) (L) 0.03 01/16/2014 0.06 06/24/2013 0.05 - 0.50 Baso Absolute (x10(9)/L) 0.01 01/16/2014 0.01 06/24/2013 0.00 - 0.30 Differential? Auto 01/16/2014 Auto 06/24/2013 Sincerely, DASHA VARMA [address] [place] [address] Electronic Signature Electronically Signed By: DASHA VARMA CNP On: 20 January 2014 This document has images extracted. Source: [facility] POWERCHART Document Id: [id number] Electronically signed by Don, [facility] Solvent Process Extractor Operator [id number] at 09/27/2016 6:48 PM CDT Miscellaneous - Dasha Varma, LAUREN, C.N.P. - 01/16/2014 2:48 PM CDT Ambulatory Patient Summary [address] [id number] Visit Information Name: ANUSHA SOLOMON [facility] Number: [id number] Current Date: 01/16/2014 14:48:48 Physicians Attending Provider: DASHA VARMA CNP Primary [...] Electronically Signed By: DASHA VARMA CNP Signed On:16-JAN-2014 14:48:36 Your Allergies [...] ?? Muffled voice ?? New rash ?? [id number] [place] [address]. All rights reserved. This information is not intended as a substitute for professional medical care. Always follow your healthcare professional's instructions. Your Goals/Additional instructions: This document has images extracted. Please consider using [employer] for all your patient education needs. Source: [facility] POWERCHART Document Id: [id number] Miscellaneous - Dasha Varma APRN, C.N.P. - 01/16/2014 2:48 PM CDT Ambulatory Discharge Medication List [address] [id number] Visit Information Name: ANUSHA SOLOMON [facility] Number: [id number] Visit Date: 01/16/2014 14:48:47 Attending [...] of emergency. Electronically Signed By: DASHA VARMA CONTINUOUS MINING MACHINE LODE MINER Signed On:16-JAN-2014 14:48:36 Additional Information: Source: [facility] POWERCHART Document Id: [id number] Miscellaneous - Juanito Diaz L.PSudarshanNSudarshan - 01/16/2014 2:39 PM CDT Adult Materials Development Engineer Intake/History Adult Materials Development Engineer Intake/History Entered On: 01/16/2014 14:41 CDT Performed [...] Information Given By : Patient Languages : Bulgarian Is Patient Female and 13-50 no hysterectomy : Yes Status : Patient denies Are you ? : No JUANITO DIAZ AUDIT CLERK - 01/16/2014 14:39 CDT Subjective Pain Symptoms : No JUANITO DIAZ [facility] - 01/16/2014 14:39 CDT Dependent Habits Tobacco Use/Currently Using : Yes Tobacco Use/Advised to Quit : Yes Exposure to Tobacco Smoke : Patient smokes Smoking Status : Light tobacco smoker JUANITO DIAZ [facility] - 01/16/2014 14:39 CDT Tobacco Use Grid Type : Cigarettes Last Use : quit in 05/12 JUANITO DIAZ [facility] - 01/16/2014 14:39 CDT Caffeine Use Grid Caffeine Use : Current Type : Soft drinks Frequency : Daily JUANITO DIAZ [facility] - 01/16/2014 14:39 CDT Source: [employer] Document Id: [id number] CDT!42 documented in this encounter Plan of [...] (ABNORMAL) Automated Differential (01/16/2014 2:56 PM CDT) [facility] Method Time Signature Absolute 5.50 1.70 - [...] X109L Erythrocytes 4.04 3.90 - POWERCHART 5.03 F1765F Hemoglobin 13.2 12.0 - POWERCHART 15.5 GDL [...] C.N.P. LAB BLOOD ADD-ON Performing Organization Address City/[facility] Phon e Number POWERCHART BMP (Basic Metabolic [...] Volume Laterality Blood 01/16/2014 2:56 PM CDT Dahsa Varma APRN, C.N.P. LAB BLOOD ADD-ON Performing Organization Address City/[facility] Code Phon e Number POWERCHART Thyroid-Stimulating Hormone-Sensitive (s-TSH) (01/16/2014 2:56 PM CDT) athologist Signature TSH 0.78 0.30 - 5.00 POWERCHART (Thyrotropin) MIUL Specimen (Source) Anatomical Collection Method Collection Time Re ceived Time Location / / Volume Laterality Blood 01/16/2014 2:56 PM CDT Dasha Varma APRN, C.N.P. LAB BLOOD ADD-ON Performing Organization Address City/[facility] Phon e Number POWERCHART Rapid Strep A Screen (01/16/2014 2:52 PM CDT) [facility] Method Time Signature HXRapid Strep POWERCHART Confirmation HXFinal Negative POWERCHART Specimen Anatomical Collection Method Collection Time Receive d Time (Source) Location / / Volume Laterality Throat 01/16/2014 2:52 PM 4 2:52 CDT PM CDT Dasha Varma APRN, C.N.P. LAB MICROBIOLOGY - GENERAL ORDERABLES Performing Organization Address City/[facility] Phon e Number POWERCHART Rapid Strep A Screen (01/16/2014 2:52 PM CDT) [facility] Method Time Signature HXStrep A POWERCHART Screen Rapid HXFinal Negative for POWERCHART Strep Group A by rapid screen. HXFinal Culture POWERCHART confirmation to follow. Specimen (Source) Anatomical Collection Method Collection Time Re ceived Time Location / / Volume Laterality Throat 01/16/2014 2:52 PM CDT Dasha Varma APRN, C.N.P. LAB MICROBIOLOGY - GENERAL ORDERABLES Performing Organization Address City/[facility] Phon e Number POWERCHART documented in this encounter Visit Diagnoses Not on filedocumented in this encounter
--- OUTSIDE RECORDS SUMMARY | 2022-04-11 14:38 | XMS_ITS | Encounter Summary ---
:1990 Author Organization [facility] Address [address] [place] [address] Care Team Providers Name Role Phone Unavailable Primary Care Provider Unavailable Encounter Details Date Type Department Care Team Description 03/19/2015 Hospital Encounter HX NO MAPPING Mayra Guerrero, VACCINATOR, C.N.P. [address] [place], [place] [address] (Wo rk) Social History Tobacco Use Types Packs/Day Years Used Date Smoking Tobacco: Never Assessed Sex Assigned at Date Recorded Not on file documented as of this encounter Miscellaneous Notes Miscellaneous - Conversion, Historical Provider Ser - 03/19/2015 11:59 PM FOOT PRESS OPERATOR Coding Summary-Paper Based CODING DATE: 04/02/2015 FINAL [facility] STATUS: * Discharged to Home or Self [...] BRITO Date Saved: 04/02/2015 03:10 pm [facility] Document Id: [id number] documented in this encounter Plan of Treatment Not on filedocumented as of this encounter Visit Diagnoses Not on filedocumented in this encounter Additional Health Concerns Assessment Noted Time PHQ-9 Depression Total Score: 2 01/07/2015 5:06 PM CDT documented as of this encounter
--- OUTSIDE RECORDS SUMMARY | 2022-04-11 14:38 | XMS_ITS | Encounter Summary ---
:1990 Author Organization [facility] Address [address] [place] [address] Care Team Providers Name Role Phone Unavailable Primary Care Provider Unavailable Encounter Details Date Type Department Care Team Description 07/13/2015 Hospital Encounter HX [facility] Peter Quintero M.D. Social History Tobacco Use [...]
--- OUTSIDE RECORDS SUMMARY | 2022-04-11 14:38 | XMS_ITS | Encounter Summary ---
:1990 Author Organization [facility] Address [address] [place] [address] Care Team Providers Name Role Phone Unavailable Primary Care Provider Unavailable Encounter Details Date Type Department Care Team Description 01/11/2016 Hospital Encounter HX [facility] FBHB FAMILYPRA Melissa Sewell M.D. [address] [place] [phone] (Wo rk) Social History Tobacco [...] Sewell M.D. - 01/11/2016 3:03 PM CDT [id number] CHIEF COMPLAINT/REASON FOR VISIT Anxiety and depression. 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 She had her regular [...] residuals. 5. Nicotine dependence. 6. Thyromegaly stabel [facility] Tobacco: Weekly with no plans [...] SEWELL MD On: 01/13/2016 08:27 AM Source: [facility] MHSDOLBEYNONRADSYS Document Id: [id number] documented in this encounter Nursing Notes Suze Lamb L.P.N. - 01/12/2016 10:56 AM CDT Lab 01-11-16 Result card sent. Electronically Signed By: SUZE LAMB LPN On: 01/12/2016 10:57 AM Source: [facility] POWERCHART Document Id: [id number] documented in this encounter Miscellaneous Notes Telephone Encounter - Conversion, Historical Provider Ser - 01/13/2016 1:15 PM CDT *Phone Message Document Contains Addenda Addendum by SUZE LAMB LPN on January 13, 2016 17:11:36 CDT Patient notified that new Rx was sent to [facility]. Stop Citalopram Addendum by RANDALL PERKINS on January 13, 2016 16:27:43 CDT pt called, please call back Addendum by SUZE LAMB LPN on January 13, 2016 15:10:27 CDT Attempted to call, left message to call back. From: ALCIRA DRUMMOND ( Family Medicine Ep Technologist) To: ASHIA Sewell Nurse; Sent: 01/13/2016 13:15:40 [...] something different - wants call back at [phone] Advice/Action: Source used: ( ) Verbalizes understanding [...] back cell phone number ( ) Source: [facility] BrightRollCHART Document Id: [id number] T Manisha - Alcira Sewell M.D. - 01/11/2016 5:39 PM CDT Ambulatory Discharge Medication List [address] [place], [place] [id number] Visit Information Name: ANUSHA SOSA [facility] Number: [id number] Visit Date: 01/11/2016 17:39:42 Attending Provider: ALCIRA SEWELL MD Primary Care Provider: DASHA GUERRERO APRN [facility] ANUSHA SOSA has been given the following [...] Oral, once a day New Routed to [address] [id number] levonorgestrel (levonorgestrel 52 mg intrauteral device) 1 [...] MD Signed On:11-JAN-2016 17:39:36 Additional Information: Source: [facility] POWERCHART Document Id: [id number] Miscellami - Alcira Sewell M.D. - 01/11/2016 5:39 PM CDT Ambulatory Patient Summary [address] [place], [place] [id number] Visit Information Name: ANUSHA SOSA [facility] Number: [id number] Current Date: 01/11/2016 17:39:43 Physicians Attending Provider: ALCIRA SEWELL MD Primary Care Provider: DASHA GUERRERO APRN [facility] ANUSHA SOSA has been given the following [...] Oral, once a day New Routed to [address] [id number] levonorgestrel (levonorgestrel 52 mg intrauteral device) 1 [...] if you dont have one. Go to [email or web address] and click on Create Your Account. Then, follow the directions to complete the online form. Youll be asked for your [facility] number which you can find at the top of this document. Your Goals/Additional instructions: Source: [employer] Document Id: [id number] Miscellaneous - Alcira Sewell M.D. 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 : No SUZE LAMB LPN - 01/11/2016 15:18 CDT Subjective Pain Symptoms : No SUZE LABM LPN - 01/11/2016 15:18 CDT Dependent Habits [...] LAMB LPN - 01/11/2016 15:18 CDT Source: [employer] Document Id: [id number] CDT!32 Miscellaneous - Suze Lamb L.PLuciano - [...] Current Daily Living Assistance : None SUZE LABM LPN - 01/11/2016 15:18 CDT Dependent Habits [...] Health Screen/Safety Assmt : Unable to obtain Islam Preference : Unknown SUZE LAMB LPN - 01/11/2016 15:18 CDT Advance Directive Advanced Directives : No Advance Directive Additional Information : No SUZE LAMB LPN - 01/11/2016 15:18 CDT Educ Needs Learning Style Preference Adult Grid Patient : Demonstration, Printed materials, Verbal explanation, Video/Educational TV Family : Demonstration, Printed materials, Verbal explanation, Video/Educational TV SUZE LAMB LPN - 01/11/2016 15:18 CDT Source: [facility] POWERCHART Document Id: [id number] CDT!32 documented in this encounter Plan of [...] (ABNORMAL) Automated Differential (01/11/2016 4:00 PM CDT) [facility] gist Method Time Signature Absolute 4.49 [...] X109L Erythrocytes 4.15 3.90 - 5.03 POWERCHART F0281E Hemoglobin 13.9 12.0 - 15.5 POWERCHART GDL [...] POWERCHART MMOLL HXeGFR (MDRD) >60 >=60 POWERCHART [id number] eGFR >60 >=60 POWERCHART Black/ [id number] Pakistani Glucose 88 70 - 139 POWERCHART MGDL [...]
--- OUTSIDE RECORDS SUMMARY | 2022-04-11 14:38 | XMS_ITS | Encounter Summary ---
:1990 Author Organization [facility] Address [address] [place] [address] Care Team Providers Name Role Phone Unavailable Primary Care Provider Unavailable Encounter Details Date Type Department Care Team Description 03/19/2015 Hospital Encounter HX [facility] FBHB FAMILYPRA Anabelle Varma, LAUREN, C.N.P. [address] [place] [address] (Wo rk) Social History Tobacco Use Types Packs/Day Years Used Date Smoking Tobacco: Never Assessed Sex Assigned at Date Recorded Not on file documented as of this encounter Last Filed Vital Signs Vital Sign Reading Time Taken Comments Blood Pressure 98/62 03/19/2015 10:31 AM PROSECUTING ATTORNEY Pulse 64 03/19/2015 10:31 AM PROSECUTING ATTORNEY Temperature - - Respiratory Rate 20 03/19/2015 10:31 AM PROSECUTING ATTORNEY Oxygen Saturation - - Inhaled Oxygen Concentration - - Weight 58 kg (127 lb 13.9 oz) 03/19/2015 10:31 AM PROSECUTING ATTORNEY Height 156 cm (5' 1.42) 03/19/2015 10:31 AM PROSECUTING ATTORNEY Body Mass Index 23.83 03/19/2015 10:31 AM PROSECUTING ATTORNEY documented in this encounter Progress Notes Dasha [...] ABDOMEN: Soft, nontender. No hepatosplenomegaly. :Bartholin, urethra, Jensen's, vagina and cervix are without lesion. Bimanual [...] VARMA CNP On: 03/19/2015 11:06 AM Source: [facility] POWERCHART Document Id: [id number] ECUTING ATTORNEY documented in this encounter Nursing Notes Dasha Varma APRN, C.N.P. - 03/19/2015 11:07 AM CST Ambulatory Patient Education The following Patient Education Materials have been given to the patient: Patient Education Materials: Forestry Support Specialist Preventing Vaginitis Forestry Support Specialist Preventing Vaginitis Vaginitis is irritation or infection [...] odor Pain or burning during urination ?? [id number], [place] [address]. All rights reserved. This information is not intended as a substitute for professional medical care. Always follow your healthcare professional's instructions. This document has images extracted. Please consider using [employer] for all your patient education needs. Source: [facility] POWERCHART Document Id: [id number] ECUTING ATTORNEY documented in this encounter Miscellaneous Notes Miscellaneous - Dasha Varma APRN, C.N.P. - 03/19/2015 11:07 AM PROSECUTING ATTORNEY Ambulatory Patient Summary [address] [id number] Visit Information Name: ANUSHA SOSA [facility] Number: [id number] Current Date: 03/19/2015 11:07:42 Physicians Attending Provider: DASHA VARMA CNP Primary Care Provider: DASHA AVRMA CNP ANUSHA SOSA has been given the [...] odor Pain or burning during urination ?? [phone] [facility], [address] [place] [address]. All rights reserved. This information is not [...] if you dont have one. Go to [email or web address] and click on Create Your Account. Then, follow the directions to complete the online form. Youll be asked for your [facility] number which you can find at the top of this document. Your Goals/Additional instructions: This document has images extracted. Please consider using [employer] for all your patient education needs. Source: [facility] [employer]ad Document Id: [id number] ECUTING ATTORNEY Miscellaneous - Dasha Varma APRN, C.N.P. - 03/19/2015 11:07 AM PROSECUTING ATTORNEY Ambulatory Discharge Medication List [address] [id number] Visit Information Name: ANUSHA SOSA [facility] Number: [id number] Visit Date: 03/19/2015 11:07:41 [...] CNP Signed On:19-MAR-2015 11:07:21 Additional Information: Source: [facility] [employer] Document Id: [id number] ECUTING ATTORNEY Miscellaneous - Chrisdaya Sudhagege Dyson L.P.N. - 03/19/2015 10:31 AM CST Adult Editorial Assistant Intake/History Adult Editorial Assistant Intake/History Entered On: 03/19/2015 10:34 PROSECUTING ATTORNEY Performed On: 03/19/2015 10:31 PROSECUTING ATTORNEY by SUDHA DIAZ LPN Intake Chief Complaint [...] kg/m2 ADENNAGASUDHA Rivas SATINDER - 03/19/2015 10:31 PROSECUTING ATTORNEY General Info Information Given By : Patient Preferred Communication Mode : Verbal Languages : Swedish Is Patient Female and 13-50 no hysterectomy : Yes Status : Patient denies Are you ? : No ADENEUGENIOSUDHA MEGHAN RAJAN - 03/19/2015 10:31 PROSECUTING ATTORNEY Subjective Pain Symptoms : No EMILY SUDHAGEGE CHRISTIANSON LPN - 03/19/2015 10:31 PROSECUTING ATTORNEY Dependent Habits Tobacco Use/Currently Using : No Tobacco Use/Last 12 months : No Exposure to Tobacco Smoke : Other: Quit date 11/12/14 Smoking Status : Never smoker ADENNAGASUDHA Rivas MEGHAN RAJAN - 03/19/2015 10:31 PROSECUTING ATTORNEY Tobacco Use Grid Type : Cigarettes Other Tobacco Frequency : 1 per week EMILYSUDHA MEGHAN RAJAN - 03/19/2015 10:31 PROSECUTING ATTORNEY Caffeine Use Grid Caffeine Use : Current Type : Soft drinks Frequency : Daily EMILY SUDHAGEGE CHRISTIANSON LPN - 03/19/2015 10:31 PROSECUTING ATTORNEY Source: [facility] POWERCHART Document Id: [id number] PROSECUTING ATTORNEY!41 ECUTING ATTORNEY documented in this encounter Plan of Treatment Not on filedocumented as of this encounter Procedures Procedure Name Priority Date/Time Associated Comments Diagnosis CHLAMYDIA/GONORRHOEAE Routine 03/19/2015 10:58 Re sults for this AMPLIFIED RNA AM PROSECUTING ATTORNEY procedure are in the results section. CHLAMYDIA TRACHOMATIS Routine 03/19/2015 10:58 Re sults for this AMPLIFIED RNA AM PROSECUTING ATTORNEY procedure are in the results section. WET PREP EXAM, Routine 03/19/2015 10:53 Results f or this UROGENITAL AM PROSECUTING ATTORNEY procedure are i n the results section. documented in this encounter Results Chlamydia / Gonorrhoeae Amplified RNA (03/19/2015 10:58 AM PROSECUTING ATTORNEY) Component Value Ref Test Analysis Performed At [facility] Range Method Time Signature HX GC by Nucleic POWERCHART Acid Amplification HXFinal Negative for POWERCHART Neisseria gonorrhea by RNA amplification . HXFinal Reference: POWERCHART Negative HXFinal If you POWERCHART submitted a female urine sample, please note it is a Laboratory Developed Test. Specimen (Source) Anatomical Collection Method Collection Time Re ceived Time Location / / Volume Laterality Urine 03/19/2015 10:58 AM PROSECUTING ATTORNEY Dasha Varma APRN, C.N.P. LAB MICROBIOLOGY - GENERAL ORDERABLES Performing Organization Address City/State/ZIP Code Phon e Number POWERCHART Chlamydia Trachomatis Amplified RNA (03/19/2015 10:58 AM PROSECUTING ATTORNEY) Component Value Ref Test Analysis Performed At [facility] Range Method Time Signature HXChlamydia by POWERCHART Nucleic Acid Amplification HXFinal Negative for POWERCHART Chlamydia trachomatis by RNA amplification. HXFinal Reference: POWERCHART Negative HXFinal If you POWERCHART submitted a female urine sample, please note it is a Laboratory Developed Test. Specimen (Source) Anatomical Collection Method Collection Time Re ceived Time Location / / Volume Laterality Urine 03/19/2015 10:58 AM PROSECUTING ATTORNEY Dasha Varma APRN, C.N.P. LAB MICROBIOLOGY - GENERAL ORDERABLES Performing Organization Address City/State/ZIP Code Phon e Number POWERCHART (ABNORMAL) Wet Prep Exam, Urogenital (03/19/2015 10:53 AM PROSECUTING ATTORNEY) Analysis Performed At [facility] Time Signature HXWet Prep (POSITIVE) POWERCHART HXFinal Trichomonas: POWERCHART Negative HXFinal Clue Cells: POWERCHART Negative HXFinal Yeast: POWERCHART Negative HXFinal Sperm: POWERCHART Positive Specimen (Source) Anatomical Collection Method Collection Time Re ceived Time Location / / Volume Laterality Vagina 03/19/2015 10:53 AM PROSECUTING ATTORNEY Dasha Varma APRN, C.N.P. LAB MICROBIOLOGY - GENERAL ORDERABLES Performing Organization Address City/State/ZIP Code Phon e Number POWERCHART documented in this encounter Visit Diagnoses Not on filedocumented in this encounter Additional Health Concerns Assessment Noted Time PHQ-9 Depression Total Score: 2 01/07/2015 5:06 PM CDT documented as of this encounter
--- OUTSIDE RECORDS SUMMARY | 2022-04-11 14:38 | XMS_ITS | Encounter Summary ---
:1990 Author Organization [facility] Address [address] [place] [address] Care Team Providers Name Role Phone Unavailable Primary Care Provider Unavailable Encounter Details Date Type Department Care Team Description 07/28/2016 Hospital Encounter HX [facility] Galo Abarca M.D. [address] [place], [place] [address] (Wo rk) Social History [...] CDT documented in this encounter H&P Notes Mayrann Wong M.D. - 07/28/2016 10:45 AM CDT [id number] CHIEF COMPLAINT/REASON FOR VISIT Removal and replacement [...] procedure list updated in the EMR today. OB-PAIN MEDICINE PHYSICIAN HISTORY: Para 2-0-0-2 female status post 2 [...] alcohol, or drug use. 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 FAMILY HISTORY See family history list updated [...] WONG MD On: 08/08/2016 04:44 PM Source: [facility] MHSDOLBEYNONRADSYS Document Id: [id number] documented in this encounter Procedure Notes Arcenio [...] RAMIREZ LPN - 07/28/2016 12:24 CDT Source: [facility] POWERWizMeta Document Id: [id number] CDT!14 Maryann Ash M.D. - 07/28/2016 12:00 AM CDT 2RPT CHIEF COMPLAINT/REASON FOR VISIT This is a Mirena IUD removal, Kathia IUD placement procedure note. HISTORY OF PRESENT ILLNESS PREPROCEDURE DIAGNOSIS: Desires termite renewal inspector contraception. POSTPROCEDURE DIAGNOSIS: Desires usp contraception. PROCEDURE: Removal of Mirena intrauterine device (IUD), placement of Kathia intrauterine device (IUD). ANESTHESIA: None. INDICATIONS: Anusha is a 25-year-old para 2-0-0-2 female who desires a Mirena IUD and placement of a Kathia IUD for contraception. The risks, benefits, alternatives of the procedure have been discussed with the patient and informed consent obtained. [place] protocol prior to implementing a procedure was [...] WONG MD On: 08/08/2016 04:44 PM Source: [facility] MHSDOLBEYNONRADSYS Document Id: [id number] documented in this encounter Miscellaneous Notes Telephone [...] February 10, 2017 10:11:09 CDT From: ALINE IDCKSON RN ( Obstetrics/Gynecology Nurse) To: MARYANN WONG [...] vulvar hygeine guidelines. From: RONN TATE ( [place] [employer]) To: Obstetrics/Gynecology Nurse; Sent: 02/10/2017 09:38:25 CDT [...] white discharge. Please call her back at [phone] to advise. Advice/Action: Source used: ( ) [...] back cell phone number ( ) Source: [facility] POWERCHART Document Id: [id number] Miscellaneous - Elana Briscoe - 12/05/2016 7:16 AM CDT Health Maintenance Reminder December 05, 2016 ANUSHA SOSA [facility] [address] [place] [address] 2 [facility]ly [facility] [phone] Dear ANUSHA SOSA, We have developed a [...] visit with us more convenient. Please call [phone] to schedule services that are past due or that may shortly become due (thank you if you have already done so). We will follow up in three to six months should you have more services to schedule at that time. If you have already received any of the listed past due or upcoming services outside of [facility], please call [phone] to add them to your medical record. You may want to consider contacting your health insurance company to make sure these services are covered and find out if there will be any fou-oa-grsghw expense. If you have any questions about the services listed above, or if you are no longer receiving care from [facility], please contact us at [phone]. Thank you for partnering to provide you with the best care possible. We encourage you to set up your Patient Online Services account [email or web address], where you can communicate in a convenient way with us, schedule appointments, receive lab results and more. To set up your account, you will need your [facility] Number, which is [phone]. Thank you for choosing the Dasha Varma APRN, C.N.P. care team for your health care needs! You are receiving this notice based on [facility]'s recommended standard for preventive care and ongoing condition-specific services you may need. If you have completed or do not believe you need these services, please contact your provider or care team to discuss this further. Sincerely, ELANA BRISCOE Electronic Signature Electronically Signed By: ELANA BRISCOE LPN On: December 05, 2016 This document has images extracted. Source: [facility] POWERCHART Document Id: [id number] Miscellaneous - Maryann Wong M.D. - 07/28/2016 8:35 PM CDT Ambulatory Patient Summary [facility] [address] [place], [place] [id number] Visit Information Name: ANUSHA SOSA [facility] Number: [id number] Current Date: 07/28/2016 20:35:39 Physicians Attending Provider: MARYANN WONG MD Primary Care Provider: DASHA VARMA APRN [facility] ANUSHA SOSA has been given [...] (Rhinocort Allergy 32 mcg/inh nasal spray) 2 Evergreen(s), Nasal, once a day New Routedto [facility] [address] [place] [address] metroNIDAZOLE (Flagyl 500 mg oral tablet) 1 Tablet(s), Oral, every 12 hours New Routed to [facility] [address] [place] [address] Stop Taking the Following Medications: [...] Date Time Location Provider 08/23/2016 16:15 FBCV BARREL BUILDER Maryann Wong MD Attention: Contact your local [...] if you dont have one. Go to [email or web address] and click on Create Your Account. Then, follow the directions to complete the online form. Youll be asked for your [facility] number which you can find at the top of this document. Your Goals/Additional instructions: Source: [facility] POWERCHART Document Id: [id number] Miscellaneous - Maryann Wong M.D. - 07/28/2016 8:35 PM CDT Ambulatory Discharge Medication List [address] [id number] Visit Information Name: ANUSHA SOSA [facility] Number: [id number] Current Date: 07/28/2016 20:35:38 Attending Provider: MARYANN WONG MD Primary Care Provider: DASHA VARMA APRN INFORMATION MANAGER ANUSHA SOSA has been given the following [...] (Rhinocort Allergy 32 mcg/inh nasal spray) 2 Evergreen(s), Nasal, once a day New Routedto [address] [address] metroNIDAZOLE (Flagyl 500 mg oral tablet) 1 Tablet(s), Oral, every 12 hours New Routed to [address] [address] Stop Taking the Following Medications: levonorgestrel (levonorgestrel [...] MD Signed On:28-JUL-2016 20:35:36 Additional Information: Source: [facility] RetailoCHART Document Id: [id number] Miscellaneous - Arcenio Ramirez, L.P.N. - 07/28/2016 12:05 PM CDT Residential Gas Heat Technician Documentation Residential Gas Heat Technician Documentation Entered On: 07/28/2016 12:05 CDT Performed On: 07/28/2016 12:05 CDT by ARCENIO RAMIREZ LPN Residential Gas Heat Technician Documentation Exam/Procedure Performed : Replace IUD/ Pelvic exam/ Breast exam CD Residential Gas Heat Technician Present : Yes CD Residential Gas Heat Technician Name : Rhiannon Ramirez LPN Present in Room During Exam/Procedure : Alone ARCENIO RAMIREZ LPN - 07/28/2016 12:05 CDT Source: [facility] POWERCHART Document Id: [id number] CDT!6 Miscellaneous - Arcenio Ramirez L.PLuciano - 07/28/2016 11:00 AM CDT Adult Ship'S Officer Intake/History Adult Ship'S Officer Intake/History Entered On: 07/28/2016 11:02 CDT Performed [...] 07/28/2016 11:00 CDT General Info Languages : Romanian Is Patient Female and 13-50 no hysterectomy [...] RAMIREZ LPN - 07/28/2016 11:00 CDT Source: [employer] Document Id: [id number] CDT!36 documented in this encounter Plan of [...] POCT, Urine (nursing) (07/28/2016 12:24 PM CDT) [facility] Method Time Signature Color Yellow POWERCHART Appearance Clear POWERCHART Leukocytes, Negative POWERCHART POCT, U Nitrites, POCT, Negative POWERCHART U Urobilinogen, 0.2 mg/dl POWERCHART POCT, Urine Protein, POCT, Negative POWERCHART U pH, POCT, Urine 5.5 5.0 - 9.0 POWERCHART Blood, POCT, U 1+ SMALL POWERCHART Specific 1.025 1.000 - POWERCHART [place], POCT, 1.030 U Ketone, POCT, U Negative [...] Component Value Ref Test Analysis Performed At [facility] Range Method Time Signature HXVaginitis (POSITIVE) POWERCHART [...]
--- OUTSIDE RECORDS SUMMARY | 2022-04-11 14:38 | XMS_ITS | Encounter Summary ---
:1990 Author Organization [facility] Address [address] [place] [address] Care Team Providers Name Role Phone Mayra Guerrero APRN, C.N.P. Primary Care Provider [phone] Encounter Details Date Type Department Care Team [...] Coding Summary-Paper Based CODING DATE: 02/23/2017 FINAL [facility] STATUS: * Discharged to Home [...] BRITO Date Saved: 02/23/2017 09:34 am [facility] Document Id: [id number] documented in this encounter Plan of Treatment Not on filedocumented as of this encounter Visit Diagnoses Not on filedocumented in this encounter Additional Health Concerns Assessment Noted Time PHQ-9 Depression Total Score: 9 03/03/2016 11:54 AM CD T documented as of this encounter Care Teams Line Mover Relationship Specialty Start Date End Date Mayra Guerrero, LARUEN, C.N.P. PCP - General 10/13/16 12/30/[address] [address] documented as of this encounter
--- OUTSIDE RECORDS SUMMARY | 2022-04-11 14:38 | XMS_ITS | Encounter Summary ---
:1990 Author Organization [facility] Address [address] [place] [address] Care Team Providers Name Role Phone Unavailable Primary Care Provider Unavailable Encounter Details Date Type Department Care Team Description 07/11/2013 Hospital Encounter HX [facility] FBHB FAMILYPRA Anabelle Varma APRN, C.N.P. [address] [place] [address] (Wo rk) Social History Tobacco [...] APRN, C.N.P. - 07/11/2013 2:25 PM CDT [id number] CHIEF COMPLAINT/REASON FOR VISIT Recheck post treatment [...] VARMA CNP On: 07/15/2013 08:52 AM Source: [facility] MHSDOLBEYNONRADSYS Document Id: [id number] documented in this encounter Miscellaneous Notes Miscellaneous - Dasha Varma APRN, C.N.P. - 07/15/2013 9:04 AM CDT General Message From: DASHA VARMA CNP Sent: 07/15/2013 09:04:22 CDT Subject: General Message Phone call with positive chlamydia test result. Rx for azithromycin 2gm sent to pharmacy. Source: [facility] POWERCHART Document Id: [id number] Miscellaneous - Dasha Varma APRN, C.N.P. - 07/11/2013 2:38 PM CDT Ambulatory Patient Summary [address] [place], [place] [id number] Visit Information Name: ANUSHA SOLOMON [facility] Number: [id number] Current Date: 07/11/2013 14:38:53 Physicians [...] local Clinic if further appointment detail needed. [id number] CHLAMYDIA [Female, Treated] You have an infection [...] testing. For more information about STD's, contact [facility] STD Hotline: . GET PROMPT MEDICAL ATTENTION [...] lymph nodes (lumps) in the groin ?? [phone] Gris Martinez, [address] [place] [address], [place] [address]. All rights reserved. This information is not intended as a substitute for professional medical care. Always follow your healthcare professional's instructions. Your Goals/Additional instructions: This document has images extracted. Please consider using [employer] for all your patient education needs. Source: [facility] G[facility]TE[facility] Document Id: [id number] Miscellaneous - Dasha Varma APRN, C.N.P. - 07/11/2013 2:38 PM CDT Ambulatory Discharge Medication List [address] [place], [place] [id number] Visit Information Name: ANUSHA SOLOMON [facility] Number: [id number] Visit Date: 07/11/2013 14:38:52 Attending Provider: DASHA VARMA CNP Primary Care Provider: DASHA VARMA DENTAL SURGERY DOCTOR ANUSHA SOLOMON has been given the following [...] in case of emergency. Additional Information: Source: [facility] Document Id: [id number] Miscellaneous - Juanito Diaz L.P.NSudarshan - 07/11/2013 2:33 PM CDT Adult Substation Operator Helper Intake/History Adult Substation Operator Helper Intake/History Entered On: 07/11/2013 14:35 CDT Performed [...] Information Given By : Patient Languages : Nepali JUANITO DIAZ LPN - 07/11/2013 14:33 CDT [...] DIAZ LPN - 07/11/2013 14:33 CDT [facility] Document Id: [id number] CDT!43 documented in this encounter Plan of [...] athologist Signature HXN gonor Amp Negative POWERCHART DNA-[place] Specimen (Source) Anatomical Collection Method Collection Time Re ceived Time Location / / Volume Laterality 07/11/2013 2:59 PM CDT Narrative POWERCHART - 07/12/2013 5:05 PM CDT Test Performed by: [place] [id number] Aerospace Products Sales Engineer: Yonathan ajne III, M.D. Dasha Varma APRN, C.N.P. LAB HISTORICAL ORDERS Performing Organization Address City/[facility] Code Phon e Number POWERCHART HX-N gonor Amp Src (07/11/2013 2:59 PM CDT) athologist Signature HXN gonor Amp urine POWERCHART Src-[place] Specimen (Source) Anatomical Collection Method Collection Time Re ceived Time Location / / Volume Laterality 07/11/2013 2:59 PM CDT Dasha Varma APRN, C.N.P. LAB HISTORICAL ORDERS Performing Organization Address City/State/ZIP Code Phon e Number POWERCHART HX-C trach Amp RNA (07/11/2013 2:59 PM CDT) [facility] gist Method Time Signature Chlamydia Positive POWERCHART trachomatis amplified RNA Specimen (Source) Anatomical Collection Method Collection Time Re ceived Time Location / / Volume Laterality 07/11/2013 2:59 PM CDT Dasha Varma APRN, C.N.P. LAB HISTORICAL ORDERS Performing Organization Address City/[facility]/ZIP Code Phon e Number POWERCHART HX-C trach Amp Src (07/11/2013 2:59 PM CDT) P athologist Signature HXC trach Amp urine POWERCHART [facility]-[place] Specimen (Source) Anatomical Collection Method Collection Time Re ceived Time Location / / Volume Laterality 07/11/2013 2:59 PM CDT Dasha Varma APRN, C.N.P. LAB HISTORICAL ORDERS Performing Organization Address City/State/ZIP Code Phon e Number POWERCHART documented in this encounter Visit Diagnoses Not on filedocumented in this encounter
--- OUTSIDE RECORDS SUMMARY | 2022-04-11 14:38 | XMS_ITS | Encounter Summary ---
:1990 Author Organization [facility] Address [address] [place] [address] Care Team Providers Name Role Phone Dasha Varma APRN, C.N.P. Primary Care Provider [phone] Encounter Details Date Type Department Care Team [...] Domingo M.D. - 02/13/2017 2:04 PM CDT [id number] CHIEF COMPLAINT/REASON FOR VISIT 1. Vaginal itching [...] 2 months ago. She has tried no vjol-gwp-vbglssv medications or relief measures. The patient is [...] high-risk sexual behavior. 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 VITAL SIGNS Weight 64.6 kg. Height 157 [...] external female genitalia. Normal Bartholin's, urethral and Lesage's glands. Normal vaginal mucosa without lesions. There [...] DOMINGO MD On: 02/13/2017 04:11 PM Source: [facility] MHSDOLBEYNONRADSYS Document Id: [id number] documented in this encounter Miscellaneous Notes Miscellaneous - Solis Domingo M.D. - 02/13/2017 2:33 PM CDT Ambulatory Patient Summary [address] [id number] Visit Information Name: ANUSHA SOSA [facility] Number: [id number] Current Date: 02/13/2017 14:33:33 Physicians Attending Provider: SOLIS DOMINGO MD Primary Care Provider: DASHA VARMA APRN [facility] ANUSHA SOSA has been given the [...] day(s) This is a CHANGE Routed to [address] [address] Stop Taking the Following Medications: budesonide nasal [...] if you dont have one. Go to [email or web address] and click on Create Your Account. Then, follow the directions to complete the online form. Youll be asked for your [facility] number which you can find at the top of this document. Your Goals/Additional instructions: Source: [facility] POWERCHART Document Id: [id number] Miscellaneous - Solis Domingo M.D. - 02/13/2017 2:33 PM CDT Ambulatory Discharge Medication List [address] [id number] Visit Information Name: ANUSHA SOSA [facility] Number: [id number] Current Date: 02/13/2017 14:33:32 Attending Provider: SOLIS DOMINGO MD Primary Care Provider: DASHA VARMA APRN [facility] ANUSHA SOSA has been given the [...] day(s) This is [place] [address] Stop Taking the Following Medications: budesonide nasal [...] MD Signed On:13-FEB-2017 14:33:30 Additional Information: Source: [facility] CH Mack Document Id: [id number] Miscellaneous - Ailyn Hernandez, L.P.N. - 02/13/2017 2:29 PM CDT Professor Of Physics Documentation Professor Of Physics Documentation Entered On: 02/13/2017 14:29 CDT Performed On: 02/13/2017 14:29 CDT by AILYN HERNANDEZ LPN Professor Of Physics Documentation Exam/Procedure Performed : Pelvic exam CD Professor Of Physics Present : Yes CD Professor Of Physics Name : Ailyn Hernandez LPN Present in Room During Exam/Procedure : Alone AILYN HERNANDEZ LPN - 02/13/2017 14:29 CDT Source: [facility] POWERCHART Document Id: [id number] CDT!6 Miscellaneous - Ailyn Hernandez L.PSudarshanNSudarshan - 02/13/2017 2:10 PM CDT Adult Charter Coordinator Intake/History Adult Charter Coordinator Intake/History Entered On: 02/13/2017 14:11 CDT Performed [...] Information Given By : Patient Languages : Malay Is Patient Female and 13-50 no hysterectomy [...] HERNANDEZ LPN - 02/13/2017 14:10 CDT Source: [facility] Magn[employer] HealthCHART Document Id: [id number] CDT!35 documented in this encounter Plan of [...] Component Value Ref Test Analysis Performed At [facility] [place] Range Method Time Signature HXVaginitis POWERCHART Battery, [...] Component Value Ref Test Analysis Performed At [facility] [place] Method Time Signature HX GC by Nucleic [...] Component Value Ref Test Analysis Performed At [facility] [place] Range Method Time Signature HXChlamydia by POWERCHART [...] documented as of this encounter Care Teams Core Rescuer Relationship Specialty Start Date End Date Dasha Varma, PRINCIPAL AUTOMATION ENGINEER, C.N.P. PCP - General 10/13/16 12/30/[address] [id number] documented as of this encounter
--- OUTSIDE RECORDS SUMMARY | 2022-04-11 14:38 | XMS_ITS | Encounter Summary ---
:1990 Author Organization [facility] Address [address] [place] [address] Care Team Providers Name Role Phone Unavailable Primary Care Provider Unavailable Encounter Details Date Type Department Care Team Description 09/26/2014 Hospital Encounter HX [facility] FBHB FAMILYPRA Mary Alice Mitchell M.D. [address] [facility], [address] [place], [place] [address] (Wo rk) Social History [...] MITCHELL MD On: 09/26/2014 04:41 PM Source: [facility] POWERCHART Document Id: [id number] documented in this encounter Nursing Notes Bartolome [...] can help you see if any moles liner roll changer time. When to Seek Medical Treatment Most skin changes are not cancer. But if you see any changes in your skin, call your doctor right away. Only he or she can diagnose a problem. If you have skin cancer, seeing your doctor can be the first step toward getting the treatment that could save your life. ?? [phone] Gris Martinez, [address] [place] [address]. All rights reserved. This information is not intended as a substitute for professional medical care. Always follow your healthcare professional's instructions. This document has images extracted. Please consider using [employer] for all your patient education needs. Source: [facility] [employer] Document Id: [id number] documented in this encounter Miscellaneous Notes Miscellaneous - Bartolome Mitchell M.D. - 09/26/2014 4:29 PM CDT Ambulatory Discharge Medication List [address] [id number] Visit Information Name: ANUSHA SOSA [facility] Number: [id number] Visit Date: 09/26/2014 16:29:46 Attending Provider: BARTOLOME MITCHELL MD Primary Care Provider: DASHA VARMA LEAD REFINERY SUPERVISOR ANUSHA SOSA has been given the following [...] MD Signed On:26-SEP-2014 16:29:17 Additional Information: Source: [facility] [employer] MedicalCHART Document Id: [id number] Miscellaneous - Bartolome Mitchell M.D. - 09/26/2014 4:29 PM CDT Ambulatory Patient Summary [address] [place], [place] [id number] Visit Information Name: ANUSHA SOSA [facility] Number: [id number] Current Date: 09/26/2014 16:29:47 Physicians Attending Provider: BARTOLOME MITCHELL MD Primary Care Provider: DASHA VARMA LEAD REFINERY SUPERVISOR ANUSHA SOSA has been given the following [...] can help you see if any moles liner roll changer time. When to Seek Medical Treatment Most skin changes are not cancer. But if you see any changes in your skin, call your doctor right away. Only he or she can diagnose a problem. If you have skin cancer, seeing your doctor can be the first step toward getting the treatment that could save your life. ?? [phone] Gris Martinez, [address] [place] [address]. All rights reserved. This information is not [...] document has images extracted. Please consider using [employer] for all your patient education needs. Source: [facility] POWERCHART Document Id: [id number] Miscellaneous - Yudi Devries L.P.NSudarshan - 09/26/2014 3:44 PM CDT Adult Vice President Regulatory Intake/History Adult Vice President Regulatory Intake/History Entered On: 09/26/2014 15:48 CDT Performed [...] YUDI DEVRIES - 09/26/2014 15:44 CDT Source: [employer] Document Id: [id number] CDT!49 documented in this encounter Plan of [...] LCM LAB - 09/30/2014 9:58 AM CDT [facility] in [address] [place] [phone] Patient Name: ANUSHA SOSA Patient ID #: [id number] Collected: 09/26/2014 Address: [facility]/Zip: APARTMENT [address] [place] [address] ??[phone] Received: Reported: 09/29/2014 09/30/2014 Soc. Sec. #: ?/Age/Sex (Age: 23) ??F Physician(s): WM MITCHELL Copy To: ? [facility] ??[phone] [facility] [facility], ??[place] ??[address] SURGICAL PATHOLOGY REPORT FINAL DIAGNOSIS: LEFT LABIAL BIOPSIES: --- BENIGN LENTIGINOUS CHANGE WITH UNDER LYING CHRONIC INFLAMMATION AND PIGMENT INCONTINENCE. [facility]/09/30/2014 Adriane MEANS M.D. Report electronically released. Interpretation by Adriane MEANS M.D. SPECIMEN(S) RECEIVED: LEFT LABIA CLINICAL HISTORY: DARK SPREADING SPOTS GROSS DESCRIPTION: Submitted is a kumari mucosal fragment, 0.1 cm in greatest dimension. ESB, one cassette. ([id number]) [facility]/09/29/2014 MICROSCOPIC DESCRIPTION: Reviewed by Adriane Means M.D.; Patholo gist [facility]/09/30/2014 Bartolome Mitchell M.D. LAB SURG PATH ORDERABLES Performing Organization Address City/State/ZIP Code Phon e Number LCM LAB documented in this encounter Visit Diagnoses Not on filedocumented in this encounter
--- OUTSIDE RECORDS SUMMARY | 2022-04-11 14:38 | XMS_ITS | Encounter Summary ---
:[address] [facility] Address [address] [place] [address] Care Team Providers Name Role Phone Unavailable Primary Care Provider Unavailable Encounter Details Date Type Department Care Team Description 01/07/2015 Hospital Encounter HX [facility] FBHB FAMILYPRA Anabelle Varma, LAUREN, C.N.P. [address] [place] [address] (Wo rk) Social History Tobacco [...] LAUREN, C.N.P. - 01/07/2015 4:20 PM CDT [id number] CHIEF COMPLAINT/REASON FOR VISIT 1. Healthcare maintenance [...] does not smoke. FAMILY HISTORY Reviewed from [facility] family history tab in the EMR. VITAL SIGNS Reviewed from [facility] evaluation under the vitals tab in the [...] VARMA CNP On: 01/08/2015 11:17 AM Source: [facility] MHSDOLBEYNKODI Document Id: [id number] documented in this encounter Nursing Notes Dasha [...] in this age group Every visit ?? 4620-7303 Gris Martinez, [address] [place] [address], [place] [address]. All rights reserved. This information is not intended as a substitute for professional medical care. Always follow your healthcare professional's instructions. Source: [facility] POWERCHART Document Id: [id number] documented in this encounter Miscellaneous Notes Miscellaneous - Dasha Varma APRN, C.N.P. - 01/08/2015 3:24 PM CDT Normal Results Letter 08 January 2015 ANUSHA SOSA [address] [place] [id number] Dear ANUSHA SOSA, I am pleased to [...] None Seen - Sincerely, DASHA VARMA [address] [place] [address] Electronic Signature Electronically Signed By: DASHA VARMA CNP On: 08 January 2015 This document has images extracted. Source: [facility] Octopart Document Id: [id number] Electronically signed by Conversion, [facility] Telephone Betting Clerk [id number] at 09/26/2016 7:16 PM CDT Miscellaneous - Dasha Varma APRN, C.N.P. - 01/08/2015 3:24 PM CDT From: DASHA VARMA [employer] Sent: 01/08/2015 15:24:04 CDT Phone call with positive chlamydia test. Rx for azithromycin sent to [facility]. Patient states partnerwill see his PCP for treatment. STD form sent to the [facility]. Source: [facility] Octopart Document Id: [id number] Electronically signed by Conversion, [facility] Telephone Betting Clerk [id number] at 09/26/2016 7:16 PM CDT Miscellaneous - [...] DIAZ LPN - 01/07/2015 17:06 CDT Source: [employer] Document Id: [id number] CDT!13 Miscellaneous - Dasha Varma APRN, C.N.P. - 01/07/2015 5:04 PM CDT Ambulatory Patient Summary [address] [id number] Visit Information Name: ANUSHA SOSA [facility] Number: [id number] Current Date: 01/07/2015 17:04:20 [...] in this age group Every visit ?? 8966-8593 [facility], [address] [place] [address], [place] [address]. All rights reserved. This information is not [...] if you dont have one. Go to [email or web address] and click on Create Your Account. Then, follow the directions to complete the online form. Youll be asked for your [facility] number which you can find at the top of this document. Your Goals/Additional instructions: Source: [facility] POWERCHART Document Id: [id number] Miscellaneous - Dasha Varma APRN, C.N.P. - 01/07/2015 5:04 PM CDT Ambulatory Discharge Medication List [address] [id number] Visit Information Name: ESE SOSAA [place] [facility] Number: [id number] Visit Date: 01/07/2015 17:04:19 [...] emergency. Electronically Signed By: DASHA VARMA [facility] Signed On:07-JAN-2015 17:03:43 Additional Information: Source: [facility] POWERCHART Document Id: [id number] Miscellaneous - Sudha Diaz L.P.N. - 01/07/2015 4:33 PM CDT Adult General Internal Medicine Physician Intake/History Adult General Internal Medicine Physician Intake/History Entered On: 01/07/2015 16:36 CDT Performed [...] Preferred Communication Mode : Verbal Languages : Slovenian Is Patient Female and 13-50 no hysterectomy [...] RivasMichelle RAJAN - 01/07/2015 16:33 CDT Source: [employer] Document Id: [id number] CDT!3 Miscellaneous - Sudha Diaz L.P.N. - [...] None Behavioral Health Screen/Safety Assmt : No Voodoo Preference : Unknown SUDHA DIAZ SATINDER - 01/07/2015 16:31 CDT Advance Directive Advanced Directives : No Advance Directive Additional Information : No SUDHA DIAZ SATINDER - 01/07/2015 16:31 CDT Educ Needs Learning Style Preference Adult Grid Patient : Printed materials, Verbal explanation Family : Printed materials, Verbal explanation SUDHA DIAZ SATINDER - 01/07/2015 16:31 CDT Source: [employer] Document Id: [id number] CDT!33 documented in this encounter Plan of [...] X109L Erythrocytes 4.23 3.90 - POWERCHART 5.03 K1336U Hemoglobin 13.7 12.0 - POWERCHART 15.5 GDL [...] POWERCHART MMOLL HXeGFR (MDRD) >60 >=60 POWERCHART [id number] eGFR >60 >=60 POWERCHART Black/ [id number] Slovenian Specimen (Source) Anatomical Collection Method Collection Time Re ceived Time Location / / Volume Laterality Blood 01/07/2015 5:10 PM CDT Dasha Varma APRN, C.N.P. LAB BLOOD ADD-ON Performing Organization Address City/State/ZIP Code Phon e Number POWERCHART Chlamydia / Gonorrhoeae Amplified RNA (01/07/2015 4:59 PM CDT) Component Value Ref Test Analysis Performed At [facility] gist Range Method Time Signature HX GC [...] MICROBIOLOGY - GENERAL ORDERABLES Performing Organization Address [facility] Phon e Number POWERCHART (ABNORMAL) Chlamydia Trachomatis Amplified RNA (01/07/2015 4:59 PM CDT) Component Value Ref Test Analysis Performed At [facility] gist Range Method Time Signature HXChlamydia by (POSITIVE) POWERCHART Nucleic Acid Amplification HXFinal Positive for POWERCHART Chlamydia trachomatis by RNA amplification. HXFinal Reference: POWERCHART Negative HXFinal Reportable to [facility] the [facility] Department of Health. HXFinal If you POWERCHART submitted a female urine sample, please note it is a Laboratory Developed Test. Specimen (Source) Anatomical Collection Method Collection Time Re ceived Time Location / / Volume Laterality Urine 01/07/2015 4:59 PM CDT Dasha Varma APRN, C.N.P. LAB MICROBIOLOGY - GENERAL ORDERABLES Performing Organization Address City/[facility] Code Phon e Number POWERCHART Urine Microscopic [...] C.N.P. LAB URINE ORDERABLES Performing Organization Address City/[facility]/ZIP [facility] Phon e Number POWERCHART (ABNORMAL) Urinalysis, Routine (01/07/2015 4:58 PM CDT) [facility] gist Method Time Signature HXUr Color Yellow Colorless POWERCHART Clarity Clear Clear POWERCHART Glucose Negative Negative POWERCHART MGDL HXBILIRUBIN Negative Negative POWERCHART Ketones, QL(U) Negative Negative POWERCHART MGDL Specific <=1.005 POWERCHART Hamill, POCT, U HXBLOOD Negative Negative POWERCHART pH, [...] C.N.P. LAB URINE ORDERABLES Performing Organization Address City/State/[facility] Phon e Number POWERCHART documented in this encounter Visit Diagnoses Not on filedocumented in this encounter Additional Health Concerns Assessment Noted Time PHQ-9 Depression Total Score: 2 01/07/2015 5:06 PM CDT documented as of this encounter
--- OUTSIDE RECORDS SUMMARY | 2022-04-11 14:38 | XMS_ITS | Encounter Summary ---
:1990 Author Organization [facility] Address [address] [place] [address] Care Team Providers Name Role Phone Mayra Guerrero APRN, C.N.P. Primary Care Provider [phone] Encounter Details Date Type Department Care Team Description 02/13/2017 Hospital Encounter HX [facility] Josh Mccall M.D. Social History Tobacco Use [...] Coding Summary-Paper Based CODING DATE: 02/22/2017 FINAL [facility] STATUS: * Discharged to Home or [...] 07:26 am Source: [facility] sougouCHART Document Id: [id number] documented in this encounter Plan of Treatment Not on filedocumented as of this encounter Visit Diagnoses Not on filedocumented in this encounter Additional Health Concerns Assessment Noted Time PHQ-9 Depression Total Score: 9 03/03/2016 11:54 AM CD T documented as of this encounter Care Teams Sound System Installer Relationship Specialty Start Date End Date Mayra Guerrero, LAUREN, C.N.P. PCP - General 10/13/16 12/30/[address] [address] documented as of this encounter
--- OUTSIDE RECORDS SUMMARY | 2022-04-11 14:38 | XMS_ITS | Encounter Summary ---
:1990 Author Organization [facility] Address [address] [place] [address] Care Team Providers Name Role Phone Unavailable Primary Care Provider Unavailable Encounter Details Date Type Department Care Team Description 06/26/2013 Hospital Encounter HX [facility] FBHB FAMILYPRA Anabelle Varma, LAUREN, C.N.P. [address] [place] [address] (Wo rk) Social History Tobacco Use Types Packs/Day Years Used Date Smoking Tobacco: Never Assessed Sex Assigned at Date Recorded Not on file documented as of this encounter Last Filed Vital Signs Vital Sign Reading Time Taken Comments Blood Pressure 120/78 06/26/2013 4:09 PM FILLER WIPER Pulse 80 06/26/2013 4:09 PM FILLER WIPER Temperature - - Respiratory Rate 16 06/26/2013 4:09 PM FILLER WIPER Oxygen Saturation - - Inhaled Oxygen Concentration - - Weight 62 kg (136 lb 11 oz) 06/26/2013 4:09 PM FILLER WIPER Height 155.5 cm (5' 1.22) 06/26/2013 4:09 PM FILLER WIPER Body Mass Index 25.64 06/26/2013 4:09 PM FILLER WIPER documented in this encounter Progress Notes Dasha Varma, LAUREN, C.N.P. - 06/26/2013 4:02 PM CST [id number] CHIEF COMPLAINT/REASON FOR VISIT Chlamydia. HISTORY OF [...] STD report form was mailed to the [place] [facility]. Dasha Varma CNP/claudio Electronically Signed By: DASHA VARMA CNP On: 07/01/2013 09:14 AM Source: [facility] MHSDOLBEYNONRADSYS Document Id: [id number] ER WIPER documented in this encounter Miscellaneous Notes Miscellaneous - Dasha Varma APRN, C.N.P. - 06/26/2013 4:19 PM CST Ambulatory Patient Summary [address] [id number] Visit Information Name: ANUSHA SOLOMON [facility] Number: [id number] Current Date: 06/26/2013 16:19:15 [...] local Clinic if further appointment detail needed. [address] Chlamydia Chlamydia is a very common sexually [...] or lung problems in the baby. Resources [employer] STD Hotline 572-129-0499 www.ashastd.org Centers for Disease Control and Prevention 570-069-7321 www.cdc.gov/std ?? Gris Martinez, [address] [place] [address], [place] [address]. All rights reserved. This information is not intended as a substitute for professional medical care. Always follow your healthcare professional's instructions. Your Goals/Additional instructions: This document has images extracted. Please consider using [employer] for all your patient education needs. Source: [facility] POWERCHART Document Id: [id number] ER WIPER Miscellaneous - Dasha Varma APRN, C.N.P. - 06/26/2013 4:19 PM CST Ambulatory Discharge Medication List [address] [id number] Visit Information Name: ANUSHA SOLOMON [facility] Number: [id number] Visit Date: 06/26/2013 16:19:14 [...] emergency. Additional Information: Source: [facility] POWERCHART Document Id: [id number] ER WIPER Miscellaneous - Juanito Diaz L.P.N. - 06/26/2013 4:09 PM CST Adult Director Of Undergraduate Admissions Intake/History Adult Director Of Undergraduate Admissions Intake/History Entered On: 06/26/2013 16:10 FILLER WIPER Performed On: 06/26/2013 16:09 FILLER WIPER by JUANITO DIAZ LPN Intake Chief Complaint [...] kg/m2 JUANITO DIAZ LPN - 06/26/2013 16:09 FILLER WIPER General Info Information Given By : Patient Languages : Macedonian JUANITO DIAZ LPN - 06/26/2013 16:09 FILLER WIPER Subjective Pain Symptoms : No JUANITO DIAZ LPN - 06/26/2013 16:09 FILLER WIPER Dependent Habits Tobacco Use/Currently Using : Yes Exposure to Tobacco Smoke : Patient smokes Smoking Status : Current some day smoker JUANITO DIAZ LPN - 06/26/2013 16:09 FILLER WIPER Tobacco Use Grid Type : Cigarettes Last Use : quit in 05/12 JUANITO DIAZ LPN - 06/26/2013 16:09 FILLER WIPER Caffeine Use Grid Caffeine Use : Current Type : Soft drinks Frequency : Daily JUANITO DIAZ LPN - 06/26/2013 16:09 FILLER WIPER Source: [facility] New [employer] Development [employer] Management Document Id: [id number] FILLER WIPER!36 ER WIPER documented in this encounter Plan of Treatment Not on filedocumented as of this encounter Visit Diagnoses Not on filedocumented in this encounter
--- OUTSIDE RECORDS SUMMARY | 2022-04-11 14:38 | XMS_ITS | Encounter Summary ---
:1990 Author Organization [facility] Address [address] [place] [address] Care Team Providers Name Role Phone Unavailable Primary Care Provider Unavailable Encounter Details Date Type Department Care Team Description 10/06/2015 Hospital Encounter HX [facility] Peter Quintero M.D. Social History Tobacco Use [...]
--- OUTSIDE RECORDS SUMMARY | 2022-04-11 14:38 | XMS_ITS | Encounter Summary ---
:1990 Author Organization [facility] Address [address] [place] [address] Care Team Providers Name Role Phone Unavailable Primary Care Provider Unavailable Encounter Details Date Type Department Care Team Description 03/03/2016 Hospital Encounter HX [facility] FAMILYPRA Dasha Varma APRN, C.N.P. [address] [place], [place] [address] (Wo rk) Social History [...] in June. Will have her schedule a DELINQUENCY PREVENTION SOCIAL WORKER appointment. She has depression, she is seeing [...] Ordered: OV Est Pt Level 3 - 84878 - 15 min Dysuria NOS Urinalysis negative, watchful waiting. Adequate fluid intake. Ordered: OV Est Pt Level 3 - 11109 - 15 min Urinalysis with Microscopic if Indicated Encounter for immunization Flu shot given. Ordered: influenza virus vaccine, inactivated, 0.5 mL, IM, Once, 03/03/16 11:18:00 CDT influenza virus vaccine QUAD, inactivated (Influenza virus vaccine, inactive, 3 yrs, PF) charge OV Est Pt Prev [facility] -73 - [address]31 Encounter for screening for malignant neoplasm of cervix Ordered: OV Est Pt Prev [facility] [address] Pathology - DELINQUENCY PREVENTION SOCIAL WORKER Cytology General Medical Exam Adult (GME) Continue to work on healthy diet and regular exercise program. I will mail laboratory results. Return for complete physical exam in one year. Ordered: OV Est Pt Prev [facility] -75 - [id number] IUD, checking, reinsertion or removal Appointment for Mirena IUD replacement will be scheduled with DELINQUENCY PREVENTION SOCIAL WORKER in June. Ordered: OV Est Pt Prev [facility] [phone] Orders: buPROPion, 300 mg = 1 tab(s), PO, Daily, # 30 tab(s), 3 Refill(s), Maintenance, Pharmacy: [facility] buPROPion, 150 mg = 1 tab(s), PO, q24hr, # 7 tab(s), 0 Refill(s), Maintenance, Pharmacy: [facility], Discontinue sertraline. Consult to APPAREL FASHION DESIGNER Electronically Signed By: DASHA VARMA APRN, CNP On: 03/03/2016 12:19 PM Source: [facility] POWERCHART Document Id: [id number] documented in this encounter Nursing Notes Dasha [...] Talk with your doctor about seeing an machine fixer before getting the flu vaccine. ?? Nasal spray: This is a vaccine thats sprayed into the nose. It is available only for healthy persons ages 2 through 49. It should not be used for women. ?? [phone] [place] [address]. All rights reserved. This information is not intended as a substitute for professional medical care. Always follow your healthcare professional's instructions. This document has images extracted. Please consider using [employer] for all your patient education needs. Source: [facility] POWERCHART Document Id: [id number] documented in this encounter Miscellaneous Notes Miscellaneous - Dasha Varma APRN, C.N.P. - 03/16/2016 2:08 PM CST Normal Results Letter March 16, 2016 ANUSHA SOSA [facility] [address] [place] [id number] Dear ANUSHA SOSA, I am pleased to report that your results from the STD tests are negative. Please follow up with us as we discussed during your visit or sooner if you have any concerns. If you have questions or concerns, please do not hesitate to call our office. Result Name Current Result DELINQUENCY PREVENTION SOCIAL WORKER Cytology. 03/03/2016 Sincerely, DASHA VARMA [address] [place] [address] Electronic Signature Electronically Signed By: DASHA VARMA APRN THERMAL MOLDER On: March 16, 2016 This document has images extracted. Source: [facility] Levels BeyondCHART Document Id: [id number] Electronically signed by Conversion, [facility] Net Programmer Analyst [id number] at 09/25/2016 8:58 AM CDT Miscellaneous - Dasha Varma APRN, C.N.P. - 03/15/2016 9:13 AM CST Custom Result Letter March 15, [address]OSA [address] [id number] Dear ANUSHA SOSA, I am happy to inform you that your recent Pap smear has been read as normal or negative. This is very reassuring. I would recommend following up with your next Pap smear in three years. Result Name Current Result DELINQUENCY PREVENTION SOCIAL WORKER Cytology. 03/03/2016 Sincerely, DASHA VARMA [address] [facility] [place] [address] Electronic Signature Electronically Signed By: DASHA VARMA APRN THERMAL MOLDER On: March 15, 2016 This document has images extracted. Source: [facility] [employer] ([employer]) Document Id: [id number] Electronically signed by Conversion, [facility] Net Programmer Analyst [id number] at 09/25/2016 8:58 AM CDT Miscellaneous - [...] DIAZ LPN - 03/03/2016 11:54 CDT Source: [facility] POWERCHART Document Id: [id number] CDT!13 Miscellaneous - Dasha Varma APRN, C.N.P. - 03/03/2016 11:23 AM CDT Ambulatory Patient Summary [facility] [address] [place], [place] [id number] Visit Information Name: SVEN ANUSHA CAR[place] [facility] Number: [id number] Current Date: 03/03/2016 11:23:19 Physicians Attending Provider: DASHA VARMA APRN, CNP Primary Care Provider: DASHA VARMA APRN [facility] ANUSHA SOSA has been given the [...] Tablet(s), Oral, once a day Routed to [address] [id number] Stop Taking the Following Medications: Medication list [...] following high-risk groups: ?? Persons 50 and [id number] ?? Babies and children 6 months and [...] Talk with your doctor about seeing an machine fixer before getting the flu vaccine. ?? Nasal spray: This is a vaccine thats sprayed into the nose. It is available only for healthy persons ages 2 through 49. It should not be used for women. ?? 3656-1511 [facility], [address] [place] [address], [place] [address]. All rights reserved. This information is not [...] if you dont have one. Go to [email or web address] and click on Create Your Account. Then, follow the directions to complete the online form. Youll be asked for your [facility] number which you can find at the top of this document. Your Goals/Additional instructions: This document has images extracted. Please consider using [employer] for all your patient education needs. Source: [facility] POWERCHART Document Id: [id number] Miscellaneous - Dasha Varma APRN, C.N.P. - 03/03/2016 11:23 AM CDT Ambulatory Discharge Medication List [address] [id number] Visit Information Name: ESE SOSAA [place] [facility] Number: [id number] Current Date: 03/03/2016 11:23:18 Attending Provider: DASHA VARMA APRN THERMAL MOLDER Primary Care Provider: DASHA VARMA APRN THERMAL MOLDER ANUSHA SOSA has been given the following [...] Tablet(s), Oral, once a day Routed to [address] [address] Stop Taking the Following Medications: Medication list [...] emergency. Electronically Signed By: DASHA VARMA APRN THERMAL MOLDER Signed On:03-MAR-2016 11:23:05 Additional Information: Source: [facility] POWERCHART Document Id: [id number] Miscellaneous - Justice Barraza, L.P.N. - 03/03/2016 11:04 AM CDT Adult Geological Scout Intake/History Adult Geological Scout Intake/History Entered On: 03/03/2016 11:07 CDT Performed [...] Preferred Communication Mode : Verbal Languages : Malay Is Patient Female and [...] BARRAZA SATINDER - 03/03/2016 11:04 CDT Source: [facility] [employer] ([employer] Document Id: [id number] CDT!40 documented in this encounter Plan of Treatment Not on filedocumented as of this encounter Procedures Procedure Name Priority Date/Time Associated Comments Diagnosis URINALYSIS, ROUTINE Routine 03/03/2016 11:56 Resu lts for this AM CDT procedure are i n the results section. URINE MICROSCOPIC Routine 03/03/2016 11:56 Result s for this AM CDT procedure are i n the results section. PATHOLOGY DELINQUENCY PREVENTION SOCIAL WORKER Routine 03/03/2016 12:00 Results fo r this [...] (ABNORMAL) Urinalysis, Routine (03/03/2016 11:56 AM CDT) [facility] gist Method Time Signature Clarity Slightly Clear POWERCHART Cloudy (A) HXUr Color Yellow Colorless POWERCHART Specific 1.020 POWERCHART Patterson, POCT, U Comment: Reference Range Specific Patterson: 1.000-1.035 pH, POCT, Urine 6.0 <5.0 POWERCHART [...] City/State/ZIP Code Phon e Number POWERCHART Pathology DELINQUENCY PREVENTION SOCIAL WORKER Cytology (03/03/2016 12:00 AM CDT) Specimen (Source) Anatomical Location Collection Method / Collectio n Time Received Time / Laterality Volume 03/03/2016 Narrative [facility] LAB - 03/16/2016 12:24 PM COMMUNICATIONS EQUIPMENT INSTALLER [facility] in [address] [place], [place] ??[address] Patient Name: ANUSHA SOSA Patient ID #: [id number] Collected: 03/03/2016 Address: City/State/Zip: [address] [place] [address] ??[phone] Received: Reported: 03/04/2016 03/15/2016 Soc. Sec. #: ?/Age/Sex 1990 (Age: 25) ??F Physician(s): ROSE VARMA CNP Copy To: ? [facility] ??[id number] [address] [facility], ??[place] ??[address] CYTOPATHOLOGY DELINQUENCY PREVENTION SOCIAL WORKER REPORT FINAL CYTOLOGIC DIAGNOSIS Pap Smear - [...] Addendum Diagnosis Chlamydia trachomatis Amplified RNA (FROM [facility]; [address] [place] [address]) SOURCE: ? ENDOCERVIX Chlamydia trachomatis amplified RNA ? Negative Reference Value ?Negative ADDITIONAL INFORMATION ?This report is intended for use in clinical monitoring and management of patients. It is not intend ed for use in medical-legal applications. Received: 15 Mar 2016 07:39 Reported: 15 Mar 2016 20:27 Neisseria gonorrhoeae Amplified RNA (FROM [facility]; [address] [facility] [place], [place]) SOURCE: ? ENDOCERVIX Neisseria gonorrhoeae amplified RNA ? Negative Reference Value ?Negative ADDITIONAL INFORMATION ?This report is intended for use in clinical monitoring and management of patients. It is not intend ed for use in medical-legal applications. Received: 15 Mar 2016 07:39 Reported: 15 Mar 2016 20:[address] [facility] PATHOLOGIST: EAE:nm March 16, 2016 ROSEY [...]
--- OUTSIDE RECORDS SUMMARY | 2022-04-11 14:38 | XMS_ITS | Encounter Summary ---
:1990 Author Organization [facility] Address [address] [place] [address] Care Team Providers Name Role Phone Unavailable Primary Care Provider Unavailable Encounter Details Date Type Department Care Team Description 01/07/2015 Hospital Encounter HX NO MAPPING Mayra Guerrero, SUBSTANCE ABUSE CLINICIAN, C.N.P. [address] [place], [place] [phone] (Wo rk) Social History Tobacco Use Types Packs/Day Years Used Date Smoking Tobacco: Never Assessed Sex Assigned at Date Recorded Not on file documented as of this encounter Miscellaneous Notes Miscellaneous - Conversion, Historical Provider Ser - 01/07/2015 11:59 PM CDT Coding Summary-Paper Based CODING DATE: 01/21/2015 FINAL [facility] STATUS: * Discharged to Home or Self [...] BRITO Date Saved: 01/21/2015 03:42 pm Source: [facility] POWERCHART Document Id: [id number] documented in this encounter Plan of Treatment Not on filedocumented as of this encounter Visit Diagnoses Not on filedocumented in this encounter Additional Health Concerns Assessment Noted Time PHQ-9 Depression Total Score: 2 01/07/2015 5:06 PM CDT documented as of this encounter
--- OUTSIDE RECORDS SUMMARY | 2022-04-11 14:38 | XMS_ITS | Encounter Summary ---
:1990 Author Organization [facility] Address [address] [place] [address] Care Team Providers Name Role Phone Unavailable Primary Care Provider Unavailable Encounter Details Date Type Department Care Team Description 10/17/2013 Hospital Encounter HX [facility] FBHB FAMILYPRA Anabelle Varma APRN, C.N.P. [address] [place] [address] (Wo rk) Social History Tobacco [...] LAUREN, C.N.P. - 10/17/2013 4:18 PM CDT [id number] CHIEF COMPLAINT/REASON FOR VISIT Recheck chlamydia screen. [...] VARMA CNP On: 10/21/2013 08:22 AM Source: [facility] MHSDOLBEYNCASEYSYS Document Id: [id number] documented in this encounter Miscellaneous Notes Miscellaneous - Dasha Varma APRN, C.N.P. - 10/21/2013 8:23 AM CDT Normal Results Letter 21 October 2013 ANUSHA SOLOMON [address] [place] [id number] Dear ANUSHA SOLOMON, I am pleased to report that your results from the following diagnostic test(s) are normal. Please follow up with us as we discussed during your visit or sooner if you have any concerns. If you have questions or concerns, please do not hesitate to call our office. Result Name Current Result Previous Result Normal Range C trach Amp RNA-[place] Negative 10/17/2013 Positive 09/19/2013 Negative - N gonor Amp DNA-[place] Negative 10/17/2013 Negative 09/19/2013 Negative - Sincerely, DASHA VARMA [address] [facility] [place] [address] Electronic Signature Electronically Signed By: DASHA VARMA CNP On: 21 October 2013 This document has images extracted. Source: [facility] POWERCHART Document Id: [id number] Miscellaneous - Dasha Varma APRN, C.N.P. - 10/17/2013 4:32 PM CDT Ambulatory Patient Summary [address] [id number] Visit Information Name: ANUSHA SOLOMON [facility] Number: [id number] Current Date: 10/17/2013 16:32:42 Physicians Attending Provider: DASHA VRAMA CNP Primary [...] local Clinic if further appointment detail needed. [id number] STD, (Cervicitis) [Female, Chlamydia vs GC: Treated] [...] testing. For more information about STD's, contact [facility] STD Hotline: . GET PROMPT MEDICAL [...] lymph nodes (lumps) in the groin ?? [phone] [facility], [address] [place] [address], [place] [address]. All rights reserved. This information is not intended as a substitute for professional medical care. Always follow your healthcare professional's instructions. Your Goals/Additional instructions: This document has images extracted. Please consider using [employer] for all your patient education needs. Source: [facility] POWERCHART Document Id: [id number] Miscellaneous - Dasha Varma APRN, C.N.P. - 10/17/2013 4:32 PM CDT Ambulatory Discharge Medication List [address] [id number] Visit Information Name: ANUSHA SOLOMON [facility] Number: [id number] Visit Date: 10/17/2013 16:32:41 Attending [...] CNP Signed On:17-OCT-2013 16:32:21 Additional Information: Source: [facility] POWERCHART Document Id: [id number] Miscellaneous - Sudha Diaz L.P.N. - 10/17/2013 4:25 PM CDT Adult Loader Helper Intake/History Adult Loader Helper Intake/History Entered On: 10/17/2013 16:26 CDT Performed [...] Languages : Sami SUDHA DIAZ LPN - 10/17/2013 16:25 CDT [...] Rivas SATINDER - 10/17/2013 16:25 CDT [facility] Document Id: [id number] CDT!36 documented in this encounter Plan of [...] athologist Signature HXN gonor Amp Negative POWERCHART DNA-[place] Specimen (Source) Anatomical Collection Method Collection Time Re ceived Time Location / / Volume Laterality 10/17/2013 4:36 PM CDT Narrative POWERCHART - 10/19/2013 4:45 PM CDT Test Performed by: [facility] [place] [address] Public Speaking Teacher: Yonathan jane III, M.D. Dasha Varma APRN C.N.PSudarshan LAB HISTORICAL ORDERS Performing Organization Address City/State/ZIP Code Phon e Number POWERCHART HX-N gonor Amp Src (10/17/2013 4:36 PM CDT) P athologist Signature HXN gonor Amp urine POWERCHART Src-[place] Specimen (Source) Anatomical Collection Method Collection Time Re ceived Time Location / / Volume Laterality 10/17/2013 4:36 PM CDT Dasha J Myrom GRILL CHEF, C.N.P. LAB HISTORICAL ORDERS Performing Organization Address City/[facility]/ZIP Code Phon e Number POWERCHART HX-C trach Amp RNA (10/17/2013 4:36 PM CDT) Patholo gist Method Time Signature Chlamydia Negative POWERCHART trachomatis amplified RNA Specimen (Source) Anatomical Collection Method Collection Time Re ceived Time Location / / Volume Laterality 10/17/2013 4:36 PM CDT Dasha Varma APRN, C.N.P. LAB HISTORICAL ORDERS Performing Organization Address City/[facility] Code Phon e Number POWERCHART HX-C trach Amp Src (10/17/2013 4:36 PM CDT) P athologist Signature HXC trach Amp urine POWERCHART Src-[place] Specimen (Source) Anatomical Collection Method Collection Time Re ceived Time Location / / Volume Laterality 10/17/2013 4:36 PM CDT Dasha Varma APRN, C.N.P. LAB HISTORICAL ORDERS Performing Organization Address City/[facility]/ZIP Code Phon e Number POWERCHART documented in this encounter Visit Diagnoses Not on filedocumented in this encounter
--- OUTSIDE RECORDS SUMMARY | 2022-04-11 14:38 | XMS_ITS | Encounter Summary ---
:1990 Author Organization [facility] Address [address] [place] [address] Care Team Providers Name Role Phone Unavailable Primary Care Provider Unavailable Encounter Details Date Type Department Care Team Description 03/03/2016 Hospital Encounter HX NO MAPPING Mayra Guerrero, PIN DRAFTER OPERATOR, C.N.P. [address] [place], [place] [phone] (Wo rk) Social History [...]
--- OUTSIDE RECORDS SUMMARY | 2022-04-11 14:38 | XMS_ITS | Encounter Summary ---
:1990 Author Organization [facility] Address [address] [place] [address] Care Team Providers Name Role Phone Unavailable Primary Care Provider Unavailable Encounter Details Date Type Department Care Team Description 09/19/2013 Hospital Encounter HX [facility] FBHB FAMILYPRA Anabelle Varma APRN, C.N.P. [address] [place] [address] (Wo rk) Social History Tobacco [...] LAUREN, C.N.P. - 09/19/2013 3:49 PM CDT [id number] CHIEF COMPLAINT/REASON FOR VISIT 1. Vaginal discharge [...] Mild suprapubic tenderness. : Bartholin's, urethral and Gideon's, vagina and cervix are without lesion. ThinPrep [...] VARMA CNP On: 09/24/2013 08:23 AM Source: [facility] MHSDOLBEYNONRADSYS Document Id: [id number] documented in this encounter Miscellaneous Notes Miscellaneous - Dasha Varma APRN, C.N.P. - 09/24/2013 8:27 AM CDT General Message From: DASHA VARMA CNP Sent: 09/24/2013 08:27:33 CDT Subject: General Message Phone call with positive chlamydia result. Rx for azithromycin 1 gram po once sent to [facility]. Recheck in 2 weeks. STD report sent to [facility]. Source: [facility] POWERCHART Document Id: [id number] Electronically signed by Conversion, [facility] Net Application Architect [id number] at 09/26/2016 8:52 PM CDT Miscellaneous - Dasha Varma, LAUREN, C.N.P. - 09/19/2013 4:22 PM CDT Ambulatory Patient Summary [address] [id number] Visit Information Name: JUANITO ANUSHA [place] [facility] Number: [id number] Current Date: 09/19/2013 16:22:19 Physicians [...] to minimize abdominal discomfort [facility] [address] [place] [address] Stop Taking the Following Medications: Medication [...] local Clinic if further appointment detail needed. [id number] Vaginal Infection: Bacterial Vaginosis Both good and [...] risk of pelvic inflammatory disease (PID). ?? [id number] [facility]Ge[facility], [address] [place] [address], [place] [address]. All rights reserved. This information is not intended as a substitute for professional medical care. Always follow your healthcare professional's instructions. Your Goals/Additional instructions: This document has images extracted. Please consider using [employer] for all your patient education needs. Source: [facility] POWERCHART Document Id: [id number] Miscellaneous - Dasha Varma APRN, C.N.P. - 09/19/2013 4:22 PM CDT Ambulatory Discharge Medication List [address] [id number] Visit Information Name: ANUSHA SOLOMON [facility] Number: [id number] Visit Date: 09/19/2013 16:22:18 Attending [...] to minimize abdominal discomfort New Routed to [address] [address] Stop Taking the Following Medications: Medication list [...] of emergency. Electronically Signed By: DASHA VARMA CUSTOMER SOLUTIONS SPECIALIST Signed On:19-SEP-2013 16:22:03 Additional Information: Source: [facility] POWERCHART Document Id: [id number] Miscellaneous - Sudha Diaz L.P.N. - 09/19/2013 3:57 PM CDT Adult Customer Energy Specialist Intake/History Adult Customer Energy Specialist Intake/History Entered On: 09/19/2013 16:00 CDT Performed [...] Given By : Patient Languages : Czech SUDHA DIAZ LPN - 09/19/2013 15:57 CDT Subjective Pain Symptoms : Yes SUDHA DIAZ LPN - 09/19/2013 15:57 CDT Pain Pain Assessment Grid Pain 1 Pain 2 Location : Abdomen Lower back Laterality : Bilateral Right Intensity : 8 8 SUDHA DIAZ SATINDER - 09/19/2013 15:57 CDT SUDHA DIAZ RESIDENTIAL HOUSEKEEPER - 09/19/2013 15:57 CDT Dependent Habits Tobacco Use/Currently Using : No Smoking Status : Former smoker SUDHA DIAZ RESIDENTIAL HOUSEKEEPER - 09/19/2013 15:57 CDT Tobacco Use Grid Type : Cigarettes Last Use : quit in 05/12 SUDHA DIAZ RESIDENTIAL HOUSEKEEPER - 09/19/2013 15:57 CDT Caffeine Use Grid Caffeine Use : Current Type : Soft drinks Frequency : Daily SUDHA DIAZ RESIDENTIAL HOUSEKEEPER - 09/19/2013 15:57 CDT Source: [employer] Document Id: [id number] CDT!45 documented in this encounter Plan of [...] 09/21/2013 9:55 PM CDT Test Performed by: [address] [address] Insurance And Benefits Clerk: Yonathan jane III, M.D. Dasha Varma APRN C.N.P. LAB HISTORICAL ORDERS Performing Organization Address City/State/ZIP Code Phon e Number POWERCHART HX-N gonor Amp Src (09/19/2013 4:16 PM CDT) athologist Signature HXN gonor Amp Urine POWERCHART [facility] Specimen (Source) Anatomical Collection Method Collection Time [...] athologist Signature HXC trach Amp Urine POWERCHART [facility] Specimen (Source) Anatomical Collection Method Collection Time [...]
--- OUTSIDE RECORDS SUMMARY | 2022-04-11 14:39 | XMS_ITS | Encounter Summary ---
:1990 Author Organization [facility] Address [address] [place] [address] Care Team Providers Name Role Phone Unavailable Primary Care Provider Unavailable Encounter Details Date Type Department Care Team Description 11/04/2004 Hospital Encounter HX [facility] Torsten Robbins M.D. [address] [place], [place] [address] (Wo rk) Social History Tobacco Use Types Packs/Day Years Used Date Smoking Tobacco: Never Assessed Sex Assigned at Date Recorded Not on file documented as of this encounter Plan of Treatment Not on filedocumented as of this encounter Visit Diagnoses Not on filedocumented in this encounter
--- OUTSIDE RECORDS SUMMARY | 2022-04-11 14:39 | XMS_ITS | Encounter Summary ---
:1990 Author Organization [facility] Address [address] [place] [address] Care Team Providers Name Role Phone Unavailable Primary Care Provider Unavailable Encounter Details Date Type Department Care Team Description 06/24/2013 Hospital Encounter HX [facility] FAMILYPRA Anabelle Varma APRN, C.N.P. [address] [place] [address] (Wo rk) Social History Tobacco Use Types Packs/Day Years Used Date Smoking Tobacco: Never Assessed Sex Assigned at Date Recorded Not on file documented as of this encounter Last Filed Vital Signs Vital Sign Reading Time Taken Comments Blood Pressure 110/66 06/24/2013 8:31 AM [employer] Pulse 68 06/24/2013 8:31 AM [employer] Temperature - - Respiratory Rate 16 06/24/2013 8:31 AM [employer] Oxygen Saturation - - Inhaled Oxygen Concentration - - Weight 62.5 kg (137 lb 12.6 oz) 06/24/2013 8:31 AM [employer] Height 157 cm (5' 1.81) 06/24/2013 8:31 AM [employer] Body Mass Index 25.36 06/24/2013 8:31 AM [employer] documented in this encounter H&P Notes Dasha Varma APRN, C.N.P. - 06/24/2013 8:21 AM CST [id number] CHIEF COMPLAINT/REASON FOR VISIT 1. Health care [...] VARMA CNP On: 06/25/2013 10:25 AM Source: [facility] MHSDOLBEYNONRADSYS Document Id: [id number] [employer] documented in this encounter Miscellaneous Notes Miscellaneous - Dasha Varma APRN, C.N.P. - 07/03/2013 1:08 PM CST Custom Result Letter 03 July 2013 ANUSHA SOLOMON [address] [facility] [phone] Dear ANUSHA SOLOMON, I am happy to inform you that your recent Pap smear has been read as normal or negative. This is very reassuring. I would recommend following up with your next Pap smear in three years. Result Name Current Result [facility] See Comment 06/24/2013 Sincerely, DASHA VARMA [address] [place] [address] Electronic Signature Electronically Signed By: DASHA VARMA CNP On: 03 July 2013 This document has images extracted. Source: [facility] POWERCHART Document Id: [id number] Miscellaneous - Dasha Varma APRN, C.N.P. - 06/26/2013 8:46 AM CST Schedule Follow-Up Visit 26 June 2013 ANUSHA SOLOMON [address] [place] [id number] Dear ANUSHA SOLOMON, Thank you for choosing [facility] for your health care needs. You recently [...] Current Result Normal Range C trach Amp Src-Clare Urine 06/24/2013 C trach Amp RNA-Clare Positive 06/24/2013 Negative - Sincerely, DASHA VARMA [address] [place] [address] Electronic Signature Electronically Signed By: DASHA VARMA CNP On: 26 June 2013 This document has images extracted. Source: [employer] Document Id: [id number] Miscellaneous - Dasha Varma APRN, C.N.P. - 06/26/2013 8:44 AM CST General Message From: DASHA VARMA CNP Sent: 06/26/2013 08:44:49 [employer] Subject: General Message Phone call to patient with positive chlamydia screen. States she will schedule appointment today for treatment. Source: [employer] Document Id: [id number] Miscellaneous - Dasha Varma APRN, C.N.P. - 06/24/2013 9:47 AM CST Ambulatory Patient Summary [address] [facility] [place] [phone] Visit Information Name: ANUSHA SOLOMON [facility] Number: [id number] Current Date: 06/24/2013 09:47:55 Physicians [...] local Clinic if further appointment detail needed. [id number] VIRAL PHARYNGITIS (Sore Throat) Your throat pain [...] breathing ?? Muffled voice New rash ?? [id number] [facility], [address] [place] [address]. All rights reserved. This information is not intended as a substitute for professional medical care. Always follow your healthcare professional's instructions. Your Goals/Additional instructions: This document has images extracted. Please consider using [place] for all your patient education needs. Source: [facility] POWERCHART Document Id: [id number] E [employer] Miscellaneous - Dasha Varma APRN, C.N.P. - 06/24/2013 9:47 AM CST Ambulatory Discharge Medication List [address] [id number] Visit Information Name: ANUSHA SOLOMON [facility] Number: [id number] Visit Date: 06/24/2013 09:47:54 Attending Provider: DASHA VARMA SURG[facility] SERVICES ASST Primary Care Provider: DASHA VARMA CNP ANUSHA [...] in case of emergency. Additional Information: Source: [facility] POWERCHART Document Id: [id number] [employer] Miscellaneous - Sudha Diaz L.P.NSudarshan - 06/24/2013 8:31 AM CST Adult Engineering Officer Intake/History Adult Engineering Officer Intake/History Entered On: 06/24/2013 8:33 [employer] Performed On: 06/24/2013 8:31 [employer] by SUDHA DIAZ LPN Intake Chief Complaint [...] kg/m2 SUDHA DIAZ SATINDER - 06/24/2013 8:31 [employer] General Info Information Given By : Patient Languages : Swedish SUDHA DIAZ SATINDER - 06/24/2013 8:31 [employer] Subjective Pain Symptoms : No SUDHA DIAZ SATINDER - 06/24/2013 8:31 [employer] Dependent Habits Tobacco Use/Currently Using : Yes Tobacco Use/Advised to Quit : Yes Exposure to Tobacco Smoke : Patient smokes Smoking Status : Current some day smoker SUDHA DIAZMichelle RAJAN - 06/24/2013 8:31 [employer] Tobacco Use Grid Type : Cigarettes Last Use : quit in 05/12 SUDHA DIAZ MEGHAN RAJAN - 06/24/2013 8:31 [employer] Caffeine Use Grid Caffeine Use : Current Type : Soft drinks Frequency : Daily SUDHA DIAZMichelle RAJAN - 06/24/2013 8:31 [employer] [facility] Document Id: [id number] [employer]!38 E [employer] Miscellaneous - Sudha Diaz L.P.N. - 06/24/2013 8:29 AM CST Health Assessment Health Assessment Entered On: 06/24/2013 8:30 [employer] Performed On: 06/24/2013 8:29 [employer] by SUDHA DIAZ LPN Health Assessment Complete Health Assessment Complete or Modified : Annual Health Assessment Annual Health Assessment Completed : Yes ADENEUGENIOLEWISSUDHAGEGE CHRISTIANSON LPN - 06/24/2013 8:29 [employer] Nutrition Nutrition Risk Factors by History Adult : None SUDHA DIAZ MEGHAN RAJAN - 06/24/2013 8:29 [employer] Functional Current Daily Living Assistance : None ADENNAGALEWIS RivasSUDHAGEGE CHRISTIANSON LPN - 06/24/2013 8:29 [place] Dependent Habits Tobacco Use/Currently Using : Yes Tobacco Use/Advised to Quit : Yes Exposure to Tobacco Smoke : Patient smokes Smoking Status : Current some day smoker SUDHA DIAZ MEGHAN RAJAN - 06/24/2013 8:29 [place] Tobacco Use Grid Type : Cigarettes Last Use : quit in 05/12 LEWIS DIAZGEGE CHRISTIANSON LPN - 06/24/2013 8:29 [place] Caffeine Use Grid Caffeine Use : Current Type : Soft drinks Frequency : Daily SUDHA DIAZ SATINDER - 06/24/2013 8:29 [place] Psychosocial Domestic Abuse Concerns : None SUDHA DIAZ MAGAZINE GRINDER LOADER - 06/24/2013 8:29 [place] [employer] Advance Directive Advanced Directives : No SUDHA DIAZ MAGAZINE GRINDER LOADER - 06/24/2013 8:29 [place] Educ Needs Learning Style Preference Adult Grid Patient : Printed materials, Verbal explanation Family : Verbal explanation, Printed materials SUDHA DIAZ SATINDER - 06/24/2013 8:29 [employer] Source: [facility] POWERCHART Document Id: [id number] WH[employer]FFER!30 E [employer] documented in this encounter Plan of Treatment Not on filedocumented as of this encounter Procedures Procedure Name Priority Date/Time Associated Diagnosis Comme nts C TRACH AMP SRC Routine 06/24/2013 9:22 AM Result s for this [employer] procedure are i n the results section. C TRACH AMP RNA Routine 06/24/2013 9:22 AM Result s for this [employer] procedure are i n the results section. LIPID PANEL, S Routine 06/24/2013 9:22 AM Results for this [employer] procedure are i n the results section. AUTOMATED Routine 06/24/2013 9:22 AM Results f or this DIFFERENTIAL, B [employer] procedure ar e in the results section. CBC WITH Routine 06/24/2013 9:22 AM Results f or this DIFFERENTIAL, B [employer] procedure ar e in the results section. THYROID-STIMULATING Routine 06/24/2013 9:22 AM Re sults for this HORMONE-SENSITIVE [place] procedure are in (S-TSH) the results section. BASIC METABOLIC Routine 06/24/2013 9:22 AM Result s for this PANEL, S/P [employer] procedure are i n the results section. RAPID STREP A Routine 06/24/2013 9:20 AM Results for this SCREEN [employer] procedure are i n the results section. RAPID STREP A Routine 06/24/2013 9:20 AM Results for this SCREEN [employer] procedure are i n the results section. THINPREP SCREEN HPV Routine 06/24/2013 9:04 AM Re sults for this REFLEX [employer] procedure are i n the results section. documented in this encounter Results HX-C trach Amp RNA (06/24/2013 9:22 AM [employer]) [facility] gist Method Time Signature Chlamydia Positive POWERCHART trachomatis amplified RNA Specimen (Source) Anatomical Collection Method Collection Time Re ceived Time Location / / Volume Laterality 06/24/2013 9:22 AM [employer] Narrative POWERCHART - 06/25/2013 5:39 PM [employer] Test Performed by: [place] [address] Metallurgical Tester: Yonathan jane III, M.D. Dasha Varma APRN, C.N.P. LAB HISTORICAL ORDERS Performing Organization Address City/[facility]/ZIP Code Phon e Number POWERCHART HX-C trach Amp Src (06/24/2013 9:22 AM [employer]) athologist Signature HXC trach Amp Urine POWERCHART Src-Clare Specimen (Source) Anatomical Collection Method Collection Time Re ceived Time Location / / Volume Laterality 06/24/2013 9:22 AM [employer] Dasha Varma APRN, C.N.P. LAB HISTORICAL ORDERS Performing Organization Address City/[facility]/ZIP Code Phon e Number POWERCHART Automated Differential (06/24/2013 9:22 AM [employer]) athologist Signature Neutro % 67.2 34.0 - POWERCHART 71.1 Lymphocytes % 21.5 19.3 - POWERCHART 51.7 HX [place]ane % 10.4 4.7 - 12.5 POWERCHART HX [...] Laterality Blood 06/24/2013 9:22 AM 4 9:22 [employer] AM [employer] Dasha Varma APRN, C.N.P. LAB BLOOD ADD-ON Performing Organization Address City/[facility]/ZIP Code Phon e Number POWERCHART CBC with Differential (06/24/2013 9:22 AM [employer]) P athologist Signature Leukocytes 7.1 3.4 - 10.5 POWERCHART X109L Erythrocytes 4.27 3.90 - POWERCHART 5.03 [id number] Hemoglobin 13.9 12.0 - POWERCHART 15.5 GDL Hematocrit 40.0 34.9 - POWERCHART 44.5 MCV 93.7 82.0 - POWERCHART 98.0 FL Platelet Count 169 150 - 450 POWERCHART X109L HX RDW 12.6 11.9 - POWERCHART 15.5 HXDifferential? Auto POWERCHART Specimen (Source) Anatomical Collection Method Collection Time Re ceived Time Location / / Volume Laterality Blood 06/24/2013 9:22 AM [employer] Dasha Varma APRN, C.N.P. LAB BLOOD ADD-ON Performing Organization Address City/[facility] Phon e Number POWERCHART Thyroid-Stimulating Hormone-Sensitive (s-TSH) (06/24/2013 9:22 AM [employer]) athologist Signature TSH, Sensitive 1.6 0.3 - 5.0 POWERCHART MIUL Comment: Test Performed by: [place] [address] Metallurgical Tester: Yonathan jane III, M.D. Specimen (Source) Anatomical Collection Method Collection Time Re ceived Time Location / / Volume Laterality Blood 06/24/2013 9:22 AM [employer] Dasha Varma APRN, C.N.P. LAB BLOOD ADD-ON Performing Organization Address City/[facility] Code Phon e Number POWERCHART (ABNORMAL) Lipid Panel (06/24/2013 9:22 AM [employer]) [facility] Time Signature Cholesterol, 148 0 - 200 POWERCHART Total MGDL HX HDL 64.0 (H) 40.0 - POWERCHART 60.0 MGDL Triglycerides 84 0 - 150 POWERCHART MGDL Calculated LDL 67 0 - 100 POWERCHART MGDL Specimen (Source) Anatomical Collection Method Collection Time Re ceived Time Location / / Volume Laterality Blood 06/24/2013 9:22 AM [employer] Adan Caputo APRN.N.P. LAB BLOOD ADD-ON Performing Organization Address City/State/ZIP Code Phon e Number POWERCHART (ABNORMAL) BMP (Basic Metabolic Panel) (06/24/2013 9:22 AM [employer]) P athologist Signature BUN (Blood Urea 12 [...] / Volume Laterality Blood 06/24/2013 9:22 AM [employer] Courtney Caputo APRNN.P. LAB BLOOD ADD-ON Performing Organization Address City/State/ZIP Code Phon e Number POWERCHART Rapid Strep A Screen (06/24/2013 9:20 AM [employer]FFER) [facility] Method Time Signature HXRapid Strep POWERCHART Confirmation HXFinal Negative POWERCHART Specimen Anatomical Collection Method Collection Time Receive d Time (Source) Location / / Volume Laterality Throat 06/24/2013 9:20 AM 4 9:20 [employer] AM [employer] Dasha Varma APRN, C.N.P. LAB MICROBIOLOGY - GENERAL ORDERABLES Performing Organization Address City/State/ZIP Code Phon e Number POWERCHART Rapid Strep A Screen (06/24/2013 9:20 AM WH[employer]FFER) [facility] gist Method Time Signature HXStrep A POWERCHART Screen Rapid HXFinal Negative for POWERCHART Strep Group A by rapid screen. HXFinal Culture POWERCHART confirmation to follow. Specimen (Source) Anatomical Collection Method Collection Time Re ceived Time Location / / Volume Laterality Throat 06/24/2013 9:20 AM [employer] Dasha Varma APRN CSudarshanN.P. LAB MICROBIOLOGY - GENERAL ORDERABLES Performing Organization Address City/State/ZIP Code Phon e Number POWERCHART Pathology ThinPrep Screen HPV Reflex (06/24/2013 9:04 AM WH[employer] BUFFER) [facility] Method Time Signature Interpretation [id number] POWERCHART HXThPrep Scrn See Comment POWERCHART [facility] Comment: A. ??ThinPrep Pap Test Screen (Cervical/ Endocervical HPV Reflex): Satisfactory for evaluation. Negative for intraepithelial lesion or m alignancy. HXThPrep Scrn Cyto-Clare See Comment DORIE RCHART Comment: Report electronically signed by ALFREDO Scott(ASCP) 07/03/2013 11:54 Interpreted by: ALFREDO Scott(ASCP) HX Spec [facility] See Comment POWERCHART Comment: A. ??ThinPrep Pap Test Screen (Cervical/ Endocervical HPV Reflex): Received blood tinged specimen in ThinPr ep vial. Test Performed by: [place] [address] Metallurgical Tester: Yonathan jane III, M.D. Specimen (Source) Anatomical Collection Method Collection Time Re ceived Time Location / / Volume Laterality Cervix/Endocervix 06/24/2013 9:04 AM [employer] Adan Caputo APRN.N.P. LAB PAP PATHDX ORDERABLES Performing Organization Address City/State/ZIP Code Phon e Number POWERCHART documented in this encounter Visit Diagnoses Not on filedocumented in this encounter
--- OUTSIDE RECORDS SUMMARY | 2022-04-11 14:39 | XMS_ITS | Encounter Summary ---
:1990 Author Organization [facility] Address [address] [place] [address] Care Team Providers Name Role Phone Unavailable Primary Care Provider Unavailable Encounter Details Date Type Department Care Team Description 09/16/2004 Hospital Encounter HX [facility] Airam Gee M.D. [address] [place], [place] [address] (Wo rk) Social History Tobacco Use Types Packs/Day Years Used Date Smoking Tobacco: Never Assessed Sex Assigned at Date Recorded Not on file documented as of this encounter Plan of Treatment Not on filedocumented as of this encounter Visit Diagnoses Not on filedocumented in this encounter
--- OUTSIDE RECORDS SUMMARY | 2022-04-11 14:39 | XMS_ITS | Encounter Summary ---
:1990 Author Organization [facility] Address [address] [place] [address] Care Team Providers Name Role Phone Unavailable Primary Care Provider Unavailable Encounter Details Date Type Department Care Team Description 10/01/2004 Hospital Encounter HX [facility] Torsten Robbins M.D. [address] [place], [place] [address] (Wo rk) Social History Tobacco Use Types Packs/Day Years Used Date Smoking Tobacco: Never Assessed Sex Assigned at Date Recorded Not on file documented as of this encounter Plan of Treatment Not on filedocumented as of this encounter Visit Diagnoses Not on filedocumented in this encounter
--- OUTSIDE RECORDS SUMMARY | 2022-04-11 14:39 | XMS_ITS | Encounter Summary ---
:1990 Author Organization [facility] Address [address] [place] [address] Care Team Providers Name Role Phone Unavailable Primary Care Provider Unavailable Encounter Details Date Type Department Care Team Description 12/16/2004 Hospital Encounter HX [facility] Torsten Robbins M.D. [address] [place], [place] [address] (Wo rk) Social History Tobacco Use Types Packs/Day Years Used Date Smoking Tobacco: Never Assessed Sex Assigned at Date Recorded Not on file documented as of this encounter Plan of Treatment Not on filedocumented as of this encounter Visit Diagnoses Not on filedocumented in this encounter
--- OUTSIDE RECORDS SUMMARY | 2022-04-11 14:39 | XMS_ITS | Encounter Summary ---
:1990 Author Organization [facility] Address [address] [place] [address] Care Team Providers Name Role Phone Unavailable Primary Care Provider Unavailable Encounter Details Date Type Department Care Team Description 11/21/2005 Hospital [facility] Renae Powers APRN, C.N.P., M.S.N. Social History Tobacco Use Types Packs/Day Years Used Date Smoking Tobacco: Never Assessed Sex Assigned at Date Recorded Not on file documented as of this encounter Plan of Treatment Not on filedocumented as of this encounter Visit Diagnoses Not on filedocumented in this encounter
--- OUTSIDE RECORDS SUMMARY | 2022-04-11 14:39 | XMS_ITS | Encounter Summary ---
:1990 Author Organization [facility] Address [address] [place] [address] Care Team Providers Name Role Phone Unavailable Primary Care Provider Unavailable Encounter Details Date Type Department Care Team Description 01/01/2005 Hospital Encounter HX [facility] FAMILYPRA Dennis Mcdonough M.D. [address] [place] [address] (Wo rk) Social History Tobacco Use Types Packs/Day Years Used Date Smoking Tobacco: Never Assessed Sex Assigned at Date Recorded Not on file documented as of this encounter Plan of Treatment Not on filedocumented as of this encounter Visit Diagnoses Not on filedocumented in this encounter
--- OUTSIDE RECORDS SUMMARY | 2022-04-11 14:39 | XMS_ITS | Encounter Summary ---
:1990 Author Organization [facility] Address [address] [place] [address] Care Team Providers Name Role Phone Unavailable Primary Care Provider Unavailable Encounter Details Date Type Department Care Team Description 09/01/2009 Hospital Encounter HX [facility] FAMILYPRA Anabelle Varma, LAUREN, C.N.P. [address] [place] [address] (Wo rk) Social History Tobacco Use Types Packs/Day Years Used Date Smoking Tobacco: Never Assessed Sex Assigned at Date Recorded Not on file documented as of this encounter Progress Notes Dasha Varma APRN, C.N.P. - 09/01/2009 12:00 AM CDT [id number] IMPRESSION/REPORT/PLAN 1. Rash right leg. Zoster and [...] no hepatosplenomegaly. SJM/clf Signed Dasha Varma, MSN, OCCUPATIONAL HEALTH AND SAFETY MANAGER, CDE Family Nurse Practitioner Electronically Signed By:DASHA VARMA CNP On 09/03/2009 08:53 AM Source: [facility] MHSDOLBEYNONRADSYS Document Id: [id number] documented in this encounter Miscellaneous Notes Miscellaneous - Dasha Varma APRN, C.N.P. - 09/01/2009 10:43 AM CDT Ambulatory Depart Summary [place] [id number] Visit Information Name: ANUSHA SOLOMON Current Date: [...] to the patient and/or family, guardian/caregiver. Source: [facility] POWERCHART Document Id: [id number] Electronically signed by Don [facility] Tea Plantation Worker [id number] at 10/03/2016 7:52 AM CDT Miscellaneous - Conversion, Historical Provider Ser - 09/01/2009 10:15 AM CDT Adult Elementary Classroom Teacher Intake/History Adult Elementary Classroom Teacher Intake/History Entered On: 09/01/2009 10:17 CDT Performed [...] ; Reviewed Date: 09/01/2009 10:15 CDT Source: [employer] Document Id: [id number] CDT!21 documented in this encounter Plan of Treatment Not on filedocumented as of this encounter Visit Diagnoses Not on filedocumented in this encounter
--- OUTSIDE RECORDS SUMMARY | 2022-04-11 14:39 | XMS_ITS | Encounter Summary ---
:1990 Author Organization [facility] Address [address] [place] [address] Care Team Providers Name Role Phone Unavailable Primary Care Provider Unavailable Encounter Details Date Type Department Care Team Description 12/06/2011 Hospital Encounter HX [facility]HB FAMILYPRA Anabelle Varma APRN, C.N.P. [address] [place] [address] (Wo rk) Social History Tobacco [...] APRN, C.N.P. - 12/06/2011 2:43 PM CDT [id number] CHIEF COMPLAINT/REASON FOR VISIT 1. [facility] physical exam. 2. History of abnormal Pap smear. 3. Vaginal irritation HISTORY OF PRESENT ILLNESS Anusha is here for [facility] annual exam. She has Mirena [...] tenderness. Good rectal tone. GENITALIA: Bartholin, urethra, [place]'s, vagina and cervix are without lesion. Thin [...] reflexes are +2 and symmetrical. IMPRESSION/REPORT/PLAN 1.. [facility] Family Planning annual exam. Mirena IUD due [...] VARMA CNP On: 12/07/2011 10:53 AM Source: [facility] MHSDOLBEYNONRADSYS Document Id: [id number] documented in this encounter Miscellaneous Notes Miscellaneous - Dasha Varma APRN, C.N.P. - 12/08/2011 4:39 PM CDT Results Notification From: DASHA VARMA CNP To: RHONDA ENCISO Sent: 12/08/2011 16:39:35 CDT ! Show up: 12/08/2011 21:39:35 [facility] Subject: Results Notification Actions: Notify patient of results Source: [facility] POWERCHART Document Id: [id number] Electronically signed by Don [facility] Wiping Cloth Cutter [id number] at 10/01/2016 4:40 PM CDT Miscellaneous - Dasha Varma APRN, C.N.P. - 12/06/2011 3:17 PM CDT Ambulatory Patient Summary [address] [address] Visit Information Name: ANUSHA SOLOMON Current Date: [...] No Appointments found Your Goals/Additional instructions: Source: [facility] POWERCHART Document Id: [id number] Miscellaneous - Dasha Varma APRN, C.N.P. - 12/06/2011 3:17 PM CDT Ambulatory Depart Summary [address] [address] Visit Information Name: SOLOMONANUSHA Visit Date: 12/06/2011 [...] your provider for clarification. Additional Information: Source: [facility] POWERCHART Document Id: [id number] Miscellaneous - Rhonda Enciso L.P.N. - 12/06/2011 3:06 PM CDT Adult Reproduction Machine Loader Intake/History Adult Reproduction Machine Loader Intake/History Entered On: 12/06/2011 15:07 CDT Performed [...] ; Reviewed Date: 07/19/2011 16:02 CDT Source: [facility] ProcuricsCHART Document Id: [id number] documented in this encounter Plan of Treatment [...] athologist Signature HXN gonor Amp Negative POWERCHART DNA-[place] Specimen (Source) Anatomical Collection Method Collection Time Re ceived Time Location / / Volume Laterality 12/06/2011 3:30 PM CDT Narrative POWERCHART - 12/08/2011 4:06 PM CDT Test Performed by: [place] [address] Coil Machine Operator: Yonathan jane III, M.D. Dasha Varma APRN, C.N.P. LAB HISTORICAL ORDERS Performing Organization Address City/State/ZIP Code Phon e Number POWERCHART HX-N gonor Amp Src (12/06/2011 3:30 PM CDT) athologist Signature HXN gonor Amp CERVIX POWERCHART Src-[place] Specimen (Source) Anatomical Collection Method Collection Time Re ceived Time Location / / Volume Laterality 12/06/2011 3:30 PM CDT Dasha J Myrom BRASS MOLDER, C.N.P. LAB HISTORICAL ORDERS Performing Organization Address City/State/ZIP Code Phon e Number POWERCHART HX Hx Chlamydia Trachomatis Amplified Dna-Id (12/06/2011 3:30 PM CDT) [facility] Method Time Signature Chlamydia Negative POWERCHART Trachomatis Amplied DNA Specimen (Source) Anatomical Collection Method Collection Time Re ceived Time Location / / Volume Laterality 12/06/2011 3:30 PM CDT Dasha Ortiz Cesar AGUILAR, C.N.P. LAB HISTORICAL ORDERS Performing Organization Address City/State/ZIP Code Phon e Number POWERCHART HX-C trach Amp Src (12/06/2011 3:30 PM CDT) athologist Signature HXC trach Amp CERVIX POWERCHART [facility] Specimen (Source) Anatomical Collection Method Collection Time Re ceived Time Location / / Volume Laterality 12/06/2011 3:30 PM CDT Dasha Diana Cesar AGUILAR, C.N.P. LAB HISTORICAL ORDERS Performing Organization Address City/State/ZIP Code Phon e Number POWERCHART Pathology ThinPrep Screen HPV Reflex (12/06/2011 3:30 PM CDT) [facility] Method Time Signature Interpretation [id number] POWERCHART HXThPrep Scrn See Comment POWERCHART [facility]nl[facility] Comment: A. ??ThinPrep Pap Test Screen (Cervical/ Endocervical HPV Reflex): Satisfactory for evaluation. Negative for intraepithelial lesion or m alignancy. HXThPrep Scrn Cyto-[place] See Comment DORIE NESBITTT Comment: Report electronically signed by ALFREDO Winchester(ASCP) 12/09/2011 13:01 Interpreted by: ALFREDO Scott(ASCP) [facility] Spec [facility] See Comment POWERCHART Comment: A. ??ThinPrep Pap Test Screen (Cervical/ Endocervical HPV Reflex): Received cloudy specimen in ThinPrep via l. Test Performed by: [address] [address] Coil Machine Operator: Yonathan jane III, M.D. Specimen (Source) [...] MICROBIOLOGY - GENERAL ORDERABLES Performing Organization Address City/[facility] Phon e Number POWERCHART documented in this encounter Visit Diagnoses Not on filedocumented in this encounter
--- OUTSIDE RECORDS SUMMARY | 2022-04-11 14:39 | XMS_ITS | Encounter Summary ---
:1990 Author Organization [facility] Address [address] [place] [address] Care Team Providers Name Role Phone Unavailable Primary Care Provider Unavailable Encounter Details Date Type Department Care Team Description 10/14/2010 Hospital Encounter HX [facility] FAMILYPRA Anabelle Varma, LAUREN, C.N.P. [address] [place] [address] (Wo rk) Social History Tobacco Use Types Packs/Day Years Used Date Smoking Tobacco: Never Assessed Sex Assigned at Date Recorded Not on file documented as of this encounter H&P Notes Dasha Varma APRN, C.N.P. - 10/14/2010 12:00 AM CDT [id number] CHIEF COMPLAINT/ REASON FOR VISIT Health care [...] palpable mass, no hepatosplenomegaly. GENITALIA Bartholin, urethra, [place]'s, vagina and cervix are without lesion. Thin [...] her results SJM/clf Signed Dasha Varma, MSN, DEVICE ENGINEER, CDE Family Nurse Practitioner Electronically Signed By: DASHA VARMA CNP On: 10/14/2010 03:08 PM Source: [facility] MHSDOLBEYNONRADSYS Document Id: [id number] documented in this encounter Miscellaneous Notes Miscellaneous - Dasha Varma APRN, C.N.P. - 10/14/2010 11:03 AM CDT Ambulatory Patient Summary [address] [address] Visit Information Name: ANUSHA SOLOMON Current Date: [...] Appointments found Your Goals/Additional instructions: Source: [facility] GoFormz Document Id: [id number] Electronically signed by Conversion, [facility] Product Tester Fiberglass [id number] at 10/02/2016 10:03 PM CDT Miscellaneous - Dasha Varma APRN, C.N.P. - 10/14/2010 11:03 AM CDT Ambulatory Depart Summary [address] [place] [address] Visit Information Name: ANUSHA SOLOMON Current Date: 10/14/2010 11:03:35 Primary Care Provider: DASHA VARMA [facility] ANUSHA SOLOMON has been given the following [...] to the patient and/or family, guardian/caregiver. Source: [facility] [employer]Formz Document Id: [id number] Electronically signed by Conversion, [facility] Product Tester Fiberglass [id number] at 10/02/2016 10:03 PM CDT Miscellaneous - [...] BOUDREAUX LPN - 10/14/2010 10:37 CDT Source: [facility] Document Id: [id number] CDT!25 Miscellaneous - Conversion, Historical Provider Jonh - 10/14/2010 10:36 AM CDT Adult Chimney Repairer Intake/History Adult Chimney Repairer Intake/History Entered On: 10/14/2010 10:37 CDT Performed On: 10/14/2010 10:36 CDT by RJ BOURDEAUX LPN Intake Chief Complaint: physical Temperature Core: [...] Patient smokes RJ BOUDREAUX LPN - 10/14/2010 10:36 CDT Tobacco Use [...] ; Reviewed Date: 09/15/2010 9:04 CDT Source: [facility] POWERCHART Document Id: [id number] CDT!29 documented in this encounter Plan of [...] Thin Prep, Pap (10/14/2010 11:03 AM CDT) [facility] [employer] Method Time Signature Interpretation Performed POWERCHART Comment: Test Performed by: [facility] Dpt of Lab Med and Pathology [address] [place] [address] Fagoting Machine Operator: Yonathan jane III, M.D. Specimen Anatomical Collection Method Collection Time Receive d Time (Source) Location / / Volume Laterality Cervix/Endocervi 10/14/2010 11:03 011 7:09 x AM CDT PM CDT Historical Provider LAB HISTORICAL ORDERS Performing Organization Address City/State/ZIP Code Phon e Number POWERCHART ThinPrep Screen HPV Reflex (10/14/2010 11:03 AM CDT) [facility] Method Time Signature Interpretation [id number] POWERCHART HXThPrep Scrn See Comment POWERCHART [facility] Comment: A. ??ThinPrep Pap Test Screen (Cervical/ Endocervical HPV Reflex): Satisfactory for evaluation. Squamous epithelial cell abnormality Low grade squamous intraepithelial lesio n. ??Consistent with mild dysplasia with associated HPV borjas es (SILVIO 1). Screened at [facility] Cytology Analysi s Office [address] [place] [address] HXThPrep [facility] See Comment [facility] RCHART Comment: RESULT: ALFREDO Austin(ASC P) [facility]ThPrep [facility] See Comment DORIE RCHART Comment: RESULT: 10/20/2010 11:10 Interpreted by: Roni Ferraro M.D. Report electronically signed by Roni Ferraro M.D. Transcribed by: [email or web address] ??10/20/2010 10:24: 42 [facility] See Comment POWERCHART Comment: A. ??ThinPrep Pap Test Screen (Cervical/ Endocervical HPV Reflex): Received cloudy specimen in ThinPrep via l. Test Performed by: [facility] Dpt of Lab Med and Pathology [address] [place] [address] Fagoting Machine Operator: Yonathan jane III, M.D. Specimen (Source) Anatomical Collection Method Collection Time Re ceived Time Location / / Volume Laterality Cervix/Endocervix 10/14/2010 11:03 AM CDT Codi Caputo APRNPSudarshan LAB PAP PATHDX ORDERABLES Performing Organization Address City/State/ZIP Code Phon e Number POWERCHART documented in this encounter Visit Diagnoses Not on filedocumented in this encounter
--- OUTSIDE RECORDS SUMMARY | 2022-04-11 14:39 | XMS_ITS | Encounter Summary ---
:1990 Author Organization [facility] Address [address] [place] [address] Care Team Providers Name Role Phone Unavailable Primary Care Provider Unavailable Encounter Details Date Type Department Care Team Description 12/02/2004 Hospital Encounter HX [facility] Torsten Robbins M.D. [address] [place], [place] [address] (Wo rk) Social History Tobacco Use Types Packs/Day Years Used Date Smoking Tobacco: Never Assessed Sex Assigned at Date Recorded Not on file documented as of this encounter Plan of Treatment Not on filedocumented as of this encounter Visit Diagnoses Not on filedocumented in this encounter
--- OUTSIDE RECORDS SUMMARY | 2022-04-11 14:39 | XMS_ITS | Encounter Summary ---
:1990 Author Organization [facility] Address [address] [place] [address] Care Team Providers Name Role Phone Unavailable Primary Care Provider Unavailable Encounter Details Date Type Department Care Team Description 09/03/2004 [facility] Torsten Robbins M.D. [address] [place], [place] [address] (Wo rk) Social History Tobacco Use Types Packs/Day Years Used Date Smoking Tobacco: Never Assessed Sex Assigned at Date Recorded Not on file documented as of this encounter Plan of Treatment Not on filedocumented as of this encounter Visit Diagnoses Not on filedocumented in this encounter
--- OUTSIDE RECORDS SUMMARY | 2022-04-11 14:39 | XMS_ITS | Encounter Summary ---
:1990 Author Organization [facility] Address [address] [place] [address] Care Team Providers Name Role Phone Unavailable Primary Care Provider Unavailable Encounter Details Date Type Department Care Team Description 03/02/2002 [facility] Corey Morton W, P.A. [address] [place] [address] (Wo rk) Social History Tobacco Use Types Packs/Day Years Used Date Smoking Tobacco: Never Assessed Sex Assigned at Date Recorded Not on file documented as of this encounter Plan of Treatment Not on filedocumented as of this encounter Visit Diagnoses Not on filedocumented in this encounter
--- OUTSIDE RECORDS SUMMARY | 2022-04-11 14:39 | XMS_ITS | Encounter Summary ---
:1990 Author Organization [facility] Address [address] [place] [address] Care Team Providers Name Role Phone Unavailable Primary Care Provider Unavailable Encounter Details Date Type Department Care Team Description 01/11/2005 [facility] Tosrten Robbins M.D. [address] [place], [place] [address] (Wo rk) Social History Tobacco Use Types Packs/Day Years Used Date Smoking Tobacco: Never Assessed Sex Assigned at Date Recorded Not on file documented as of this encounter Plan of Treatment Not on filedocumented as of this encounter Visit Diagnoses Not on filedocumented in this encounter
--- OUTSIDE RECORDS SUMMARY | 2022-04-11 14:39 | XMS_ITS | Encounter Summary ---
:1990 Author Organization [facility] Address [address] [place] [address] Care Team Providers Name Role Phone Unavailable Primary Care Provider Unavailable Encounter Details Date Type Department Care Team Description 10/21/2004 Hospital Encounter [facility]X [facility] ED Memo Schulte, R.N. [address] [place] [address] (Wo rk) Social History Tobacco Use Types Packs/Day Years Used Date Smoking Tobacco: Never Assessed Sex Assigned at Date Recorded Not on file documented as of this encounter Plan of Treatment Not on filedocumented as of this encounter Visit Diagnoses Not on filedocumented in this encounter
--- OUTSIDE RECORDS SUMMARY | 2022-04-11 14:39 | XMS_ITS | Encounter Summary ---
:1990 Author Organization [facility] Address [address] [place] [address] Care Team Providers Name Role Phone Unavailable Primary Care Provider Unavailable Encounter Details Date Type Department Care Team Description 01/17/2005 [facility] Torsten Robbins M.D. [address] [place], [place] [address] (Wo rk) Social History Tobacco Use Types Packs/Day Years Used Date Smoking Tobacco: Never Assessed Sex Assigned at Date Recorded Not on file documented as of this encounter Plan of Treatment Not on filedocumented as of this encounter Visit Diagnoses Not on filedocumented in this encounter
--- OUTSIDE RECORDS SUMMARY | 2022-04-11 14:39 | XMS_ITS | Encounter Summary ---
:1990 Author Organization [facility] Address [address] [place] [address] Care Team Providers Name Role Phone Unavailable Primary Care Provider Unavailable Encounter Details Date Type Department Care Team Description 09/10/2009 Hospital Encounter HX [facility] FAMILYPRA [place] Varma, LAUREN, C.N.P. [address] [place] [address] (Wo rk) Social History Tobacco Use Types Packs/Day Years Used Date Smoking Tobacco: Never Assessed Sex Assigned at Date Recorded Not on file documented as of this encounter H&P Notes Dasha Varma APRN, C.N.P. - 09/10/2009 12:00 AM CDT [id number] IMPRESSION / REPORT / PLAN 1. Health care maintenance. Encouraged to work on healthy diet and regular exercise program. I will mail her laboratory results. 2. Depression. Will start Citalopram 20 mg 1 daily. I am going to see her back for reevaluation in 8 weeks. I would like her to return fasting at that time and will also check lipids. I CHIEF COMPLAINT / REASON FOR VISIT 1. Health maintenance examination 2. Depression HISTORY OF PRESENT ILLNESS 1. Anusha is here for physical examination. She is due for Pap smear. She has Mirena IUD. She is tolerating it well. 2. She states she has been having symptoms of depression. I did have her complete PHQ-9 today and her score is high at 18. She states she is stressed at school but doesn't feel like going out and having fun with her friends. Sometimes she wants to sleep. Sometimes she has trouble sleeping. She hasn't had any real appetite changes. She denies being suicidal. I did talk to her about the importance of counseling along with medication. CURRENT MEDICATIONS See Depart Summary from today ALLERGIES See EMR SYSTEMS REVIEW See EMR PAST MEDICAL / SURGICAL HISTORY See EMR PREVENTIVE SERVICES See EMR SOCIAL HISTORY See EMR FAMILY HISTORY See EMR VITAL SIGNS See EMR PHYSICAL EXAM AREA EXAM TEXT GENERAL In general, the patient is a [...] palpable mass, no hepatosplenomegaly. GENITALIA Bartholin, urethra, [place]'s, vagina and cervix are without lesion. Thin [...] Deep tendon reflexes are +2 and symmetrical. SJM/clf Signed Dasha Varma, MSN, AURIST, CDE Family Nurse Practitioner Electronically Signed By:DASHA VARMA CNP On 09/11/2009 10:28 AM Source: [facility] MHSDOLBEYNONRADSYS Document Id: [id number] documented in this encounter Miscellaneous Notes Miscellaneous - Dasha Varma APRN, C.N.P. - 09/10/2009 2:49 PM CDT Ambulatory Depart Summary [address] [address] Visit Information Name: ANUSHA SOLOMON Current Date: 09/10/2009 14:49:12 Primary Care Provider: ANUSHA SOLOMON has been given the following list of medications: Your Medications It is important to take your medications as directed. Use a pill box or chart to help remind you to take your medications. Please let your doctor or nurse know if you have problems taking your medications. Medication/Strength Dose Route Frequency Indications/Special Instructions/Comments citalopram (citalopram 20 mg oral tablet) 20 mg Oral once a day valacyclovir (Valtrex 1 g oral tablet) 1 gm Oral three times a day cephalexin (Keflex 500 mg oral capsule) 500 mg Oral three times a day levonorgestrel (Mirena 52 mg intrauteral device) 1 each Intrauteral once Additional Information: Yes - Current list of reconciled medications is provided and explained to the patient and/or family, guardian/caregiver. Source: [facility] POWERCHART Document Id: [id number] Miscellaneous - Conversion, Historical Provider Ser - 09/10/2009 2:18 PM CDT PHQ-9 Document Has Been Updated PHQ-9 Entered On: 09/10/2009 14:21 CDT Performed On: 09/10/2009 14:18 CDT by RJ BOUDREAUX LPN PHQ-9 PHQ-9 Date Completed: 09/10/2009 CDT DASHA VARMA CNP - 09/10/2009 14:28 CDT Little interest or pleasure in doing things: Several days RJ BOUDREAUX LPN - 09/10/2009 14:18 CDT Feeling down, depressed, or hopeless: Nearly every day DASHA VARMA CNP - 09/10/2009 14:28 CDT Trouble falling or staying asleep, or sleeping too much: More than half the days Feeling tired or having little energy: More than half the days Poor appetite or overeating: Nearly every day Feeling bad about yourself or that you are a failure: More than half the days Trouble concentrating on things: Nearly every day Moving or speaking slowly; restless or fidgety: More than half the days Thoughts that you would be better off /hurting self: Not at all RJ BOUDREAUX LPN - 09/10/2009 14:18 CDT PHQ-9 Calculated Score: 18 DASHA VARMA CNP - 09/10/2009 14:28 CDT Problems make work, home, or dealing with others: Somewhat difficult RJ BOUDREAUX LPN - 09/10/2009 14:18 CDT Source: [employer] Document Id: [id number] CDT!5 Miscellaneous - Conversion, Historical Provider Ser - 09/10/2009 2:17 PM CDT Adult Pastry Supervisor Intake/History Adult Pastry Supervisor Intake/History Entered On: 09/10/2009 14:18 CDT Performed On: 09/10/2009 14:17 CDT by RJ BOUDREAUX LPN Intake Chief Complaint: pap and complains of some depression Temperature Core: 37.0DegC(Converted to: 98.6DegF) Peripheral Pulse Rate: 72bpm Systolic Blood Pressure: 98mmHg Diastolic Blood Pressure: 60mmHg NIBP Mean: 73mmHg BP Location: Right upper extremity Height: 155.00cm(Converted to: 5ft 1in, 5.09ft, 61.02in) Clinic BSA: 1.56 Actual Weight: 56.600kg(Converted to: 124.782lb) Body Mass Index: 24kg/m2 Dosing Weight Clinic: 56.60kg RJ BOUDREAUX LPN - 09/10/2009 14:17 CDT Subjective PHQ-9 Score: 18 PHQ-9 Date Completed: 09/10/2009 CDT Skin Symptoms: Other: shingles DASHA VARMA CNP - 09/10/2009 14:29 CDT Pain Symptoms: No RJ BOUDREAUX LPN - 09/10/2009 14:17 CDT Dependent Habits Tobacco Use/Currently Using: No Alcohol Use: No RJ BOUDREAUX LPN - 09/10/2009 14:17 CDT Caffeine Use Grid Caffeine Use: Current Type: Soft drinks Frequency: Daily RJ BOUDREAUX LPN - 09/10/2009 14:17 CDT Allergies Latex Screening: No DASHA VARMA [facility] - 09/10/2009 14:29 CDT Allergies (Active) NKA Estimated Onset Date: Unspecified ; Created By: RJ BOUDREAUX LPN; Reaction Status: Active ; Category: Drug ; Substance: NKA ; Type: Allergy ; Updated By: RJ BOUDREAUX LPN; Source: Patient ; Reviewed Date: 09/01/2009 10:15 CDT Health History II Endocrine/Metabolic Past Med Hx Grid Diabetes: Grandparents [place] VARMAY Diana AURIST - 09/10/2009 14:29 CDT Source: [facility] POWERCHART Document Id: [id number] CDT!10 documented in this encounter Plan of Treatment Not on filedocumented as of this encounter Procedures Procedure Name Priority Date/Time Associated Diagnosis Comme nts THINPREP SCREEN HPV Routine 09/10/2009 2:55 PM Re sults for this REFLEX CDT procedure are i n the results section. documented in this encounter Results ThinPrep Screen HPV Reflex (09/10/2009 2:55 PM CDT) [facility] Method Time Signature Interpretation [id number] POWERCHART HXThPrep Scrn See Comment POWERCHART [facility] Comment: A. ??ThinPrep Pap Test Screen (Cervical/ Endocervical HPV Reflex): Satisfactory for evaluation. Negative for intraepithelial lesion or m alignancy. HXThPrep Scrn Cyto-[facility] See Comment DORIE RCHART Comment: Report electronically signed by ALFREDO Smith(ASCP) 09/15/2009 10:29 Interpreted by: ALFREDO Smith(ASCP) HX Spec Desc-[facility] See Comment POWERCHART Comment: A. ??ThinPrep Pap Test Screen (Cervical/ Endocervical HPV Reflex): Received cloudy specimen in ThinPrep via l. Test Performed by: [facility] Dpt of Lab Med and Pathology [address] [place], [place] [id number] Flight Dynamicist: Yonathan jane III, M.D. Specimen (Source) Anatomical Collection Method Collection Time Re ceived Time Location / / Volume Laterality Cervix/Endocervix 09/10/2009 2:55 PM CDT Dasha Varma APRN C.N.P. LAB PAP PATHDX ORDERABLES Performing Organization Address City/State/ZIP Code Phon e Number POWERCHART documented in this encounter Visit Diagnoses Not on filedocumented in this encounter Additional Health Concerns Assessment Noted Time PHQ-9 Depression Total Score: 18 09/10/2009 2:18 PM CD T documented as of this encounter
--- OUTSIDE RECORDS SUMMARY | 2022-04-11 14:39 | XMS_ITS | Encounter Summary ---
:1990 Author Organization [facility] Address [address] [place] [address] Care Team Providers Name Role Phone Unavailable Primary Care Provider Unavailable Encounter Details Date Type Department Care Team Description 07/19/2011 Hospital Encounter [facility]X [facility] MyrAnabelle spence, INTELLIGENCE CONSULTANT, C.N.P. [address] [place] [address] (Wo rk) Social History Tobacco [...] Demonstration ESTELLA REYEZ 07/19/2011 16:06 CDT [facility] Document Id: [id number] CDT!28 Miscellaneous - Estella Reyez L.P.N. - 07/19/2011 4:04 PM CDT Adult Biomedical Equipment Tech Intake/History Adult Biomedical Equipment Tech Intake/History Entered On: 07/19/2011 16:06 CDT Performed [...] ; Reviewed Date: 07/19/2011 16:02 CDT Source: [facility] POWERCHART Document Id: [id number] CDT!32 documented in this encounter Plan of Treatment Not on filedocumented as of this encounter Visit Diagnoses Not on filedocumented in this encounter
--- OUTSIDE RECORDS SUMMARY | 2022-04-11 14:39 | XMS_ITS | Encounter Summary ---
:1990 Author Organization [facility] Address [address] [place] [address] Care Team Providers Name Role Phone Unavailable Primary Care Provider Unavailable Encounter Details Date Type Department Care Team Description 01/14/2005 [facility] Torsten Robbins M.D. [address] [place], [place] [address] (Wo rk) Social History Tobacco Use Types Packs/Day Years Used Date Smoking Tobacco: Never Assessed Sex Assigned at Date Recorded Not on file documented as of this encounter Plan of Treatment Not on filedocumented as of this encounter Visit Diagnoses Not on filedocumented in this encounter
--- OUTSIDE RECORDS SUMMARY | 2022-04-11 14:39 | XMS_ITS | Encounter Summary ---
:1990 Author Organization [facility] Address [address] [place] [address] Care Team Providers Name Role Phone Unavailable [...] Barry CNM - 07/26/2011 12:00 AM CDT [id number] CHIEF COMPLAINT/REASON FOR VISIT She is here [...] BARRY CNM On: 07/29/2011 09:07 AM Source: [facility] MHSDOLBEYNONRADSYS Document Id: [id number] documented in this encounter Miscellaneous Notes Miscellaneous - Radha Barry CNM - 07/29/2011 9:36 AM CDT Results Notification Document Contains Addenda Addendum by DANIELLE GUERRERO on 01 August 2011 09:08:37 CDT Result mailed. From: RADHA BARRY CNM To: DANIELLE GUERRERO Sent: 07/29/2011 09:36:11 CDT ! Show up: 07/29/2011 14:36:11 [facility] Subject: Results Notification Actions: Note to Nurse Source: [facility] POWERCHART Document Id: [id number] Radha Escalante CNM - 07/26/2011 4:32 PM CDT Ambulatory Depart Summary [address] [address] Visit Information Name: ANUSHA SOLOMON Visit Date: [...] your provider for clarification. Additional Information: Source: [facility] POWERCHART Document Id: [id number] Manisha - Radha Barry CNM - 07/26/2011 4:32 PM CDT Ambulatory Patient Summary [address] [address] Visit Information Name: ANUSHA SOLOMON Current Date: [...] No Appointments found Your Goals/Additional instructions: Source: [facility] POWERCHART Document Id: [id number] Miscellaneous - Conversion, Historical Provider Ser - 07/26/2011 3:38 PM CDT Adult Radial Saw Operator Intake/History Document Has Been Updated Adult Radial Saw Operator Intake/History Entered On: 07/26/2011 15:38 CDT Performed [...] ; Reviewed Date: 07/19/2011 16:02 CDT Source: [facility] SceneDocCHART Document Id: [id number] CDT!6 documented in this encounter Plan of [...] 07/28/2011 12:45 AM CDT Test Performed by: [facility] Dpt of Lab Med and Pathology [address] [place] [address] Engineering Group Manager: Yonathan jane III, M.D. Radha E Blue CNM LAB HISTORICAL ORDERS Performing Organization Address City/State/ZIP Code Phon e Number POWERCHART HX-C trach Amp Src (07/26/2011 4:00 PM CDT) P athologist Signature HXC trach Amp urine POWERCHART [facility] Specimen (Source) Anatomical Collection Method Collection Time Re ceived Time Location / / Volume Laterality 07/26/2011 4:00 PM CDT Radha E Blue CNM LAB HISTORICAL ORDERS Performing Organization Address City/[facility] Phon e Number POWERCHART documented in this encounter Visit Diagnoses Not on filedocumented in this encounter
--- OUTSIDE RECORDS SUMMARY | 2022-04-11 14:39 | XMS_ITS | Encounter Summary ---
:1990 Author Organization [facility] Address [address] [place] [address] Care Team Providers Name Role Phone Unavailable Primary Care Provider Unavailable Encounter Details Date Type Department Care Team Description 03/28/2005 Hospital Encounter [facility] Torsten Kennedy M.D. [address] [place], [place] [address] (Wo rk) Social History Tobacco Use Types Packs/Day Years Used Date Smoking Tobacco: Never Assessed Sex Assigned at Date Recorded Not on file documented as of this encounter Plan of Treatment Not on filedocumented as of this encounter Visit Diagnoses Not on filedocumented in this encounter
--- OUTSIDE RECORDS SUMMARY | 2022-04-11 14:39 | XMS_ITS | Encounter Summary ---
:1990 Author Organization [facility] Address [address] [place] [address] Care Team Providers Name Role Phone Unavailable Primary Care Provider Unavailable Encounter Details Date Type Department Care Team Description 10/21/2004 [facility] Torsten Robbins M.[facility]. [address] [place], [place] [address] (Wo rk) Social History Tobacco Use Types Packs/Day Years Used Date Smoking Tobacco: Never Assessed Sex Assigned at Date Recorded Not on file documented as of this encounter Plan of Treatment Not on filedocumented as of this encounter Visit Diagnoses Not on filedocumented in this encounter
--- OUTSIDE RECORDS SUMMARY | 2022-04-11 14:39 | XMS_ITS | Encounter Summary ---
:1990 Author Organization [facility] Address [address] [place] [address] Care Team Providers Name Role Phone Unavailable Primary Care Provider Unavailable Encounter Details Date Type Department Care Team Description 01/04/2005 Hospital Encounter [facility] Torsten Robbins M.D. [address] [place], [place] [address] (Wo rk) Social History Tobacco Use Types Packs/Day Years Used Date Smoking Tobacco: Never Assessed Sex Assigned at Date Recorded Not on file documented as of this encounter Plan of Treatment Not on filedocumented as of this encounter Visit Diagnoses Not on filedocumented in this encounter
--- OUTSIDE RECORDS SUMMARY | 2022-04-11 14:39 | XMS_ITS | Encounter Summary ---
:1990 Author Organization [facility] Address [address] [place] [address] Care Team Providers Name Role Phone Unavailable Primary Care Provider Unavailable Encounter Details Date Type Department Care Team Description 07/15/2005 Hospital Encounter [facility] Torsten Robbins M.D. [address] [place], [place] [address] (Wo rk) Social History Tobacco Use Types Packs/Day Years Used Date Smoking Tobacco: Never Assessed Sex Assigned at Date Recorded Not on file documented as of this encounter Plan of Treatment Not on filedocumented as of this encounter Visit Diagnoses Not on filedocumented in this encounter
--- OUTSIDE RECORDS SUMMARY | 2022-04-11 14:39 | XMS_ITS | Encounter Summary ---
:1990 Author Organization [facility] Address [address] [place] [address] Care Team Providers Name Role Phone Unavailable Primary Care Provider Unavailable Encounter Details Date Type Department Care Team Description 09/15/2010 Hospital Encounter [facility]X [facility] Melissa Sewell M.D. [address] [place], [place] [address] (Wo rk) Social History Tobacco Use Types Packs/Day Years Used Date Smoking Tobacco: Never Assessed Sex Assigned at Date Recorded Not on file documented as of this encounter Progress Notes Alcira Sewell M.D. - 09/15/2010 12:00 AM CDT [id number] IMPRESSION/REPORT/PLAN Early urinary tract infection. PLAN Risks [...] true guarding or rebound. Positive femoral pulses. [facility]/yamiletk Signed Alcira Sewell M.D. Family Medicine Electronically Signed By: ALCIRA SEWELL MD On: 09/16/2010 08:33 am Modified by and Electronically Signed by: ALCIRA SEWELL MD On: 09/16/2010 08:33 am Source: [facility] MHSDOLBEYNONRADSYS Document Id: [id number] documented in this encounter Miscellaneous Notes Miscellaneous [...] SEWELL MD - 09/15/2010 10:21 CDT Source: [facility] [employer] Document Id: [id number] CDT!13 Miscellaneous - Alcira Sewell M.D. - 09/15/2010 10:16 AM CDT Ambulatory Patient Summary [address] [address] Visit Information Name: ANUSHA SOLOMON Current Date: 09/15/2010 10:16:28 Primary Care Provider: DASHA VARMA GIS MAPPING TECHNICIAN Your Medications Here is a list of [...] No Appointments found Your Goals/Additional instructions: Source: [facility] POWERCHART Document Id: [id number] Miscellaneous - Alcira Sewell M.D. - 09/15/2010 10:16 AM CDT Ambulatory Depart Summary [address] [address] Visit Information Name: SOLOMONANUSHA ROMERO Current Date: [...] Intrauteral once placed 2006 Additional Information: Source: [facility] POWERCHART Document Id: [id number] Miscellaneous - Brittany Lamb L.P.N. - 09/15/2010 9:08 AM CDT Adult Log Operations Coordinator Intake/History Adult Log Operations Coordinator Intake/History Entered On: 09/15/2010 9:09 CDT Performed On: 09/15/2010 9:08 CDT by BRITTANY LAMB LPN Intake Chief Complaint: check IUD Temperature Core: 36.8C(Converted to: 98.2DegF) Peripheral Pulse Rate: 80/min Respiratory Rate: 16/min Systolic Blood Pressure: 90mmHg (LOW) Diastolic Blood Pressure: 64mmHg NIBP Mean: 73mmHg BP Location: Left upper extremity Actual Weight: 57.000kg(Converted to: 125lb 11oz) Dosing Weight Clinic: 57.00kg BRITTANY LAMB LPN - 09/15/2010 9:08 CDT Subjective [...] ; Reviewed Date: 09/15/2010 9:04 CDT Source: [facility] [employer] Document Id: [id number] CDT!26 documented in this encounter Plan of Treatment Not on filedocumented as of this encounter Visit Diagnoses Not on filedocumented in this encounter
--- OUTSIDE RECORDS SUMMARY | 2022-04-11 14:39 | XMS_ITS | Encounter Summary ---
:1990 Author Organization [facility] Address [address] [place] [address] Care Team Providers Name Role Phone Unavailable Primary Care Provider Unavailable Encounter Details Date Type Department Care Team Description 08/31/2004 Hospital Encounter [facility] Memo Schulte, R.N. [address] [place] [address] (Wo rk) Social History Tobacco Use Types Packs/Day Years Used Date Smoking Tobacco: Never Assessed Sex Assigned at Date Recorded Not on file documented as of this encounter Plan of Treatment Not on filedocumented as of this encounter Visit Diagnoses Not on filedocumented in this encounter
--- OUTSIDE RECORDS SUMMARY | 2022-04-11 14:39 | XMS_ITS | Encounter Summary ---
:1990 Author Organization [facility] Address [address] [place] [address] Care Team Providers Name Role Phone Unavailable Primary Care Provider Unavailable Encounter Details Date Type Department Care Team Description 01/07/2005 Hospital Encounter [facility] Torsten Robbins M.D. [address] [place], [place] [address] (Wo rk) Social History Tobacco Use Types Packs/Day Years Used Date Smoking Tobacco: Never Assessed Sex Assigned at Date Recorded Not on file documented as of this encounter Plan of Treatment Not on filedocumented as of this encounter Visit Diagnoses Not on filedocumented in this encounter
--- OUTSIDE RECORDS SUMMARY | 2022-04-11 14:40 | XMS_ITS | Clinical Summary ---
:1990 Author Organization [facility] [place] [place] [address] Care Team Providers Name Role Phone Pcp, No Primary Care Provider Unavailable Allergies No known active allergies Medications Medication Sig Dispensed Refills Start Date End Date Status trimethoprim-polymyxin Place 1-2 Drops 10 mL 0 08/10/2020 Active b (Polytrim) ophthalmic into both eyes solutionIndications: every 4 hours. Blepharitis of both eyes, unspecified eyelid, unspecified type cetirizine (ZYRTEC) 10 Take 1 Tablet (10 30 Tablet 1 Active mg tabletIndications: mg) by mouth once Seasonal allergic daily. rhinitis due to pollen permethrin (ELIMITE) 5 Apply to entire 60 g 1 2021 Active % creamIndications: body from the Scabies neck down and leave on for 8 hours. Then rinse and repeat this in one week. Active Problems Problem Noted Date H/O removal of cyst 12/13/2017 Encounter for supervision of other normal , f irst trimester 11/28/2017 Sebaceous cyst 11/22/2017 Immunizations Name Administration Dates Next Due DTP 07/30/1993, 12/30/1992, 11/30/1991, 10/31 DTaP 07/30/1993, 12/30/1992, 11/30/1991, 10/31 Hepatitis B (Peds) 10/19/2000, 12/29/1998, 06/02/1998 Hepatitis B, Unspecified 10/19/2000, 12/29/1998, 06/02/1998 Human Papilloma Virus Vaccine 08/14/2008, 01/07/2007, 2006 Influenza Virus, Unspecified 03/03/2016, 06/24/2013, 012, 02/12/2009, 03/06/2006 MMR 11/30/1991, 11/28/1990 Oral Polio Vaccine 07/30/1993, 12/30/1992, 11/30/1991, 10/31 Polio Virus, Unspecified 07/30/1993, 12/30/1992, 11/30/1991, 11/28/1990 Td (Age >=7 Years) 10/16/2002 Tdap 08/28/2006 Varicella Vaccine 12/31/1998 Family History Medical History Relation Name Comments Diabetes Maternal Grandmother Diabetes Mother Relation Name Status Comments Father Alive Maternal Grandmother Mother Alive Social History Tobacco Use Types Packs/Day Years Used Date Smoking Tobacco: Never Smokeless Tobacco: Never Tobacco Cessation: Counseling Given: Yes Alcohol Use Standard Drinks/Week Comments No 0 (1 standard drink = 0.6 oz pure alcoho l) Sex Assigned at Date Recorded Not on file Obstetrics History Para Term AB IAB SAB Ectopic Multiple Living Live Births 3 2 2 2 Date Outcome GA Total Labor/2nd/3rd Weight Sex Delivery Anes PTL Marimar A 1 A5 Name Clin Labor Term F Term F Last Filed Vital Signs Vital Sign Reading Time Taken Comments Blood Pressure 122/76 2021 2:34 PM CDT Pulse 73 2021 2:34 PM CDT Temperature 36.8 ??C (98.2 ??F) 2021 2:34 PM CDT Respiratory Rate 16 2021 2:34 PM CDT Oxygen Saturation 98% 2021 2:34 PM CDT Inhaled Oxygen Concentration - - Weight 71.2 kg (157 lb) 2021 2:34 PM CDT Height 154.9 cm (5' 1) 12/08/2018 11:02 AM CDT Body Mass Index 29.66 12/08/2018 11:02 AM CDT Plan of Treatment Health Maintenance Due Date Last Done Comments Hepatitis C screening for age 0812/28/2006 18-79 Tetanus booster 08/28/2016 08/28/2006, 10/16/2002 Depression screening for age 12+ 11/29/2018 11/29/2017, , 11/27/2017 BMI (ht and wt on same day) for 12/13/2018 12/13/2017, 10/31 age 18+ COVID-19 vaccine series (3 - 11/19/2020 09/24/2020, 021 Booster for Moderna series) Influenza for age 9-49 12/30/2021 03/03/2016, 06/24/2013, 01/31/2012, Additional history exists Pap test for age 21-65 09/13/2024 09/13/2021, 09/13/2021, 01/16/2018 Tdap Completed 08/28/2006 HIV for age 15-65 Completed 11/28/2017 Results Not on filefrom Last 3 Months Insurance Payer Benefit Plan / Subscriber ID Effective Dates Phone Addre ss Type Group [employer] [id number] 2018-Prese [address] [place] [address] [facility] [id number] 2021-Presen [address] [place] [address] Allison Sosa Motor Vehicle Self 1990 [phone] (Home) [place] [address] [employer] Occ Other 05/01/2000 [phone] DO NOT USE [employer] (Home) [place] [address] Advance Directives Latest Code Status on File Code Status Date Activated Date Inactivated Comments Full Code 12/04/2017 8:47 AM 12/04/2017 12:50 PM Question Answer Comments Code Status Discussion: Discussed Care Teams Pillowcase Sewer Relationship Specialty Start Date End Date Pcp, No PCP - General 08/10/20 .
== END 2022-04-11 13:58 | disposition home or self-care (01) ==
LOC: NFLDREF 14:09
PROVIDERS: Visit Provider Advanced Practice Midwife
DX: Z34.91 Encounter for supervision of normal pregnancy, unspecified, first trimester (principal)
CPT/HCPCS: 87086

== ENCOUNTER 2022-05-09 11:47 | Outpatient (CLI) | payer MEDICAID, SELFPAY | END 2022-05-09 11:48 | disposition home or self-care (01) | LOC: NFLDREF 11:48 | PROVIDERS: Visit Provider Obstetrics & Gynecology | DX: Z34.92 Encounter for supervision of normal pregnancy, unspecified, second trimester (principal); Z83.79 Family history of other diseases of the digestive system; Z3A.16 16 weeks gestation of pregnancy | CPT/HCPCS: 83516 ==

== ENCOUNTER 2022-06-06 09:16 | Outpatient (CLI) | payer MEDICAID, SELFPAY ==
--- NOTE | 2022-06-06 09:15 | CRLHL7_ITS ---
For Patients: As a result of the Century Cures Act, medical imaging exams and procedure reports are released immediately into your electronic medical record. You may view this report before your referring provider. If you have questions, please contact your health care provider. INDICATION: Evaluate anatomy. COMPARISON: 03/21/2022 TECHNIQUE: Real time bradford scale imaging of the fetus was performed as well as color Doppler analysis of the umbilical vessels. FINDINGS: Sonographic imaging demonstrates a single living intrauterine gestation. Fetus demonstrates a regular cardiac rate of 139 beats per minute. Fetus has a breech position. The placenta lies posterior without evidence of placenta previa. The edge of the placenta is located 5.8 cm from the internal cervical os. Amniotic fluid volume appears normal. Single deepest vertical pocket: 5.5 cm. The cervix is closed and measures 4.0 cm in length. The composite ultrasound gestational age is calculated at 20 weeks 5 days with an estimated sonographic due date of 10/19/2022. The estimated weight is 371 grams which lies at the 69th %. The following biometric measurements were obtained: Biparietal diameter: 4.9 cm/21 weeks 0 days 76th% Head circumference: 18.3 cm/20 weeks 5 days 61st% Abdominal circumference: 16.0 cm/21 weeks 1 day 70th% Femur length: 3.3 cm/20 weeks 1 day 39th% The HC/AC ratio measures: 1.15 range (1.06-1.25) On anatomic survey, there is a normal appearance of the cerebral ventricles, cavum septi pellucidi, cisterna magna and cerebellum. The nose, lips, and facial profile appear normal. The cervical, thoracic and lumbar spine are well visualized and appear normal. There is a normal four-chamber heart view and the left and right ventricular outflow tracts appear normal. The diaphragm and stomach appear normal. The kidneys and bladder also appear normal. There is a normal three-vessel cord and cord insertion site. The four extremities appear normal. IMPRESSION: Normal OB ultrasound exam with concordance of clinical and sonographic dating. No intrinsic abnormalities noted on anatomic survey. Dictated by Glen Mcclure MD @ 06/06/2022 11:13:04 AM (Electronically Signed)
== END 2022-06-06 09:17 | disposition home or self-care (01) ==
LOC: US 09:16
PROVIDERS: PCP Obstetrics & Gynecology; Visit Provider Obstetrics & Gynecology
DX: Z34.92 Encounter for supervision of normal pregnancy, unspecified, second trimester (principal); Z3A.20 20 weeks gestation of pregnancy
CPT/HCPCS: 76805

== ENCOUNTER 2022-07-11 12:02 | Outpatient (CLI) | payer MEDICAID, SELFPAY | END 2022-07-11 12:03 | disposition home or self-care (01) | LOC: NFLDREF 12:03 | PROVIDERS: PCP Obstetrics & Gynecology; Visit Provider Obstetrics & Gynecology | DX: Z34.92 Encounter for supervision of normal pregnancy, unspecified, second trimester (principal); Z3A.25 25 weeks gestation of pregnancy; R53.83 Other fatigue | CPT/HCPCS: 84443 ==

== ENCOUNTER 2022-08-01 11:15 | Outpatient (CLI) | payer MEDICAID, SELFPAY | END 2022-08-01 11:16 | disposition home or self-care (01) | LOC: NFLDREF 08-03 14:36 | PROVIDERS: PCP Obstetrics & Gynecology; Referring Provider Obstetrics & Gynecology; Visit Provider Obstetrics & Gynecology | DX: Z34.93 Encounter for supervision of normal pregnancy, unspecified, third trimester (principal); Z3A.28 28 weeks gestation of pregnancy | CPT/HCPCS: 86592 ==

== ENCOUNTER 2022-08-25 12:48 | Outpatient (RCR) | payer MEDICAID, SELFPAY | END 2022-12-05 12:40 | disposition home or self-care (01) | PROVIDERS: PCP Obstetrics & Gynecology; Visit Provider Obstetrics & Gynecology | DX: O99.891 Other specified diseases and conditions complicating pregnancy (principal); R27.8 Other lack of coordination; M62.00 Separation of muscle (nontraumatic), unspecified site; S39.012A Strain of muscle, fascia and tendon of lower back, initial encounter; R10.2 Pelvic and perineal pain; Z51.89 Encounter for other specified aftercare | CPT/HCPCS: 97110; 97112; 97161; 97530 ==

== ENCOUNTER 2022-10-16 12:05 | Outpatient (CLI) | payer MEDICAID, SELFPAY ==
[2022-10-16 12:33] LABS: Amnisure Rom* Negative
== END 2022-10-16 13:30 | disposition home or self-care (01) ==
LOC: OB OUT 12:06 → OB 12:07
PROVIDERS: Visit Provider Obstetrics & Gynecology
DX: Z34.93 Encounter for supervision of normal pregnancy, unspecified, third trimester (principal); Z3A.39 39 weeks gestation of pregnancy
CPT/HCPCS: 59025; 84112; 99213

== ENCOUNTER 2022-10-20 01:10 | Inpatient (IN) | payer MEDICAID, SELFPAY ==
[2022-10-20] VITALS (56 sets, daily range): BP systolic 83–124; BP diastolic 47–74; PULSE 73–134; RESP 16; TEMP 36.3–36.8; O2SAT 87–100; BMI 36.7
--- NOTE | 2022-10-20 01:33 | P.LDBA_ITS ---
Documented by User: Flori Drake MD 10/20/22 01:37 Subjective History of Present Illness Date Seen: 10/20/22 Narrative: Patient is being admitted to Labor and Delivery for PROM at term. She is a 31 year old at 39 weeks, 5 days gestation by 1st trimester US. She had SROM at home around 10 PM on 10/19/22. OB Problem List: Partner: Goyo Ivy: Jessica(Ira)Courtney and Goyo Durán. Baby: Boy. Maykel Cottrell IDANIA 1. BMI >30 Gained 9lbs at [facility] from reported pre- weight TSH: 0.359 HgbA1c: 5.0% 2.? Rubella equivocal:??MMR? vaccine PP 3.? Referral to PT for low back pain and pubic symphyseal pain at 28 weeks Flu: given 03/21/22 Covid: Tdap: 08/29/22 Her full history and physical was dictated by Dr. Park on 09/30/22. Please see this for details. OB - Problem Based A/P Additional Plan (1) SROM (spontaneous rupture of membranes): Status: Acute Plan PROM at term. Currently yue about Q 8 minutes. If no spontaneous labor, begin pitocin augmentation. OB Exam Physical Exam Vital signs: Pulse BP Pulse Ox 101 H 109/74 95 10/20/22 00:18 10/20/22 00:18 10/20/22 00:18 Narrative: tracing: Baseline 135 / accels present / no decels / moderate variability. Category I tracing. Documented by User: Ruth Saxena MD 10/20/22 09:10 OB - Problem Based A/P Additional Plan (1) SROM (spontaneous rupture of membranes): Status: Acute Plan 1. PROM at term. 2. Currently yue about Q 8 minutes. If no spontaneous labor, begin pitocin augmentation. 3. Expect vaginal delivery OB Exam Physical Exam Narrative: tracing: Baseline 135 / accels present / no decels / moderate variability. Category I tracing. GENERAL APPEARANCE: Pleasant, , well-groomed woman in no acute distress. VITAL SIGNS: as noted in nursing notes HEAD: Normocephalic, atraumatic. LUNGS: Clear to auscultation bilaterally without wheezes, rales or rhonchi. HEART: Regular rate and rhythm with normal S1 and S2. No gallop, rub or murmur. ABDOMEN: Gravid. Soft, nontender, nondistended, with normal bowels sounds throughout. EXTREMITIES: No cyanosis, clubbing, or edema. [+/-] varicosities. NEUROLOGIC: Normal gait and balance. Normal deep tendon reflexes at bilateral patella 2+/2, equal without clonus. PSYCHIATRIC: alert and oriented x3. Normal speech pattern, eye contact and affect. SKIN: Warm, dry, and well perfused. Good turgor. No lesions, nodules or rashes.
[2022-10-20 01:46] LABS: Basophils Percent Auto 0.4 % (0.0-3.0); Eosinophils Percent Auto 0.4 % (0.0-7.0); Hematocrit 35.3 % (33.0-51.0); Hemoglobin* 12.2 gm/dL (12.0-16.0); Immature Granulocytes Pct Auto 0.4 %; Lymphocytes Percent Auto 16.3 % (20-44); Mean Corpuscular HGB Conc 35 gm/dL (32-36); Mean Corpuscular Hemoglobin 31 pg (26-34); Mean Corpuscular Volume 89 fL (80-100); Monocytes Percent Auto 10.3 % (0.0-11.0); Neutrophils Percent Auto 72.2 % (42.0-72.0); Platelet Count* 114 K/uL (140-440); RDW Coefficient of Variation % 14.3 % (11.5-15.5); Red Blood Count 3.99 m/uL (4.00-5.20); White Blood Count* 11.19 K/uL (4.50-11.00)
[2022-10-20 01:48] LABS: Slide Review Reflex No
[2022-10-20] MEDS: LACTATED RINGERS 1000 ML 1,000 ML 125 ML IV (02:15)
[2022-10-20] MEDS: OXYTOCIN 30 unit/500 ML in NS 30 UNIT/500 ML BAG IVPB ×2 (02:18→07:15)
[2022-10-20] MEDS: fentaNYL 250 MCG/5 ML inj 100 MCG EPIDURAL (05:18)
[2022-10-20] MEDS: ROPIVACAINE 0.2% 100 ml 100 ML 10 MG EPIDURAL (05:20)
[2022-10-20] MEDS: LIDOCAINE 2% (PF) 5 ML VIAL EPIDURAL (05:20)
[2022-10-20] MEDS: LACTATED RINGERS 1000 ML 1,000 ML 925 ML IV (05:21)
--- NOTE | 2022-10-20 05:32 | P.ANBPRC_ITS ---
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 Partner: Kevin Nance Semi Lives with: Partner and children Pets: none Abuse: Denies past/present Special Diet: Denies Ok with a blood transfusion: yes Culture or presybeterian beliefs: denies RISK FACTORS Exercise Times/wk: not routinely Depression/Anxiety: None DINO: 0 PHQ 9: 4 Seat Belt Use: Routinely Smoking: Denies past/present Alcohol/day: Denies while , socially Caffeine: Drink coffee, cut back a little Drug Use: Denies past/present Chicken Pox: vaccinated MRSA: Denies What is your current living situation: I presently have a place to live Problems where you live: no known problems In the past 12 months, utilities in danger of being shut off: no In the past 12 mos, have been you worried that your food would run out before you had money to buy more?: never true In the past 12 mos, the food you bought just didn't last and you didn't have money to buy more?: never true Smoking Status: Never smoker How often does anyone, including family, friends and others, physically hurt you : How often does anyone, including family, friends and others, insult or talk down to you: How often does anyone, including family, friends and others, threaten you with harm: How often does anyone, including family, friends and others, scream or curse at you: Little interest or pleasure in doing things: several days Feeling down, depressed, or hopeless: several days Meds Home Medications and Allergies Allergies Allergy/AdvReac Type Severity Reaction Status Date / Time No Known Drug Allergies Allergy Verified 10/20/22 00:35 Results Labs Labs: Laboratory Results - last 24 hr 10/20/22 01:40 WBC 11.19 H RBC 3.99 L Hgb 12.2 Hct 35.3 MCV 89 MCH 31 MCHC 35 RDW Coeff of Denis 14.3 Plt Count 114 L Neut % (Auto) 72.2 H Lymph % (Auto) 16.3 L [place] % (Auto) 10.3 Eos % (Auto) 0.4 Baso % (Auto) 0.4 Neut # (Auto) 8.10 H Lymph # (Auto) 1.80 [place] # (Auto) 1.20 H Eos # (Auto) 0.00 Baso # (Auto) 0.00 Blood Type O Positive Antibody Screen NEGATIVE Vital Signs Vital Signs: Last Vital Signs Temp 97.7 F 10/20/22 04:00 Pulse 103 H 10/20/22 05:29 Resp 16 10/20/22 04:00 BP 114/55 L 10/20/22 05:29 Pulse Ox 100 10/20/22 05:13 Weight: 91.036 kg Height: 157.48 cm Anesthesia Procedures Epidural Insertion Start Time: 04:40 Stop Time: 05:40 Start Date: 10/20/22 Stop Date: 10/20/22 Reason for Block: primary anesthetic Patient Position: sitting Performed By: Ad Lacy Preanesthetic Checklist: risks and benefits discussed, pre-op evaluation, timeout performed and anesthesia consent Prep: patient draped Monitoring: blood pressure monitoring, continuous pulse oximetry and heart rate Approach: midline Vertebral Space: lumbar (1-5) Epidural Technique: MAHENDRA saline Needle Type: Tuohy needle Injection Technique: continuous catheter Needle gauge: 17 Needle Length (cm): 10 cm Needle Insertion Depth (cm): 8 Catheter Gauge: 19 Catheter Type: multi-orifice Catheter at skin depth (cm): 9 Test Dose Result: negative and lidocaine 1.5% with epinephrine 1 to 200,000
[2022-10-20] MEDS: PHENYLEPHRINE 100 MCG/ML SYRINGE IVP ×3 (05:52→06:08)
[2022-10-20] MEDS: ePHEDrine sulfate 5 MG/ML inj 10 MG IVP (06:19)
[2022-10-20] MEDS: LACTATED RINGERS 1000 ML 1,000 ML 525 ML IV (07:27)
--- NOTE | 2022-10-20 09:10 | W.PM.VAGD1_ITS ---
Procedure Delivery date: 10/20/22 Procedure Done: Global Procedure Details: Allison is a 31 year-old G 4 P 3003 now 4 admitted on 10/19/2022 at approximately 11:00 p.m. at 39 Weeks, 5 Days gestation for PROM. SROM (PROM) occurred at 9:30 p.m. on 10/19/2021 with clear fluid. Labor Analgesia: Epidural Pitocin: Yes Labor onset: 10/20/2022 at 4:24 a.m. Complete: 10/20/2022 at 8:04 a.m. Pushin10/20/2022 at 7:56 a.m. heart tones during second stage were: Category 2 with moderate variability between contractions and intermittent variable decelerations with contractions well pushing. At 8:46 a.m. a viable male infant delivered in vertex direct OA presentation over an intact perineum via spontaneous vaginal delivery. The infant was placed on maternal abdomen. Cord was clamped and cut after a 60+ second delay. Nose and mouth were bulb suctioned. Infant weight pending. 8 at 1 minute and 9 at 5 minutes. Shoulder dystocia: No. Nuchal cord: Single nuchal cord, easily reduced at the perineum prior to delivery of the 's shoulders. Placenta delivered spontaneously and complete at 8:54 a.m. with a 3 vessel cord. Laceration(s): None. Blood loss: 75 mL. Blood loss measurement type: Quantitative Sponge and needles counts are correct. Specimen: None Mother and infant were stable after delivery. Infant's name: Maykel De SouzaSudarshan The patient is planning on Breast feeding. Events: Premature Rupture of Membrane Intrapartal Events: Labor Augmentation Delivery augmentation: pitocin Route of delivery: Laceration description: None Estimated blood loss (mL): 75 Anesthesia type: Epidural Disposition: floor [place] Infant Gender: Male presentation: vertex Placental Delivery Description: Spontaneous Cord Description: 3 Vessels, Nuchal Cord and Loose
[2022-10-20] MEDS: miSOPROStoL 800 MCG/4 TABLET PR (10:16)
[2022-10-20] MEDS: ACETAMINOPHEN 500 MG TABLET 1000 MG PO ×2 (12:52→20:57)
[2022-10-20] MEDS: IBUPROFEN 600 MG TABLET PO (16:39)
[2022-10-21 02:20] VITALS: BP 113/76; PULSE 72; RESP 16; TEMP 36.6; O2SAT 97
[2022-10-21] MEDS: IBUPROFEN 600 MG TABLET PO ×2 (02:31→08:45)
[2022-10-21 05:00] VITALS: BP 112/73; PULSE 70; RESP 16; TEMP 36.9; O2SAT 98
[2022-10-21] MEDS: ACETAMINOPHEN 500 MG TABLET 1000 MG PO (05:03)
[2022-10-21 07:23] LABS: Hemoglobin* 11.2 gm/dL (12.0-16.0)
[2022-10-21] MEDS: DOCUSATE SODIUM 100 MG CAPSULE PO (08:45)
[2022-10-21 09:00] VITALS: BP 110/70; PULSE 74; RESP 16; TEMP 36.8; O2SAT 99
--- NOTE | 2022-10-21 09:32 | P.DS_ITS ---
DS: Providers Provider Date Seen: 10/21/22 Date of admission: 10/20/22 01:10 Primary care physician: Not a Local Provider Admitting Clinician: Flori Drake MD Attending Physician on discharge: Josselin Garcia CNM DS: Diagnosis Discharge Diagnosis (1) care and examination immediately after delivery: Status: Acute (2) Lactating mother: Status: Acute Exam Narrative: Exam Narrative: GENERAL APPEARANCE:? normal affect, alert, no distress MOOD:? appropriate CHEST:? clear to auscultation HEART:? regular rate and rhythm ABDOMEN:? soft, non-tender the uterine fundus is at Umbilicus, Midline and is appropriate for the stage of recovery. PERINEUM:? mild edema of the perineum, there is a Perineal Laceration,?2nd degree, that is healing well. EXTREMITIES:? normal and trace edema Const: Vital Signs, click to edit/add: Vital Signs - 24 hr 10/20/22 09:40 10/20/22 09:55 10/20/22 10:10 Temperature Pulse Rate 109 H 107 H 111 H Pulse Rate [Pulse Oximeter] Respiratory Rate Blood Pressure 110/57 L 106/56 L 104/60 Blood Pressure [Le ft Arm] Pulse Oximetry Oxygen Delivery Me thod 10/20/22 10:25 10/20/22 10:40 10/20/22 10:40 Temperature 98 F Pulse Rate 98 82 Pulse Rate [Pulse Oximeter] Respiratory Rate 16 Blood Pressure 103/63 105/62 Blood Pressure [Le ft Arm] Pulse Oximetry Oxygen Delivery Me thod 10/20/22 13:00 10/20/22 17:13 10/20/22 20:50 Temperature 97.9 F 98.0 F 98.3 F Pulse Rate Pulse Rate [Pulse Oximeter] 93 81 90 Respiratory Rate 16 16 16 Blood Pressure Blood Pressure [Le ft Arm] 100/69 119/58 L 117/64 Pulse Oximetry 97 97 97 Oxygen Delivery Me thod Room Air Room Air Room Air 10/21/22 02:20 10/21/22 05:00 Temperature 97.9 F 98.5 F Pulse Rate Pulse Rate [Pulse Oximeter] 72 70 Respiratory Rate 16 16 Blood Pressure Blood Pressure [Le ft Arm] 113/76 112/73 Pulse Oximetry 97 98 Oxygen Delivery Me thod Room Air Room Air OB - DS: Summary Hospital Course Hospital Course: Allison is a 31 year old G 4 P 4 at 39 5/7 weeks gestation that was admitted to the [facility] on 10/20/22 for spontaneous onset of labor. She had an uncomplicated vaginal delivery. She delivered a viable male infant. The patient feels well. ?The pain is well controlled with current medications. ?She has no new complaints. ?She is breast feeding and reports that she doesn't have much milk and hasn't been able to really get him to the breast, she is using formula and continuing to attempt. She feels that overall it is going ok. Desires to see today. the patient has done well.? Vitals have been stable.? She has remained afebrile.? Has a good appetite, is tolerating a general diet. ?She is voiding without difficulty.? She is passing gas and has not had a bowel movement.? She is ambulating and denies any dizziness.? Has Small amount of rubra lochia. ?She is planning Mirena for prevention. She desires to discharge today. Peripartum Data delivery method: Vaginal Laceration description: Perineal - 2nd Degree complications: none [place] Infant Gender: Male Discharge Plan: Home Status at Discharge Functional status at discharge: independent ambulation Overall status at discharge: patient is progressing back to baseline Time Spent with Patient Time attestation: Total time spent providing and/or coordinating discharge services: Discharge Plan Discharge Disposition: Home, Self-Care Date of Admission: 10/20/22 01:10 Attending Provider on Discharge: Josselin Garcia Primary Care Provider: Provider,Not a Local Condition: Stable Anticipated Discharge Date/Time: 10/21/22 09:37 Discharge Medications: New acetaminophen 500 mg Tablet 1,000 mg PO Q6H PRNQty: 0 0RF ibuprofen 600 mg Tablet 600 mg PO Q6H PRNQty: 60 0RF Continued DHA 200 mg capsule See Rx Instructions PO DAILY Qty: 90 4RF Rx Instructions: 1 capsule orally daily; aspirin 81 mg tablet,delayed release (DR/EC) 81 mg PO QDAY Qty: 90 2RF ferrous gluconate 324 mg (38 mg iron) tablet 324 mg PO QDAY Qty: 90 2RF sennosides-docusate sodium [Colace 2-In-1] 8.6-50 mg tablet 1 tab-cap PO BID PRN (Reason: constipation) Qty: 180 2RF Discharge Orders: Discharge Order (Routine); Ordered 10/21/22 Ordered By: Josselin Garcia Patient Education: OB Over the Counter Medication Information, OB Vaginal/Bottle Feeding, OB Vaginal/Breast Feeding Additional Instructions: Discharge instructions were reviewed with the patient including signs and symptoms of infection and home going medications Nothing vaginally for 6 weeks: no tampons or intercourse Off Work or School for 6 weeks 2-week visit: discuss feeding concerns, review control options and screen for anxiety/depression. 6-week visit for an annual exam. consultation services are available to all mothers and babies for the first year after delivery.? To make an appointment, please call [phone]. Activity Level: Activity as Tolerated Discharge Diet: Regular Follow Up Appointments: [facility] [Provider Group] Forms: [employer] Info Instructions
== END 2022-10-21 11:15 | disposition home or self-care (01) | DRG 807 ==
LOC: OB CLI 10-21 15:28
PROVIDERS: Obstetrics & Gynecology; Admitting Provider Obstetrics & Gynecology; Visit Provider Obstetrics & Gynecology
DX: O42.02 Full-term premature rupture of membranes, onset of labor within 24 hours of rupture (principal); Z37.0 Single live birth; O70.1 Second degree perineal laceration during delivery; Z3A.39 39 weeks gestation of pregnancy
CPT/HCPCS: 01967; 36415; 85018; 85025; 86850; 86900; 86901; 99213; A9270; J2370; J2795; J3010; J7120